=== PATIENT | male | born 1945 | race Caucasian/White ===

== ENCOUNTER 2016-03-23 16:21 | Inpatient (IN) ==
[2016-03-23 17:22] LABS: Basophils % 0.5 %; Immature Granulocytes % 0.2 % (0-4)
[2016-03-23 17:24] LABS: Eosinophils # 0.1 K/mcL (0.0-0.6); Eosinophils % 1.7 %; Hematocrit 40.7 % (37.5-50.1); Hemoglobin 13.8 g/dL (12.9-16.9); Immature Platelets 5.9 % (1.1-6.1); Lymphocytes # 0.7 K/mcL (0.6-4.6); Lymphocytes % 16.7 %; Mean Corpuscular HGB Conc 33.9 g/dL (31.6-35.5); Mean Corpuscular Volume 103.3 fL (83.0-100.0); Mean Platelet Volume 11.3 fL (9.4-12.4); Monocytes # 0.4 K/mcL (0.0-1.3); Monocytes % 10.3 %; Neutrophils # 2.9 K/mcL (1.6-8.9); Red Blood Count 3.94 M/mcL (4.19-5.50); Segmented Neutrophils % 70.6 %
[2016-03-23 17:33] LABS: BUN/Creatinine Ratio 12 (6-26); Blood Urea Nitrogen 9 mg/dL (8-26); Carbon Dioxide 24 mEq/L (19-29); Chloride 106 mEq/L (98-109); Glucose 98 mg/dL (70-99); Potassium 4.4 mEq/L (3.5-4.5); Sodium 140 mEq/L (136-145); eGFR For African Americans > 60 (> 60); eGFR For Non-African Americans > 60 (> 60)
[2016-03-23 17:34] LABS: Calcium 9.3 mg/dL (8.6-10.8); Osmolality,Calculated 289 (280-300)
[2016-03-23 17:39] LABS: INR 1.5
[2016-03-23 17:42] LABS: Platelet Count 76 K/mcL (140-400)
[2016-03-23 17:43] LABS: Platelet Estimate Decreased (Normal)
[2016-03-23 21:32] LABS: Amphetamine Screen,Urine Negative ng/mL (Cutoff=1000); Barbiturate Screen,Urine Negative ng/mL (Cutoff=200); Benzodiazepines Screen,Urine Negative ng/mL (Cutoff=200); Cannabinoid Screen,Urine Negative ng/mL (Cutoff = 50); Cocaine Screen,Urine Negative ng/mL (Cutoff= 300); Opiate Screen,Urine Negative ng/mL (Cutoff=300); Phencyclidine Screen,Urine Negative ng/mL (Cutoff=25)
[2016-03-23] MEDS ORDERED: Naloxone 0.4 MG/ML INJ IVP PRN (21:49)
[2016-03-23] MEDS ORDERED: Ondansetron ODT 4 MG TAB.RAPDIS SL PRN (21:49)
[2016-03-23] MEDS ORDERED: *HR* Morphine 2 MG/ML SYRINGE IVP PRN (21:49)
--- NOTE | 2016-03-23 21:49 | Internal Med History&Physical ---
Date of Encounter: 03/24/16 Time of Encounter: 21:20 Assessment and Plan (1) Chest pain Current visit: Yes Status: Acute Patient describes chronic chest pain that was not relieved with aspirin earlier today Continue with aspirin and start on morphine and Lipitor Holding off on beta blockers as he is borderline bradycardic Obtain echocardiogram and lipid panel and trend troponins His chest pain may be explained by his possible underlying aortic stenosis CTA did not show any sign of aortic dissection or pulmonary embolism Qualifiers: Chest pain type: unspecified Qualified Code(s): R07.9 - Chest pain, unspecified (2) Systolic murmur Current visit: Yes Status: Acute Patient has a harsh systolic murmur that was unknown to him prior to today Likely aortic stenosis given presentation: loudest at the right sternal border, SOB/pain with exertion, fatigue/feeling faint Will order echocardiogram for further assessment (3) Mental status change Current visit: Yes Status: Chronic Patient is a poor historian and is unable to clearly describe his mental status changes will rule out metabolic etiology with folate, B12, TSH levels for now Initial head CT has been negative Qualifiers: Qualified Code(s): R41.82 - Altered mental status, unspecified (4) DVT prophylaxis Current visit: Yes Status: Acute Heparin 5000 units twice a day Internal Medicine - H&P: HPI Chief complaint: chest pain, shortness of breath Admitted From: Home Plans for Post Hospital Care: Home History of present illness: Mr. Villa is a 71 year old male who presents with chest pain and shortness of breath that has been intermittent for the last year. Patient admits that he has not seen a doctor in at least 5 years. He is a poor historian, but his brother is at bedside and is able to assist with some of the history. He is unsure of the initial episode of chest pain but states that it worsens with exertion and he also developed some shortness of breath. He repeatedly mentions having "spells where he becomes confused and also has blurry vision. He has never been worked up for chest pain or any of these spells but states that his vision has been worsening over the past week. He denies having any falls but does state he gets lightheaded and needs to sit down during these episodes. He said that he had aspirin earlier today and it did not help. Patient states that he has had 25-30 pounds of weight loss over the past 2-3 months without trying, and claims that he has difficulty digesting fatty and greasy foods though he denies any diarrhea or vomiting. Past Med Surg Social Fam HX - Past Medical History Medical history: non-contributory, other Psychiatric history: no psych history - Social History Smoking Status: Never smoker Smokeless Tobacco Status: No Alcohol use: none Drug use: none Internal Medicine - H&P: Meds Allergies Sulfa (Sulfonamide Antibiotics) Allergy (Verified 03/23/16 20:40) Hives All Systems PM: A 10-system review of systems was performed and is negative for pertinent findings except as documented above in the HPI. - Constitutional Constitutional: lethargy, weight loss, no chills, no fever(s), no falls, no night sweats - EENT Eyes: diplopia, no change in vision, no discharge, no pain, no photophobia Ears: no ear discharge, no ear pain, no tinnitus Nose, mouth and throat: no dysphagia, no nasal discharge, no neck pain, no sore throat - Cardiovascular Cardiovascular ROS IM: chest pain, dyspnea, dyspnea on exertion, lightheadedness , no diaphoresis, no palpitations, no syncope - Respiratory Respiratory: dyspnea, dyspnea on exertion, no cough, no wheezing, no excessive phlegm production - Gastrointestinal Gastrointestinal: no abdominal pain, no diarrhea, no hematemesis, no hematochezia, no melena, no nausea, no vomiting - Musculoskeletal Musculoskeletal ROS IM: numbness, tingling - Integumentary Integumentary IM: no rash, no unusual bruising - Neurological Neurological ROS: confusion, numbness, tingling, no convulsions, no focal weakness, no frequent falls, no tremor(s) - Hematologic/Lymphatic Hematologic/Lymphatic: no easy bruising - Constitutional Vitals: Temp Pulse Resp BP Pulse Ox 97.4 F L 57 16 116/63 100 03/23/16 21:40 03/23/16 21:40 03/23/16 21:40 03/23/16 21:40 03/23/16 21:40 General appearance: Present: A&O X 3, pleasant, no acute distress, answers questions appropriately (poor historian) - Head Head exam: Present: atraumatic, normocephalic - Eye Eye exam: Present: EOMI, PERRL, conjuntiva pink, sclera anicteric - Neck Neck exam general surgery: Present: supple, trachea midline. Absent: lymphadenopathy - Respiratory Respiratory exam: Present: CTAB. Absent: accessory muscle use, rales, rhonchi, wheezes - Cardiovascular Cardiovascular exam: Present: RRR, +S1, +S2, systolic murmur (3/6). Absent: diastolic murmur, gallop, rubs - GI/Abdominal GI/Abdominal exam: Present: normal bowel sounds, soft, no peritoneal signs. Absent: distended, firm, guarding, tenderness - Extremities Exam Extremities exam: Present: warm, radial pulses palpable and symetrical. Absent : calf tenderness, cyanotic, pedal edema - Neurological Exam Neurological exam: Present: alert, CN II-XII intact, oriented X3, no focal deficits. Absent: facial droop, speech deficit - Skin Skin exam: Present: dry, intact Internal Med - H&P Results - Labs CBC & Chem 7: 03/24/16 04:17 03/24/16 04:17
[2016-03-23] MEDS ORDERED: Nitroglycerin 0.4 MG TAB.SUBL SL PRN (21:54)
--- NOTE | 2016-03-23 22:08 | Emergency Department Note ---
Disposition Clinical Impression: Chest pain Qualifiers: Chest pain type: unspecified Qualified Code(s): R07.9 - Chest pain, unspecified Disposition: Home, Self-Care Condition: Good Referrals: NO,PCP [Primary Care Provider] - Forms: ED Satisfaction Letter Chest Pain HPI - General Chief Complaint: ED Chest Pain Stated Complaint: CP, weakness, WHIT Source: patient, EMS Limitations: no limitations Vital Signs Reviewed: Yes Nursing Notes Reviewed: Yes - History of Present Illness HPI Narrative: 71-year-old male who presents with concern for intermittent chest pain as well as dyspnea. History of hypertension. History of hyperlipidemia. No recent stress testing or cardiac catheterization. Chest pain has been intermittent, dyspnea as intermittent. He does not have a buttonhole maker hand. He denies hemoptysis , capping or leg tenderness. He mentioned nonspecific abdominal pain, intermittent diplopia, some coldness in his lower extremities. Severity scale (1-10): 2 - Related Data Allergies Allergy/AdvReac Type Severity Reaction Status Date / Time Sulfa (Sulfonamide Allergy Hives Verified 03/23/16 20:40 Antibiotics) All systems ED: reviewed and negative except as stated. Chest Pain PMH - Past Medical History Medical history: Reports: non-contributory, other Psychiatric history: Reports: no psych history - Social History Smoking Status: Never smoker Alcohol use: Reports: none Drug use: Reports: none Physical Exam Alert and oriented, no acute distress [place] warm and dry TMs clear bilaterally, extraocular muscle movements are normal, pupils equal and reactive to light Trachea midline Cardiovascular exam is without murmur, rub, gallop Pulmonary exam is good inspiratory effort, no rales, no rhonchi, no wheezing Abdominal exam is soft, nontender, no peritonitis Back is without CVA tenderness Extremities are well perfused, no cyanosis, clubbing, edema No neurological deficit, cranial nerves II/12 grossly intact, reflexes 5/5, sensation normal - General Limitations: no limitations General appearance: alert Course Vital Signs Temperature 98.1 F 03/23/16 16:29 Pulse Rate 60 03/23/16 16:29 Respiratory Rate 24 03/23/16 16:29 Blood Pressure 134/69 03/23/16 16:29 O2 Sat by Pulse Oximetry 100 03/23/16 16:29 Temperature 97.4 F L 03/23/16 21:40 Pulse Rate 57 03/23/16 21:40 Respiratory Rate 16 03/23/16 21:40 Blood Pressure 116/63 03/23/16 21:40 O2 Sat by Pulse Oximetry 100 03/23/16 21:40 Oxygen Delivery Oxygen Delivery Room Air Chest Pain - MDM Narrative Medical decision making narrative: Intermittent diplopia, subjective confusion, chest pain nonspecific, nonspecific abdominal pain. Given constitutional symptoms in the setting of coldness and lower extremities as well as possible visual abnormalities I did pursue imaging of the brain which shows no acute findings. I did evaluate his neck to rule out dissection and that shows no evidence of acute occlusion or dissection. His no evidence of aortic dissection and given his coldness in the lower extremities and a pursue the possibility of abdominal dissection with extension into the iliac arteries and this is negative at this time. His cardiac biomarkers are negative. He took aspirin prior to arrival. Nitrates will not be given because of blood pressure being low. EKG is nondiagnostic for STEMI. I did compare his EKG to his previous EKG which shows nonspecific anteriorly changes and no ST segment elevation. He will be admitted to medical surgical floor in stable condition. - Medical Records Medical records reviewed: Yes I reviewed the patient's medical records. - Lab Data Lab results reviewed: Yes I reviewed the patient's lab results. Result diagrams: 03/23/16 17:05 03/23/16 17:05 Lab Results 03/23/16 03/23/16 03/23/16 Range/Units 16:38 17:05 17:05 WBC (4.3-11.1) K/mcL RBC (4.19-5.50) M/mcL Hgb (12.9-16.9) g/dL Hct (37.5-50.1) % MCV (83.0-100.0) fL MCH (28.0-33.3) pg MCHC (31.6-35.5) g/dL RDW (11.5-14.5) % Plt Count (140-400) K/mcL MPV (9.4-12.4) fL Immature Gran % (0-4) % Seg Neutrophils % % Lymphocytes % % Monocytes % % Eosinophils % % Basophils % % Neutrophils # (1.6-8.9) K/mcL Lymphocytes # (0.6-4.6) K/mcL Monocytes # (0.0-1.3) K/mcL Eosinophils # (0.0-0.6) K/mcL Basophils # (0.0-0.2) K/mcL Platelet Estimate (Normal) Immature Plt Fraction (1.1-6.1) % PT (9.4-12.1) Seconds INR APTT (26.0-36.0) Seconds Sodium (136-145) mEq/L Potassium (3.5-4.5) mEq/L Chloride (98-109) mEq/L Carbon Dioxide (19-29) mEq/L BUN (8-26) mg/dL Creatinine (0.72-1.25) mg/dL Est GFR ( Amer) (> 60) Est GFR (Non-Af Amer) (> 60) BUN/Creatinine Ratio (6-26) Glucose (70-99) mg/dL POC Glucose 114 H (58-89) Calculated Osmolality (280-300) Calcium (8.6-10.8) mg/dL Troponin I (0-0.03) ng/mL B-Natriuretic Peptide 527 H (0-100) pg/mL Lipase 38 (8-78) Units/L Urine Opiates Screen (Hvrtsz=264) ng/mL Ur Barbiturates Screen (Ofrdsg=993) ng/mL Ur Phencyclidine Scrn (Cutoff=25) ng/mL Ur Amphetamines Screen (Mcftvt=8701) ng/mL U Benzodiazepines Scrn (Xjjfjr=679) ng/mL Urine Cocaine Screen (Cutoff= 300) ng/mL U Marijuana (THC) Screen (Cutoff = 50) ng/mL 03/23/16 03/23/16 03/23/16 Range/Units 17:05 17:05 17:05 WBC 4.1 L (4.3-11.1) K/mcL RBC 3.94 L (4.19-5.50) M/mcL Hgb 13.8 (12.9-16.9) g/dL Hct 40.7 (37.5-50.1) % MCV 103.3 H (83.0-100.0) fL MCH 35.0 H (28.0-33.3) pg MCHC 33.9 (31.6-35.5) g/dL RDW 13.0 (11.5-14.5) % Plt Count 76 L (140-400) K/mcL MPV 11.3 (9.4-12.4) fL Immature Gran % 0.2 (0-4) % Seg Neutrophils % 70.6 % Lymphocytes % 16.7 % Monocytes % 10.3 % Eosinophils % 1.7 % Basophils % 0.5 % Neutrophils # 2.9 (1.6-8.9) K/mcL Lymphocytes # 0.7 (0.6-4.6) K/mcL Monocytes # 0.4 (0.0-1.3) K/mcL Eosinophils # 0.1 (0.0-0.6) K/mcL Basophils # 0.0 (0.0-0.2) K/mcL Platelet Estimate Decreased L (Normal) Immature Plt Fraction 5.9 (1.1-6.1) % PT (9.4-12.1) Seconds INR APTT (26.0-36.0) Seconds Sodium 140 (136-145) mEq/L Potassium 4.4 (3.5-4.5) mEq/L Chloride 106 (98-109) mEq/L Carbon Dioxide 24 (19-29) mEq/L BUN 9 (8-26) mg/dL Creatinine 0.76 (0.72-1.25) mg/dL Est GFR ( Amer) > 60 (> 60) Est GFR (Non-Af Amer) > 60 (> 60) BUN/Creatinine Ratio 12 (6-26) Glucose 98 (70-99) mg/dL POC Glucose (58-89) Calculated Osmolality 289 (280-300) Calcium 9.3 (8.6-10.8) mg/dL Troponin I 0.01 (0-0.03) ng/mL B-Natriuretic Peptide (0-100) pg/mL Lipase (8-78) Units/L Urine Opiates Screen (Nqlxes=154) ng/mL Ur Barbiturates Screen (Shbrjv=258) ng/mL Ur Phencyclidine Scrn (Cutoff=25) ng/mL Ur Amphetamines Screen (Viciax=1249) ng/mL U Benzodiazepines Scrn (Jjqelq=530) ng/mL Urine Cocaine Screen (Cutoff= 300) ng/mL U Marijuana (THC) Screen (Cutoff = 50) ng/mL 03/23/16 03/23/16 Range/Units 17:24 20:19 WBC (4.3-11.1) K/mcL RBC (4.19-5.50) M/mcL Hgb (12.9-16.9) g/dL Hct (37.5-50.1) % MCV (83.0-100.0) fL MCH (28.0-33.3) pg MCHC (31.6-35.5) g/dL RDW (11.5-14.5) % Plt Count (140-400) K/mcL MPV (9.4-12.4) fL Immature Gran % (0-4) % Seg Neutrophils % % Lymphocytes % % Monocytes % % Eosinophils % % Basophils % % Neutrophils # (1.6-8.9) K/mcL Lymphocytes # (0.6-4.6) K/mcL Monocytes # (0.0-1.3) K/mcL Eosinophils # (0.0-0.6) K/mcL Basophils # (0.0-0.2) K/mcL Platelet Estimate (Normal) Immature Plt Fraction (1.1-6.1) % PT 16.0 H (9.4-12.1) Seconds INR 1.5 APTT 31.0 (26.0-36.0) Seconds Sodium (136-145) mEq/L Potassium (3.5-4.5) mEq/L Chloride (98-109) mEq/L Carbon Dioxide (19-29) mEq/L BUN (8-26) mg/dL Creatinine (0.72-1.25) mg/dL Est GFR ( Amer) (> 60) Est GFR (Non-Af Amer) (> 60) BUN/Creatinine Ratio (6-26) Glucose (70-99) mg/dL POC Glucose (58-89) Calculated Osmolality (280-300) Calcium (8.6-10.8) mg/dL Troponin I (0-0.03) ng/mL B-Natriuretic Peptide (0-100) pg/mL Lipase (8-78) Units/L Urine Opiates Screen Negative (Ndvnzj=019) ng/mL Ur Barbiturates Screen Negative (Hlcorn=302) ng/mL Ur Phencyclidine Scrn Negative (Cutoff=25) ng/mL Ur Amphetamines Screen Negative (Lkbhhk=0463) ng/mL U Benzodiazepines Scrn Negative (Vwgorj=949) ng/mL Urine Cocaine Screen Negative (Cutoff= 300) ng/mL U Marijuana (THC) Screen Negative (Cutoff = 50) ng/mL
[2016-03-23] MEDS ORDERED: ALPRAZolam 0.25 MG TABLET PO ONE (23:35)
[2016-03-24] MEDS ORDERED: 0.9 % Sodium Chloride 1,000 ML IVC SCH (00:30)
[2016-03-24] MEDS ORDERED: *HR* Morphine 2 MG/ML SYRINGE IVP PRN (00:31)
[2016-03-24] MEDS: Melatonin 3 MG TABLET PO PRN ×2 (00:55→20:50)
--- NOTE | 2016-03-24 03:58 | Event Note ---
Date of Encounter: 03/24/16 Time of Encounter: 03:55 Patient seen and examined with medical staff assistant. Patient presents with intermittent chest pain and shortness of breath lightheadedness over the past year. No known history of coronary artery disease. He is having a harsh systolic murmur over the 1st aortic area suggestive of aortic regurge. It is late peaking so I suspect it is at least moderate in severity. I suspect is responsible for his symptoms. Echocardiogram will be performed. Also r/o acute coronary syndrome. Cardiology consultation. Telemetry monitoring. Observation admissison
[2016-03-24 04:27] LABS: Basophils % 0.7 %; Hematocrit 36.7 % (37.5-50.1)
[2016-03-24 04:29] LABS: Eosinophils # 0.1 K/mcL (0.0-0.6); Eosinophils % 2.4 %; Hemoglobin 12.1 g/dL (12.9-16.9); Immature Granulocytes % 0.3 % (0-4); Lymphocytes # 0.9 K/mcL (0.6-4.6); Lymphocytes % 30.8 %; Mean Corpuscular Hemoglobin 34.2 pg (28.0-33.3); Mean Corpuscular Volume 103.7 fL (83.0-100.0); Mean Platelet Volume 10.7 fL (9.4-12.4); Monocytes # 0.3 K/mcL (0.0-1.3); Monocytes % 11.4 %; Neutrophils # 1.6 K/mcL (1.6-8.9); Red Blood Count 3.54 M/mcL (4.19-5.50); Red Cell Distribution Width 13.1 % (11.5-14.5); Segmented Neutrophils % 54.4 %
[2016-03-24 04:35] LABS: Platelet Count 74 K/mcL (140-400)
[2016-03-24 04:54] LABS: Alanine Aminotransferase 17 Units/L (0-55); Albumin 3.5 g/dL (3.5-5.0); Albumin/Globulin Ratio 1.7 (1.1-2.2); Alkaline Phosphatase 58 Units/L (38-126); Aspartate Amino Transferase 21 Units/L (5-34); BUN/Creatinine Ratio 12 (6-26); Bilirubin,Total 0.5 mg/dL (0.2-1.2); Blood Urea Nitrogen 9 mg/dL (8-26); Calcium 8.8 mg/dL (8.6-10.8); Carbon Dioxide 27 mEq/L (19-29); Chloride 108 mEq/L (98-109); Cholesterol 98 mg/dL (< 200); Globulin 2.1 g/dL (2.4-3.5); Glucose 88 mg/dL (70-99); HDL Cholesterol 33 mg/dL (40-59); LDL Cholesterol,Calculated 56 mg/dL (0-99); Osmolality,Calculated 290 (280-300); Potassium 3.9 mEq/L (3.5-4.5); Sodium 141 mEq/L (136-145); Total Protein 5.6 g/dL (6.0-8.3); Triglycerides 46 mg/dL (< 150); eGFR For African Americans > 60 (> 60); eGFR For Non-African Americans > 60 (> 60)
[2016-03-24 05:30] LABS: Folate 11.2 ng/mL (7.0-31.4)
[2016-03-24] MEDS: *HR* Heparin 5,000 UNIT/ML VIAL SQ SCH ×2 (06:14→17:55)
[2016-03-24] MEDS: Aspirin 81 MG TAB.CHEW PO SCH (08:44)
--- NOTE | 2016-03-24 09:56 | Cardiology Consult Note ---
Date of Encounter: 03/24/16 Time of Encounter: 09:30 Assessment and Plan (1) Systolic murmur Current Visit: Yes Status: Acute Per cardiology: -Patient with systolic murmur noted prominently at second intercostal space right sternal border. No previous history of murmur, no previous cardiac work up. (TAY) -Patient with chest pain and shortness of breath on exertion. Suspect aortic stenosis, will await echocardiogram results. (TAY) -BNP noted at 527. (TAY) -Unable to start beta mac due to bradycardia with average heart rate 57. (TAY ) -Unable to start sara inhibitor due to hypotension with latest BP 94/55. (TAY) -Echocardiogram pending. Further recommendations once echocardiogram completed. (TAY) (2) Thoracic ascending aortic aneurysm Current Visit: Yes Status: Acute Per cardiology: -4.4cm thoracic ascending aortic aneurysm noted on CT chest. Patient states no history of aneurysm. (TAY) -Further recommendations once echocardiogram complete. (TAY) (3) Chest pain Current Visit: Yes Status: Acute Per cardiology: -Patient states chronic chest pain that has been intermittent for the past year. Patient states nothing aggravates or relieves pain. (TAY) -ECG with sinus bradycardia. Peaked T waves noted in V2, V3, and V4, slightly more prominent than previously ECG from 1998. (TAY) -Troponins negative x3. (TAY) -Currently chest pain free. (TAY) -Recommend adding beta mac and sara inhibitor once patient's BP and heart rate will tolerate. (TAY) -Further recommendations once echocardiogram complete. (TAY) Qualifiers: Chest pain type: unspecified Qualified Code(s): R07.9 - Chest pain, unspecified (4) Pancytopenia Current Visit: Yes Status: Acute Per cardiology: - On 03/24/16 WBC noted 2.9, HGB 12.1, PLT 74. (TAY) -Patient states no history of bleeding disorders or issues with labs. Patient states has never seen a orbitread operator. (TAY) -Recommend consulting hematology per primary service for recommendations regarding pancytopenia. (TAY) Discussion w patient/family: The assessment and plan as outlined above was discussed with the patient who expressed understanding and agreement. All questions were answered. Thank you for involving us in the care of your patient. Please call with any questions. Discussed and reviewed with . History of Present Illness Consult date: 03/24/16 Requesting physician: Freddy Goodson Consult reason: Chest pain, Aortic stenosis Chief complaint: Chest pain, numbness in hands and feet. History of present illness: Mr. Villa is a 71 year old male who presented to [facility] with compaints of chest pain, numbness in hands and feet, and blurred vision. Patient states he has also had increased shortness of breath. Patient states he has had these symptoms for a year and has not been seen by a provider for these issues. Patient states the last time he was seen by a provider was 5 years ago. Patient denies current chest pain. Patient states chest pain was at rest and pain resolved without intervention. Patient states this chest pain has been intermittent for the last year. Patient states he has over the last couple of months lost 25-30 pounds without trying. Patient denies ever being told he has a murmur and denies any cardiac history. Patient states he has never seen a twill cutter prior. (TAY) Past Med Surg Social Fam HX - Past Medical History Medical history: non-contributory, other Psychiatric history: no psych history - Social History Smoking Status: Never smoker Smokeless Tobacco Status: No Alcohol use: none Drug use: none Medications and Allergies Ascorbate Calcium [Vitamin C] 500 mg PO DAILY 03/24/16 [History] Calcium Carbonate [Calcium] 600 mg PO DAILY 03/24/16 [History] Cyanocobalamin (Vitamin B-12) [Vitamin B-12] 1,000 mcg SL DAILY 03/24/16 [ History] Magnesium 200 mg PO DAILY 03/24/16 [History] Allergies Sulfa (Sulfonamide Antibiotics) Allergy (Verified 03/24/16 09:06) Hives patient states childhood reaction All Systems Review: A 10-system review of systems was performed and is negative for pertinent findings except as documented above in the HPI. - Constitutional Constitutional: fatigue, weight loss - EENT Eyes: blurred vision - Cardiovascular Cardiovascular: chest pain at rest, dyspnea on exertion - Respiratory Respiratory: dyspnea - Neurological Neurological: numbness Physical Examination Vital Signs, Last 4 Hours Temp Pulse Resp BP Pulse Ox 03/24/16 07:58 97.4 F L 55 15 94/55 99 General: Conversant, No Apparent Distress HEENT: Atraumatic, Normocephaly, Mucus Membranes Moist Neck: No JVD Cardiac: Reg Rate and Rhythm, Normal S1 and S2, Other (Systolic murmur noted at second intercostal space, right sternal border. ) Lungs: Normal Breath Sounds, No Wheeze, Rales, Rhonchi Neuro: Alert and responsive, No focal deficits noted Abdomen: Soft, Non-Tender Skin: No rashes noted on visualized skin Musculoskeletal: No Chest Wall Tenderness Extremities: No Clubbing, No Cyanosis, No Edema, Normal Pulses Results 03/24/16 04:17 03/24/16 04:17 Lab Results 03/23/16 03/24/16 03/24/16 22:53 04:17 04:17 WBC Hgb Hct Plt Count Sodium 141 Potassium 3.9 Chloride 108 Carbon Dioxide 27 BUN 9 Creatinine 0.75 Glucose 88 Calcium 8.8 Total Bilirubin 0.5 AST 21 ALT 17 Alkaline Phosphatase 58 Troponin I 0.02 0.02 TSH 03/24/16 03/24/16 04:17 04:17 WBC 2.9 L Hgb 12.1 L D Hct 36.7 L Plt Count 74 L Sodium Potassium Chloride Carbon Dioxide BUN Creatinine Glucose Calcium Total Bilirubin AST ALT Alkaline Phosphatase Troponin I TSH 2.448 - Imaging and Cardiology Chest Xray: pending Echo: pending Other Results: CTA chest reviewed. - EKG Interpretation EKG results cardiology: personally reviewed (ECG noted with peaked T waves in leads V2, V3, and V4 which are slightly more prominent than last ECG from 1998.) , sinus rhythm, other (Telemtry reviewed and noted sinus bradycardia with average heart rate 57. Minimum heart rate 47. One episode of PSVT of 6 beats. Occasional PVCs noted.) Consult Discharge Plan - Plan Referrals: NO,PCP [Primary Care Provider] -
--- NOTE | 2016-03-24 12:46 | Internal Med Progress Note ---
<Brayden Mason - Last Filed: 03/24/16 12:39> Date of Encounter: 03/24/16 Time of Encounter: 12:41 - Assessment and plan (1) Chest pain Current Visit: Yes Status: Acute Assessment and plan: Curently the patient is chest pain free. difficult to asses whether typical or atypical as patient unsure about exacerbating and alleviating factors. Troponins Negative X 3 No acute EKG findings. Concerns for possible valvular etiology as he has a new murmur. He has palpable carotid pulses but they seem a bit diminished. No obvious pulsus parvus et tardus. Will need to r/o Severe prior to stress testing. If severe will likely need LHC and referrel to CT surgery. Will defer to cardiology and appreciate their recommendations. Qualifiers: Chest pain type: unspecified Qualified Code(s): R07.9 - Chest pain, unspecified (2) Thoracic ascending aortic aneurysm Current Visit: Yes Status: Acute Assessment and plan: Ascending Aorta 4.4 cm No Beta mac at this time as there is no sign of dissection on CT and he has been bradycardic. follow up with echocardiogram results. will need to be followed as an outpatient as well. (3) Pancytopenia Current Visit: Yes Status: Acute Assessment and plan: etiology unclear. However concerning as he also admits to weight loss. ANC 1600 so he is not neutropenic at this time. With complaints of intermittent RUQ pain may consider early cirrhosis. However albumin is normal and has no obvious stigmata of cirrhosis. INR elevated 1.5 Will consider Us of liver . May need to consider Hematology consult if etiology is unclear. (4) Systolic murmur Current Visit: Yes Status: Acute Assessment and plan: as stated above. F/U with echo. (5) Mental status change Current Visit: Yes Status: Chronic Assessment and plan: patient is now alert and orientated. However he is a poor historian and unsure about his medical history. Qualifiers: Qualified Code(s): R41.82 - Altered mental status, unspecified (6) Weight loss Current Visit: Yes Status: Acute Assessment and plan: patient reports 25 pound weight loss over past 2-3 months. He states this is unintentional No night sweats or lymphadenopathy current weight is entered incorrectly. He has a weight of 147 Kg but this must be entered incorrectly as he appears underweight. I have asked Nursing staff to weigh him again. (7) DVT prophylaxis Current Visit: Yes Status: Acute Assessment and plan: SQ heparin - Subjective Interval history: No major events overnight. Patient states that he is chest pain free. He states that when he bourne have chest pain that it is midsternal and will radiate to the left arm. He thinks that it is brought on by walking but unsure. He reports having spells where his arems and legs will get numb , blurred vision and gerard dizzyness. He states the last epsiode was 1-2 days ago. He has not had any today. He dose associate his chest pains symptoms with eating greasy foods. He states that he will often get liver or gallbladder pain after eating fatty foods. He also admits to weight loss. He states that he thinks he has lost 25 pounds in the last 2 moths. He denies night sweats. He is unsure if he has had his routine cancer screenng. Of note he is somewhat a poor historian as he is unsure of some of his medicla history. He has no further complaints at this time. - Constitutional Vitals: Temp Pulse Resp BP Pulse Ox 97.6 F 51 16 91/49 100 03/24/16 11:44 03/24/16 11:44 03/24/16 11:44 03/24/16 11:44 03/24/16 11:44 General appearance: Present: A&O X 3, pleasant, no acute distress, underweight, answers questions appropriately (poor historian) Exam: thin - Head Head exam: Present: atraumatic, normal inspection, normocephalic - Eye Eye exam: Present: PERRL, conjuntiva pink, sclera anicteric Pupils: Present: PERRL - ENT ENT exam: Present: mucous membranes moist - Neck Neck exam general surgery: Present: supple, trachea midline. Absent: lymphadenopathy - Respiratory Respiratory exam: Present: CTAB. Absent: accessory muscle use, rales, rhonchi, wheezes - Cardiovascular Cardiovascular exam: Present: RRR, +S1, +S2, systolic murmur (He has a 3/6 ( no palpable thrill) systolic ejection murmur that radiates into the neck. the carotid pulses are palpble but fill diminished. No obvious pulsus parvus et tardus. ). Absent: diastolic murmur, gallop, rubs - GI/Abdominal GI/Abdominal exam: Present: normal bowel sounds, soft, no peritoneal signs. Absent: distended, tenderness - Extremities Exam Extremities exam: Present: warm, radial pulses palpable and symetrical. Absent : calf tenderness, cyanotic, pedal edema Internal Medicine: Result - Labs CBC & Chem 7: 03/24/16 04:17 03/24/16 04:17 Labs: Short CBC 03/24/16 Range/Units 04:17 WBC 2.9 L (4.3-11.1) K/mcL Hgb 12.1 L D (12.9-16.9) g/dL Hct 36.7 L (37.5-50.1) % Plt Count 74 L (140-400) K/mcL Neutrophils # 1.6 (1.6-8.9) K/mcL BMP 03/24/16 04:17 Sodium 141 Potassium 3.9 Chloride 108 Carbon Dioxide 27 BUN 9 Creatinine 0.75 Glucose 88 Calcium 8.8 Cardiac Enzymes 03/23/16 03/24/16 Range/Units 22:53 04:17 Troponin I 0.02 0.02 (0-0.03) ng/mL Liver Function 03/24/16 Range/Units 04:17 Total Bilirubin 0.5 (0.2-1.2) mg/dL AST 21 (5-34) Units/L ALT 17 (0-55) Units/L Alkaline Phosphatase 58 (38-126) Units/L Albumin 3.5 (3.5-5.0) g/dL - ABG Interpretation ABG results: PT/INR, D-dimer PT 16.0 Seconds (9.4-12.1) H 03/23/16 17:24 Consult Discharge Plan - Plan Referrals: NO,PCP [Primary Care Provider] - <Rajiv Bullock H - Last Filed: 03/24/16 14:56> Date of Encounter: 03/24/16 - Constitutional Vitals: Temp Pulse Resp BP Pulse Ox 97.6 F 51 16 91/49 100 03/24/16 11:44 03/24/16 11:44 03/24/16 11:44 03/24/16 11:44 03/24/16 11:44 Internal Medicine: Result - Labs CBC & Chem 7: 02/14/17 04:17 03/24/16 04:17 Labs: Short CBC 03/24/16 Range/Units 04:17 WBC 2.9 L (4.3-11.1) K/mcL Hgb 12.1 L D (12.9-16.9) g/dL Hct 36.7 L (37.5-50.1) % Plt Count 74 L (140-400) K/mcL Neutrophils # 1.6 (1.6-8.9) K/mcL BMP 03/24/16 04:17 Sodium 141 Potassium 3.9 Chloride 108 Carbon Dioxide 27 BUN 9 Creatinine 0.75 Glucose 88 Calcium 8.8 Cardiac Enzymes 03/23/16 03/24/16 Range/Units 22:53 04:17 Troponin I 0.02 0.02 (0-0.03) ng/mL Liver Function 03/24/16 Range/Units 04:17 Total Bilirubin 0.5 (0.2-1.2) mg/dL AST 21 (5-34) Units/L ALT 17 (0-55) Units/L Alkaline Phosphatase 58 (38-126) Units/L Albumin 3.5 (3.5-5.0) g/dL - ABG Interpretation ABG results: PT/INR, D-dimer PT 16.0 Seconds (9.4-12.1) H 03/23/16 17:24 - Attending Attestation Echogram showed an ejection fraction of 65-70%, moderate concentric left ventricular hypertrophy and severe left ventricle diastolic dysfunction, also severely calcified aortic valve stenosis/bicuspid with mild to moderate aortic regurgitation and an aortic valve area of 0.7 cm Stress test tomorrow per cardiology, recommendations are appreciated regarding possible thoracic surgery consult versus transfer I examined this patient and my medical decision-making was reviewed with the COMMERCIAL ACCOUNT OFFICER/PA/Advanced Practice Nurse/Resident Physician. I agree with the documented findings, disposition and treatment plan as described except to the extent set forth below.
--- NOTE | 2016-03-24 13:29 | ECHO - Doppler Report ---
Echocardiogram Name: Bill Villa Date of Study: 03/24/2016 Date: 1945 Ht: 74.0 in Medical Record#: [id number] Age: 71 Wt: 140.0 lb Gender: Male BSA: 1.87 Order #: [id number] Location: [facility] Room #: 3B35 Reading Physician: Raj Short MD, [facility] Behavioral Health Tech: Margarito Sadler RN Ordering Physician: Dino Marie DO Primary Physician: None Indications: Chest pain, Shortness of breath, Murmur Impressions: Normal left ventricular size and systolic function, LVEF 65-70%. Moderate concentric left ventricular hypertrophy. Severe left ventricular diastolic dysfunction. Normal right ventricular size and function. Moderately dilated left atrium. Moderately dilated right atrium. Severely calcified aortic valve. Valve appears bicuspid with fusion of left and right coronary cusps. Severe aortic stenosis. Peak velocity 4.64 m/sec, mean gradient 49 mmHg, aortic valve area 0.72 cm2. Mild-moderate aortic regurgitation (eccentric, directed toward anterior mitral valve leaflet). Mild tricuspid regurgitation. Mild mitral regurgitation. No evidence of pulmonary hypertension. Recommend cardiology consultation. Left Ventricular Wall Motion: Rest Echo Findings All wall segments showed normal motion. Findings: Study Quality * Technically adequate exam. ECG Findings * Sinus bradycardia. Left Ventricle * Normal left ventricular size and systolic function, LVEF 65-70%. * Moderate concentric left ventricular hypertrophy. * Severe left ventricular diastolic dysfunction. Right Ventricle * Normal right ventricular size and function. Left Atrium * Moderately dilated left atrium. Right Atrium * Moderately dilated right atrium. Aorta * Normally sized aortic root. Pericardium * There is a trivial pericardial effusion present. IVC * Normal IVC dimensions and inspiratory collapse. Aortic Valve * Severely calcified aortic valve. Valve appears bicuspid with fusion of left and right coronary cusps. * Severe aortic stenosis. Peak velocity 4.64 m/sec, mean gradient 49 mmHg, aortic valve area 0.72 cm2. * Mild-moderate aortic regurgitation (eccentric, directed toward anterior mitral valve leaflet). Tricuspid Valve * Normal tricuspid valve structure. * No tricuspid stenosis. * Mild tricuspid regurgitation. * No evidence of pulmonary hypertension. Pulmonic Valve * Pulmonic valve is not well visualized. * No pulmonic stenosis. * Trace pulmonic regurgitation. Mitral Valve * Mild mitral annular calcification * No mitral stenosis. * Mild mitral regurgitation. History Family History of CAD Measurements: BP: 94/ 55 2D Normal Values RVIDd: 2.80 cm IVSd: 1.50 cm 0.6 - 1.0 cm LVIDd: 5.00 cm 3.7 - 5.6 cm LVPWd: 1.50 cm 0.6 - 1.1 cm LVIDs: 2.90 cm 1.5 - 3.6 cm AO: 3.70 cm < 4.0 cm %FS: 42.00 cm >25 % LVOT Diam: 2.00 cm LA volume: 74 Mitral Valve Peak E:.93 m/sec Peak A:.37 m/sec E/A Ratio:2.5 Peak E' Lat Darryl:5.75 cm/s Peak E' Med Draryl:5.46 cm/s E/E' Lat Ratio:16.1 E/E' Med Ratio:16.9 Aortic Valve Peak Darryl:4.64 m/sec Peak Grad:86.00 mmHg Mean Grad:49.00 mmHg Valve Area:.72 cm2 Tricuspid Valve TV Regurg Peak Grad: 29.00mmHg TV Regurg Peak Darryl: 2.67m/sec Updated by Raj Short MD, [facility] on 03/24/2016 1:21:43 PM electronically signed on 03/24/2016 1:23:28 PM with status of Final Wall Motion Regan: 1=Normal, 2=Hypokinesis, 3=Akinesis, 4=Dyskinesis, 5=Aneurysmal, 6=Hyperkinetic, X=Not Visualized (Blank)=Missing
--- NOTE | 2016-03-24 14:07 | Cardiology Consult Note ---
<Sergio Lyles R - Last Filed: 03/24/16 14:05> Date of Encounter: 03/24/16 Time of Encounter: 14:05 Assessment and Plan (1) Systolic murmur Current Visit: Yes Status: Acute Per cardiology: -Patient with systolic murmur noted prominently at second intercostal space right sternal border. No previous history of murmur, no previous cardiac work up. (TAY) -Patient with chest pain and shortness of breath on exertion. Suspect aortic stenosis, will await echocardiogram results. (TAY) -BNP noted at 527. (TAY) -Unable to start beta mac due to bradycardia with average heart rate 57. (TAY ) -Unable to start sara inhibitor due to hypotension with latest BP 94/55. (TAY) -Echocardiogram pending. Further recommendations once echocardiogram completed. (TAY) (2) Chest pain Current Visit: Yes Status: Acute Per cardiology: -Patient states chronic chest pain that has been intermittent for the past year. Patient states nothing aggravates or relieves pain. (TAY) -ECG with sinus bradycardia. Peaked T waves noted in V2, V3, and V4, slightly more prominent than previously ECG from 1998. (TAY) -Troponins negative x3. (TAY) -Currently chest pain free. (TAY) -Recommend adding beta mac and sara inhibitor once patient's BP and heart rate will tolerate. (TAY) -Further recommendations once echocardiogram complete. (TAY) Qualifiers: Chest pain type: unspecified Qualified Code(s): R07.9 - Chest pain, unspecified (3) Pancytopenia Current Visit: Yes Status: Acute Per cardiology: - On 03/24/16 WBC noted 2.9, HGB 12.1, PLT 74. (TAY) -Patient states no history of bleeding disorders or issues with labs. Patient states has never seen a biomedical engineering professor. (TAY) -Recommend consulting hematology per primary service for recommendations regarding pancytopenia. (TAY) (4) Thoracic ascending aortic aneurysm Current Visit: Yes Status: Acute Per cardiology: -4.4cm thoracic ascending aortic aneurysm noted on CT chest. Patient states no history of aneurysm. (TAY) -Further recommendations once echocardiogram complete. (TAY) Discussion w patient/family: The assessment and plan as outlined above was discussed with the patient and/or family members who expressed understanding and agreement. All questions were answered. Thank you for involving us in the care of your patient. Please call with any questions. I, Sergio Lyles CNP saw and evaluated pt with Antoinette Lovett CNP and agree with above. I will discuss all the above with Dr. Carpenter and make changes as necessary. History of Present Illness Consult date: 03/24/16 Requesting physician: Freddy Goodson Consult reason: systolic murmur Chief complaint: chest pain History of present illness: Mr. Villa is a 71 year old male who presented to [place] with compaints of chest pain, numbness in hands and feet, and blurred vision. Patient states he has also had increased shortness of breath. Patient states he has had these symptoms for a year and has not been seen by a provider for these issues. Patient states the last time he was seen by a provider was 5 years ago. Patient denies current chest pain. Patient states chest pain was at rest and pain resolved without intervention. Patient states this chest pain has been intermittent for the last year. Patient states he has over the last couple of months lost 25-30 pounds without trying. Patient denies ever being told he has a murmur and denies any cardiac history. Patient states he has never seen a account retention representative prior. (TAY) Past Med Surg Social Fam HX - Past Medical History Medical history: non-contributory, other Psychiatric history: no psych history - Social History Smoking Status: Never smoker Smokeless Tobacco Status: No Alcohol use: none Drug use: none Medications and Allergies Ascorbate Calcium [Vitamin C] 500 mg PO DAILY 03/24/16 [History] Calcium Carbonate [Calcium] 600 mg PO DAILY 03/24/16 [History] Cyanocobalamin (Vitamin B-12) [Vitamin B-12] 1,000 mcg SL DAILY 03/24/16 [ History] Magnesium 200 mg PO DAILY 03/24/16 [History] Allergies Sulfa (Sulfonamide Antibiotics) Allergy (Verified 03/24/16 09:06) Hives patient states childhood reaction All Systems Review: A 10-system review of systems was performed and is negative for pertinent findings except as documented above in the HPI. - Constitutional Constitutional: fatigue, weight loss - Cardiovascular Cardiovascular: dyspnea at rest, dyspnea on exertion - Respiratory Respiratory: dyspnea Physical Examination Vital Signs, Last 4 Hours Temp Pulse Resp BP Pulse Ox 03/24/16 11:44 97.6 F 51 16 91/49 100 Vital Signs Temp Pulse Resp BP Pulse Ox 03/24/16 11:44 97.6 F 51 16 91/49 100 03/24/16 07:58 97.4 F L 55 15 94/55 99 03/24/16 03:54 97.3 F L 62 16 108/53 100 03/24/16 00:06 97.8 F 89 15 91/48 94 L 03/23/16 21:40 97.4 F L 57 16 116/63 100 03/23/16 20:50 20 110/61 03/23/16 20:30 58 20 110/61 100 03/23/16 19:07 60 20 102/54 100 03/23/16 18:30 59 20 108/59 100 03/23/16 17:00 57 22 117/63 100 03/23/16 16:41 100 03/23/16 16:29 98.1 F 60 24 134/69 100 Intake and Output 03/23/16 03/24/16 03/24/16 23:59 07:59 15:59 Intake Total 0 / 0 360 / 360 Output Total 700 / 700 350 / 350 Balance -700 / -700 10 Intake: Oral 0 / 0 360 / 360 Output: Urine 700 / 700 350 / 350 Other: Meal Lunch Percent of Meal Consumed 100% Stool Characteristics Normal for Patient Stool Color Brown Weight 67 kg 147 kg 67.3 kg Blood Glucose* 114 Patient Weight 03/24/16 23:59 Weight 67.3 kg General: Conversant, No Apparent Distress HEENT: Atraumatic, Normocephaly, Mucus Membranes Moist Neck: No JVD, Normal carotid pulses Cardiac: Reg Rate and Rhythm, Normal S1 and S2, Other (systolic murmur noted) Lungs: Normal Breath Sounds, No Wheeze, Rales, Rhonchi Neuro: Alert and responsive, No focal deficits noted Abdomen: Soft, Non-Tender Skin: No rashes noted on visualized skin Musculoskeletal: No Chest Wall Tenderness Extremities: No Clubbing, No Cyanosis, No Edema, Normal Pulses Results 03/24/16 04:17 03/24/16 04:17 Lab Results 03/23/16 03/24/16 03/24/16 22:53 04:17 04:17 WBC Hgb Hct Plt Count Sodium 141 Potassium 3.9 Chloride 108 Carbon Dioxide 27 BUN 9 Creatinine 0.75 Glucose 88 Calcium 8.8 Total Bilirubin 0.5 AST 21 ALT 17 Alkaline Phosphatase 58 Troponin I 0.02 0.02 TSH 03/24/16 03/24/16 04:17 04:17 WBC 2.9 L Hgb 12.1 L D Hct 36.7 L Plt Count 74 L Sodium Potassium Chloride Carbon Dioxide BUN Creatinine Glucose Calcium Total Bilirubin AST ALT Alkaline Phosphatase Troponin I TSH 2.448 Short CBC 03/24/16 03/23/16 Range/Units 04:17 17:05 WBC 2.9 L 4.1 L (4.3-11.1) K/mcL Hgb 12.1 L D 13.8 (12.9-16.9) g/dL Hct 36.7 L 40.7 (37.5-50.1) % Plt Count 74 L 76 L (140-400) K/mcL Neutrophils # 1.6 2.9 (1.6-8.9) K/mcL BMP 03/24/16 03/23/16 Range/Units 04:17 17:05 Sodium 141 140 (136-145) mEq/L Potassium 3.9 4.4 (3.5-4.5) mEq/L Chloride 108 106 (98-109) mEq/L Carbon Dioxide 27 24 (19-29) mEq/L BUN 9 9 (8-26) mg/dL Creatinine 0.75 0.76 (0.72-1.25) mg/dL Glucose 88 98 (70-99) mg/dL Calcium 8.8 9.3 (8.6-10.8) mg/dL Cardiac Enzymes 03/24/16 03/23/16 03/23/16 Range/Units 04:17 22:53 17:05 Troponin I 0.02 0.02 0.01 (0-0.03) ng/mL Liver Function 03/24/16 Range/Units 04:17 Total Bilirubin 0.5 (0.2-1.2) mg/dL AST 21 (5-34) Units/L ALT 17 (0-55) Units/L Alkaline Phosphatase 58 (38-126) Units/L Albumin 3.5 (3.5-5.0) g/dL Impressions Aorta w/Runoff CTA 03/23/16 16:51 IMPRESSION: 1. No aortic dissection or other acute vascular abnormality. 2. No acute process in the chest. 3. Ectasia of the ascending thoracic aorta with mild thoracic aortic atherosclerotic vascular disease. Dense aortic valvular calcifications. 4. Small volume of nonspecific free fluid in the pelvis. 5. Three-vessel runoff in the bilateral lower extremities with mild atherosclerotic vascular disease. D/ / Nathan Gabriel MD / Nathan Gabriel MD Interpreting Provider: Nathan Gabriel MD Chest X-Ray 03/23/16 16:51 IMPRESSION: No acute cardiopulmonary disease. D/ / Javi Mitchell MD / Javi Mitchell MD Interpreting Provider: Javi Mitchell MD Head CT 03/23/16 16:51 IMPRESSION: No acute intracranial abnormality. D/ / Wilver Kurtz MD / Wilver Kurtz MD Interpreting Provider: Wilver Kutrz MD Chest CTA 03/23/16 17:24 IMPRESSION: 1. No aortic dissection or other acute vascular abnormality. 2. No acute process in the chest. 3. Ectasia of the ascending thoracic aorta with mild thoracic aortic atherosclerotic vascular disease. Dense aortic valvular calcifications. 4. Small volume of nonspecific free fluid in the pelvis. 5. Three-vessel runoff in the bilateral lower extremities with mild atherosclerotic vascular disease. D/ / Nathan Gabriel MD / Nathan Gabriel MD Interpreting Provider: Nathan Gabriel MD Active Medications Acetaminophen (Tylenol) 650 mg PO Q6HR PRN PRN Reason: Mild Pain (1-3) Stop: 09/22/16 21:50 Aspirin (Aspirin) 81 mg PO DAILY DEBI Stop: 09/23/16 09:01 Last Admin: 03/24/16 08:44 Dose: 81 mg Atorvastatin Calcium (Lipitor) 40 mg PO HS DEBI Stop: 09/23/16 21:01 Heparin Sodium (Porcine) (Heparin) 5,000 unit SQ Q12HCO DEBI Stop: 09/23/16 07:01 Last Admin: 03/24/16 06:14 Dose: 5,000 unit Melatonin (Melatonin) 3 mg PO HS PRN PRN Reason: Insomnia Stop: 09/22/16 23:27 Last Admin: 03/24/16 00:55 Dose: 3 mg Morphine Sulfate (Morphine Sulfate) 1 mg IVP Q4HR PRN PRN Reason: Severe Pain (7-10) Stop: 09/22/16 21:50 Naloxone HCl (Narcan) 0.4 mg IVP Q2MIN PRN PRN Reason: Opioid Reversal Stop: 09/22/16 21:50 Omeprazole (Prilosec) 40 mg PO DAILY@0630 DEBI PRN Reason: Protocol Stop: 09/23/16 06:31 Last Admin: 03/24/16 06:14 Dose: 40 mg Ondansetron HCl (Zofran Odt) 4 mg SL Q8HR PRN PRN Reason: Nausea And Vomiting Stop: 09/22/16 21:50 - Imaging and Cardiology Chest Xray: report reviewed Echo: pending - EKG Interpretation EKG results cardiology: personally reviewed Consult Discharge Plan - Plan Referrals: NO,PCP [Primary Care Provider] - <Rajiv Bullock - Last Filed: 03/24/16 14:54> Date of Encounter: 03/24/16 Assessment and Plan Discussion w patient/family: The assessment and plan as outlined above was discussed with the patient and/or family members who expressed understanding and agreement. All questions were answered. Thank you for involving us in the care of your patient. Please call with any questions. History of Present Illness History of present illness: Mr. Villa is a 71 year old male All Systems Review: A 10-system review of systems was performed and is negative for pertinent findings except as documented above in the HPI. Physical Examination Vital Signs, Last 4 Hours Temp Pulse Resp BP Pulse Ox 03/24/16 11:44 97.6 F 51 16 91/49 100 Results 03/24/16 04:17 03/24/16 04:17 Lab Results 03/23/16 03/24/16 03/24/16 22:53 04:17 04:17 WBC Hgb Hct Plt Count Sodium 141 Potassium 3.9 Chloride 108 Carbon Dioxide 27 BUN 9 Creatinine 0.75 Glucose 88 Calcium 8.8 Total Bilirubin 0.5 AST 21 ALT 17 Alkaline Phosphatase 58 Troponin I 0.02 0.02 TSH 03/24/16 03/24/16 04:17 04:17 WBC 2.9 L Hgb 12.1 L D Hct 36.7 L Plt Count 74 L Sodium Potassium Chloride Carbon Dioxide BUN Creatinine Glucose Calcium Total Bilirubin AST ALT Alkaline Phosphatase Troponin I TSH 2.448 - Attending Attestation Echogram showed an ejection fraction of 65-70%, moderate concentric left ventricular hypertrophy and severe left ventricle diastolic dysfunction, also severely calcified aortic valve stenosis/bicuspid with mild to moderate aortic regurgitation and an aortic valve area of 0.7270 cm Stress test tomorrow per cardiology, recommendations are appreciated regarding possible thoracic surgery consult versus transfer I examined this patient and my medical decision-making was reviewed with the LOG BUYER/PA/Advanced Practice Nurse/Resident Physician. I agree with the documented findings, disposition and treatment plan as described except to the extent set forth below.
--- NOTE | 2016-03-24 15:27 | Event Note ---
Date of Encounter: 03/24/16 Time of Encounter: 15:19 - Cardiology Event Note Echo resulted, severe confirmed. EF 65-70%, moderate concentric LVH, severe diastolic dysfunction. Severely calcified aortic valve appears bicuspid with fusion of left and right coronary cusps. Severe aortic stenosis, peak velocity 4.64 m/sec, mean gradient 49mmHg, BARI 0.72 cm2. Mild-moderate AR, mild TR and MR. Difficult to determine how symptomatic pt is from the severe , as he is unclear when questioned about symptoms. To further assess, recommend standard exercise stress test in AM. Pt agrees. Further recommendations to follow once stress test is obtained.
--- NOTE | 2016-03-24 18:21 | Electrocardiograph Report ---
[place] [id number] Test Date: 2016-03-23 Pat Name: Bill Villa Department: 104 Room: 3B Gender: M Barn Manager: : 1945 Requested By: Lele Wu Order Number: [id number] Reading MD: Yumiko Dinh Measurements Intervals Shorter Rate: 61 P: 40 SC: 186 QRS: 24 QRSD: 95 T: 57 QT: 396 QTc: 398 Interpretive Statements SINUS RHYTHM MODERATE VOLTAGE CRITERIA FOR LVH, CONSIDER NORMAL VARIANT NONSPECIFIC T-WAVE ABNORMALITY Electronically Signed On 03-24-2016 18:19:42 EST by Yumiko Dinh
[2016-03-25] MEDS: *HR* Heparin 5,000 UNIT/ML VIAL SQ SCH (05:57)
[2016-03-25 06:04] LABS: Mean Corpuscular Volume 103.2 fL (83.0-100.0); Red Cell Distribution Width 13.2 % (11.5-14.5)
[2016-03-25 06:07] LABS: Basophils % 0.7 %; Eosinophils # 0.2 K/mcL (0.0-0.6); Eosinophils % 5.6 %; Immature Reticulocyte % 6.7 % (11.0-38.0); Lymphocytes % 40.8 %; Mean Corpuscular HGB Conc 33.3 g/dL (31.6-35.5); Mean Corpuscular Hemoglobin 34.4 pg (28.0-33.3); Mean Platelet Volume 11.6 fL (9.4-12.4); Monocytes # 0.3 K/mcL (0.0-1.3); Monocytes % 9.5 %; Neutrophils # 1.2 K/mcL (1.6-8.9); Red Blood Count 3.49 M/mcL (4.19-5.50); Retculocyte # 0.05 M/mcL (0.05-0.10); Reticulocyte % 1.4 % (1.6-2.8); Segmented Neutrophils % 43.4 %
[2016-03-25 06:10] LABS: Lymphocytes # 1.1 K/mcL (0.6-4.6); Platelet Count 77 K/mcL (140-400)
[2016-03-25 06:18] LABS: % Iron Saturation 20 % (20-55); Iron 48 mcg/dL (65-175); Transferrin 173 mg/dL (174-364)
--- NOTE | 2016-03-25 06:18 | Internal Med Progress Note ---
<Brayden Mason - Last Filed: 03/25/16 06:31> Date of Encounter: 03/25/16 Time of Encounter: 05:55 - Assessment and plan (1) Chest pain Current Visit: Yes Status: Acute Assessment and plan: TTE revealed severe with moderate AR. He has moderate Concentric LVH and severe diastolic dysfunction. Hwever difficult to determine if this is symptomatic or not as he is a poor historian. I did discuss with Dr. Carpenter yesterday. Plan will be treadmill stress test today to determine whether or not this is symptomatic . If so he will need a LHC and then either a TAVR or AVR. Currently he is hemodynamically stable. we will follow up with results of todays testing. If needed Blood pressure medication and diuretics should be used very cautiously in this patient given his sever . Qualifiers: Chest pain type: unspecified Qualified Code(s): R07.9 - Chest pain, unspecified (2) Thoracic ascending aortic aneurysm Current Visit: Yes Status: Acute Assessment and plan: Ascending Aorta 4.4 cm No Beta mac at this time as there is no sign of dissection on CT and he has been bradycardic. follow up with echocardiogram results. will need to be followed as an outpatient as well. (3) Pancytopenia Current Visit: Yes Status: Acute Assessment and plan: blood counts are relatively stable. slight trend down in WBC Neutrophils now 1200 ( mild neutropenia) B12 and folate within normal limits. Hematology consulted as well. we appreciate there recommendations. of note patient reports taking up to 8 regular strength aspirin per day and this could be contributing to his thrombocytopenia. (4) Systolic murmur Current Visit: Yes Status: Acute Assessment and plan: as stated above. (5) Bradycardia Current Visit: Yes Status: Acute Assessment and plan: asymptomatic. avoid rate lowering agents continue to monitor. (6) Mental status change Current Visit: Yes Status: Chronic Assessment and plan: patient is now alert and orientated. However he continues to be a poor historian and unsure about his medical history. (7) Weight loss Current Visit: Yes Status: Acute Assessment and plan: patient reports 25 pound weight loss over past 2-3 months. He states this is unintentional No night sweats or lymphadenopathy Patient dose not think he has had routine cancer screening. (8) Aortic regurgitation Current Visit: Yes Status: Acute Assessment and plan: as stated above. (9) Severe aortic stenosis Current Visit: Yes Status: Acute Assessment and plan: as stated above (10) DVT prophylaxis Current Visit: Yes Status: Acute Assessment and plan: will use EPCDs as he has thrombocytopenia. - Subjective Interval history: No major events overnight. He states that he had a brief episode ( approximately 3 minutes) of chest pain last night. He states that it was midsternal and non radiating. This happened while lying in bed. He denies any associated presyncope, dizziness or diaphoresis. He states he did not alert the nursing staff because it was mild /10 and quickly resolved. At this time he denies any chest pain or discomfort. He denies having anymore " spells" ( dizzy/ blurred vision) since admission. He states he has no difficulty ambulating at home and has good sensation in his feet and thinks he will be able to walk on a treadmill this AM. He has no further concerns or complaints at this time. - Constitutional Vitals: Temp Pulse Resp BP Pulse Ox 97.8 F 52 18 100/55 98 03/25/16 03:26 03/25/16 03:26 03/25/16 03:26 03/25/16 03:26 03/25/16 03:26 General appearance: Present: A&O X 3, pleasant, no acute distress, underweight, answers questions appropriately (poor historian) - Head Head exam: Present: atraumatic, normal inspection, normocephalic - Eye Eye exam: Present: PERRL, conjuntiva pink, sclera anicteric Pupils: Present: PERRL - ENT ENT exam: Present: mucous membranes moist - Neck Neck exam general surgery: Present: supple, trachea midline. Absent: lymphadenopathy - Respiratory Respiratory exam: Present: CTAB. Absent: accessory muscle use, rales, rhonchi, wheezes - Cardiovascular Cardiovascular exam: Present: bradycardia, RRR, +S1, +S2, systolic murmur (3/6 systolic heard best at the right upper sternal border, radiates into neck, diminished carotid upstrokes but no pulsus parvus et tardus. ). Absent: clicks , distant heart sounds, gallop, irregular rhythm, JVD, rubs, +S3, +S4 - GI/Abdominal GI/Abdominal exam: Present: normal bowel sounds, soft, no peritoneal signs. Absent: distended, tenderness - Extremities Exam Extremities exam: Present: warm, radial pulses palpable and symetrical. Absent : calf tenderness, cyanotic, pedal edema - Skin Skin exam: Present: dry, intact Internal Medicine: Result - Labs CBC & Chem 7: 03/25/16 04:12 03/25/16 04:12 Labs: Short CBC 03/25/16 Range/Units 04:12 WBC 2.8 L (4.3-11.1) K/mcL Hgb 12.0 L (12.9-16.9) g/dL Hct 36.0 L (37.5-50.1) % Plt Count 77 L (140-400) K/mcL Neutrophils # 1.2 L (1.6-8.9) K/mcL - ABG Interpretation ABG results: PT/INR, D-dimer PT 16.0 Seconds (9.4-12.1) H 03/23/16 17:24 Consult Discharge Plan - Plan Referrals: NO,PCP [Primary Care Provider] - <Rajiv Bullock H - Last Filed: 03/25/16 08:36> Date of Encounter: 03/25/16 - Constitutional Vitals: Temp Pulse Resp BP Pulse Ox 97.8 F 51 14 93/55 97 03/25/16 07:17 03/25/16 07:17 03/25/16 07:17 03/25/16 07:17 03/25/16 07:17 Internal Medicine: Result - Labs CBC & Chem 7: 03/25/16 04:12 03/25/16 04:12 Labs: Short CBC 03/25/16 Range/Units 04:12 WBC 2.8 L (4.3-11.1) K/mcL Hgb 12.0 L (12.9-16.9) g/dL Hct 36.0 L (37.5-50.1) % Plt Count 77 L (140-400) K/mcL Neutrophils # 1.2 L (1.6-8.9) K/mcL BMP 03/25/16 04:12 Sodium 139 Potassium 3.9 Chloride 106 Carbon Dioxide 25 BUN 15 Creatinine 0.72 Glucose 87 Calcium 8.7 - ABG Interpretation ABG results: PT/INR, D-dimer PT 16.0 Seconds (9.4-12.1) H 03/23/16 17:24 - Attending Attestation stress test today Cardiology following severe systolic murmur rad to aortic area I examined this patient and my medical decision-making was reviewed with the CHIEF WARDEN/PA/Advanced Practice Nurse/Resident Physician. I agree with the documented findings, disposition and treatment plan as described except to the extent set forth below.
[2016-03-25 06:20] LABS: BUN/Creatinine Ratio 21 (6-26); Blood Urea Nitrogen 15 mg/dL (8-26); Calcium 8.7 mg/dL (8.6-10.8); Carbon Dioxide 25 mEq/L (19-29); Chloride 106 mEq/L (98-109); Glucose 87 mg/dL (70-99); Osmolality,Calculated 288 (280-300); Potassium 3.9 mEq/L (3.5-4.5); Sodium 139 mEq/L (136-145); eGFR For African Americans > 60 (> 60); eGFR For Non-African Americans > 60 (> 60)
[2016-03-25 06:40] LABS: Ferritin 91 ng/ml (22-275)
[2016-03-25] MEDS: Aspirin 81 MG TAB.CHEW PO SCH (08:58)
--- NOTE | 2016-03-25 11:29 | Cardiology Progress Note ---
Date of Encounter: 03/25/16 Time of Encounter: 10:30 Assessment and Plan (1) Severe aortic stenosis Current Visit: Yes Status: Acute Per cardiology: -Patient with newly diagnosed aortic stenosis. Echocardiogram 03/24/16 showed normal left ventricular size and function with LVEF 65-70%, Moderate cocentric left ventricular hypertrophy, sever left ventricular diastolic dysfunction, normal right ventricular size and function, moderately dilated left atrium, moderately dilated right atrium, severely calcified aortic valve, valve appears bicuspid with fusion of left and right coronary cusps. Severe aortic stenosis. Peak velocity 4.64m/sec with a mean gradiant 49mmHg. Mild-moderate aortic regurgitation which is eccentric and directed toward anterior mitral valve leaflet. Mild tricuspid regurgitation, mild mitral regurgitation. No evidence of pulmonary hypertension. (TAY) -Stress test preliminary with borderline abnormal ST depression. Will discuss with patient and brother need for cardiac catheterization. Will order cath if patient agreeable for cardiac catheterization. (TAY) -Unable to add beta mac due to heart rate average 57. Unable to add sara inhibitor due to hypotension. (TAY) -Patient currently on asa, statin, and heparin subcutaneous. (TAY) -Further recommendations once stress test results are discussed with patient and family. (TAY) Patient seen and examined. Agree with above. Possible left heart catheterization today. JT (2) Thoracic ascending aortic aneurysm Current Visit: Yes Status: Acute Per cardiology: -Newly diagnosed 4.4 cm ascending thoracic aortic aneurysm per CT on 03/23/16. ( TAY) -Hypotensive with BPs running 90-100 systolic and 50s diastolic. (TAY) -Recommend close follow up as outpatient. (TAY) (3) Pancytopenia Current Visit: Yes Status: Acute Per cardiology: -Patient with no history of pancytopenia. (TAY) -Labs 03/25/16 WBC 2.8, HGB 12, HCT 36, RBC 3.49. (TAY) -Hematology/Oncology consulted. (TAY) -Recommendations per hematology/oncology. (TAY) Discussion w patient/family: The assessment and plan as outlined above was discussed with the patient and/or family members who expressed understanding and agreement. All questions were answered. Thank you for involving us in the care of your patient. Please call with any questions. Patient was seen and examined in stress testing lab. (TAY) Discussed and reviewed with . (TAY) Subjective Principal diagnosis: chest pain Objective Vital Signs Temp Pulse Resp BP Pulse Ox 03/25/16 07:17 97.8 F 51 14 93/55 97 03/25/16 03:26 97.8 F 52 18 100/55 98 03/24/16 19:15 98.2 F 55 18 94/57 96 03/24/16 15:28 98.1 F 61 17 89/48 97 03/24/16 11:44 97.6 F 51 16 91/49 100 Intake and Output 03/24/16 03/25/16 03/25/16 23:59 07:59 15:59 Intake Total 240 / 240 Output Total 400 / 400 350 / 350 500 / 500 Balance -160 / -160 -350 / -350 -500 / -500 Intake: Oral 240 / 240 Output: Urine 400 / 400 350 / 350 500 / 500 Other: Meal Dinner NPO Percent of Meal Consumed 100% General: Conversant, No Apparent Distress HEENT: Atraumatic, Normocephaly, Mucus Membranes Moist Neck: No JVD, Normal carotid pulses Cardiac: Reg Rate and Rhythm, Normal S1 and S2, Other (systolic murmur noted prominently over second intercostal space right sternal border) Lungs: Normal Breath Sounds, No Wheeze, Rales, Rhonchi Neuro: Alert and responsive, No focal deficits noted Abdomen: Soft, Non-Tender Skin: No rashes noted on visualized skin Musculoskeletal: No Chest Wall Tenderness Extremities: No Clubbing, No Cyanosis, No Edema, Normal Pulses Results 03/25/16 04:12 03/25/16 04:12 Lab Results 03/25/16 03/25/16 04:12 04:12 WBC 2.8 L Hgb 12.0 L Hct 36.0 L Plt Count 77 L Sodium 139 Potassium 3.9 Chloride 106 Carbon Dioxide 25 BUN 15 Creatinine 0.72 Glucose 87 Calcium 8.7 - Imaging and Cardiology Chest Xray: report reviewed Stress Test: pending Echo: report reviewed Other Results: CT chest report reviewed. - EKG Interpretation EKG results cardiology: personally reviewed, other (24 hour telemetry reviewed with average heart rate 57, sinus bradycardia. Minimum heart rate 46 that occured at 0003. Patient noted to have one run of paroxysmal atrial tachycardia. Occasional PVCs noted.) Consult Discharge Plan - Plan Referrals: NO,PCP [Primary Care Provider] -
--- NOTE | 2016-03-25 12:31 | Exercise Stress Test ---
Exercise Stress Name: Bill Villa Date of Study: 03/25/2016 Date: 1945 Ht: 74.0in Medical Record#: [id number] Age: 71 Wt: 140.0lb Gender: Male BSA: 1.87 Order #: [id number] Location: [facility] Room #: 3b35 Reading Physician: Nathan Llamas DO Technologist: Leny Rendon, COIL BINDER, CCT, CPFT Supervising Provider: Brad Kiser CNP Primary Physician: None Ordering Physician: Minal Carpneter DO Indication: Chest Pain Impressions: Stress ECG is negative for ischemia. The patient demonstrated a blunted response blood pressure response. Findings: Normal sinus rhythm at rest. No baseline arrhythmias were noted. Stress ECG is negative for ischemia. No arrhythmias noted during exercise or recovery. The patient demonstrated a blunted response blood pressure response. The exercise capacity was fair (5:00,6.3 METs). No chest pain during stress procedure. History: Stress Test Summary: Stress Test Type: Treadmill Protocol: Modified Jian Baseline Information: Maximum Predicted HR: 148 85% MPHR: 126 Blood Pressure: 94 / 42 Stress Information: Total Exercise Time: 5 00 Test Terminated Due To: Dyspnea Maximum Blood Pressure: 104 / 60 Maximum Heart Rate: 148 Percent Maximum Heart Rate Achieved: 100 Double Product: 74277 METS Reached: 6.3 Symptoms: Shortness of breath Updated by Nathan Llamas DO, FACANNETTE Kraft FASNC on 03/25/2016 12:26:36 PM electronically signed on 03/25/2016 12:27:52 PM with status of Final
--- NOTE | 2016-03-25 17:31 | Oncology Inp Consult Note ---
Date of Encounter: 03/26/16 Time of Encounter: 17:00 Assessment and Plan (1) Pancytopenia Status: Chronic Assessment and plan: Patient with mild anemia, significant macrocytosis with leukopenia and thrombocytopenia percent reticulocyte decreased, ferritin, B12 folic acid TSH normal limits. Serum protein electrophoresis serum kappa lambda ratio has been ordered in peripheral blood. Bone marrow aspiration and biopsy to be considered for further evaluation of macrocytic anemia and pancytopenia--to r/o MDS. Rule out hepatosplenomegaly, imaging with CT abdomen and pelvis to be considered to rule out peripheral sequestration versus destruction. I have discussed a bone marrow aspiration and bx, the risk benefits and nature of procedure and he is agreeable. Please schedule with IR when patient can be taken off anticoagulation with heparin prior to procedure. Will follow up with additional labs that have been ordered. Patient stated understanding of the above plan of care - Data of Consult Requesting Physician: Rajiv Bullock Primary Care Provider: PCP NO - Consult Narrative Reason for consult: cytopenia History of present illness: Mr. Villa is a 71 year old male with medical history significant for severe aortic stenosis, aortic aneurysm, nonsmoker, who was seen and evaluated for thrombocytopenia, and leukopenia. Patient platelets are in the range of 70-75, 000, white blood cell count is 2.8 with neutropenia. He has macrocytosis with mild anemia as well. The prior lab works for comparison. He is hospitalized with chest pain, status post stress test, possible aortic valve procedure in the future. He has lost 25-30 pounds in the past per history and has noticed increasing shortness of breath with chest discomfort. He denies heavy alcohol use at anytime. Past Med Surg Social Fam HX - Past Medical History Medical history: non-contributory, other Psychiatric history: no psych history - Social History Smoking Status: Never smoker Smokeless Tobacco Status: No Alcohol use: none Drug use: none Medications and Allergies Ascorbate Calcium [Vitamin C] 500 mg PO DAILY 03/24/16 [History] Calcium Carbonate [Calcium] 600 mg PO DAILY 03/24/16 [History] Cyanocobalamin (Vitamin B-12) [Vitamin B-12] 1,000 mcg SL DAILY 03/24/16 [ History] Magnesium 200 mg PO DAILY 03/24/16 [History] Allergies Sulfa (Sulfonamide Antibiotics) Allergy (Verified 03/24/16 09:06) Hives patient states childhood reaction Review of systems: Denies bleeding or increased bruising as in HPI Oncology - Exam - Constitutional Vitals: Temp Pulse Resp BP Pulse Ox 98.2 F 51 15 113/63 99 03/25/16 15:02 03/25/16 15:02 03/25/16 15:02 03/25/16 15:02 03/25/16 15:02 General appearance: thin - Head Head exam: Present: atraumatic, normal inspection - Eye Eye exam: Present: sclera anicteric - ENT ENT exam: Present: mucous membranes moist - Neck Neck exam: Present: normal inspection - Respiratory Respiratory exam: Present: CTAB - Cardiovascular Cardiovascular exam: Present: +S1, +S2 - GI/Abdominal GI/Abdominal exam: Present: normal bowel sounds, soft - Extremities Exam Extremities exam: Present: normal inspection - Neurological Exam Neurological exam: Present: alert, oriented X3 - Skin Skin exam: Present: dry, pallor Oncology - Results - Labs Labs: Short CBC 03/25/16 Range/Units 04:12 WBC 2.8 L (4.3-11.1) K/mcL Hgb 12.0 L (12.9-16.9) g/dL Hct 36.0 L (37.5-50.1) % Plt Count 77 L (140-400) K/mcL Neutrophils # 1.2 L (1.6-8.9) K/mcL BMP 03/25/16 04:12 Sodium 139 Potassium 3.9 Chloride 106 Carbon Dioxide 25 BUN 15 Creatinine 0.72 Glucose 87 Calcium 8.7 Consult Discharge Plan - Plan Referrals: NO,PCP [Primary Care Provider] -
[2016-03-25] MEDS: Acetaminophen 325 MG TABLET PO PRN (18:00)
[2016-03-25] MEDS: Melatonin 3 MG TABLET PO PRN (20:41)
[2016-03-26 05:36] LABS: Basophils % 0.6 %; Eosinophils # 0.2 K/mcL (0.0-0.6); Eosinophils % 4.8 %; Hematocrit 37.5 % (37.5-50.1); Hemoglobin 12.8 g/dL (12.9-16.9); Lymphocytes # 1.4 K/mcL (0.6-4.6); Lymphocytes % 43.9 %; Mean Corpuscular HGB Conc 34.1 g/dL (31.6-35.5); Mean Corpuscular Volume 102.5 fL (83.0-100.0); Mean Platelet Volume 10.9 fL (9.4-12.4); Monocytes # 0.3 K/mcL (0.0-1.3); Neutrophils # 1.3 K/mcL (1.6-8.9); Red Blood Count 3.66 M/mcL (4.19-5.50); Red Cell Distribution Width 13.2 % (11.5-14.5); Segmented Neutrophils % 42.7 %
[2016-03-26 05:38] LABS: Platelet Count 85 K/mcL (140-400)
--- NOTE | 2016-03-26 06:44 | Internal Med Progress Note ---
<Brayden Mason - Last Filed: 03/26/16 06:42> Date of Encounter: 03/26/16 Time of Encounter: 06:42 - Assessment and plan (1) Chest pain Current Visit: Yes Status: Acute Assessment and plan: Patient with Severe with blunted blood pressure response during stress test. Plan will be to meet with CT surgery today and discuss treatment options. If he proceeds with AVR will need C. Appreciate the assistance of cardiology and CT surgery with this patient. Qualifiers: Chest pain type: unspecified Qualified Code(s): R07.9 - Chest pain, unspecified (2) Thoracic ascending aortic aneurysm Current Visit: Yes Status: Acute Assessment and plan: Ascending Aorta 4.4 cm No Beta mac at this time as there is no sign of dissection on CT and he has been bradycardic. follow up with echocardiogram results. will need to be followed as an outpatient as well. (3) Pancytopenia Current Visit: Yes Status: Chronic Assessment and plan: blood counts are relatively stable. slight trend down in WBC Neutrophils now 1300 ( mild neutropenia) B12 and folate within normal limits. He dose appear to have some hepatomegally when viewing the CTA of the chest with run off. Hematology consulted as well. I reviewed there documentation. Possible bone marrow biopsy to r/o MDS we appreciate there recommendations. of note patient reports taking up to 8 regular strength aspirin per day and this could be contributing to his thrombocytopenia. I have counseled him against this. (4) Systolic murmur Current Visit: Yes Status: Acute Assessment and plan: as stated above. (5) Bradycardia Current Visit: Yes Status: Acute Assessment and plan: asymptomatic. avoid rate lowering agents continue to monitor. (6) Mental status change Current Visit: Yes Status: Chronic Assessment and plan: patient is now alert and orientated. However he continues to be a poor historian and unsure about his medical history. (7) Weight loss Current Visit: Yes Status: Acute Assessment and plan: patient reports 25 pound weight loss over past 2-3 months. He states this is unintentional No night sweats or lymphadenopathy Patient dose not think he has had routine cancer screening. (8) Aortic regurgitation Current Visit: Yes Status: Acute Assessment and plan: moderate (9) Severe aortic stenosis Current Visit: Yes Status: Acute Assessment and plan: as stated above (10) DVT prophylaxis Current Visit: Yes Status: Acute Assessment and plan: will use EPCDs as he has thrombocytopenia. - Subjective Interval history: No major events overnight. Mr. Villa states that he is feeling better and that he has had no further episodes of chest pain. He denies any syncope, presyncope , or dizziness at this time. He is still undecided as to whether or not he will agree to having the Aortic valve repaired or possible TAVR. He will meet with CT surgery today. - Constitutional Vitals: Temp Pulse Resp BP Pulse Ox 97.9 F 54 17 103/61 100 03/26/16 04:11 03/26/16 04:11 03/26/16 04:11 03/26/16 04:11 03/26/16 04:11 General appearance: Present: A&O X 3, pleasant, no acute distress, underweight, answers questions appropriately (poor historian) - Head Head exam: Present: atraumatic, normocephalic - Eye Eye exam: Present: PERRL, conjuntiva pink, sclera anicteric Pupils: Present: PERRL - Neck Neck exam general surgery: Present: supple, trachea midline. Absent: lymphadenopathy - Respiratory Respiratory exam: Present: CTAB. Absent: accessory muscle use, rales, rhonchi, wheezes - Cardiovascular Cardiovascular exam: Present: bradycardia (Hr in the 50s ), RRR, +S1, +S2, systolic murmur (3/6 systolic heard best at the Right upper sternal boder. radiates into the neck. ). Absent: diastolic murmur, gallop, rubs Internal Medicine: Result - Labs CBC & Chem 7: 03/26/16 04:23 03/25/16 04:12 Labs: Short CBC 03/26/16 Range/Units 04:23 WBC 3.1 L (4.3-11.1) K/mcL Hgb 12.8 L (12.9-16.9) g/dL Hct 37.5 (37.5-50.1) % Plt Count 85 L (140-400) K/mcL Neutrophils # 1.3 L (1.6-8.9) K/mcL - ABG Interpretation ABG results: PT/INR, D-dimer PT 16.0 Seconds (9.4-12.1) H 03/23/16 17:24 Consult Discharge Plan - Plan Referrals: NO,PCP [Primary Care Provider] - <Rajiv Bullock H - Last Filed: 03/26/16 14:39> Date of Encounter: 03/26/16 - Constitutional Vitals: Temp Pulse Resp BP Pulse Ox 97.7 F 54 17 114/63 100 03/26/16 11:28 03/26/16 11:28 03/26/16 11:28 03/26/16 11:28 03/26/16 11:28 Internal Medicine: Result - Labs CBC & Chem 7: 03/26/16 04:23 03/25/16 04:12 Labs: Short CBC 03/26/16 Range/Units 04:23 WBC 3.1 L (4.3-11.1) K/mcL Hgb 12.8 L (12.9-16.9) g/dL Hct 37.5 (37.5-50.1) % Plt Count 85 L (140-400) K/mcL Neutrophils # 1.3 L (1.6-8.9) K/mcL - ABG Interpretation ABG results: PT/INR, D-dimer PT 16.0 Seconds (9.4-12.1) H 03/23/16 17:24 - Attending Attestation Cardiology and cardiothoracic surgery service will wait until the patient's pancytopenia etiology is found in order to schedule a cardiac catheterization and possible aortic valve replacement respectively. Oncologist recommending to do a bone marrow biopsy which will be scheduled with interventional radiology. Also, protein electrophoresis results are still pending I examined this patient and my medical decision-making was reviewed with the USER SUPPORT ANALYST/PA/Advanced Practice Nurse/Resident Physician. I agree with the documented findings, disposition and treatment plan as described except to the extent set forth below.
[2016-03-26] MEDS: Aspirin 81 MG TAB.CHEW PO SCH (08:45)
--- NOTE | 2016-03-26 10:25 | Cardiology Progress Note ---
Date of Encounter: 03/26/16 Time of Encounter: 09:30 Assessment and Plan (1) Severe aortic stenosis Current Visit: Yes Status: Acute Per cardiology: -Patient with newly diagnosed aortic stenosis. Echocardiogram 03/24/16 showed normal left ventricular size and function with LVEF 65-70%, Moderate cocentric left ventricular hypertrophy, sever left ventricular diastolic dysfunction, normal right ventricular size and function, moderately dilated left atrium, moderately dilated right atrium, severely calcified aortic valve, valve appears bicuspid with fusion of left and right coronary cusps. Severe aortic stenosis. Peak velocity 4.64m/sec with a mean gradiant 49mmHg. Mild-moderate aortic regurgitation which is eccentric and directed toward anterior mitral valve leaflet. Mild tricuspid regurgitation, mild mitral regurgitation. No evidence of pulmonary hypertension. (TAY) -Stress test preliminary with no significant ST changes. Poor exercise tolerance. (TAY) -Unable to add beta mac due to heart rate average 57. Unable to add sara inhibitor due to hypotension. (TAY) -Patient currently on asa, statin. (TAY) -Will not recommend cardiac catheterization until cleared by hematology. Will follow as an outpatient for need for cath and valve replacement vs. TAVR. Patient agreeable to folloe as an outpatient. Patient states he is unsure if he wants any intervention for his valve. (TAY) -CT surgery consulted per and will wait to see their recommendations for valve replacement vs. TAVR. (TAY) (2) Thoracic ascending aortic aneurysm Current Visit: Yes Status: Acute Per cardiology: -Newly diagnosed 4.4 cm ascending thoracic aortic aneurysm per CT on 03/23/16. ( TAY) -Hypotensive with BPs running 90-100 systolic and 50s diastolic. Unable to add antihypertensives due to hypotension. (TAY) -Recommend close follow up as outpatient. (TAY) (3) Pancytopenia Current Visit: Yes Status: Chronic Per cardiology: -03/26/16 labs WBC 3.1, HGB 12.8, HCT 37.5, RBC 3.66, and platelets 85. (TAY) -Hematology involved in care. (TAY) -Patient states no known history of abnormal labs. (TAY) -Recommed following with hemtology. (TAY) Discussion w patient/family: The assessment and plan as outlined above was discussed with the patient who expressed understanding and agreement. All questions were answered. Thank you for involving us in the care of your patient. Please call with any questions. Discussed and reviewed with . (TAY) Subjective Principal diagnosis: chest pain Interval history: -Patient was admitted with chest pain, blurred vision, and numbness in toes and fingers. Patient was examined and noted to have murmur per ER team. Cardiology was consulted and echocardiogram on 03/24/16 was performed and showed LVEF 65-70% , Moderate cocentric left ventricular hypertrophy, severe left ventricular hypertrophy, moderately dilated right atrium, moderately dilated right atrium, severely calcified aortic valve, valve appears bicuspid with fusion of left and right coronary cusps, severe aortic stenosis with a peak velocity of 4.64m/sec, mean gradiant 49mmHg, and aortic valve area 0.72cm2, mild-moderate aortic regurgitation, mild tricuspid regurgitation, mild mitral regurgitation. (TAY) -Patient underwent stress test on 03/25/16 with poor exercise tolerance. (TAY) -Patient with abnormal labs. (TAY) -Patient currently chest pain free and states shortness of breath is the same. ( TAY) Objective Vital Signs, Last 4 Hours Temp Pulse Resp BP Pulse Ox 03/26/16 08:42 99 03/26/16 08:03 98.0 F 53 16 99/56 99 General: Conversant, No Apparent Distress HEENT: Atraumatic, Normocephaly, Mucus Membranes Moist Neck: No JVD, Normal carotid pulses Cardiac: Reg Rate and Rhythm, Normal S1 and S2, Other (Systolic murmur noted most prominelty at second intercostal space right sternal border. ) Lungs: Normal Breath Sounds, No Wheeze, Rales, Rhonchi Neuro: Alert and responsive, No focal deficits noted Abdomen: Soft, Non-Tender Skin: No rashes noted on visualized skin Musculoskeletal: No Chest Wall Tenderness Extremities: No Clubbing, No Cyanosis, No Edema, Normal Pulses Results 03/26/16 04:23 03/25/16 04:12 Lab Results 03/26/16 04:23 WBC 3.1 L Hgb 12.8 L Hct 37.5 Plt Count 85 L - Imaging and Cardiology Chest Xray: report reviewed Stress Test: report reviewed Echo: report reviewed Other Results: CT chest report reviewed. - EKG Interpretation EKG results cardiology: personally reviewed, sinus rhythm, other (24 hour telemetry reviewed with average heart rate 58, sinus bradycardia. Minimum heart rate 50 at 0307. Maximum heart rate noted to be 88. Occasional PVCs and PACs.) Consult Discharge Plan - Plan Referrals: NO,PCP [Primary Care Provider] -
--- NOTE | 2016-03-26 12:37 | Cardiothoracic Consult Note ---
Date of Encounter: 03/26/16 Time of Encounter: 12:32 Assessment and Plan (1) Severe aortic stenosis Current Visit: Yes Status: Acute The patient is a 71-year-old man with a one-year history of nonradiating left precordial chest pain, shortness of breath, and dyspnea on exertion. The patient was evaluated at [facility] emergency department and found to have a murmur consistent with aortic stenosis. This was confirmed by echocardiogram and the patient was determined to have severe symptomatic aortic stenosis. In addition the patient has a 4.4 cm diameter ascending thoracic aortic aneurysm and pancytopenia. No cardiac catheterization has been performed. The patient should undergo workup for his pancytopenia prior to considering any type of operative intervention. Once this has been diagnosed and treated the patient is willing to consider possible aortic valve replacement. I discussed the 2 types of aortic valve replacement, surgical (median sternotomy) aortic valve replacement versus TAVR. The patient will need a cardiac catheterization prior to either of these 2 surgical options. The assessment and plan as outlined above was discussed with the patient and/or family members who expressed understanding and agreement. All questions were answered. - History of Present Illness Consult date: 03/26/16 Requesting physician: Minal Carpenter Consult reason: Possible aortic valve replacement. Chief complaint: Substernal chest pain, shortness of breath. History of present illness: Mr. Villa is a 71 year old man with a one year history of progressive, nonradiating left precordial chest pain, shortness of breath, and dyspnea on exertion. The symptoms were first noticed when he was carrying a 5 gallon bucket of feed. Within 75 feet the patient had developed left precordial chest pain, shortness of breath, and dyspnea. He required several minutes of rest to alleviate the chest pain and regain his normal breathing function. During the last 12 months, he has had progressive symptoms which occur with less activity. He was evaluated [facility] emergency department for similar symptoms and was found to have a murmur consistent with aortic stenosis during his workup. The echocardiogram revealed a normal left ventricular size and systolic function with an LVEF 65-70%. Moderate concentric LVH and severe LV diastolic dysfunction were also noted. The patient had severe aortic stenosis with a peak velocity of 4.64 m/s, a mean gradient of 49 mmHg, and a calculated aortic valve area of 0.[address] revealed an ascending thoracic aortic aneurysm measuring 4.4 cm in diameter. His CBC revealed pancytopenia with leukopenia and thrombocytopenia. Past Med Surg Social Fam HX - Past Medical History Medical history: aortic aneurysm, hyperlipidemia, valvular heart disease ( Aortic stenosis.), other (Pancytopenia.) Psychiatric history: no psych history - Past Surgical History Surgical History: appendectomy, herniorrhaphy (Left and right.), other ( Exploratory laparotomy with small bowel resection. Tonsillectomy.) - Social History Smoking Status: Never smoker Smokeless Tobacco Status: No Alcohol use: rarely Drug use: none Occupational status: retired Current living situation: Home - Independent Activity Level: Independent ambulation Recent Out of Country Travel Within the Last 8 Weeks: No Exposure or Possible Exposure to Illness During Travel: No Medications and Allergies Ascorbate Calcium [Vitamin C] 500 mg PO DAILY 03/24/16 [History] Calcium Carbonate [Calcium] 600 mg PO DAILY 03/24/16 [History] Cyanocobalamin (Vitamin B-12) [Vitamin B-12] 1,000 mcg SL DAILY 03/24/16 [ History] Magnesium 200 mg PO DAILY 03/24/16 [History] Allergies Sulfa (Sulfonamide Antibiotics) Allergy (Verified 03/24/16 09:06) Hives patient states childhood reaction All Systems Review: A 10-system review of systems was performed and is negative for pertinent findings except as documented above in the HPI. Physical Examination Vital Signs, Last 4 Hours Temp Pulse Resp BP Pulse Ox 03/26/16 11:28 97.7 F 54 17 114/63 100 03/26/16 08:42 99 General: Conversant, No Apparent Distress HEENT: Atraumatic, Normocephaly, Trachea midline Neck: No JVD, Normal carotid pulses Cardiac: Reg Rate and Rhythm, Normal S1 and S2, Other (Harsh 3/6 systolic murmur best heard in the right lateral sternal border.) Lungs: Normal Breath Sounds, No Wheeze, Rales, Rhonchi Neuro: Alert and responsive, No focal deficits noted, Cranial nerves intact, Motor nerves intact, Sensory nerves intact Vascular: Normal capillary refill Abdomen: Soft, Non-tender Musculoskeletal: No Chest Wall Tenderness Extremities: No Clubbing, No Cyanosis, No Edema, Normal Pulses Results 03/26/16 04:23 03/25/16 04:12 Lab Results, Last 24 hours 03/26/16 04:23 WBC 3.1 L Hgb 12.8 L Hct 37.5 Plt Count 85 L - Imaging Chest Xray: image reviewed (Normal cardiac size. No active pulmonary disease.) Consult Discharge Plan - Plan Referrals: NO,PCP [Primary Care Provider] -
[2016-03-26] MEDS: Melatonin 3 MG TABLET PO PRN (20:13)
[2016-03-27 07:26] LABS: Basophils % 0.5 %; Immature Granulocytes % 0.3 % (0-4); Mean Corpuscular Volume 102.2 fL (83.0-100.0); Red Cell Distribution Width 13.2 % (11.5-14.5)
[2016-03-27 07:28] LABS: Eosinophils # 0.2 K/mcL (0.0-0.6); Eosinophils % 5.2 %; Hematocrit 37.7 % (37.5-50.1); Hemoglobin 12.7 g/dL (12.9-16.9); Immature Platelets 3.4 % (1.1-6.1); Lymphocytes # 1.3 K/mcL (0.6-4.6); Lymphocytes % 34.4 %; Mean Corpuscular HGB Conc 33.7 g/dL (31.6-35.5); Mean Corpuscular Hemoglobin 34.4 pg (28.0-33.3); Mean Platelet Volume 10.1 fL (9.4-12.4); Monocytes # 0.2 K/mcL (0.0-1.3); Monocytes % 6.3 %; Red Blood Count 3.69 M/mcL (4.19-5.50); Segmented Neutrophils % 53.3 %
[2016-03-27 07:45] LABS: Platelet Count 91 K/mcL (140-400)
[2016-03-27] MEDS: Aspirin 81 MG TAB.CHEW PO SCH (09:02)
--- NOTE | 2016-03-27 15:02 | Internal Med Progress Note ---
<Brayden Mason - Last Filed: 03/27/16 14:56> Date of Encounter: 03/27/16 Time of Encounter: 14:56 - Assessment and plan (1) Chest pain Current Visit: Yes Status: Acute Assessment and plan: Patient with Severe with blunted blood pressure response during stress test. Will need Pancytopenia worked up prior to Either AVR or TAVR If he proceeds with AVR will need LHC. Appreciate the assistance of cardiology and CT surgery with this patient. Qualifiers: Chest pain type: unspecified Qualified Code(s): R07.9 - Chest pain, unspecified (2) Thoracic ascending aortic aneurysm Current Visit: Yes Status: Acute Assessment and plan: Ascending Aorta 4.4 cm No Beta mac at this time as there is no sign of dissection on CT and he has been bradycardic. will need to be followed as an outpatient as well. (3) Pancytopenia Current Visit: Yes Status: Chronic Assessment and plan: blood counts are relatively stable. B12 and folate within normal limits. He dose appear to have some hepatomegally when viewing the CTA of the chest with run off. Hematology consulted as well. I reviewed there documentation. Bone marrow scheduled. However Ct was malfunctioning so may have later today. we appreciate there recommendations. of note patient reports taking up to 8 regular strength aspirin per day and this could be contributing to his thrombocytopenia. I have counseled him against this. (4) Systolic murmur Current Visit: Yes Status: Acute Assessment and plan: as stated above. (5) Bradycardia Current Visit: Yes Status: Acute Assessment and plan: asymptomatic. avoid rate lowering agents continue to monitor. (6) Mental status change Current Visit: Yes Status: Chronic Assessment and plan: patient is now alert and orientated. However he continues to be a poor historian and unsure about his medical history. (7) Weight loss Current Visit: Yes Status: Acute Assessment and plan: patient reports 25 pound weight loss over past 2-3 months. He states this is unintentional No night sweats or lymphadenopathy Patient dose not think he has had routine cancer screening. (8) Aortic regurgitation Current Visit: Yes Status: Acute Assessment and plan: moderate (9) Severe aortic stenosis Current Visit: Yes Status: Acute Assessment and plan: as stated above (12) DVT prophylaxis Current Visit: Yes Status: Acute Assessment and plan: will use EPCDs as he has thrombocytopenia. - Subjective Interval history: No major events overnight. Patient states he has not had anymore chest pain. He denies any syncope or presyncope. He has no further complaints or concerns at this time. - Constitutional Vitals: Temp Pulse Resp BP Pulse Ox 98.0 F 53 16 104/49 99 03/27/16 11:24 03/27/16 11:24 03/27/16 11:24 03/27/16 11:24 03/27/16 11:24 General appearance: Present: A&O X 3, pleasant, no acute distress, underweight, answers questions appropriately (poor historian) - Head Head exam: Present: atraumatic, normocephalic - Eye Eye exam: Present: PERRL, conjuntiva pink, sclera anicteric Pupils: Present: PERRL - Neck Neck exam general surgery: Present: supple, trachea midline. Absent: lymphadenopathy - Respiratory Respiratory exam: Present: CTAB. Absent: accessory muscle use, rales, rhonchi, wheezes - Cardiovascular Cardiovascular exam: Present: RRR, +S1, +S2, systolic murmur (3/6 systolic ejection murmur. Unchanged from yesterdays exam. ). Absent: diastolic murmur, gallop, rubs - GI/Abdominal GI/Abdominal exam: Present: hepatomegaly, normal bowel sounds, soft, no peritoneal signs. Absent: distended, tenderness - Extremities Exam Extremities exam: Present: warm, radial pulses palpable and symetrical. Absent : calf tenderness, cyanotic, pedal edema - Skin Skin exam: Present: dry, intact Internal Medicine: Result - Labs CBC & Chem 7: 03/27/16 07:15 03/25/16 04:12 Labs: Short CBC 03/27/16 Range/Units 07:15 WBC 3.8 L (4.3-11.1) K/mcL Hgb 12.7 L (12.9-16.9) g/dL Hct 37.7 (37.5-50.1) % Plt Count 91 L (140-400) K/mcL Neutrophils # 2.0 (1.6-8.9) K/mcL - ABG Interpretation ABG results: PT/INR, D-dimer PT 16.0 Seconds (9.4-12.1) H 03/23/16 17:24 Consult Discharge Plan - Plan Referrals: Brenden Bautista MD [Partnered Physician] - 04/10/16 2:00 pm (Please follow up as schedule...) <Rajiv Bullock - Last Filed: 03/28/16 13:39> Date of Encounter: 03/28/16 - Constitutional Vitals: Temp Pulse Resp BP Pulse Ox 98.2 F 52 18 93/50 98 03/28/16 11:23 03/28/16 11:23 03/28/16 11:23 03/28/16 11:23 03/28/16 11:23 Internal Medicine: Result - Labs CBC & Chem 7: 03/27/16 07:15 03/25/16 04:12 - ABG Interpretation ABG results: PT/INR, D-dimer PT 16.0 Seconds (9.4-12.1) H 03/23/16 17:24 - Attending Attestation please read my progress note
--- NOTE | 2016-03-27 15:05 | Internal Med Progress Note ---
Date of Encounter: 03/27/16 Time of Encounter: 14:58 - Time Spent With Patient 1. Severe aortic stenosis/symptomatic Echocardiogram showed an ejection fraction of 65-70%, moderate concentric left ventricular hypertrophy, severe left ventricular diastolic dysfunction and severely calcified aortic valve which is bicuspid, the aortic valve area 0.72 cm Thoracic surgery was consulted and is requesting to have a complete hematologic evaluation before proceeding with any valve replacement Stress test was negative for ischemia Cardiology was consulted as well and again his requesting a complete hematologic evaluation before proceeding with a cardiac catheterization. Oncology was consulted and an electrophoresis of serum is pending, also interventional radiology bone marrow biopsy was scheduled for today but unfortunately the CT scan machine was down and he was not performed. These will have to be rescheduled for Wednesday. Patient was instructed on the risks of sudden is going home without proper management of aortic stenosis that is severe and symptomatic. Agrees to stay until Wednesday 2. Pancytopenia. Lab work/testing pending. Bone marrow biopsy to be rescheduled 3. Thoracic ascending aortic aneurysm 4.4 cm, no signs of dissection, hold beta mac due to bradycardia 4. Aortic regurgitation 5. High risk of falling Greater than 35 minutes - Subjective Interval history: dizzy at times, denies CP or SOB, no abdominal pain or dysuria. No headaches, - Constitutional Vitals: Temp Pulse Resp BP Pulse Ox 98.0 F 53 16 104/49 99 03/27/16 11:24 03/27/16 11:24 03/27/16 11:24 03/27/16 11:24 03/27/16 11:24 General appearance: Present: A&O X 3, pleasant, no acute distress, underweight, answers questions appropriately (poor historian) - Head Head exam: Present: atraumatic, normocephalic - Eye Eye exam: Present: PERRL, conjuntiva pink, sclera anicteric Pupils: Present: PERRL - Neck Neck exam general surgery: Present: supple, trachea midline. Absent: lymphadenopathy - Respiratory Respiratory exam: Present: CTAB. Absent: accessory muscle use, rales, rhonchi, wheezes - Cardiovascular Cardiovascular exam: Present: RRR, +S1, +S2, systolic murmur (rad to aortic area 3/6). Absent: diastolic murmur, gallop, rubs - GI/Abdominal GI/Abdominal exam: Present: normal bowel sounds, soft, no peritoneal signs. Absent: distended, tenderness - Extremities Exam Extremities exam: Present: warm, radial pulses palpable and symetrical. Absent : calf tenderness, cyanotic, pedal edema - Neurological Exam Neurological exam: Present: CN II-XII intact, oriented X3, no focal deficits. Absent: pronater drift, facial droop, speech deficit - Skin Skin exam: Present: dry, intact Internal Medicine: Result - Labs CBC & Chem 7: 03/27/16 07:15 03/25/16 04:12 Labs: Short CBC 03/27/16 Range/Units 07:15 WBC 3.8 L (4.3-11.1) K/mcL Hgb 12.7 L (12.9-16.9) g/dL Hct 37.7 (37.5-50.1) % Plt Count 91 L (140-400) K/mcL Neutrophils # 2.0 (1.6-8.9) K/mcL - ABG Interpretation ABG results: PT/INR, D-dimer PT 16.0 Seconds (9.4-12.1) H 03/23/16 17:24 Consult Discharge Plan - Plan Referrals: NO,PCP [Primary Care Provider] -
[2016-03-27] MEDS: Melatonin 3 MG TABLET PO PRN (20:07)
[2016-03-28 03:56] LABS: Kappa Qnt Free Light Chains 1.01 mg/dL (0.33-1.94); Lambda Qnt Free Light Chains 1.11 mg/dL (0.57-2.63)
[2016-03-28] MEDS: Aspirin 81 MG TAB.CHEW PO SCH (08:01)
--- NOTE | 2016-03-28 08:25 | Internal Med Progress Note ---
<Brayden Mason - Last Filed: 03/28/16 08:21> Date of Encounter: 03/28/16 Time of Encounter: 08:21 - Assessment and plan (1) Chest pain Current Visit: Yes Status: Acute Assessment and plan: Patient with Severe with blunted blood pressure response during stress test. Will need Pancytopenia worked up prior to Either AVR or TAVR. He is scheduled for BM biopsy on Wednesday. It was canceled on Wednesday due to a malfunction of the CT scanner. If he proceeds with AVR. TAVR will need [facility] first Appreciate the assistance of cardiology and CT surgery with this patient. we will follow up with Cardiology and CT surgery after the patient has his biopsy. Qualifiers: Chest pain type: unspecified Qualified Code(s): R07.9 - Chest pain, unspecified (2) Thoracic ascending aortic aneurysm Current Visit: Yes Status: Acute Assessment and plan: Ascending Aorta 4.4 cm No Beta mac at this time as there is no sign of dissection on CT and he has been bradycardic. will need to be followed as an outpatient as well. (3) Pancytopenia Current Visit: Yes Status: Chronic Assessment and plan: blood counts are relatively stable. B12 and folate within normal limits. Hematology consulted as well. I reviewed there documentation. Bone marrow scheduled. However CT was malfunctioning so it is now scheduled for Wednesday. we appreciate there recommendations. \ (4) Systolic murmur Current Visit: Yes Status: Acute Assessment and plan: as stated above. (5) Bradycardia Current Visit: Yes Status: Acute Assessment and plan: asymptomatic. stable avoid rate lowering agents continue to monitor. (6) Mental status change Current Visit: Yes Status: Chronic Assessment and plan: resolved However he continues to be a poor historian and unsure about his medical history. (7) Weight loss Current Visit: Yes Status: Acute Assessment and plan: patient reports 25 pound weight loss over past 2-3 months. He states this is unintentional No night sweats or lymphadenopathy Patient dose not think he has had routine cancer screening. (8) Aortic regurgitation Current Visit: Yes Status: Acute Assessment and plan: moderate (9) Severe aortic stenosis Current Visit: Yes Status: Acute Assessment and plan: as stated above (10) Neuropathy Current Visit: Yes Status: Acute Assessment and plan: Etiology unclear at this time. Will need further work up as outpatient. will start on low dose gabapentin. (11) RUQ pain Current Visit: Yes Status: Acute Assessment and plan: Possibly biliary colic. Will order RUQ US. This should also help us evaluate the liver and spleen as well as the patient has pancytopenia. (12) DVT prophylaxis Current Visit: Yes Status: Acute Assessment and plan: will use EPCDs as he has thrombocytopenia. - Subjective Interval history: No major events overnight. Patient states he has not had anymore chest pain. He denies any syncope or presyncope. He complains of numbness and tingling in his hands and feet. He describes this as a sock and glove patter with the exception that he occasionally has some numbness and tingling in the left thigh. Curently he is asymptomatic. He dose admit to some mild lower back pain. He states that he has had this for many years and attributes this to his arthritis. He also complains of right upper quadrant pain last night. He states it happened after he ate some beef. He states that this will often happen after he eats a heavy meal. He has no further complaints or concerns at this time. - Constitutional Vitals: Temp Pulse Resp BP Pulse Ox 97.8 F 49 12 103/54 98 03/28/16 07:16 03/28/16 07:16 03/28/16 07:16 03/28/16 07:16 03/28/16 07:16 General appearance: Present: A&O X 3, pleasant, no acute distress, underweight, answers questions appropriately (poor historian) - Head Head exam: Present: atraumatic, normocephalic - Eye Eye exam: Present: PERRL, conjuntiva pink, sclera anicteric Pupils: Present: PERRL - Neck Neck exam general surgery: Present: supple, trachea midline. Absent: lymphadenopathy - Respiratory Respiratory exam: Present: CTAB. Absent: accessory muscle use, rales, rhonchi, wheezes - Cardiovascular Cardiovascular exam: Present: RRR, +S1, +S2, systolic murmur (3/6 R upper sternal border. No change from prior exams. ). Absent: diastolic murmur, gallop , rubs - GI/Abdominal GI/Abdominal exam: Present: normal bowel sounds, soft, no peritoneal signs. Absent: distended, tenderness - Extremities Exam Extremities exam: Present: warm, radial pulses palpable and symetrical. Absent : calf tenderness, cyanotic, pedal edema Additional comments: normal sensation of the hands and feet. - Skin Skin exam: Present: dry, intact Internal Medicine: Result - Labs CBC & Chem 7: 03/27/16 07:15 03/25/16 04:12 - ABG Interpretation ABG results: PT/INR, D-dimer PT 16.0 Seconds (9.4-12.1) H 03/23/16 17:24 Consult Discharge Plan - Plan Referrals: Brenden Bautista MD [Partnered Physician] - 04/10/16 2:00 pm (Please follow up as schedule...) <Rajiv Bullock H - Last Filed: 03/28/16 13:51> Date of Encounter: 03/28/16 - Constitutional Vitals: Temp Pulse Resp BP Pulse Ox 98.2 F 52 18 93/50 98 03/28/16 11:23 03/28/16 11:23 03/28/16 11:23 03/28/16 11:23 03/28/16 11:23 Internal Medicine: Result - Labs CBC & Chem 7: 03/27/16 07:15 03/25/16 04:12 - ABG Interpretation ABG results: PT/INR, D-dimer PT 16.0 Seconds (9.4-12.1) H 03/23/16 17:24 - Attending Attestation Ok to order RUQ U/S I examined this patient and my medical decision-making was reviewed with the MANAGER AEROSPACE/PA/Advanced Practice Nurse/Resident Physician. I agree with the documented findings, disposition and treatment plan as described except to the extent set forth below.
[2016-03-28] MEDS: Gabapentin 100 MG CAPSULE PO SCH ×3 (09:01→21:53)
[2016-03-28] MEDS: Melatonin 3 MG TABLET PO PRN (21:55)
[2016-03-29] MEDS: Gabapentin 100 MG CAPSULE PO SCH ×3 (08:01→20:05)
[2016-03-29] MEDS: Aspirin 81 MG TAB.CHEW PO SCH (08:01)
[2016-03-29 08:35] LABS: Beta Globulin (PEP) 0.53 g/dL (0.48-1.10)
[2016-03-29 08:55] LABS: IFE Reflexed IFE Done
[2016-03-29 09:44] LABS: Immunoglobulin A 243 mg/dL (68-408); Immunoglobulin G 502 mg/dL (768-1632); Immunoglobulin M 30 mg/dL (35-263)
[2016-03-29] MEDS ORDERED: 0.9 % Sodium Chloride 500 ML IVC ONE (11:38)
[2016-03-29] MEDS ORDERED: 0.9 % Sodium Chloride 1,000 ML ONE (11:52)
--- NOTE | 2016-03-29 12:33 | Internal Med Progress Note ---
Date of Encounter: 03/29/16 Time of Encounter: 12:31 - Assessment and plan (1) Chest pain Current Visit: Yes Status: Acute Assessment and plan: Severe with blunted blood pressure response during stress test. Will need Pancytopenia worked up prior to Either AVR or TAVR. He is scheduled for BM biopsy on Wednesday. It was canceled on Wednesday due to a malfunction of the CT scanner. If he proceeds with AVR. TAVR will need [facility] first Appreciate the assistance of cardiology and CT surgery with this patient. we will follow up with Cardiology and CT surgery after the patient has his biopsy. High risk of falling Qualifiers: Chest pain type: unspecified Qualified Code(s): R07.9 - Chest pain, unspecified (2) Bradycardia Current Visit: Yes Status: Acute Assessment and plan: asymptomatic. stable avoid rate lowering agents continue to monitor. (3) Neuropathy Current Visit: Yes Status: Acute Assessment and plan: Etiology unclear at this time. Will need further work up as outpatient. Continue low dose gabapentin. (4) Severe aortic stenosis Current Visit: Yes Status: Acute Assessment and plan: Echocardiogram showed an ejection fraction of 65-70%, moderate concentric left ventricular hypertrophy, severe left ventricular diastolic dysfunction and severely calcified aortic valve which is bicuspid, the aortic valve area 0.72 cm Thoracic ascending aortic aneurysm 4.4 cm, no signs of dissection, hold beta mac due to bradycardia (5) Thoracic ascending aortic aneurysm Current Visit: Yes Status: Acute Assessment and plan: Ascending Aorta 4.4 cm No Beta mac at this time as there is no sign of dissection on CT and he has been bradycardic. will need to be followed as an outpatient as well. (6) Mental status change Current Visit: Yes Status: Chronic Assessment and plan: Possibly related to symptomatic aortic stenosis However he continues to be a poor historian and unsure about his medical history. Qualifiers: Altered mental status type: unspecified Qualified Code(s): R41.82 - Altered mental status, unspecified (7) Pancytopenia Current Visit: Yes Status: Chronic Assessment and plan: blood counts are relatively stable. B12 and folate within normal limits. Hematology consulted as well. I reviewed there documentation. Bone marrow scheduled. However CT was malfunctioning so it is now scheduled for Wednesday. we appreciate there recommendations. \ - Time Spent With Patient Greater than 35 minutes - Subjective Interval history: Was feeling a little confused today, also complaining of some dizziness, denies CP or SOB, no abdominal pain or dysuria. No headaches, - Constitutional Vitals: Temp Pulse Resp BP Pulse Ox 98.3 F 55 14 101/60 99 03/29/16 10:56 03/29/16 10:56 03/29/16 10:56 03/29/16 12:06 03/29/16 10:56 General appearance: Present: A&O X 3, pleasant, no acute distress, underweight, answers questions appropriately (poor historian) - Head Head exam: Present: atraumatic, normocephalic - Eye Eye exam: Present: PERRL, conjuntiva pink, sclera anicteric Pupils: Present: PERRL - Neck Neck exam general surgery: Present: supple, trachea midline. Absent: lymphadenopathy - Respiratory Respiratory exam: Present: CTAB. Absent: accessory muscle use, rales, rhonchi, wheezes - Cardiovascular Cardiovascular exam: Present: RRR, +S1, +S2, systolic murmur (Systolic murmur 3 out of 6 radiated to the aortic area). Absent: diastolic murmur, gallop, rubs - GI/Abdominal GI/Abdominal exam: Present: normal bowel sounds, soft, no peritoneal signs. Absent: distended, tenderness - Extremities Exam Extremities exam: Present: warm, radial pulses palpable and symetrical. Absent : calf tenderness, cyanotic, pedal edema - Neurological Exam Neurological exam: Present: CN II-XII intact, oriented X3, no focal deficits. Absent: pronater drift, facial droop, speech deficit - Skin Skin exam: Present: dry, intact Internal Medicine: Result - Labs CBC & Chem 7: 03/27/16 07:15 03/25/16 04:12 - ABG Interpretation ABG results: PT/INR, D-dimer PT 16.0 Seconds (9.4-12.1) H 03/23/16 17:24 - Impressions Impressions Abdomen Ultrasound 03/28/16 15:30 IMPRESSION: Mild splenomegaly. Otherwise, unremarkable exam. D/ / 03/28/2016 16:26:38 Jalen Morse MD / Juliet Farrell Interpreting Provider: Jalen Morse MD - VTE Documentation of Mechanical Device: Intermittent pneumatic compression device Consult Discharge Plan - Plan Referrals: Brenden Bautista MD [Partnered Physician] - 04/10/16 2:00 pm (Please follow up as schedule...)
[2016-03-29] MEDS: Melatonin 3 MG TABLET PO PRN (20:09)
[2016-03-30 05:13] LABS: Basophils % 0.6 %; Eosinophils # 0.4 K/mcL (0.0-0.6); Eosinophils % 7.4 %; Hematocrit 37.9 % (37.5-50.1); Hemoglobin 12.8 g/dL (12.9-16.9); Immature Granulocytes % 0.2 % (0-4); Lymphocytes # 1.4 K/mcL (0.6-4.6); Lymphocytes % 29.2 %; Mean Corpuscular HGB Conc 33.8 g/dL (31.6-35.5); Mean Corpuscular Hemoglobin 34.5 pg (28.0-33.3); Mean Corpuscular Volume 102.2 fL (83.0-100.0); Mean Platelet Volume 10.8 fL (9.4-12.4); Monocytes # 0.3 K/mcL (0.0-1.3); Monocytes % 6.3 %; Neutrophils # 2.8 K/mcL (1.6-8.9); Platelet Count 111 K/mcL (140-400); Red Blood Count 3.71 M/mcL (4.19-5.50); Red Cell Distribution Width 13.2 % (11.5-14.5); Segmented Neutrophils % 56.3 %
[2016-03-30 05:32] LABS: BUN/Creatinine Ratio 30 (6-26); Blood Urea Nitrogen 23 mg/dL (8-26); Calcium 8.5 mg/dL (8.6-10.8); Carbon Dioxide 24 mEq/L (19-29); Chloride 109 mEq/L (98-109); Glucose 100 mg/dL (70-99); Osmolality,Calculated 294 (280-300); Potassium 4.1 mEq/L (3.5-4.5); Sodium 140 mEq/L (136-145); eGFR For African Americans > 60 (> 60); eGFR For Non-African Americans > 60 (> 60)
[2016-03-30] MEDS: Gabapentin 100 MG CAPSULE PO SCH ×4 (08:38→20:33)
[2016-03-30] MEDS: Aspirin 81 MG TAB.CHEW PO SCH (08:38)
--- NOTE | 2016-03-30 10:02 | Internal Med Progress Note ---
Date of Encounter: 03/30/16 Time of Encounter: 10:00 - Assessment and plan (1) Chest pain Current Visit: Yes Status: Acute Assessment and plan: Severe with blunted blood pressure response during stress test. Will need Pancytopenia worked up prior to Either AVR or TAVR. He is scheduled for BM biopsy today. It was canceled on Wednesday due to a malfunction of the CT scanner. If he proceeds with AVR. TAVR will need [facility] first Appreciate the assistance of cardiology and CT surgery with this patient. we will follow up with Cardiology and CT surgery after the patient has his biopsy ( today). High risk of falling Qualifiers: Chest pain type: unspecified Qualified Code(s): R07.9 - Chest pain, unspecified (2) Bradycardia Current Visit: Yes Status: Acute Assessment and plan: asymptomatic. stable avoid rate lowering agents continue to monitor. (3) Neuropathy Current Visit: Yes Status: Acute Assessment and plan: Etiology unclear at this time. Will need further work up as outpatient. Continue low dose gabapentin. (4) Severe aortic stenosis Current Visit: Yes Status: Acute Assessment and plan: Echocardiogram showed an ejection fraction of 65-70%, moderate concentric left ventricular hypertrophy, severe left ventricular diastolic dysfunction and severely calcified aortic valve which is bicuspid, the aortic valve area 0.72 cm Thoracic ascending aortic aneurysm 4.4 cm, no signs of dissection, hold beta mac due to bradycardia (5) Thoracic ascending aortic aneurysm Current Visit: Yes Status: Acute Assessment and plan: Ascending Aorta 4.4 cm No Beta mac at this time as there is no sign of dissection on CT and he has been bradycardic. will need to be followed as an outpatient as well. (6) Mental status change Current Visit: Yes Status: Chronic Assessment and plan: Possibly related to symptomatic aortic stenosis However he continues to be a poor historian and unsure about his medical history. Qualifiers: Altered mental status type: unspecified Qualified Code(s): R41.82 - Altered mental status, unspecified (7) Pancytopenia Current Visit: Yes Status: Chronic Assessment and plan: blood counts are relatively stable. B12 and folate within normal limits. Hematology consulted as well. I reviewed there documentation. Bone marrow scheduled. However CT was malfunctioning so it is now scheduled for Wednesday. we appreciate there recommendations. \ - Time Spent With Patient Greater than 35 minutes - Subjective Interval history: Was feeling a little confused over the weekend, also complaining of some dizziness at at times, denies CP or SOB, no abdominal pain or dysuria. No headaches, - Constitutional Vitals: Temp Pulse Resp BP Pulse Ox 97.7 F 53 14 120/58 100 03/30/16 07:50 03/30/16 07:50 03/30/16 07:50 03/30/16 07:50 03/30/16 07:50 General appearance: Present: A&O X 3, pleasant, no acute distress, underweight, answers questions appropriately (poor historian) - Head Head exam: Present: atraumatic, normocephalic - Eye Eye exam: Present: PERRL, conjuntiva pink, sclera anicteric Pupils: Present: PERRL - Neck Neck exam general surgery: Present: supple, trachea midline. Absent: lymphadenopathy - Respiratory Respiratory exam: Present: CTAB. Absent: accessory muscle use, rales, rhonchi, wheezes - Cardiovascular Cardiovascular exam: Present: RRR, +S1, +S2. Absent: diastolic murmur, gallop, rubs, systolic murmur (3/6 systolic murmur rad to aortic area) - GI/Abdominal GI/Abdominal exam: Present: normal bowel sounds, soft, no peritoneal signs. Absent: distended, tenderness - Extremities Exam Extremities exam: Present: warm, radial pulses palpable and symetrical. Absent : calf tenderness, cyanotic, pedal edema - Neurological Exam Neurological exam: Present: CN II-XII intact, oriented X3, no focal deficits. Absent: pronater drift, facial droop, speech deficit - Skin Skin exam: Present: dry, intact Internal Medicine: Result - Labs CBC & Chem 7: 03/30/16 04:41 03/30/16 04:41 Labs: Short CBC 03/30/16 Range/Units 04:41 WBC 4.9 (4.3-11.1) K/mcL Hgb 12.8 L (12.9-16.9) g/dL Hct 37.9 (37.5-50.1) % Plt Count 111 L (140-400) K/mcL Neutrophils # 2.8 (1.6-8.9) K/mcL BMP 03/30/16 04:41 Sodium 140 Potassium 4.1 Chloride 109 Carbon Dioxide 24 BUN 23 Creatinine 0.76 Glucose 100 H Calcium 8.5 L - ABG Interpretation ABG results: PT/INR, D-dimer PT 16.0 Seconds (9.4-12.1) H 03/23/16 17:24 - VTE Documentation of Mechanical Device: Intermittent pneumatic compression device Consult Discharge Plan - Plan Referrals: Brenden Bautista MD [Partnered Physician] - 04/10/16 2:00 pm (Please follow up as schedule...)
[2016-03-30] MEDS ORDERED: *HR* FentaNYL (PF) 100 MCG/2 ML VIAL IV PRN (14:00)
[2016-03-30] MEDS ORDERED: *HR* Midazolam HCl 2 MG/2 ML VIAL IV PRN (14:00)
--- NOTE | 2016-03-30 14:01 | Pre-Sedation Evaluation ---
Pre-sedation evaluation - Pre-sedation checklist Date of procedure: 03/30/16 Procedure: Bone Marrow Biopsy Recent Vitals: Last Vital Signs Temp 97.9 F 03/30/16 11:12 Pulse 49 03/30/16 11:12 Resp 14 03/30/16 11:12 BP 105/57 03/30/16 11:12 Pulse Ox 98 03/30/16 11:12 H&P (including ROS) documented in medical record: Yes Dietary Status: NPO 6 hours prior to procedure Airway Assessment: Patient can open mouth completely, TMJ function normal, Micrognathia (under-bite, receding chin) absent, Neck with adequate range of motion Possible difficult airway: No ASA Classification *see protocol: CLASS II-Mild systemic disease Plan of Care: Pt appropriate candidate for procedure/moderate/conscious sedation , Risks/benefits of procedure/sedation discussed w/ patient/family
[2016-03-30] MEDS ORDERED: 0.9 % Sodium Chloride 500 ML ONE (14:08)
--- NOTE | 2016-03-30 14:32 | IR Procedure Note ---
Date of procedure: 03/30/16 Consent Obtained: Written consent Timeout: Correct patient and procedure verified, Correct site verified, Time out performed, Skin prep completed Indications: Myelodysplasia Procedure Performed: Bone Marrow Biopsy Site/Technique: Lt iliac bone Results/Findings: Adequate biopsy Estimated blood loss (cc): 2 Complications: None; Tolerated procedure well Post Procedure Treatment Plan: dc to floor
[2016-03-30] MEDS: Melatonin 3 MG TABLET PO PRN (20:41)
[2016-03-31] MEDS: Aspirin 81 MG TAB.CHEW PO SCH (08:44)
[2016-03-31] MEDS: Gabapentin 100 MG CAPSULE PO SCH ×3 (08:44→21:19)
--- NOTE | 2016-03-31 17:46 | Internal Med Progress Note ---
Date of Encounter: 03/31/16 Time of Encounter: 12:30 - Assessment and plan (1) Severe aortic stenosis Current Visit: Yes Status: Acute Assessment and plan: Severe symptomatic aortic stenosis with episodes of intermittent chest pain, bradycardia, and hypotension. Echocardiogram showed an ejection fraction of 65-70%, severe left ventricular diastolic dysfunction and severely calcified aortic valve which is bicuspid, the aortic valve area is 0.72 cm CTA chest showed thoracic ascending aortic aneurysm 4.4 cm, no signs of dissection, hold beta mac due to bradycardia Cardiothoracic and cardiology services are following. 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 (3) Pancytopenia Current Visit: Yes Status: Chronic Assessment and plan: blood counts are relatively stable. B12 and folate within normal limits. Hematology consulted as well. I reviewed there documentation. Bone marrow scheduled. However CT was malfunctioning so it is now scheduled for Wednesday. we appreciate there recommendations. \ (4) Acute encephalopathy Current Visit: Yes Status: Acute Assessment and plan: Metabolic acute encephalopathy. Could be secondary to severe aortic stenosis. (5) Neuropathy Current Visit: Yes Status: Acute Assessment and plan: Etiology unclear at this time. Will need further work up as outpatient. Continue low dose gabapentin. (6) Thoracic ascending aortic aneurysm Current Visit: Yes Status: Acute Assessment and plan: Ascending Aorta 4.4 cm No Beta mac due to bradycardia. will need to be followed as an outpatient as well. - Subjective Interval history: Patient complaints of intermittent chest pain and GONZALEZ. No chest pain at this time. 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 - Constitutional Vitals: Temp Pulse Resp BP Pulse Ox 97.3 F L 58 16 88/58 98 03/31/16 16:42 03/31/16 16:42 03/31/16 16:42 03/31/16 16:42 03/31/16 16:42 General appearance: Present: cooperative, A&O X 3, pleasant, no acute distress, underweight, answers questions appropriately (poor historian) - Eye Eye exam: Present: PERRL, sclera anicteric - Neck Neck exam general surgery: Present: lymphadenopathy. Absent: supple, trachea midline - Respiratory Respiratory exam: Present: CTAB - Cardiovascular Cardiovascular exam: Present: RRR, systolic murmur - GI/Abdominal GI/Abdominal exam: Present: normal bowel sounds, soft. Absent: distended, tenderness - Extremities Exam Extremities exam: Absent: pedal edema - Back Exam Back exam: Absent: CVA tenderness (L), CVA tenderness (R) - Neurological Exam Neurological exam: Present: alert, oriented X3. Absent: facial droop, speech deficit - Skin Skin exam: Absent: rash Internal Medicine: Result - Labs CBC & Chem 7: 03/30/16 04:41 03/30/16 04:41 Labs: Cardiac Enzymes 03/31/16 03/31/16 Range/Units 06:18 12:24 Troponin I 0.02 0.02 (0-0.03) ng/mL - ABG Interpretation ABG results: PT/INR, D-dimer PT 16.0 Seconds (9.4-12.1) H 03/23/16 17:24 - Impressions Impressions Abdomen Ultrasound 03/28/16 15:30 IMPRESSION: Mild splenomegaly. Otherwise, unremarkable exam. D/ / 03/28/2016 16:26:38 Jalen Morse MD / Juliet Farrell Interpreting Provider: Jalen Morse MD - VTE Documentation of Mechanical Device: Intermittent pneumatic compression device Consult Discharge Plan - Plan Referrals: Brenden Bautista MD [Partnered Physician] - 04/10/16 2:00 pm (Please follow up as schedule...) Minal Carpenter DO [Partnered Physician] - 04/08/16 1:35 pm
[2016-03-31] MEDS: Melatonin 3 MG TABLET PO PRN (21:19)
[2016-04-01 06:28] LABS: Basophils % 0.5 %; Eosinophils # 0.3 K/mcL (0.0-0.6); Eosinophils % 5.2 %; Hematocrit 38.4 % (37.5-50.1); Hemoglobin 13.3 g/dL (12.9-16.9); Immature Granulocytes % 0.5 % (0-4); Immature Platelets 4.7 % (1.1-6.1); Lymphocytes # 1.4 K/mcL (0.6-4.6); Lymphocytes % 23.5 %; Mean Corpuscular HGB Conc 34.6 g/dL (31.6-35.5); Mean Corpuscular Hemoglobin 35.5 pg (28.0-33.3); Mean Corpuscular Volume 102.4 fL (83.0-100.0); Mean Platelet Volume 10.9 fL (9.4-12.4); Monocytes # 0.3 K/mcL (0.0-1.3); Monocytes % 5.2 %; Neutrophils # 3.9 K/mcL (1.6-8.9); Platelet Count 134 K/mcL (140-400); Red Blood Count 3.75 M/mcL (4.19-5.50); Red Cell Distribution Width 13.2 % (11.5-14.5); Segmented Neutrophils % 65.1 %
[2016-04-01 06:42] LABS: BUN/Creatinine Ratio 28 (6-26); Blood Urea Nitrogen 20 mg/dL (8-26); Calcium 8.7 mg/dL (8.6-10.8); Carbon Dioxide 22 mEq/L (19-29); Chloride 108 mEq/L (98-109); Glucose 94 mg/dL (70-99); Magnesium 1.8 mg/dL (1.6-2.6); Osmolality,Calculated 288 (280-300); Potassium 4.2 mEq/L (3.5-4.5); Sodium 138 mEq/L (136-145); eGFR For African Americans > 60 (> 60); eGFR For Non-African Americans > 60 (> 60)
[2016-04-01] MEDS: Aspirin Enteric Coated 81 MG Tablet PO SCH (09:56)
[2016-04-01] MEDS: Gabapentin 100 MG CAPSULE PO SCH ×3 (09:56→20:47)
[2016-04-01] MEDS ORDERED: *HR* HYDROcodone/Acet 5/325 mg TABLET PO PRN (13:02)
--- NOTE | 2016-04-01 16:48 | Internal Med Progress Note ---
Date of Encounter: 04/01/16 Time of Encounter: 15:30 - Assessment and plan (1) Severe aortic stenosis Current Visit: Yes Status: Acute Assessment and plan: Severe symptomatic aortic stenosis with episodes of intermittent chest pain, bradycardia, and hypotension. Echocardiogram showed an ejection fraction of 65-70%, severe left ventricular diastolic dysfunction and severely calcified aortic valve which is bicuspid, the aortic valve area is 0.72 cm CTA chest showed thoracic ascending aortic aneurysm 4.4 cm, no signs of dissection, hold beta mac due to bradycardia Cardiothoracic and cardiology services are following. 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 radiation monitor. Bedrest. 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 04/01: Patient is worried about his insurance coverage for the surgery. He would like to go home and think about it. I explained to the patient the risks of going home. I offered social service consultation to help with insurance issues. They agreed with SS juju. (2) Bradycardia Current Visit: Yes Status: Acute Assessment and plan: avoid heart rate lowering agents residential monitor. (3) Pancytopenia Current Visit: Yes Status: Chronic Assessment and plan: blood counts are relatively stable. B12 and folate within normal limits. Hematology consulted as well. I reviewed there documentation. Bone marrow scheduled. However CT was malfunctioning so it is now scheduled for Wednesday. we appreciate there recommendations. \ (4) Acute encephalopathy Current Visit: Yes Status: Acute Assessment and plan: Metabolic acute encephalopathy. Could be secondary to severe aortic stenosis. (5) Neuropathy Current Visit: Yes Status: Acute Assessment and plan: Etiology unclear at this time. Will need further work up as outpatient. Continue low dose gabapentin. (6) Thoracic ascending aortic aneurysm Current Visit: Yes Status: Acute Assessment and plan: Ascending Aorta 4.4 cm No Beta mac due to bradycardia. will need to be followed as an outpatient as well. - Subjective Interval history: still having intermittent chest pain and GONZALEZ. No chest pain at this time. Patient and brother are at bedside, they had a lot of questions about the options of heart surgery TAVR and AVR. I answered all questions. Patient is worried about his insurance coverage for the surgery. He would like to go home and think about it. I explained to the patient the risks of going home. I offered social director consultation to help with insurance issues. They agreed with SS juju. - Constitutional Vitals: Temp Pulse Resp BP Pulse Ox 97.9 F 61 14 102/42 97 04/01/16 15:23 04/01/16 15:23 04/01/16 15:23 04/01/16 15:23 04/01/16 15:23 General appearance: Present: cooperative, A&O X 3, pleasant, no acute distress, underweight, answers questions appropriately (poor historian) - Eye Eye exam: Present: PERRL, sclera anicteric - Neck Neck exam general surgery: Present: supple, trachea midline. Absent: lymphadenopathy - Respiratory Respiratory exam: Present: CTAB - Cardiovascular Cardiovascular exam: Present: RRR, systolic murmur - GI/Abdominal GI/Abdominal exam: Present: normal bowel sounds, soft. Absent: distended, tenderness - Extremities Exam Extremities exam: Absent: pedal edema - Back Exam Back exam: Absent: CVA tenderness (L), CVA tenderness (R) - Neurological Exam Neurological exam: Present: alert, oriented X3. Absent: facial droop, speech deficit - Skin Skin exam: Absent: rash Internal Medicine: Result - Labs CBC & Chem 7: 04/01/16 06:02 04/01/16 06:02 Labs: Short CBC 04/01/16 Range/Units 06:02 WBC 6.0 (4.3-11.1) K/mcL Hgb 13.3 (12.9-16.9) g/dL Hct 38.4 (37.5-50.1) % Plt Count 134 L (140-400) K/mcL Neutrophils # 3.9 (1.6-8.9) K/mcL BMP 04/01/16 06:02 Sodium 138 Potassium 4.2 Chloride 108 Carbon Dioxide 22 BUN 20 Creatinine 0.72 Glucose 94 Calcium 8.7 - ABG Interpretation ABG results: PT/INR, D-dimer PT 16.0 Seconds (9.4-12.1) H 03/23/16 17:24 - VTE Documentation of Mechanical Device: Intermittent pneumatic compression device Consult Discharge Plan - Plan Referrals: Brenden Bautista MD [Partnered Physician] - 04/10/16 2:00 pm (Please follow up as schedule...) Minal Carpenter DO [Partnered Physician] - 04/08/16 1:35 pm
[2016-04-01] MEDS: Melatonin 3 MG TABLET PO PRN (20:49)
[2016-04-02] MEDS: Aspirin Enteric Coated 81 MG Tablet PO SCH (08:45)
[2016-04-02] MEDS: Gabapentin 100 MG CAPSULE PO SCH ×3 (08:45→20:31)
--- NOTE | 2016-04-02 15:15 | Internal Med Progress Note ---
Date of Encounter: 04/02/16 Time of Encounter: 11:30 - Assessment and plan (1) Severe aortic stenosis Current Visit: Yes Status: Acute Assessment and plan: Severe symptomatic aortic stenosis with episodes of intermittent chest pain, bradycardia, and hypotension. Echocardiogram showed an ejection fraction of 65-70%, severe left ventricular diastolic dysfunction and severely calcified aortic valve which is bicuspid, the aortic valve area is 0.72 cm CTA chest showed thoracic ascending aortic aneurysm 4.4 cm, no signs of dissection, hold beta mac due to bradycardia Cardiothoracic and cardiology services are following. 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 (2) Bradycardia Current Visit: Yes Status: Acute Assessment and plan: avoid heart rate lowering agents doctor podiatric medicine. (3) Pancytopenia Current Visit: Yes Status: Chronic Assessment and plan: 03/24: On admission, WBC 2.9, hemoglobin 12.1, platelets 74. B12 and folate within normal limits. Hematology service recommended bone marrow biopsy to evaluate pancytopenia and rule out any malignancy. 03/30:17: Patient underwent bone marrow biopsy. today, WBC 6, Hgb 13.3 and platelets 134. \ (4) Acute encephalopathy Current Visit: Yes Status: Acute Assessment and plan: Metabolic acute encephalopathy. Could be secondary to severe aortic stenosis. (5) Neuropathy Current Visit: Yes Status: Acute Assessment and plan: Etiology unclear at this time. Will need further work up as outpatient. Continue low dose gabapentin. (6) Thoracic ascending aortic aneurysm Current Visit: Yes Status: Acute Assessment and plan: Ascending Aorta 4.4 cm No Beta mac due to bradycardia. will need to be followed as an outpatient as well. - Subjective Interval history: Patient has nonew complaints. He still has intermittent chest pain and GONZALEZ. - Constitutional Vitals: Temp Pulse Resp BP Pulse Ox 98.1 F 58 16 92/52 98 04/02/16 12:00 04/02/16 12:00 04/02/16 12:00 04/02/16 12:04/02/16 12:00 General appearance: Present: cooperative, A&O X 3, pleasant, no acute distress, underweight, answers questions appropriately (poor historian) - Eye Eye exam: Present: PERRL, sclera anicteric - Neck Neck exam general surgery: Present: supple, trachea midline. Absent: lymphadenopathy - Respiratory Respiratory exam: Present: CTAB - Cardiovascular Cardiovascular exam: Present: RRR, systolic murmur - GI/Abdominal GI/Abdominal exam: Present: normal bowel sounds, soft. Absent: distended, tenderness - Extremities Exam Extremities exam: Absent: pedal edema - Back Exam Back exam: Absent: CVA tenderness (L), CVA tenderness (R) - Neurological Exam Neurological exam: Present: alert, oriented X3. Absent: facial droop, speech deficit - Skin Skin exam: Absent: rash Internal Medicine: Result - Labs CBC & Chem 7: 04/01/16 06:02 04/01/16 06:02 - ABG Interpretation ABG results: PT/INR, D-dimer PT 16.0 Seconds (9.4-12.1) H 03/23/16 17:24 - VTE Documentation of Mechanical Device: Intermittent pneumatic compression device Consult Discharge Plan - Plan Referrals: Brenden Bautista MD [Partnered Physician] - 04/10/16 2:00 pm (Please follow up as schedule...) Minal Carpenter DO [Partnered Physician] - 04/08/16 1:35 pm
[2016-04-02] MEDS: Melatonin 3 MG TABLET PO PRN (20:51)
[2016-04-03] MEDS: Gabapentin 100 MG CAPSULE PO SCH ×3 (08:12→20:35)
[2016-04-03] MEDS: Aspirin Enteric Coated 81 MG Tablet PO SCH (08:12)
[2016-04-03] MEDS ORDERED: Artificial Tears SOLN 15 ML BOTTLE BOTH EYES PRN (14:40)
--- NOTE | 2016-04-03 16:03 | Event Note ---
Date of Encounter: 04/03/16 Time of Encounter: 16:01 I spoke with hospitalist and patient in the patient's room. I advised them there was no hematology contraindications for cardiothoracic surgery from our perspective. I had a discussion with Dr Kelly and Dr Valera in cancer center this afternoon. Hard copy report from hospitalist for bone marrow aspiration was negative. Dr Javed can call Dr Kelly directly if any questions, he will be manager investigations through April 09, 2016.
--- NOTE | 2016-04-03 16:22 | Internal Med Progress Note ---
Date of Encounter: 04/03/16 Time of Encounter: 16:00 - Assessment and plan (1) Severe aortic stenosis Current Visit: Yes Status: Acute Assessment and plan: Severe symptomatic aortic stenosis with episodes of intermittent chest pain, bradycardia, and hypotension. Echocardiogram showed an ejection fraction of 65-70%, severe left ventricular diastolic dysfunction and severely calcified aortic valve which is bicuspid, the aortic valve area is 0.72 cm CTA chest showed thoracic ascending aortic aneurysm 4.4 cm, no signs of dissection, hold beta mac due to bradycardia I notified Cardiothoracic and cardiology services about Hematology input after reviewing bone marrow biopsy results. Cardiology will assess patient and decide about LHC. gambling monitor. Bedrest. 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 (3) Pancytopenia Current Visit: Yes Status: Chronic Assessment and plan: 03/24: On admission, WBC 2.9, hemoglobin 12.1, platelets 74. B12 and folate within normal limits. Hematology service recommended bone marrow biopsy to evaluate pancytopenia and rule out any malignancy. 03/30:17: Patient underwent bone marrow biopsy. 04/01: WBC 6, Hgb 13.3 and platelets 134. \ (4) Acute encephalopathy Current Visit: Yes Status: Acute Assessment and plan: Metabolic acute encephalopathy. Could be secondary to severe aortic stenosis. (5) Neuropathy Current Visit: Yes Status: Acute Assessment and plan: Etiology unclear at this time. Will need further work up as outpatient. Continue low dose gabapentin. (6) Thoracic ascending aortic aneurysm Current Visit: Yes Status: Acute Assessment and plan: Ascending Aorta 4.4 cm No Beta mac due to bradycardia. will need to be followed as an outpatient as well. - Subjective Interval history: Patient reports right eye hemorrhage earlier but it has resolved now. no eye pain. no blurry vision. - Constitutional Vitals: Temp Pulse Resp BP Pulse Ox 98.2 F 57 14 90/52 98 04/03/16 15:22 04/03/16 15:22 04/03/16 15:22 04/03/16 15:22 04/03/16 15:22 General appearance: Present: cooperative, A&O X 3, pleasant, no acute distress, underweight, answers questions appropriately (poor historian) - Eye Eye exam: Present: sclera anicteric. Absent: conjuntiva pink - Neck Neck exam general surgery: Present: supple, trachea midline. Absent: lymphadenopathy - Respiratory Respiratory exam: Present: CTAB - Cardiovascular Cardiovascular exam: Present: RRR, systolic murmur - GI/Abdominal GI/Abdominal exam: Present: normal bowel sounds, soft. Absent: distended, tenderness - Extremities Exam Extremities exam: Absent: pedal edema - Back Exam Back exam: Absent: CVA tenderness (L), CVA tenderness (R) - Neurological Exam Neurological exam: Present: alert, oriented X3, no focal deficits, strengths equal and symetr throughout. Absent: facial droop, speech deficit - Skin Skin exam: Absent: rash Internal Medicine: Result - Labs CBC & Chem 7: 04/01/16 06:02 04/01/16 06:02 - ABG Interpretation ABG results: PT/INR, D-dimer PT 16.0 Seconds (9.4-12.1) H 03/23/16 17:24 - VTE Documentation of Mechanical Device: Intermittent pneumatic compression device Consult Discharge Plan - Plan Referrals: Brenden Bautista MD [Partnered Physician] - 04/10/16 2:00 pm (Please follow up as schedule...) Minal Carpenter DO [Partnered Physician] - 04/08/16 1:35 pm
[2016-04-03] MEDS: Acetaminophen 325 MG TABLET PO PRN (20:35)
[2016-04-04 06:40] LABS: Basophils % 0.6 %; Eosinophils # 0.3 K/mcL (0.0-0.6); Hematocrit 36.5 % (37.5-50.1); Hemoglobin 12.6 g/dL (12.9-16.9); Immature Granulocytes % 0.2 % (0-4); Lymphocytes # 1.3 K/mcL (0.6-4.6); Lymphocytes % 27.1 %; Mean Corpuscular HGB Conc 34.5 g/dL (31.6-35.5); Mean Corpuscular Hemoglobin 35.5 pg (28.0-33.3); Mean Corpuscular Volume 102.8 fL (83.0-100.0); Mean Platelet Volume 10.5 fL (9.4-12.4); Monocytes # 0.3 K/mcL (0.0-1.3); Monocytes % 6.4 %; Neutrophils # 2.9 K/mcL (1.6-8.9); Platelet Count 132 K/mcL (140-400); Red Blood Count 3.55 M/mcL (4.19-5.50); Red Cell Distribution Width 13.4 % (11.5-14.5); Segmented Neutrophils % 59.7 %
[2016-04-04] MEDS: Gabapentin 100 MG CAPSULE PO SCH ×3 (09:50→20:17)
[2016-04-04] MEDS: Aspirin Enteric Coated 81 MG Tablet PO SCH (09:50)
--- NOTE | 2016-04-04 09:51 | Cardiology Progress Note ---
Date of Encounter: 04/14/16 Time of Encounter: 09:50 Assessment and Plan Discussion w patient/family: The assessment and plan as outlined above was discussed with the patient and/or family members who expressed understanding and agreement. All questions were answered. Thank you for involving us in the care of your patient. Please call with any questions. will need a C on Wednesday with a aortic root shot ? AVR vs TAVR Will follow Thanks Subjective Principal diagnosis: chest pain Interval history: pt denies any sob, cp, pnd Pt is ready for work up of Has been having sob for past 1 year Also has a TAA measured at 4.5 cm ? Objective Vital Signs, Last 4 Hours Temp Pulse Resp BP Pulse Ox 04/04/16 07:43 97.9 F 54 14 111/51 99 Results 04/14/16 04:30 04/14/16 04:30 Lab Results 04/04/16 06:17 WBC 4.8 Hgb 12.6 L Hct 36.5 L Plt Count 132 L - VTE Documentation of Mechanical Device: Intermittent pneumatic compression device Consult Discharge Plan - Plan Instructions: Metoprolol (By mouth), Oxycodone/Acetaminophen (By mouth), Aspirin (By mouth), Amiodarone (By mouth), Laxative, Stool Softeners (By mouth) , Simvastatin (By mouth), Coronary Artery Bypass Graft (DC), Sternal Precautions (GEN) Additional Instructions: Please follow up with your primary care doctor within one week after your discharge from the hospital. Please follow up with Cardiothoracic surgery, Cardiology, and Hematology after discharge as per your scheduled appointments. Amiodarone, Metoprolol, Lipitor, and Aspirin has been added to your home medications. Please take these medications as prescribed. Please resume your home medications as prescribed by your primary care physician. Please seek medical help if you experience any chest pain or shortness of breath. Maintain sternal precautions-NO driving for one month, do not lift any more than 10lbs. Referrals: Brenden Bautista MD [Partnered Physician] - 04/10/16 2:00 pm (Please follow up as schedule...) Raj Javed MD [Partnered Physician] - 05/07/16 1:45 pm Minal Carpenter DO [Partnered Physician] - 04/27/16 1:15 pm Prescriptions: Aspirin 81 mg PO DAILY #30 tab.chew Docusate [Colace] 100 mg PO BID #30 capsule Metoprolol [Lopressor] 12.5 mg PO BID #30 tablet
--- NOTE | 2016-04-04 10:17 | Cardiothoracic Progress Note ---
Date of Encounter: 04/04/16 Time of Encounter: 10:15 - Assessment and plan (1) Severe aortic stenosis Current Visit: Yes Status: Acute The assessment and plan as outlined above was discussed with the patient and/or family members who expressed understanding and agreement. All questions were answered. The patient is scheduled for cardiac catheterization on Wednesday. He is considering open aortic valve replacement versus TAVR. We will discuss with him after his cardiac catheterization. - Subjective Interval history: The patient is previously seen by Dr. Nobles for symptomatic aortic valve stenosis. He has been undergoing workup for pancytopenia. I was called last night by the hospitalist and oncologist and told that his bone marrow biopsy was okay. Vital Signs, Last 4 Hours Temp Pulse Resp BP Pulse Ox 04/04/16 07:43 97.9 F 54 14 111/51 99 Clinical Data, last 8 Hours Output, Urine Amount 520 Weight 04/02/16 04/03/16 04/04/16 23:59 23:59 23:59 Weight 66.5 kg 67 kg 67.8 kg Lungs are clear to percussion and auscultation. Heart has a 4/6 systolic murmur heard best in the aortic area. - Labs 04/04/16 06:17 04/01/16 06:02 Lab Results, Last 24 hours 04/04/16 06:17 WBC 4.8 Hgb 12.6 L Hct 36.5 L Plt Count 132 L - VTE Documentation of Mechanical Device: Intermittent pneumatic compression device Consult Discharge Plan - Plan Referrals: Brenden Bautista MD [Partnered Physician] - 04/10/16 2:00 pm (Please follow up as schedule...) Minal Carpenter DO [Partnered Physician] - 04/08/16 1:35 pm
[2016-04-04] MEDS: Acetaminophen 325 MG TABLET PO PRN (14:50)
--- NOTE | 2016-04-04 15:15 | Internal Med Progress Note ---
Date of Encounter: 04/04/16 Time of Encounter: 14:00 - Assessment and plan (1) Severe aortic stenosis Current Visit: Yes Status: Acute Assessment and plan: Severe symptomatic aortic stenosis with episodes of intermittent chest pain, bradycardia, and hypotension. Echocardiogram showed an ejection fraction of 65-70%, severe left ventricular diastolic dysfunction and severely calcified aortic valve which is bicuspid, the aortic valve area is 0.72 cm Pt underwent standard stress testing and had blunted blood pressure response with ECG depressions that were nondiagnostic. CTA chest showed thoracic ascending aortic aneurysm 4.4 cm, no signs of dissection, hold beta mac due to bradycardia Appreciate Cardiothoracic and cardiology services input. [facility] on Wednesday. ekg monitor tech. Bedrest. Avoid heart rate lowering agents due to bradycardia. (2) Bradycardia Current Visit: Yes Status: Acute Assessment and plan: HR 50-60s. 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 (3) Pancytopenia Current Visit: Yes Status: Chronic Assessment and plan: 03/24: On admission, WBC 2.9, hemoglobin 12.1, platelets 74. B12 and folate within normal limits. Hematology service recommended bone marrow biopsy to evaluate pancytopenia and rule out any malignancy. 03/30:17: Patient underwent bone marrow biopsy. 04/01: WBC 6, Hgb 13.3 and platelets 134. \ (4) Acute encephalopathy Current Visit: Yes Status: Acute Assessment and plan: Metabolic acute encephalopathy. Could be secondary to severe aortic stenosis. (5) Neuropathy Current Visit: Yes Status: Acute Assessment and plan: Etiology unclear at this time. Will need further work up as outpatient. Continue low dose gabapentin. (6) Thoracic ascending aortic aneurysm Current Visit: Yes Status: Acute Assessment and plan: Ascending Aorta 4.4 cm No Beta mac due to bradycardia. will need to be followed as an outpatient as well. - Subjective Interval history: Patient still has dyspnea on minimal exertion. - Constitutional Vitals: Temp Pulse Resp BP Pulse Ox 98.0 F 62 17 108/60 98 04/04/16 12:22 04/04/16 12:22 04/04/16 12:22 04/04/16 12:04/04/16 12:22 General appearance: Present: cooperative, A&O X 3, pleasant, no acute distress, underweight, answers questions appropriately (poor historian) - Eye Eye exam: Present: PERRL, sclera anicteric - ENT ENT exam: Present: mucous membranes moist - Respiratory Respiratory exam: Present: CTAB - Cardiovascular Cardiovascular exam: Present: RRR, systolic murmur - GI/Abdominal GI/Abdominal exam: Present: normal bowel sounds. Absent: distended, tenderness - Extremities Exam Extremities exam: Absent: pedal edema - Back Exam Back exam: Absent: CVA tenderness (L), CVA tenderness (R) - Neurological Exam Neurological exam: Present: alert, oriented X3. Absent: facial droop, speech deficit - Skin Skin exam: Present: dry, intact. Absent: rash Internal Medicine: Result - Labs CBC & Chem 7: 04/04/16 06:17 04/01/16 06:02 Labs: Short CBC 04/04/16 Range/Units 06:17 WBC 4.8 (4.3-11.1) K/mcL Hgb 12.6 L (12.9-16.9) g/dL Hct 36.5 L (37.5-50.1) % Plt Count 132 L (140-400) K/mcL Neutrophils # 2.9 (1.6-8.9) K/mcL - ABG Interpretation ABG results: PT/INR, D-dimer PT 16.0 Seconds (9.4-12.1) H 03/23/16 17:24 - VTE Documentation of Mechanical Device: Intermittent pneumatic compression device Consult Discharge Plan - Plan Referrals: Brenden Bautista MD [Partnered Physician] - 04/10/16 2:00 pm (Please follow up as schedule...) Minal Carpenter DO [Partnered Physician] - 04/08/16 1:35 pm
[2016-04-04] MEDS: Melatonin 3 MG TABLET PO PRN (20:17)
[2016-04-05] MEDS: Aspirin Enteric Coated 81 MG Tablet PO SCH (08:07)
[2016-04-05] MEDS: Gabapentin 100 MG CAPSULE PO SCH ×3 (08:07→20:08)
--- NOTE | 2016-04-05 10:18 | Cardiology Progress Note ---
Date of Encounter: 04/05/16 Time of Encounter: 10:17 Assessment and Plan Discussion w patient/family: The assessment and plan as outlined above was discussed with the patient and/or family members who expressed understanding and agreement. All questions were answered. Thank you for involving us in the care of your patient. Please call with any questions. will need a [facility] on Wednesday with a aortic root shot ? AVR vs TAVR Will follow I have answered all of his questions/ concerns Thanks Subjective Principal diagnosis: chest pain Interval history: pt denies any sob, cp, pnd slept well last night , no pnd Pt is ready for work up of Has been having sob for past 1 year Also has a TAA measured at 4.5 cm ? Objective Vital Signs, Last 4 Hours Temp Pulse Resp BP Pulse Ox 04/05/16 08:38 98.1 F 73 18 109/68 96 Results 04/04/16 06:17 04/01/16 06:02 - VTE Documentation of Mechanical Device: Intermittent pneumatic compression device Consult Discharge Plan - Plan Referrals: Brenden Bautista MD [Partnered Physician] - 04/10/16 2:00 pm (Please follow up as schedule...) Minal Carpenter DO [Partnered Physician] - 04/08/16 1:35 pm
--- NOTE | 2016-04-05 17:47 | Internal Med Progress Note ---
Date of Encounter: 04/05/16 Time of Encounter: 13:00 - Assessment and plan (1) Severe aortic stenosis Current Visit: Yes Status: Acute Assessment and plan: Severe symptomatic aortic stenosis with episodes of intermittent chest pain, bradycardia, and hypotension. Echocardiogram showed an ejection fraction of 65-70%, severe left ventricular diastolic dysfunction and severely calcified aortic valve which is bicuspid, the aortic valve area is 0.72 cm Pt underwent standard stress testing and had blunted blood pressure response with ECG depressions that were nondiagnostic. CTA chest showed thoracic ascending aortic aneurysm 4.4 cm, no signs of dissection, hold beta mac due to bradycardia Appreciate Cardiothoracic and cardiology services input. [facility] tomorrow technology manager. Bedrest. Avoid heart rate lowering agents due to bradycardia. (2) Bradycardia Current Visit: Yes Status: Acute Assessment and plan: HR 50-60s. 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 (3) Pancytopenia Current Visit: Yes Status: Chronic Assessment and plan: 03/24: On admission, WBC 2.9, hemoglobin 12.1, platelets 74. B12 and folate within normal limits. Hematology service recommended bone marrow biopsy to evaluate pancytopenia and rule out any malignancy. 03/30:17: Patient underwent bone marrow biopsy. 04/01: WBC 6, Hgb 13.3 and platelets 134. \ (4) Acute encephalopathy Current Visit: Yes Status: Resolved Assessment and plan: Metabolic acute encephalopathy. Could be secondary to severe aortic stenosis. resolved. (5) Neuropathy Current Visit: Yes Status: Acute Assessment and plan: Etiology unclear at this time. Will need further work up as outpatient. Continue low dose gabapentin. (6) Thoracic ascending aortic aneurysm Current Visit: Yes Status: Acute Assessment and plan: Ascending Aorta 4.4 cm No Beta mac due to bradycardia. will need to be followed as an outpatient as well. - Subjective Interval history: no chest pain this morning. He stood up and sat on his chair and had mild shortness of breath that subsided after resting - Constitutional Vitals: Temp Pulse Resp BP Pulse Ox 98.4 F 60 16 101/59 95 04/05/16 15:38 04/05/16 15:38 04/05/16 15:38 04/05/16 15:38 04/05/16 15:38 General appearance: Present: cooperative, A&O X 3, pleasant, no acute distress, underweight, answers questions appropriately (poor historian) - Eye Eye exam: Present: PERRL, sclera anicteric. Absent: conjuntiva pink - Neck Neck exam general surgery: Present: supple, trachea midline. Absent: lymphadenopathy - Respiratory Respiratory exam: Absent: CTAB, wheezes - Cardiovascular Cardiovascular exam: Present: RRR, systolic murmur - GI/Abdominal GI/Abdominal exam: Present: normal bowel sounds, soft. Absent: distended, tenderness - Extremities Exam Extremities exam: Absent: pedal edema - Back Exam Back exam: Absent: CVA tenderness (L), CVA tenderness (R) - Neurological Exam Neurological exam: Present: alert, oriented X3. Absent: facial droop, speech deficit - Skin Skin exam: Absent: rash Internal Medicine: Result - Labs CBC & Chem 7: 04/04/16 06:17 04/01/16 06:02 - ABG Interpretation ABG results: PT/INR, D-dimer PT 16.0 Seconds (9.4-12.1) H 03/23/16 17:24 - VTE Documentation of Mechanical Device: Intermittent pneumatic compression device Consult Discharge Plan - Plan Referrals: Brenden Bautista MD [Partnered Physician] - 04/10/16 2:00 pm (Please follow up as schedule...) Minal Carpenter DO [Partnered Physician] - 04/08/16 1:35 pm
[2016-04-05] MEDS: Melatonin 3 MG TABLET PO PRN (20:08)
[2016-04-06 06:32] LABS: Basophils % 0.6 %; Eosinophils # 0.4 K/mcL (0.0-0.6); Eosinophils % 6.5 %; Hematocrit 35.2 % (37.5-50.1); Hemoglobin 12.1 g/dL (12.9-16.9); Immature Granulocytes % 0.4 % (0-4); Lymphocytes # 1.5 K/mcL (0.6-4.6); Lymphocytes % 27.1 %; Mean Corpuscular HGB Conc 34.4 g/dL (31.6-35.5); Mean Corpuscular Hemoglobin 35.4 pg (28.0-33.3); Mean Corpuscular Volume 102.9 fL (83.0-100.0); Mean Platelet Volume 10.8 fL (9.4-12.4); Monocytes # 0.3 K/mcL (0.0-1.3); Neutrophils # 3.2 K/mcL (1.6-8.9); Platelet Count 130 K/mcL (140-400); Red Blood Count 3.42 M/mcL (4.19-5.50); Red Cell Distribution Width 13.2 % (11.5-14.5); Segmented Neutrophils % 59.4 %
[2016-04-06 06:37] LABS: INR 1.3; Prothrombin Time 13.9 Seconds (9.4-12.1)
[2016-04-06 06:47] LABS: BUN/Creatinine Ratio 29 (6-26); Blood Urea Nitrogen 21 mg/dL (8-26); Calcium 8.7 mg/dL (8.6-10.8); Carbon Dioxide 25 mEq/L (19-29); Chloride 109 mEq/L (98-109); Glucose 95 mg/dL (70-99); Magnesium 1.8 mg/dL (1.6-2.6); Osmolality,Calculated 297 (280-300); Phosphorous 3.6 mg/dL (2.3-4.7); Potassium 4.2 mEq/L (3.5-4.5); Sodium 142 mEq/L (136-145); eGFR For African Americans > 60 (> 60); eGFR For Non-African Americans > 60 (> 60)
[2016-04-06] MEDS ORDERED: *HR* Heparin 10,000 UNIT/10 ML VIAL ONE (07:51)
[2016-04-06] MEDS ORDERED: Heparin 1,000 UNITS/500 mL NS 500 ML ONE (07:51)
[2016-04-06] MEDS ORDERED: 0.9 % Sodium Chloride 1,000 ML ONE ×2 (07:51→08:41)
[2016-04-06] MEDS ORDERED: Verapamil 5 MG/2 ML VIAL ONE (08:08)
[2016-04-06] MEDS ORDERED: Nitroglycerin 1,000 MCG/10 ML VIAL IV ONE (08:09)
[2016-04-06] MEDS: Gabapentin 100 MG CAPSULE PO SCH ×3 (08:31→20:19)
[2016-04-06] MEDS: Aspirin Enteric Coated 81 MG Tablet PO SCH (08:31)
--- NOTE | 2016-04-06 08:47 | Pre-Sedation Evaluation ---
Pre-sedation evaluation - Pre-sedation checklist Date of procedure: 04/06/16 Procedure: heart cath Recent Vitals: Last Vital Signs Temp 97.6 F 04/06/16 08:20 Pulse 58 04/06/16 08:20 Resp 16 04/06/16 08:20 BP 112/61 04/06/16 08:20 Pulse Ox 98 04/06/16 08:20 H&P (including ROS) documented in medical record: Yes Previous reaction to sedatives/anesthetics: No Dietary Status: NPO after Midnight Dentition: dentures removed ASA Classification *see protocol: CLASS II-Mild systemic disease Plan of Care: Pt appropriate candidate for procedure/moderate/conscious sedation , Risks/benefits of procedure/sedation discussed w/ patient/family
[2016-04-06] MEDS ORDERED: *HR* Midazolam HCl 2 MG/2 ML VIAL ONE (08:48)
[2016-04-06] MEDS ORDERED: *HR* FentaNYL (PF) 100 MCG/2 ML VIAL ONE (08:49)
--- NOTE | 2016-04-06 09:37 | Event Note ---
Date of Encounter: 04/06/16 Time of Encounter: 09:00 Bone marrow aspirate biopsy is not suggestive of a primary marrow pathology. There is no morphologic or immunophenotypic evidence for neoplasm. He has slightly decreased iron storage. Will discuss above with patient. His labs have been trending towards normal and should be clear for valvular procedures if planned.
--- NOTE | 2016-04-06 09:45 | Invasive Diagnostic Lab Proc ---
Name: Bill Villa Date of Study: 04/06/2016 Date: 1945 Ht: 74.0in Medical Record#: [id number] Age: 71 Wt: 156.53lb Gender: Male BSA: 1.96 Order #: [id number] BMI: 20.09 Physicians Procedure Physician: Jian Rivera MD, [facility] Referring MD: Referring MD: Staff Name Position Time In Molly Mello RN Monitor 08:29 AM Sara Fernández RN Printing Sales Representative 08:29 AM Yesenia Bowman RT (R) Scrub 08:29 AM Indications Indication Abnormal Test - ECHO Severe aortic stenosis AAA Procedures Performed Procedure CORONARY ARTERY ANGIO S\\T\\I INJECT SUPRVLVAORTAGRAM Pre-Procedure Checklist Informed consent is complete signed and on chart. H\\T\\P is on chart. ID band is on and ID verified with patient. Patient NPO for procedure The procedure was described for the patient and questions were answered. Blood Pressure: 114/64 ECG is on chart. Rhythm: NSR Plan of Care Patient will tolerate the procedure without complications. Adequate level of comfort will be maintained. Hemodynamics will remain stable Patient will recover from procedure without complications. Respiratory function will be maintained. Cardiac rhythm will remain stable. Patient temperature will be maintained. Patient and/or family have verbalized understanding of the procedure. Patient Education Chief Complaint/Reason for Test: Cardiac Cath Developmental Category: Geriatric (65+ years) Developmentally Appropriate for Age: Yes Learning Barriers: None Education Needs: Procedure Education Method: Verbal Information Taught: Cardiac Cath Educational Evaluation: Able to repeat information Intravenous Access Time IV Size Location DC'd Fluid/Drip Rate Units RN 08:50 AM 18g 1 02/11" Patent On Arrival Lt Arm 0.9NaCl 25 ml/hr Molly Mello RN Allergies Sulfa (Sulfonamide Antibiotics) Vital Signs Time BP (mmHg) HR (bpm) O2 Sat. RR (bpm) LOC 08:29 AM 114 / 64 59 100 % 17 5 = Fully awake and oriented or at pre-proc level 08:59 AM / % 5 = Fully awake and oriented or at pre-proc level 08:59 AM / % 4 = Oriented but drowsy 09:22 AM 112 / 49 55 96 % 23 09:27 AM 115 / 53 57 99 % 08:52 AM 127 / 63 53 100 % 17 08:57 AM 129 / 51 53 100 % 31 09:02 AM 130 / 62 55 96 % 09:07 AM 127 / 55 51 99 % 16 09:12 AM 105 / 51 59 97 % 29 09:17 AM 112 / 54 56 97 % 23 Procedural Medications Time Medication Dose Units Method Given By 08:59 AM Oxygen 2 L/min nasal cannula Sara Fernández RN 08:55 AM Versed 2 mg Intravenous Sara Fernández RN 08:55 AM Fentanyl 50 mcg Intravenous Sara Fernández RN 09:08 AM Lidocaine 2% 0.5 ml Subcutaneous Jian Rivera MD, [facility] 09:09 AM Heparin 4000 units Nitroglycerin 200 mcg Verapamil 2.5 mg Intraarterial Jian Rivera MD, [facility] ASA Classification: CLASS II- Mild systemic disease (i.e. well-controlled diabetes, hypertension, asthma, cigarette smoking) Ralf Score Preprocedure Postprocedure Activity 2- Moves 4 extremities sustained head lift Activity Circulation 2- SBP +/= 20 points of pre-anesthetic level Circulation Consciousness 2- Awake and alert oriented x 3 Consciousness O2 Saturation 2- Able to maintain O2 satruation of 92% on room air O2 Saturation Respiratory 2- Able to deep breathe and cough well Respiratory Total Score 10 Total Score Contrast Agent: Isovue Diagnostic Contrast: 74 ml Total Contrast: 74 ml Fluoro Dose: 188 mGy Procedure Log Time Note Enter By 08:29 AM Molly Mello RN Position: Monitor Time in: 08:29 scoates 08:29 AM Sara Fernández RN Position: Printing Sales Representative Time in: 08:29 scoates 08:30 AM Yesenia Bowman RT (R) Position: Scrub Time in: 08:29 scoates 08:30 AM Case Delayed No: inpatient scoates 08:38 AM CathStat 08:50 AM Pt arrived to labor relations specialist 2 at 08:50 scoates 08:50 AM Physician arrived 08:50 scoates 08:51 AM Meet and greet completed scoates 08:51 AM Sign in performed according to hospital policy. scoates 08:51 AM Procedure start 08:51 scoates 08:51 AM Vitals capture started with the following parameters, Patient=Adult, Interval=5 min, Initial Unsjhngh=705 mmHg, Deflation Rate=5 mmHg, Cuff placed on Left Arm 08:52 AM HR=53 bpm, BGCU=414/63 mmhg, HdP6=617.0 %, Resp=17 B/min, Comment=sb 08:55 AM Time: 08:55 Versed 2 mg Intravenous Given by Sara Fernández RN scoates 08:55 AM Time: 08:55 Oxygen on at 2 L/min per nasal cannula by Sara Fernández RN scoates 08:55 AM Time: 08:55 Fentanyl 50 mcg Intravenous Given by Sara Fernández RN scoates 08:57 AM HR=53 bpm, QACZ=727/51 mmhg, TwZ7=783.0 %, Resp=31 B/min, Comment=sb 08:58 AM Patient charges- Angio tray pack, Navilyst 3mm J, Pulse Oximetry and ACIST tubing and transducer scoates 08:59 AM ASA Class CLASS II- Mild systemic disease (i.e. well-controlled diabetes, hypertension, asthma, cigarette smoking) scoates 08:59 AM Time: 08:59 Patient comfortable and pain free: Yes scoates 08:59 AM Time: 08:59LOC: 5 = Fully awake and oriented or at pre-proc level scoates 08:59 AM Pressure channel 1 zeroed. 09:01 AM Hair removed from procedure site in procedure lab using clippers. Right wrist prepped with Chloraprep by Molly Mello RN, safety strap applied then patient was draped. Skin intact. scoates 09:01 AM Hair removed from procedure site in procedure lab using clippers. Right groin prepped with Chloraprep by Molly Mello RN, safety strap applied then patient was draped. Skin intact. scoates 09:02 AM HR=55 bpm, FDTB=614/62 mmhg, SpO2=96.0 %, Comment=sb 09:07 AM HR=51 bpm, RWMW=150/55 mmhg, SpO2=99.0 %, Resp=16 B/min, Comment=sb 09:08 AM Clinical Presentation: Unstable angina scoates 09:08 AM Time out performed according to hospital policy scoates 09:08 AM Time: 09:08 0.5 ml Lidocaine 2% to right radial Subcutaneous Given by Jian Rivera MD, [facility] scoates 09:09 AM Access obtained by percutaneous puncture. 5Fr 10cm Terumo Glidesheath sheath placed in right Radial artery. [id number] scoates 09:09 AM Time: 09:09 Patient given 4,000 units Heparin, 200 mcg Nitroglycerin, and 2.5 mg Verapamil Intraarterial by Jian Rivera MD, [facility] scoates 09:10 AM 5Fr TIG catheter inserted over the wire DN scoates 09:11 AM Pressure channel 1 zeroed. 09:12 AM LCA angiography performed in multiple views. scoates 09:12 AM Recorded Pressure: Ao, HR=62, Condition=Condition 1 (Aorta) Ao 80/51/64 09:12 AM HR=59 bpm, VMQA=166/51 mmhg, SpO2=97.0 %, Resp=29 B/min, Comment=sb 09:13 AM catheter repositioned to the RCA scoates 09:14 AM RCA angiography performed in multiple views. scoates 09:14 AM Coronary Dominance: Left scoates 09:14 AM Catheter removed scoates 09:14 AM Time: 08:59 Patient comfortable and pain free: Yes scoates 09:15 AM Time: 08:59LOC: 4 = Oriented but drowsy scoates 09:15 AM 5Fr FL3.5 catheter inserted over the wire [id number] scoates 09:16 AM Recorded Pressure: Ao, HR=59, Condition=Condition 1 (Aorta) Ao 87/55/70 09:17 AM HR=56 bpm, UXVF=579/54 mmhg, SpO2=97.0 %, Resp=23 B/min, Comment=sb 09:17 AM scoates 09:18 AM Lesion found in Mid LAD. Pre Stenosis: 30 Pre WEST Flow: 3 scoates 09:18 AM Lesion found in Mid Circumflex. Pre Stenosis: 30 Pre WEST Flow: 3: Complete and Brisk Flow/Perfusion scoates 09:18 AM Mid/Distal Left Anterior Descending Coronary Artery and diagonal branches with 30% stenosis. If graft is supplying this area, 0 % stenosis scoates 09:19 AM Circumflex, Obtuse Marginal, Left Posterior Descending, and Left Posterolateral Coronary Arteries with 30 % stenosis. If graft is supplying this area, 0 % stenosis scoates 09:19 AM Catheter removed scoates 09:19 AM 5Fr Pigtail catheter inserted over the wire [facility] scoates 09:20 AM Bolus angiogram of Aortic root complete: 12 ml/sec for a total of 25 mls scoates 09:22 AM HR=55 bpm, YMFC=125/49 mmhg, SpO2=96.0 %, Resp=23 B/min 09:22 AM Catheter removed scoates 09:24 AM Procedure completed at 09:24 scoates 09:24 AM Sign out completed: Radiation Dose 188 mGy Fluoro Time: 3.2 Isovue 370 - 200ml contrast 74 ml given by Jian Rivera MD, FACC. Complications: NoneCardiac Rehab Consult needed: YesConfirmed administered medications: Yes scoates 09:24 AM Isovue 370 - 200ml,1 Bottle(s) used. scoates 09:25 AM Arterial sheath pulled, Vasc Band closure device used and was Successful S/N. scoates 09:26 AM 13 ml air in Vasc Band. scoates 09:26 AM Post ECG Sinus Bradycardia scoates 09:26 AM Post Blood Pressure 112/49 scoates 09:27 AM HR=57 bpm, XVBL=779/53 mmhg, SpO2=99 % 09:29 AM 09:27 Post Pulses Rt Radial 2+ scoates 09:30 AM Information taught Cardiac Cath and Vasc Band scoates 09:30 AM Education needs Procedure, Plan of Care, and Responsibilities of Patient in Care scoates 09:30 AM Learning barriers :None scoates 09:30 AM Education Methods Verbal scoates 09:30 AM Education evaluation Able to repeat information scoates 09:30 AM Site status No bleeding/hematoma - Rt Wrist as reported by Sites, Yesenia RT (R) at 09:30 scoates 09:30 AM Plavix, Effient or Brilinta given No scoates 09:30 AM Delay to floor No scoates 09:30 AM Patient out of room: 09:30 scoates 09:31 AM family not present at this time. will call and speak with brother scoates 09:31 AM Complications: None scoates 09:31 AM Fluoro Time: 3.2 scoates 09:31 AM Isovue 370 - 200ml contrast 74 ml given by Jian Rivera MD, FACC. scoates 09:31 AM Radiation Dose 188 mGy scoates 09:33 AM Report given to Lisseth DELGADO Pt taken to 2A Room #35. 09:33 scoates Complications Complication None None Hemodynamics Pressures Site Systolic/A Wave Diastolic/V Wave Mean AO 80 51 64 AO 87 55 70 Post Procedure Information Blood Pressure: 112/49 mmHg Rhythm: Sinus Bradycardia Post procedural instructions were given Closure Device Time Device Success/Fail 04/06/2016 9:24:00 AM Mechanical Compression Successful Site Checks Time Location Status Staff Sheath In? Note 09:30 AM Rt Wrist No bleeding/hematoma Sites, Yesenia RT (R) Pulses Time Site Pre-Procedure Post-Procedure Note 04/06/2016 8:50:00 AM Bilateral DP \\T\\ PT 2+ 04/06/2016 8:50:00 AM Bilateral radial 2+ 9:27:00 AM Rt Radial 2+ Updated by Molly Lang RN on 04/06/2016 9:39:42 AM electronically signed on 04/06/2016 9:40:11 AM with status of Final
--- NOTE | 2016-04-06 10:00 | Invasive Diagnostic Lab ---
Name: Bill Villa Date of Study: 04/06/2016 Date: 1945 Ht: 188.0 cm /74.0 in Medical Record#: [id number] Age: 71 Wt: 71. kg / 156.53 lb Account/Order#: [id number] Gender: Male BSA: 1.96 Order #: [id number] Fluoro Dose: 188 mGy BMI: 20.09 Procedure Physician: Jian Rivera MD, FACC Referring MD: Referring MD: Procedures Performed: CORONARY ANGIOGRAPHY Aortic Root Injection Indications: Abnormal Test - ECHO, Severe aortic stenosis, AAA, PREOP Impressions: There is mild two vessel coronary artery disease. There is 3+ Aortic Regurgitation noted. Aortic measurement is 4.1 cm. Recommendations: Optimal medical therapy of patient's disease. Aggressive risk factor modification. Patient being referred for cardiac rehab. Patient recommended for Aortic Valve Replacement/Repair. History/Risk Factors: Severe Procedure Access obtained in the right Radial artery by percutaneous puncture. Aortagram completed with pigtail in aortic root. Complications: None, None Contrast: Isovue 74ml Closure Device: Mechanical Compression Hemodynamics: Pressures Site Systolic/ A Wave Diastolic/ V Wave End Diastolic/ Mean HR AO 80 51 64 62 AO 87 55 70 59 Coronary Dominance: Left Lesion Findings/Interventions * Left Main Coronary Artery The LMCA is angiographically free of disease. * Left Anterior Descending There is a 20% stenosis in the Mid LAD. Proximal LAD - no significant stenosis. * Circumflex There is a 20% stenosis in the Mid Circumflex. The lesion has a WEST flow of 3. Left PDA without significant stenosis. * Right Coronary Artery The RCA is angiographically free of disease. Ascending aorta - 4.1cm Updated by Molly Lang RN on 04/06/2016 9:38:46 AM Jian Rivera MD, FACC electronically signed on 04/06/2016 9:56:11 AM with status of Final
--- NOTE | 2016-04-06 10:37 | Cardiothoracic Progress Note ---
Date of Encounter: 04/06/16 Time of Encounter: 10:34 - Assessment and plan (1) Severe aortic stenosis Current Visit: Yes Status: Acute The patient had a cardiac catheterization today which showed normal coronary anatomy with no flow limiting lesions. The patient was also found to have 3+ AI. His pancytopenia has resolved and the recommendation by the oncologist is to proceed with AVR. The patient will undergo this procedure later this week. The assessment and plan as outlined above was discussed with the patient and/or family members who expressed understanding and agreement. All questions were answered. - Subjective Interval history: The patient is resting comfortably in his hospital bed. He has no complaints. Vital Signs, Last 4 Hours Temp Pulse Resp BP Pulse Ox 04/06/16 10:25 97.5 F L 56 16 104/58 99 04/06/16 10:10 53 16 91/45 97 04/06/16 09:55 97.5 F L 51 16 87/48 96 04/06/16 09:40 97.4 F L 53 16 86/49 96 04/06/16 08:20 97.6 F 58 16 112/61 98 Clinical Data, last 8 Hours Output, Urine Amount 550 Weight 04/04/16 04/05/16 04/06/16 23:59 23:59 23:59 Weight 67.8 kg 66.6 kg 71.395 kg - Physical Examination General: Conversant, No Apparent Distress Neck: No JVD, Normal carotid pulses Cardiac: Reg Rate and Rhythm, Normal S1 and S2, Other (3/6 systolic ejection murmur best heard in the right lateral sternal border.) Lungs: Normal Breath Sounds, No Wheeze, Rales, Rhonchi Neuro: Alert and responsive, No focal deficits noted Vascular: Normal capillary refill Extremities: No Clubbing, No Cyanosis, No Edema - Labs 04/06/16 06:14 04/06/16 06:14 Lab Results, Last 24 hours 04/06/16 04/06/16 04/06/16 06:14 06:14 06:14 WBC 5.4 Hgb 12.1 L Hct 35.2 L Plt Count 130 L INR 1.3 Sodium 142 Potassium 4.2 Chloride 109 Carbon Dioxide 25 BUN 21 Creatinine 0.73 Glucose 95 Calcium 8.7 Magnesium 1.8 - VTE Documentation of Mechanical Device: Intermittent pneumatic compression device Consult Discharge Plan - Plan Referrals: Brenden Bautista MD [Partnered Physician] - 04/10/16 2:00 pm (Please follow up as schedule...) Minal Carpenter DO [Partnered Physician] - 04/08/16 1:35 pm
--- NOTE | 2016-04-06 10:57 | Event Note ---
Date of Encounter: 04/06/16 Time of Encounter: 10:55 - Cardiology Event Note [facility] today shows normal coronaries, no obstructive disease, no intervention. CT surgery following with plans for aortic valve replacement for severe . Cardiology is signing off. Reconsult PRN. Follow-up as outpt 3-4 weeks after AVR.
--- NOTE | 2016-04-06 14:25 | Internal Med Progress Note ---
Date of Encounter: 04/06/16 Time of Encounter: 10:15 - Assessment and plan (1) Severe aortic stenosis Current Visit: Yes Status: Acute Assessment and plan: Severe symptomatic aortic stenosis with episodes of intermittent chest pain, bradycardia, and hypotension. Echocardiogram showed an ejection fraction of 65-70%, severe left ventricular diastolic dysfunction and severely calcified aortic valve which is bicuspid, the aortic valve area is 0.72 cm Pt underwent standard stress testing and had blunted blood pressure response with ECG depressions that were nondiagnostic. CTA chest showed thoracic ascending aortic aneurysm 4.4 cm, no signs of dissection, hold beta mac due to bradycardia 04/06 LHC showed normal coronaries. Appreciate Cardiothoracic and cardiology services input. PLAN for AVR this week. radiation monitor. Bedrest. Avoid heart rate lowering agents due to bradycardia. (2) Bradycardia Current Visit: Yes Status: Acute Assessment and plan: HR 50-60s. avoid heart rate lowering agents conveyor monitor. (3) Pancytopenia Current Visit: Yes Status: Chronic Assessment and plan: 03/24: On admission, WBC 2.9, hemoglobin 12.1, platelets 74. B12 and folate within normal limits. Hematology service recommended bone marrow biopsy to evaluate pancytopenia and rule out any malignancy. 03/30:17: Patient underwent bone marrow biopsy which showed no signs of malignancy, low iron storage. 04/06: WBC 5.4, Hgb 12.1 and platelets 130. \ (4) Acute encephalopathy Current Visit: Yes Status: Resolved Assessment and plan: Metabolic acute encephalopathy. Could be secondary to severe aortic stenosis. resolved. (5) Neuropathy Current Visit: Yes Status: Acute Assessment and plan: Etiology unclear at this time. Will need further work up as outpatient. Continue low dose gabapentin. (6) Thoracic ascending aortic aneurysm Current Visit: Yes Status: Acute Assessment and plan: Ascending Aorta 4.4 cm No Beta mac due to bradycardia. will need to be followed as an outpatient as well. - Subjective Interval history: Pt underwent LHC this morning. BP is 86/49 - Constitutional Vitals: Temp Pulse Resp BP Pulse Ox 97.8 F 51 16 99/40 99 04/06/16 10:55 04/06/16 10:55 04/06/16 10:55 04/06/16 10:55 04/06/16 10:55 General appearance: Present: cooperative, A&O X 3, pleasant, no acute distress, underweight, answers questions appropriately (poor historian) - Eye Eye exam: Present: PERRL, sclera anicteric - Neck Neck exam general surgery: Present: supple, trachea midline. Absent: lymphadenopathy - Cardiovascular Cardiovascular exam: Present: RRR - GI/Abdominal GI/Abdominal exam: Present: normal bowel sounds, soft. Absent: distended, tenderness - Extremities Exam Extremities exam: Absent: pedal edema - Back Exam Back exam: Absent: CVA tenderness (L), CVA tenderness (R) - Skin Skin exam: Absent: rash Internal Medicine: Result - Labs CBC & Chem 7: 04/06/16 06:14 04/06/16 06:14 Labs: Short CBC 04/06/16 Range/Units 06:14 WBC 5.4 (4.3-11.1) K/mcL Hgb 12.1 L (12.9-16.9) g/dL Hct 35.2 L (37.5-50.1) % Plt Count 130 L (140-400) K/mcL Neutrophils # 3.2 (1.6-8.9) K/mcL BMP 04/06/16 06:14 Sodium 142 Potassium 4.2 Chloride 109 Carbon Dioxide 25 BUN 21 Creatinine 0.73 Glucose 95 Calcium 8.7 - ABG Interpretation ABG results: PT/INR, D-dimer PT 13.9 Seconds (9.4-12.1) H 04/06/16 06:14 - VTE Documentation of Mechanical Device: Intermittent pneumatic compression device Consult Discharge Plan - Plan Referrals: Brenden Bautista MD [Partnered Physician] - 04/10/16 2:00 pm (Please follow up as schedule...) Minal Carpenter DO [Partnered Physician] - 04/27/16 1:15 pm
[2016-04-06] MEDS: Melatonin 3 MG TABLET PO PRN (20:19)
[2016-04-07] MEDS: Aspirin Enteric Coated 81 MG Tablet PO SCH (09:37)
[2016-04-07] MEDS: Gabapentin 100 MG CAPSULE PO SCH ×3 (09:37→21:51)
--- NOTE | 2016-04-07 10:17 | Anesthesia Evaluation PreOp ---
Date of Encounter: 04/08/16 Time of Encounter: 07:20 - Past History Planned Operation: AVR Cardiac History: Angina, HTN, Other (TAA) Pulmonary History: Denies Any Significant HX DISASTER RECOVERY CONSULTANT History: Denies Any Significant HX Other Medical History: Other (Pancytopenia, workup shows iron stoarage problem only) Anesthesia History: No Prior Anesthetic Complications, Past Anesthesia (explor. lap with bowel resection, appy, bilateral hernias) Alcohol Use: rarely Drug use: none Medications and Allergies Ascorbate Calcium [Vitamin C] 500 mg PO DAILY 03/24/16 [History] Calcium Carbonate [Calcium] 600 mg PO DAILY 03/24/16 [History] Cyanocobalamin (Vitamin B-12) [Vitamin B-12] 1,000 mcg SL DAILY 03/24/16 [ History] Magnesium 200 mg PO DAILY 03/24/16 [History] Allergies Sulfa (Sulfonamide Antibiotics) Allergy (Verified 03/24/16 09:06) Hives patient states childhood reaction - Meds/Allergy Pre-op Review Medications Reviewed: Yes Allergies Reviewed: Yes (sulfa) Beta Blockers on Current Med List: Yes If Beta Blockers taken, Date/Time (Last Dose taken): 04/07, none today due to low BP Anesthesia Results - Labs 04/08/16 06:27 04/07/16 11:14 - Imaging EKG: report reviewed Additional studies: Echo shows LVEF 65%, severe diastolic dysfunction, concentric LVH, bicuspid valve calcified Anesthesia Exam Selected Entries 04/08/16 05:20 Temperature 98.2 F Pulse Rate 72 Respiratory Rate 16 Blood Pressure 97/44 O2 Sat by Pulse Oximetry 97 Height: 74in Weight: 148lbs NPO (# of Hours): 8 Pain Scale: 0 Pain Scale Used: Numeric (1 - 10) - HEENT Pupil (Motor): EOMI Mallampati: II Teeth: Edentulous Oral Opening: Greater than 3 - DISASTER RECOVERY CONSULTANT LOC: Oriented DISASTER RECOVERY CONSULTANT Motor: Normal RUE, Normal LUE, Normal RLE, Normal LLE, Normal Face DISASTER RECOVERY CONSULTANT Sensory: Normal: RUE, LUE, RLE, LLE, Face - Cardiac Rhythm: Regular Murmur: Systolic - Pulmonary Breath Sounds: bilateral Clear Respiratory Effort: Symmetrical Anesthesia Assess/Plan ASA Score: 3 Anesthetic Plan: General Autologous Blood: Yes Monitoring Plan: Standard Monitors, A-Line, PAC, CHAPARRITA Recovery Plan: ICU (Discussed risks of GA, lines, CHAPARRITA and blood products. Questions answered and agrees to proceed.)
--- NOTE | 2016-04-07 10:28 | Internal Med Progress Note ---
<Jeanne Jackson - Last Filed: 04/07/16 10:45> Date of Encounter: 04/07/16 Time of Encounter: 08:45 - Assessment and plan (1) Severe aortic stenosis Current Visit: Yes Status: Acute Assessment and plan: Severe symptomatic aortic stenosis with episodes of intermittent chest pain, bradycardia, and hypotension. Echocardiogram showed an ejection fraction of 65-70%, severe left ventricular diastolic dysfunction and severely calcified aortic valve which is bicuspid, the aortic valve area is 0.72 cm Pt underwent standard stress testing and had blunted blood pressure response with ECG depressions that were nondiagnostic. CTA chest showed thoracic ascending aortic aneurysm 4.4 cm, no signs of dissection, hold beta mac due to bradycardia 04/06 [facility] showed normal coronaries, no obstructive disease, no intervention needed. Cardiology has signed off. Plan for outpatient follow up in 3-4 weeks after valve replacement. CT surgery is on board. Plan for aortic valve replacement tomorrow, per CT surgery. cardiac diet now, NPO after midnight. monitoring engineer. Bedrest. Avoid heart rate lowering agents due to bradycardia. (2) Acute encephalopathy Current Visit: Yes Status: Resolved Assessment and plan: Metabolic acute encephalopathy etiology Could be secondary to severe aortic stenosis. CT head showed no acute intracranial abnormality. resolved at this time. continue to monitor. (3) Pancytopenia Current Visit: Yes Status: Chronic Assessment and plan: 03/24: On admission, WBC 2.9, hemoglobin 12.1, platelets 74. B12 and folate within normal limits. Hematology service recommended bone marrow biopsy to evaluate pancytopenia and rule out any malignancy. 03/30:17: Patient underwent bone marrow biopsy which showed no signs of malignancy, low iron storage. 04/06: WBC 5.4, Hgb 12.1 and platelets 130. (4) Neuropathy Current Visit: Yes Status: Acute Assessment and plan: Etiology unclear at this time. Will need further work up as outpatient. Continue low dose gabapentin. (5) Thoracic ascending aortic aneurysm Current Visit: Yes Status: Acute Assessment and plan: Ascending Aorta 4.4 cm avoid Beta mac due to bradycardia. will need to be followed as an outpatient as well. (6) Bradycardia Current Visit: Yes Status: Acute Assessment and plan: HR 60s today. avoid heart rate lowering agents equipment monitor phototypesetting. Avoid BB (7) DVT prophylaxis Current Visit: Yes Status: Acute Assessment and plan: EPCDs due to thrombocytopenia. - Subjective Interval history: 71 year old male evaluated at bedside. He denies nausea, vomiting, fever, chills. He denies shortness of breath, dizziness, reports mild chest pain. - Constitutional Vitals: Temp Pulse Resp BP Pulse Ox 97.6 F 64 16 112/66 99 04/07/16 06:56 04/07/16 06:56 04/07/16 06:56 04/07/16 06:56 04/07/16 06:56 General appearance: Present: cooperative, A&O X 3, pleasant, no acute distress, answers questions appropriately (poor historian) - Head Head exam: Present: atraumatic - Neck Neck exam general surgery: Present: supple, trachea midline - Respiratory Additional comments: fine crackles in right lower lobe. - Cardiovascular Additional comments: severe aortic stenosis present. - GI/Abdominal GI/Abdominal exam: Present: normal bowel sounds. Absent: distended, tenderness - Extremities Exam Extremities exam: Absent: cyanotic, pedal edema - Neurological Exam Neurological exam: Present: alert, oriented X3, no focal deficits Internal Medicine: Result - Labs CBC & Chem 7: 04/06/16 06:14 04/06/16 06:14 - ABG Interpretation ABG results: PT/INR, D-dimer PT 13.9 Seconds (9.4-12.1) H 04/06/16 06:14 - VTE Documentation of Mechanical Device: Intermittent pneumatic compression device Consult Discharge Plan - Plan Referrals: Brenden Bautista MD [Partnered Physician] - 04/10/16 2:00 pm (Please follow up as schedule...) Minal Carpenter DO [Partnered Physician] - 04/27/16 1:15 pm <Rajiv Bullock H - Last Filed: 04/07/16 14:57> - Assessment and plan (1) Chest pain Current Visit: Yes Status: Acute Qualifiers: Chest pain type: unspecified Qualified Code(s): R07.9 - Chest pain, unspecified (2) Bradycardia Current Visit: Yes Status: Acute (3) Neuropathy Current Visit: Yes Status: Acute (4) Severe aortic stenosis Current Visit: Yes Status: Acute (5) Thoracic ascending aortic aneurysm Current Visit: Yes Status: Acute (6) Mental status change Current Visit: Yes Status: Chronic Qualifiers: Altered mental status type: unspecified Qualified Code(s): R41.82 - Altered mental status, unspecified (7) Pancytopenia Current Visit: Yes Status: Chronic - Constitutional Vitals: Temp Pulse Resp BP Pulse Ox 98 F 57 16 99/54 100 04/07/16 11:12 04/07/16 11:12 04/07/16 11:12 04/07/16 11:12 04/07/16 11:12 Internal Medicine: Result - Labs CBC & Chem 7: 04/07/16 11:14 04/07/16 11:14 Labs: Short CBC 04/07/16 Range/Units 11:14 WBC 5.6 (4.3-11.1) K/mcL Hgb 12.1 L (12.9-16.9) g/dL Hct 35.9 L (37.5-50.1) % Plt Count 124 L (140-400) K/mcL Neutrophils # 4.2 (1.6-8.9) K/mcL BMP 04/07/16 11:14 Sodium 141 Potassium 4.2 Chloride 108 Carbon Dioxide 28 BUN 16 Creatinine 0.80 Glucose 97 Calcium 8.7 - ABG Interpretation ABG results: PT/INR, D-dimer PT 14.7 Seconds (9.4-12.1) H 04/07/16 11:14 - Impressions Impressions Chest X-Ray 04/07/16 10:30 IMPRESSION: 1. Mild linear atelectasis of the left lung base. D/ / Srinivas Forbes MD / Srinivas Forbes MD Interpreting Provider: Srinivas Forbes MD - Attending Attestation schedules for AVR in am. I examined this patient and my medical decision-making was reviewed with the ROUND CORNER CUTTER OPERATOR/PA/Advanced Practice Nurse/Resident Physician. I agree with the documented findings, disposition and treatment plan as described except to the extent set forth below.
--- NOTE | 2016-04-07 10:29 | Cardiothoracic Progress Note ---
Date of Encounter: 04/07/16 Time of Encounter: 10:25 - Assessment and plan (1) Severe aortic stenosis Current Visit: Yes Status: Acute I discussed open heart surgery with the patient with aortic valve replacement. I discussed mechanical versus tissue valves and he and I both favor a tissue valve. Risks of surgery include , infection, stroke, bleeding, myocardial infarction, cardiac tamponade, heart block requiring pacemaker, renal or respiratory failure, aortic valve deterioration, phrenic nerve injury and sternal dehiscence. The procedure, its risks, benefits and alternatives were explained and he does wish to proceed. He will be scheduled for tomorrow. I discussed the patient's case with both the hospitalist in the combine operator and they both stated that he is ready to go. He will have an increased chance of bleeding because of his low platelet count and bone marrow problems. - Subjective Interval history: The patient has no complaints. He is anxious to have his surgery done as soon as possible. Cardiac catheterization done yesterday revealed normal coronary arteries. He did have a 4.1 cm ectatic ascending aorta. Vital Signs, Last 4 Hours Temp Pulse Resp BP Pulse Ox 04/07/16 06:56 97.6 F 64 16 112/66 99 Oxgyen Flow Rate Oxygen Flow Rate (LPM) 2 Weight 04/05/16 04/06/16 04/07/16 23:59 23:59 23:59 Weight 66.6 kg 71.395 kg 70.488 kg Lungs are clear to percussion and auscultation. Heart has a 4/6 systolic murmur heard best in the aortic area. - Labs 04/06/16 06:14 04/06/16 06:14 - VTE Documentation of Mechanical Device: Intermittent pneumatic compression device Consult Discharge Plan - Plan Referrals: Brenden Bautista MD [Partnered Physician] - 04/10/16 2:00 pm (Please follow up as schedule...) Minal Carpenter DO [Partnered Physician] - 04/27/16 1:15 pm
[2016-04-07 11:26] LABS: Basophils % 0.5 %; Eosinophils # 0.2 K/mcL (0.0-0.6); Eosinophils % 3.8 %; Hematocrit 35.9 % (37.5-50.1); Hemoglobin 12.1 g/dL (12.9-16.9); Immature Granulocytes % 0.2 % (0-4); Lymphocytes # 0.8 K/mcL (0.6-4.6); Lymphocytes % 14.8 %; Mean Corpuscular HGB Conc 33.7 g/dL (31.6-35.5); Mean Corpuscular Hemoglobin 34.7 pg (28.0-33.3); Mean Corpuscular Volume 102.9 fL (83.0-100.0); Mean Platelet Volume 9.8 fL (9.4-12.4); Monocytes # 0.3 K/mcL (0.0-1.3); Monocytes % 5.5 %; Neutrophils # 4.2 K/mcL (1.6-8.9); Platelet Count 124 K/mcL (140-400); Red Blood Count 3.49 M/mcL (4.19-5.50); Red Cell Distribution Width 13.2 % (11.5-14.5); Segmented Neutrophils % 75.2 %
[2016-04-07 11:31] LABS: INR 1.4; Prothrombin Time 14.7 Seconds (9.4-12.1)
[2016-04-07 11:39] LABS: Hemoglobin A1C 4.7 %
[2016-04-07 11:41] LABS: BUN/Creatinine Ratio 20 (6-26); Blood Urea Nitrogen 16 mg/dL (8-26); Calcium 8.7 mg/dL (8.6-10.8); Carbon Dioxide 28 mEq/L (19-29); Chloride 108 mEq/L (98-109); Chol/HDL Ratio 3.1 (0-4.9); Cholesterol 112 mg/dL (< 200); Glucose 97 mg/dL (70-99); HDL Cholesterol 36 mg/dL (40-59); LDL Cholesterol,Calculated 55 mg/dL (0-99); Osmolality,Calculated 293 (280-300); Potassium 4.2 mEq/L (3.5-4.5); Sodium 141 mEq/L (136-145); Triglycerides 107 mg/dL (< 150); eGFR For African Americans > 60 (> 60); eGFR For Non-African Americans > 60 (> 60)
[2016-04-07] MEDS ORDERED: *HR* Phytonadione 10 MG/ML AMPUL SQ ONE (14:47)
[2016-04-07 15:02] LABS: Bilirubin,Urine Negative (Negative); Blood,Urine Negative (Negative); Clarity,Urine Cloudy (Clear); Color,Urine Yellow (Yellow); Glucose,Urine (UA) Normal (Normal); Ketones,Urine Negative (Negative); Leukocyte Esterase,Urine Negative (Negative); Nitrite,Urine Negative (Negative); Protein,Urine Negative (Neg-Trace); Specific Gravity,Urine 1.012 (1.010-1.025); Urobilinogen,Urine Normal (Normal)
[2016-04-07 15:04] LABS: Bacteria,Urine None Seen per hpf (None-Few); Hyaline Casts,Urine None Seen per lpf (None-Few); RBC,Urine 0-3 per hpf (0-3); Squamous Epithelial Cell,Urine Few per lpf (None-Few); WBC,Urine 0-3 per hpf (0-3)
--- NOTE | 2016-04-07 15:55 | Electrocardiograph Report ---
[place] [id number] Test Date: 2016-04-07 Pat Name: Bill Villa Department: 112 Room: 2A Gender: M Pear Picker: : [phone] Requested By: Raj Javed Order Number: [id number] Reading MD: Yumiko Dinh Measurements Intervals [place] Rate: 56 P: 35 [place]: 171 QRS: 15 QRSD: 92 T: 70 QT: 447 QTc: 438 Interpretive Statements SINUS BRADYCARDIA LEFT VENTRICULAR HYPERTROPHY AND ST-T CHANGE Electronically Signed On 04-07-2016 15:54:15 EST by Yumiko Dinh
[2016-04-07] MEDS: Chlorhexidine Rinse 15 ML MOUTHWASH MM SCH (21:51)
[2016-04-08] MEDS ORDERED: Nitroglycerin 25 MG/250 ML INFUS..BTL IVC ONE ×2 (06:44→09:55)
[2016-04-08] MEDS ORDERED: NiCARdipine 2.5 MG/10 ML Syringe IVPB ONE (06:45)
--- NOTE | 2016-04-08 06:48 | Internal Med Progress Note ---
<Jeanne Jackson - Last Filed: 04/08/16 06:45> Date of Encounter: 04/08/16 Time of Encounter: 06:20 - Assessment and plan (1) Severe aortic stenosis Current Visit: Yes Status: Acute Assessment and plan: Severe symptomatic aortic stenosis with episodes of intermittent chest pain, bradycardia, and hypotension. Echocardiogram showed an ejection fraction of 65-70%, severe left ventricular diastolic dysfunction and severely calcified aortic valve which is bicuspid, the aortic valve area is 0.72 cm Pt underwent standard stress testing and had blunted blood pressure response with ECG depressions that were nondiagnostic. CTA chest showed thoracic ascending aortic aneurysm 4.4 cm, no signs of dissection, hold beta mac due to bradycardia 04/06 [facility] showed normal coronaries, no obstructive disease, no intervention needed. Cardiology has signed off. Plan for outpatient follow up in 3-4 weeks after valve replacement. ekg monitor. Bedrest. Avoid heart rate lowering agents due to bradycardia. CT surgery is on board. Plan for aortic valve replacement today, patient will likely be transferred to ICU afterwards. (2) Acute encephalopathy Current Visit: Yes Status: Resolved Assessment and plan: Metabolic acute encephalopathy etiology Could be secondary to severe aortic stenosis. CT head showed no acute intracranial abnormality. resolved at this time. patient is alert and oriented x3 today. (3) Pancytopenia Current Visit: Yes Status: Chronic Assessment and plan: 03/24: On admission, WBC 2.9, hemoglobin 12.1, platelets 74. B12 and folate within normal limits. Hematology service recommended bone marrow biopsy to evaluate pancytopenia and rule out any malignancy. 03/30:17: Patient underwent bone marrow biopsy which showed no signs of malignancy, low iron storage. 04/06: WBC 5.4, Hgb 12.1 and platelets 130. 3/1 morning labs still pending. (4) Neuropathy Current Visit: Yes Status: Acute Assessment and plan: Etiology unclear at this time. Will need further work up as outpatient. Continue low dose gabapentin. (5) Thoracic ascending aortic aneurysm Current Visit: Yes Status: Acute Assessment and plan: Ascending Aorta 4.4 cm avoid Beta mac due to bradycardia. will need to be followed as an outpatient as well. (6) Bradycardia Current Visit: Yes Status: Resolved Assessment and plan: HR 70s today. avoid heart rate lowering agents traffic monitor specialist. Avoid BB (7) DVT prophylaxis Current Visit: Yes Status: Acute Assessment and plan: EPCDs due to thrombocytopenia. - Subjective Interval history: 71 year old male evaluated at bedside. He denies nausea, vomiting, fever, chills. He is a little nervous for his surgery later today. He was able to get some sleep last night. - Constitutional Vitals: Temp Pulse Resp BP Pulse Ox 98.2 F 72 16 97/44 97 04/08/16 05:20 04/08/16 05:20 04/08/16 05:20 04/08/16 05:20 04/08/16 05:20 General appearance: Present: cooperative, A&O X 3, pleasant, no acute distress, answers questions appropriately (poor historian) - Head Head exam: Present: atraumatic, normocephalic - ENT ENT exam: Present: mucous membranes moist - Neck Neck exam general surgery: Present: supple, trachea midline - Respiratory Respiratory exam: Present: CTAB - Cardiovascular Cardiovascular exam: Present: systolic murmur Additional comments: Grade 5 systolic murmur from aortic stenosis - GI/Abdominal GI/Abdominal exam: Present: normal bowel sounds, soft. Absent: distended, tenderness - Extremities Exam Extremities exam: Absent: cyanotic, pedal edema - Neurological Exam Neurological exam: Present: alert, oriented X3, no focal deficits - Psychiatric Psychiatric exam: Present: anxious Internal Medicine: Result - Labs CBC & Chem 7: 04/07/16 11:14 04/07/16 11:14 Labs: Short CBC 04/07/16 Range/Units 11:14 WBC 5.6 (4.3-11.1) K/mcL Hgb 12.1 L (12.9-16.9) g/dL Hct 35.9 L (37.5-50.1) % Plt Count 124 L (140-400) K/mcL Neutrophils # 4.2 (1.6-8.9) K/mcL BMP 04/07/16 11:14 Sodium 141 Potassium 4.2 Chloride 108 Carbon Dioxide 28 BUN 16 Creatinine 0.80 Glucose 97 Calcium 8.7 Urine 04/07/16 Range/Units 14:53 Urine Color Yellow (Yellow) Urine Clarity Cloudy A (Clear) Urine pH 7.0 (5.0-8.0) pH Units Ur Specific [place] 1.012 (1.010-1.025) Urine Protein Negative (Neg-Trace) mg/dL Urine Glucose (UA) Normal (Normal) mg/dL - ABG Interpretation ABG results: PT/INR, D-dimer PT 14.7 Seconds (9.4-12.1) H 04/07/16 11:14 - Impressions Impressions Chest X-Ray 04/07/16 10:30 IMPRESSION: 1. Mild linear atelectasis of the left lung base. D/ / Srinivas Forbes MD / Srinivas Forbes MD Interpreting Provider: Srinivas Forbes MD - VTE Documentation of Mechanical Device: Intermittent pneumatic compression device Consult Discharge Plan - Plan Referrals: Brenden Bautista MD [Partnered Physician] - 04/10/16 2:00 pm (Please follow up as schedule...) Minal Carpenter DO [Partnered Physician] - 04/27/16 1:15 pm <Rajiv Bullock H - Last Filed: 04/08/16 07:20> - Assessment and plan (1) Chest pain Current Visit: Yes Status: Acute Qualifiers: Chest pain type: unspecified Qualified Code(s): R07.9 - Chest pain, unspecified (2) Bradycardia Current Visit: Yes Status: Resolved (3) Neuropathy Current Visit: Yes Status: Acute (4) Severe aortic stenosis Current Visit: Yes Status: Acute (5) Thoracic ascending aortic aneurysm Current Visit: Yes Status: Acute (6) Mental status change Current Visit: Yes Status: Chronic Qualifiers: Altered mental status type: unspecified Qualified Code(s): R41.82 - Altered mental status, unspecified (7) Pancytopenia Current Visit: Yes Status: Chronic - Constitutional Vitals: Temp Pulse Resp BP Pulse Ox 98.2 F 72 16 97/44 97 04/08/16 05:20 04/08/16 05:20 04/08/16 05:20 04/08/16 05:20 04/08/16 05:20 - Cardiovascular Cardiovascular exam: Present: systolic murmur Additional comments: 3/5 systolic murmur rad to Aortic area Internal Medicine: Result - Labs CBC & Chem 7: 04/08/16 06:27 04/07/16 11:14 Labs: Short CBC 04/07/16 04/08/16 Range/Units 11:14 06:27 WBC 5.6 5.8 (4.3-11.1) K/mcL Hgb 12.1 L 11.8 L (12.9-16.9) g/dL Hct 35.9 L 35.0 L (37.5-50.1) % Plt Count 124 L 125 L (140-400) K/mcL Neutrophils # 4.2 4.1 (1.6-8.9) K/mcL BMP 04/07/16 11:14 Sodium 141 Potassium 4.2 Chloride 108 Carbon Dioxide 28 BUN 16 Creatinine 0.80 Glucose 97 Calcium 8.7 Urine 04/07/16 Range/Units 14:53 Urine Color Yellow (Yellow) Urine Clarity Cloudy A (Clear) Urine pH 7.0 (5.0-8.0) pH Units Ur Specific [place] 1.012 (1.010-1.025) Urine Protein Negative (Neg-Trace) mg/dL Urine Glucose (UA) Normal (Normal) mg/dL - ABG Interpretation ABG results: PT/INR, D-dimer PT 14.7 Seconds (9.4-12.1) H 04/07/16 11:14 - Impressions Impressions Chest X-Ray 04/07/16 10:30 IMPRESSION: 1. Mild linear atelectasis of the left lung base. D/ / Srinivas Forbes MD / Srinivas Forbes MD Interpreting Provider: Srinivas Forbes MD - Attending Attestation transfer care under cardio thoracic service. AVR today. I examined this patient and my medical decision-making was reviewed with the TOOLING MECHANIC/PA/Advanced Practice Nurse/Resident Physician. I agree with the documented findings, disposition and treatment plan as described except to the extent set forth below.
[2016-04-08] MEDS ORDERED: *HR* Etomidate 20 MG/10 ML AMPUL IVP ONE (06:52)
[2016-04-08] MEDS ORDERED: *HR* Rocuronium Bromide 50 MG/5 ML VIAL ONE ×2 (06:52→10:41)
[2016-04-08] MEDS ORDERED: *HR* Norepinephrine 4 MG/4 ML VIAL IVC ONE (06:52)
[2016-04-08] MEDS ORDERED: Famotidine 20 MG/2 ML VIAL ONE (06:52)
[2016-04-08] MEDS ORDERED: *HR* Phenylephrine 10 MG/ML VIAL ONE (06:52)
[2016-04-08] MEDS ORDERED: Tranexamic Acid 1,000 MG/10 ML VIAL ONE ×2 (06:53→08:55)
[2016-04-08] MEDS ORDERED: Protamine Sulfate 250 MG/25 ML VIAL IVP ONE (06:53)
[2016-04-08] MEDS ORDERED: ceFAZolin 2,000 MG in D5% in Water 100 ML IVPB ONE (07:00)
[2016-04-08] MEDS ORDERED: *HR* FentaNYL (PF) 1,000 MCG/20 ML VIAL ONE (07:08)
[2016-04-08] MEDS ORDERED: *HR* Midazolam HCl 5 MG/5 ML VIAL IVP ONE (07:08)
[2016-04-08 07:12] LABS: Basophils % 0.3 %; Eosinophils # 0.3 K/mcL (0.0-0.6); Hemoglobin 11.8 g/dL (12.9-16.9); Immature Granulocytes % 0.2 % (0-4); Lymphocytes % 17.5 %; Mean Corpuscular HGB Conc 33.7 g/dL (31.6-35.5); Mean Corpuscular Hemoglobin 34.5 pg (28.0-33.3); Mean Corpuscular Volume 102.3 fL (83.0-100.0); Mean Platelet Volume 10.7 fL (9.4-12.4); Monocytes # 0.4 K/mcL (0.0-1.3); Monocytes % 6.4 %; Neutrophils # 4.1 K/mcL (1.6-8.9); Platelet Count 125 K/mcL (140-400); Red Blood Count 3.42 M/mcL (4.19-5.50); Red Cell Distribution Width 13.2 % (11.5-14.5); Segmented Neutrophils % 70.6 %
[2016-04-08] MEDS: Chlorhexidine Rinse 15 ML MOUTHWASH MM SCH ×2 (07:17→21:51)
[2016-04-08 07:26] LABS: BUN/Creatinine Ratio 28 (6-26); Blood Urea Nitrogen 20 mg/dL (8-26); Calcium 8.3 mg/dL (8.6-10.8); Carbon Dioxide 24 mEq/L (19-29); Chloride 108 mEq/L (98-109); Glucose 92 mg/dL (70-99); Osmolality,Calculated 290 (280-300); Potassium 4.2 mEq/L (3.5-4.5); Sodium 139 mEq/L (136-145); eGFR For African Americans > 60 (> 60); eGFR For Non-African Americans > 60 (> 60)
[2016-04-08] MEDS ORDERED: *HR* Amiodarone 150 MG/3 ML VIAL IVPB ONE (08:38)
[2016-04-08] MEDS ORDERED: Amiodarone Premix 360 MG/200 ML BAG IVC ONE ×2 (08:38→13:16)
[2016-04-08] MEDS ORDERED: Mannitol 25% vial 12.5 GM/50 ML VIAL IVP ONE (09:00)
[2016-04-08] MEDS ORDERED: *HR* Heparin 10,000 UNIT/10 ML VIAL IV ONE (09:00)
[2016-04-08] MEDS ORDERED: *HR* Magnesium Sulfate 2 GM/50 ML PIGGYBACK IVPB ONE (09:00)
[2016-04-08] MEDS ORDERED: Albumin Human 25% 25 GM/100 ML IV.SOLN IVC ONE (09:00)
[2016-04-08] MEDS ORDERED: Tranexamic Acid 1,000 MG/10 ML VIAL IV ONE (09:00)
[2016-04-08] MEDS ORDERED: *HR* Phenylephrine 10 MG/ML VIAL IVC ONE (09:00)
[2016-04-08] MEDS ORDERED: Lidocaine 2% Syringe 100 MG/5 ML IV ONE (09:00)
--- NOTE | 2016-04-08 09:06 | Anesthesia Procedures ---
Date of Encounter: 04/08/16 Time of Encounter: 07:50 Procedures: Anesthesia - Arterial Line Consent obtained: written consent Time out performed: Yes Sedation: Versed (mg): 2 Sedation: Fentanyl (mcg): 100 Supplemental Oxygen via Nasal Cannula (L/min): 2 Local Anesthetic: Lidocaine 1% Amount of Anesthetic used (mls): 1 Size (Gauge): 20 Length (inches): 5 Technique Used: sterile prep, guide wire technique, direct puncture technique Post-Procedure: line taped into place, dry sterile dressing placed Patient tolerated procedure: well, no complications Complications: none Site: Radial L (attempt x 1, easy) - Central Line Placement Right IJ Consent obtained: written consent Time out performed: Yes Patient placed on monitor/pulse ox: Yes prep: mask, gown, gloves Central line prep: Chlorhexidine scrub Ultrasound used for placement: Yes Technique: Seldinger Lumen Inserted: Introducer Post procedure: sutured in place, good blood return, all ports aspirated, flushed, capped, sterile dressing applied Patient tolerated procedure: well, no complications Complications: arterial puncture/cannulation (right carotid punture, no cannulation, pressure held) Comments: attempt x 2. Accidental arterial puncture on first attempt. Placed in IJ on second attempt. Guide wire placed easily. Introducer placed without issue. Conroy placed without inducing arrythmias, wedge approximately 60cm.
[2016-04-08] MEDS ORDERED: Albumin Human 5% 50.0 GM/1,000 ML VIAL ONE (09:55)
[2016-04-08] MEDS ORDERED: Protamine Sulfate 50 MG/5 ML VIAL IVP ONE (11:02)
[2016-04-08] MEDS ORDERED: SODIUM CHLORIDE 0.9% IVPB ONE ×2 (11:19→13:06)
[2016-04-08] MEDS ORDERED: DESMOPRESSIN IVPB ONE ×2 (11:19→13:06)
[2016-04-08] MEDS ORDERED: *HR* Dextrose 50 % in Water (Syg) 50 ML SYRINGE ONE (11:29)
[2016-04-08] MEDS ORDERED: 0.9 % Sodium Chloride 2,000 ML ONE (11:41)
[2016-04-08] MEDS: Norepinephrine 4 MG in D5% in Water 250 ML IVC SCH ×2 (12:20→23:15)
[2016-04-08] MEDS ORDERED: Melatonin 3 MG TABLET PO PRN (13:06)
[2016-04-08] MEDS ORDERED: Naloxone 0.4 MG/ML INJ IVP PRN (13:06)
[2016-04-08] MEDS ORDERED: Artificial Tears SOLN 15 ML BOTTLE BOTH EYES PRN (13:06)
[2016-04-08] MEDS ORDERED: Ondansetron ODT 4 MG TAB.RAPDIS SL PRN (13:06)
[2016-04-08] MEDS ORDERED: Acetaminophen 325 MG TABLET PO PRN (13:06)
[2016-04-08] MEDS ORDERED: *HR* Promethazine 25 MG/ML VIAL IVP PRN (13:16)
[2016-04-08] MEDS ORDERED: Potassium Chloride 40 MEQ/200 ML BAG IVPB PRN (13:16)
[2016-04-08] MEDS ORDERED: Insulin Regular, Human 100 UNIT/ML IV PRN (13:16)
[2016-04-08] MEDS ORDERED: *HR* Dextrose 50 % in Water (Syg) 50 ML SYRINGE IVP PRN ×2 (13:16→17:34)
[2016-04-08] MEDS ORDERED: Ondansetron 4 MG/2 ML VIAL IVP PRN (13:16)
[2016-04-08 13:29] LABS: BUN/Creatinine Ratio 19 (6-26); Blood Urea Nitrogen 13 mg/dL (8-26); Calcium 7.8 mg/dL (8.6-10.8); Carbon Dioxide 25 mEq/L (19-29); Chloride 108 mEq/L (98-109); Glucose 90 mg/dL (70-99); Magnesium 2.1 mg/dL (1.6-2.6); Osmolality,Calculated 294 (280-300); Potassium 3.3 mEq/L (3.5-4.5); Sodium 142 mEq/L (136-145); eGFR For African Americans > 60 (> 60); eGFR For Non-African Americans > 60 (> 60)
[2016-04-08 13:30] LABS: ABG PCO2 47 mmHg (35-45); ABG PH 7.41 pH Units (7.32-7.45)
[2016-04-08] MEDS ORDERED: MILRINONE 20 MG/100 ML IVC SCH (13:30)
[2016-04-08] MEDS ORDERED: Amiodarone Premix 360 MG/200 ML BAG IVC SCH (13:30)
[2016-04-08 13:31] LABS: ABG Base Excess 4.5 mEq/L (-2.0 to 3.0); ABG HCO3 29.8 mEQ/L (21-27); ABG Oxygen Saturation 100 % (95-98); ABG PO2 184 mmHg (85-104); ABG TCO2 31.2 mEq/L (20-26)
[2016-04-08 13:32] LABS: Blood Gas FiO2 50 %; Blood Gas PEEP 5 cm H2O; Blood Gas Respiration Rate 12; Blood Gas VT 650 cc
[2016-04-08 13:32] LABS: Activated Partial Thrombo Time 32.6 Seconds (26.0-36.0); INR 1.7
[2016-04-08 13:34] LABS: Prothrombin Time 18.3 Seconds (9.4-12.1)
[2016-04-08 13:35] LABS: Basophils % 0.2 %; Eosinophils % 1.6 %; Mean Corpuscular Hemoglobin 33.7 pg (28.0-33.3)
[2016-04-08 13:37] LABS: Eosinophils # 0.1 K/mcL (0.0-0.6); Hematocrit 28.7 % (37.5-50.1); Hemoglobin 9.9 g/dL (12.9-16.9); Immature Granulocytes % 0.5 % (0-4); Immature Platelets 4.6 % (1.1-6.1); Lymphocytes # 1.1 K/mcL (0.6-4.6); Lymphocytes % 12.3 %; Mean Corpuscular HGB Conc 34.5 g/dL (31.6-35.5); Mean Corpuscular Volume 97.6 fL (83.0-100.0); Mean Platelet Volume 10.3 fL (9.4-12.4); Monocytes # 0.3 K/mcL (0.0-1.3); Monocytes % 3.1 %; Neutrophils # 7.2 K/mcL (1.6-8.9); Platelet Count 101 K/mcL (140-400); Red Blood Count 2.94 M/mcL (4.19-5.50); Red Cell Distribution Width 15.2 % (11.5-14.5); Segmented Neutrophils % 82.3 %
[2016-04-08] MEDS: 0.9 % Sodium Chloride 1,000 ML IVC SCH (14:05)
[2016-04-08 14:20] LABS: ABG Base Excess 5.4 mEq/L (-2.0 to 3.0); ABG HCO3 30.5 mEQ/L (21-27); ABG Oxygen Saturation 100 % (95-98); ABG PCO2 47 mmHg (35-45); ABG PO2 172 mmHg (85-104); ABG TCO2 31.9 mEq/L (20-26)
[2016-04-08 14:21] LABS: Blood Gas FiO2 40 %
[2016-04-08 14:23] LABS: ABG PH 7.42 pH Units (7.32-7.45)
[2016-04-08 14:43] LABS: Platelet Estimate Decreased (Normal)
--- NOTE | 2016-04-08 14:49 | Operative Note ---
Date of procedure: 04/08/16 Procedure in Detail: Preoperative diagnosis. Aortic valve stenosis. Postoperative diagnosis. Same. Procedures. Aortic valve replacement with a 25 mm Medtronic Mosaic ultra valve. Surgeon Dr. Raj Javed. Asst. Jacek Estrella. Anesthesia Dr. Chau Alvarez. Patient is a 71-year-old gentleman who presented with aortic stenosis with angina, chest pain and congestive heart failure. He had pancytopenia and did undergo workup with bone marrow biopsy. He was cleared for surgery. Cardiac catheterization revealed a left dominant system with normal coronary arteries. Echocardiogram revealed good ventricular function with severe aortic valve stenosis. The patient was brought to the operating room where he underwent a general anesthetic. He was prepped and draped in standard fashion. Standard median sternotomy was performed. Pericardium was opened in the midline and suspended with 2-0 silk stay sutures. A double purse string of 20 Surgilon was placed in the aorta for the aortic cannulation site. Pursestring of 20 Surgilon was placed in the right atrial appendage for the venous uptake. The patient was heparinized. The aorta was cannulated without difficulty. 2-stage venous uptake cannula was inserted through the right atrial appendage. The patient was placed on cardioplegia bypass and cooled to 32. A purse string of 3-0 Prolene was placed in the aorta and the cardioplegia needle was inserted through here. This was also later used to remove air. Purse string of 20 Surgilon was placed in the right atrium and the retrograde cannula was inserted through here into the coronary sinus. It was palpated in the coronary sinus and had a good waveform. Pursestring of 2-0 Ethibond was placed in the right superior pulmonary vein and the vent was inserted through here into the apex of the ventricle. The aorta was crossclamped. A liter of antegrade cardioplegia was given into the aortic root as well as topical cooling with iced saline slush. A standard aortotomy was made in horizontal fashion extending down into the noncoronary sinus. The patient received a dose of retrograde cardioplegia. The valve was found to be heavily calcified. It appeared that it was tricuspid, but was fused together. It was removed using the Metzenbaum and Zuñiga scissors. The annulus was braided using the bone rongeurs. At this point the patient received antegrade cardioplegia directly into the left main ostium into the right coronary artery ostium. He received a dose of retrograde cardioplegia and receive this at approximately 15-20 minute intervals throughout the rest of the case. Alternating sutures of 2-0 Ethibond were placed in horizontal mattress fashion with the pledgets underneath the annulus. A total of 20 sutures were used. A 25 mm Mosaic ultra tissue valve was selected. The sutures were placed to the valve. The valve was lowered in place and the sutures were tied down. There was good tissue valve approximation along the entire circumference. It should be noted that the retrograde cardioplegia was seen coming from the coronary ostium whenever a dose was given. The aortotomy was then closed. We used an outer horizontal mattress layer of 4-0 Prolene and an inner overnight over layer of 4- 0 Prolene for a double layer. The patient was placed in the headdown position and the cross-clamp was removed. Total cross-clamp time was 75 minutes. The aortic needle was placed to suction. The apex of the left ventricle was repeatedly stuck with an 18-gauge needle until no further air could be obtained. A total of 2 chest tubes were left. A 32 right angle chest tube to the pericardial well. A 42 mediastinal chest tube. Atrial and ventricular pacing wires were left. The patient was paced in the DDD mode. The patient was weaned from bypass requiring no pressors for support. He was decannulated and protamine was given. The hemostasis was poor. We did give platelets, cryoprecipitate, fresh frozen plasma and desmopressin. We also used FloSeal as well as fibrillar. I did place bone wax on the bone marrow. Finally the hemostasis was improved. The pericardium was left open. The sternum was closed with #7 sternal wires in simple and [id number] fashion. Fascia was run with a #1 Vicryl. Subcutaneous tissues with a 2-0 Vicryl. Skin was closed with a 3-0 Vicryl subcuticular stitch. The patient tolerated the procedure well and was returned to intensive care unit in critical condition. Total bypass time 150 minutes. Total cross-clamp time 75 minutes. He been cooled to 32.
[2016-04-08] MEDS: *HR* Morphine 2 MG/ML SYRINGE IVP PRN ×3 (14:55→20:11)
[2016-04-08 14:56] LABS: ABG Base Excess 1.8 mEq/L (-2.0 to 3.0); ABG Glucose 84 mg/dL (60-95); ABG HCO3 28.5 mEQ/L (21-27); ABG Hematocrit 34 % (35-51); ABG Ionized Calcium 1.11 mmol/L (1.15-1.35); ABG Oxygen Saturation 99 % (95-98); ABG PCO2 54 mmHg (35-45); ABG PH 7.33 pH Units (7.32-7.45); ABG PO2 134 mmHg (85-104); ABG TCO2 30.2 mEq/L (20-26)
[2016-04-08 14:58] LABS: ABG Base Excess 2.4 mEq/L (-2.0 to 3.0); ABG Glucose 100 mg/dL (60-95); ABG HCO3 27.8 mEQ/L (21-27); ABG Hematocrit 31 % (35-51); ABG Ionized Calcium 1.17 mmol/L (1.15-1.35); ABG Oxygen Saturation 99 % (95-98); ABG PCO2 46 mmHg (35-45); ABG PH 7.39 pH Units (7.32-7.45); ABG PO2 165 mmHg (85-104); ABG TCO2 29.2 mEq/L (20-26)
[2016-04-08] MEDS ORDERED: Gabapentin 100 MG CAPSULE PO SCH (15:00)
[2016-04-08 15:02] LABS: VBG HCO3 25.4 mEq/L (21-27); VBG Ionized Calcium 0.95 mmol/L (1.15-1.35); VBG PH 7.34 pH Units (7.32-7.42)
[2016-04-08 15:04] LABS: ABG Base Excess 0.4 mEq/L (-2.0 to 3.0); ABG HCO3 26.4 mEQ/L (21-27); ABG Hematocrit 25 % (35-51); ABG Oxygen Saturation 100 % (95-98); ABG PCO2 49 mmHg (35-45); ABG PH 7.34 pH Units (7.32-7.45); ABG PO2 416 mmHg (85-104); ABG TCO2 27.9 mEq/L (20-26)
[2016-04-08 15:05] LABS: ABG Glucose 211 mg/dL (60-95); ABG Ionized Calcium 0.94 mmol/L (1.15-1.35)
[2016-04-08 15:06] LABS: ABG PCO2 45 mmHg (35-45); ABG PH 7.38 pH Units (7.32-7.45); ABG PO2 288 mmHg (85-104)
[2016-04-08 15:07] LABS: ABG Base Excess 1.2 mEq/L (-2.0 to 3.0); ABG Glucose 256 mg/dL (60-95); ABG HCO3 26.6 mEQ/L (21-27); ABG Hematocrit 28 % (35-51); ABG Ionized Calcium 0.87 mmol/L (1.15-1.35); ABG Oxygen Saturation 100 % (95-98)
[2016-04-08 15:08] LABS: ABG PCO2 40 mmHg (35-45); ABG PH 7.41 pH Units (7.32-7.45)
[2016-04-08 15:09] LABS: ABG Base Excess 0.7 mEq/L (-2.0 to 3.0); ABG Glucose 161 mg/dL (60-95); ABG HCO3 25.4 mEQ/L (21-27); ABG Hematocrit 24 % (35-51); ABG Ionized Calcium 0.84 mmol/L (1.15-1.35); ABG Oxygen Saturation 100 % (95-98); ABG PO2 425 mmHg (85-104); ABG TCO2 26.6 mEq/L (20-26)
[2016-04-08 15:11] LABS: ABG Base Excess -0.3 mEq/L (-2.0 to 3.0); ABG HCO3 24.8 mEQ/L (21-27); ABG Hematocrit 24 % (35-51); ABG Oxygen Saturation 99 % (95-98); ABG PCO2 42 mmHg (35-45); ABG PH 7.38 pH Units (7.32-7.45); ABG PO2 151 mmHg (85-104); ABG TCO2 26.1 mEq/L (20-26)
[2016-04-08 15:12] LABS: ABG Glucose 79 mg/dL (60-95); ABG Ionized Calcium 0.98 mmol/L (1.15-1.35)
[2016-04-08 15:13] LABS: ABG PCO2 42 mmHg (35-45); ABG PH 7.42 pH Units (7.32-7.45); ABG PO2 150 mmHg (85-104)
[2016-04-08 15:14] LABS: ABG Base Excess 2.5 mEq/L (-2.0 to 3.0); ABG Glucose 57 mg/dL (60-95); ABG HCO3 27.2 mEQ/L (21-27); ABG Hematocrit 21 % (35-51); ABG Ionized Calcium 0.88 mmol/L (1.15-1.35); ABG Oxygen Saturation 99 % (95-98); ABG TCO2 28.5 mEq/L (20-26)
[2016-04-08] MEDS: ceFAZolin 2,000 MG in D5% in Water 100 ML IVPB SCH ×2 (15:37→23:15)
[2016-04-08] MEDS ORDERED: *HR* Vecuronium 10 MG VIAL IVP ONE (15:54)
[2016-04-08] MEDS: *HR* OxyCODONE/APAP 5/325 TABLET PO PRN (16:28)
[2016-04-08] MEDS ORDERED: Insulin Human Regular 100 UNIT in 0.9 % Sodium Chloride 100 ML IVC SCH (17:00)
[2016-04-08 17:39] LABS: Hematocrit 20.4 % (37.5-50.1); Hemoglobin 7.2 g/dL (12.9-16.9)
[2016-04-08 17:40] LABS: ABG Base Excess 4.8 mEq/L (-2.0 to 3.0); ABG HCO3 29.2 mEQ/L (21-27); ABG Oxygen Saturation 99 % (95-98); ABG PCO2 42 mmHg (35-45); ABG PH 7.45 pH Units (7.32-7.45); ABG PO2 141 mmHg (85-104); ABG TCO2 30.5 mEq/L (20-26)
[2016-04-08 17:44] LABS: Blood Gas FiO2 35 %
[2016-04-08 21:38] LABS: ABG Base Excess 4.8 mEq/L (-2.0 to 3.0); ABG HCO3 29.2 mEQ/L (21-27); ABG Oxygen Saturation 99 % (95-98); ABG PCO2 42 mmHg (35-45); ABG PO2 134 mmHg (85-104); ABG TCO2 30.5 mEq/L (20-26)
[2016-04-08 21:39] LABS: Blood Gas FiO2 30 %; Hematocrit 26.3 % (37.5-50.1); Hemoglobin 9.1 g/dL (12.9-16.9)
[2016-04-08 21:40] LABS: ABG PH 7.45 pH Units (7.32-7.45); Blood Gas PEEP 5 cm H2O; Blood Gas Respiration Rate 14; Blood Gas VT 650 cc
[2016-04-08 22:38] LABS: ABG Base Excess 3.3 mEq/L (-2.0 to 3.0); ABG HCO3 27.8 mEQ/L (21-27); ABG Oxygen Saturation 99 % (95-98); ABG PCO2 41 mmHg (35-45); ABG PO2 144 mmHg (85-104); ABG TCO2 29.1 mEq/L (20-26)
[2016-04-08 22:39] LABS: ABG PH 7.44 pH Units (7.32-7.45); Blood Gas FiO2 30 %
[2016-04-09 00:33] LABS: ABG Base Excess 3.3 mEq/L (-2.0 to 3.0); ABG HCO3 27.8 mEQ/L (21-27); ABG Oxygen Saturation 98 % (95-98); ABG PCO2 41 mmHg (35-45); ABG PH 7.44 pH Units (7.32-7.45); ABG PO2 101 mmHg (85-104); ABG TCO2 29.1 mEq/L (20-26); Blood Gas FiO2 28 %
[2016-04-09] MEDS: *HR* Morphine 2 MG/ML SYRINGE IVP PRN ×3 (00:53→13:28)
[2016-04-09 04:42] LABS: Hemoglobin 8.5 g/dL (12.9-16.9); Immature Granulocytes % 0.5 % (0-4); Lymphocytes # 0.4 K/mcL (0.6-4.6); Lymphocytes % 5.4 %; Mean Corpuscular Hemoglobin 32.1 pg (28.0-33.3); Mean Corpuscular Volume 94.3 fL (83.0-100.0); Mean Platelet Volume 9.9 fL (9.4-12.4); Monocytes # 0.5 K/mcL (0.0-1.3); Monocytes % 7.8 %; Neutrophils # 5.6 K/mcL (1.6-8.9); Platelet Count 104 K/mcL (140-400); Red Blood Count 2.65 M/mcL (4.19-5.50); Red Cell Distribution Width 17.4 % (11.5-14.5); Segmented Neutrophils % 86.3 %
[2016-04-09 04:45] LABS: INR 1.7; Prothrombin Time 18.3 Seconds (9.4-12.1)
[2016-04-09 05:01] LABS: BUN/Creatinine Ratio 23 (6-26); Blood Urea Nitrogen 18 mg/dL (8-26); Calcium 7.4 mg/dL (8.6-10.8); Carbon Dioxide 25 mEq/L (19-29); Chloride 107 mEq/L (98-109); Glucose 119 mg/dL (70-99); Magnesium 1.6 mg/dL (1.6-2.6); Osmolality,Calculated 293 (280-300); Potassium 4.4 mEq/L (3.5-4.5); Sodium 140 mEq/L (136-145); eGFR For African Americans > 60 (> 60); eGFR For Non-African Americans > 60 (> 60)
[2016-04-09 05:28] LABS: Platelet Estimate Decreased (Normal); Reactive Lymphocytes Present (Not Present); Toxic Granulation Present (Not Present)
[2016-04-09] MEDS ORDERED: 0.9 % Sodium Chloride 250 ML ONE (06:04)
[2016-04-09] MEDS: 0.9 % Sodium Chloride 1,000 ML IVC SCH (06:11)
--- NOTE | 2016-04-09 06:20 | Cardiothoracic Progress Note ---
Date of Encounter: 04/09/16 Time of Encounter: 06:18 - Assessment and plan (1) Severe aortic stenosis Current Visit: Yes Status: Acute We will give the patient one unit of packed red blood cells for hemoglobin of 8.5. I will discontinue his amiodarone drip and place him on by mouth amiodarone. Hopefully, he can be transferred to the floor later today or tomorrow. - Subjective Interval history: The patient is extubated and has no complaints. Vital Signs, Last 4 Hours Temp Pulse Resp BP Pulse Ox 04/09/16 05:00 80 18 124/60 98 04/09/16 04:20 14 100 04/09/16 04:00 99.8 F H 80 16 130/68 100 04/09/16 03:00 80 16 129/65 98 Oxgyen Flow Rate Oxygen Flow Rate (LPM) 2 Clinical Data, last 8 Hours Output, Chest Tube Drainage 0 Amount [mediastinum II] Output, Chest Tube Drainage 0 Amount [mediastinum II] Output, Chest Tube Drainage 10 Amount [mediastinum II] Output, Chest Tube Drainage 0 Amount [mediastinum II] Output, Chest Tube Drainage 10 Amount [mediastinum II] Output, Chest Tube Drainage 0 Amount [mediastinum II] Output, Chest Tube Drainage 10 Amount [mediastinum II] Output, Chest Tube Drainage 0 Amount [mediastinum I] Output, Chest Tube Drainage 0 Amount [mediastinum I] Output, Chest Tube Drainage 10 Amount [mediastinum I] Output, Chest Tube Drainage 0 Amount [mediastinum I] Output, Chest Tube Drainage 10 Amount [mediastinum I] Output, Chest Tube Drainage 0 Amount [mediastinum I] Output, Chest Tube Drainage 10 Amount [mediastinum I] Output, Urine Amount 60 Weight 04/07/16 04/08/16 04/09/16 23:59 23:59 23:59 Weight 70.488 kg Lungs are clear to percussion and auscultation. Heart is in a paced rhythm. All incisions are healing well without signs of infection and the sternum is stable. Chest tube drainage is minimal. - Labs 04/09/16 04:22 04/09/16 04:22 Lab Results, Last 24 hours 04/08/16 04/08/16 04/08/16 06:27 06:27 13:10 WBC 5.8 8.7 Hgb 11.8 L 9.9 L D Hct 35.0 L 28.7 L Plt Count 125 L 101 L INR APTT Sodium 139 Potassium 4.2 Chloride 108 Carbon Dioxide 24 BUN 20 Creatinine 0.72 Glucose 92 Calcium 8.3 L Magnesium 04/08/16 04/08/16 04/08/16 13:10 13:17 17:28 WBC Hgb 7.2 L D Hct 20.4 L Plt Count INR 1.7 APTT 32.6 Sodium 142 Potassium 3.3 L Chloride 108 Carbon Dioxide 25 BUN 13 Creatinine 0.68 L Glucose 90 Calcium 7.8 L Magnesium 2.1 04/08/16 04/08/16 04/09/16 17:28 21:30 04:22 WBC 6.5 Hgb 9.1 L D 8.5 L Hct 26.3 L 25.0 L Plt Count 104 L INR APTT Sodium Potassium 3.8 Chloride Carbon Dioxide BUN Creatinine Glucose Calcium Magnesium 04/09/16 04/09/16 04:22 04:22 WBC Hgb Hct Plt Count INR 1.7 APTT 28.0 Sodium 140 Potassium 4.4 Chloride 107 Carbon Dioxide 25 BUN 18 Creatinine 0.77 Glucose 119 H Calcium 7.4 L Magnesium 1.6 - VTE Documentation of Mechanical Device: Graduated compression elastic hosiery Consult Discharge Plan - Plan Referrals: Brenden Bautista MD [Partnered Physician] - 04/10/16 2:00 pm (Please follow up as schedule...) Minal Carpenter DO [Partnered Physician] - 04/27/16 1:15 pm
--- NOTE | 2016-04-09 07:14 | Anesthesia Evaluation Post Op ---
Date of Encounter: 04/09/16 Time of Encounter: 07:12 - Vital Signs Vital Signs: Selected Entries 04/09/16 06:37 Temperature 99.6 F Pulse Rate 80 Respiratory Rate 16 Blood Pressure 117/58 O2 Sat by Pulse Oximetry 98 - Lungs Lungs: Clear Ascult./Percussion - Airway Airway: Non-obstructed - Cardiovascular Regular Rate (Paced. Now off iv amiodarone.) - Mental Status Mental Status: Alert & Oriented, Answers Appropriately - Pain Pain Scale: 2 Pain Scale used: Numeric (1 - 10) - Nausea Vomiting Nausea Vomiting: Not Present - Hydration Hydration: Tolerates oral liquids, Landers catheter Notes: 04/09/16 07:13 Patient had alot of bleeding postop, did resolve with addition of multiple blood products. Still on Levophed for BP support. - Discharge PostOp Status: Transfer Patient to floor (Will be determined by CT surgery.)
[2016-04-09] MEDS: Aspirin 81 MG TAB.CHEW PO SCH (08:28)
[2016-04-09] MEDS: Chlorhexidine Rinse 15 ML MOUTHWASH MM SCH ×2 (08:28→20:18)
[2016-04-09] MEDS: *HR* Amiodarone 200 MG TABLET PO SCH (08:28)
--- NOTE | 2016-04-09 08:38 | Internal Med Progress Note ---
Date of Encounter: 04/09/16 Time of Encounter: 08:35 - Assessment and plan (1) Severe aortic stenosis Current Visit: Yes Status: Acute Assessment and plan: Severe symptomatic aortic stenosis with episodes of intermittent chest pain, bradycardia, and hypotension. Status post open heart surgery with aortic valve replacement by cardiothoracic surgery on 04/08/16 Patient tolerated the procedure well Drop in H&H noted Transfuse 2units PRBC security monitor. Bedrest. CT surgery is on board. Dr. Castanon consulted for further management while the patient is in the ICU (2) Thoracic ascending aortic aneurysm Current Visit: Yes Status: Acute Assessment and plan: Ascending Aorta 4.4 cm will need to be followed as an outpatient as well. (3) Pancytopenia Current Visit: Yes Status: Chronic Assessment and plan: Patient being transfused PRBC today (04/09/16) Continue to closely monitor Plt count (4) DVT prophylaxis Current Visit: Yes Status: Acute Assessment and plan: EPCDs due to thrombocytopenia. - Subjective Interval history: Patient is a 71y/o male who is s/p open heart surgery for Aortic Valve replacement on 04/08/16. He was transferred to the ICU after the procedure. Patient tolerated the procedure well, was extubated this morning. Patient has the chest tube and right IJ transducer in place. Cardiothoracic surgery following. Dr. Castanon consulted for management of patient while the patient is in the ICU. - Constitutional Vitals: Temp Pulse Resp BP Pulse Ox 99.7 F H 80 16 126/64 97 04/09/16 07:54 04/09/16 07:00 04/09/16 08:16 04/09/16 07:00 04/09/16 08:16 General appearance: Present: cooperative, A&O X 3, pleasant, no acute distress, answers questions appropriately (poor historian) - Head Head exam: Present: atraumatic, normocephalic - Neck Additional comments: right IJ tranducer in place - Respiratory Respiratory exam: Absent: respiratory distress, wheezes Additional comments: chest tubes in place - Cardiovascular Cardiovascular exam: Present: RRR, +S1, +S2 - GI/Abdominal GI/Abdominal exam: Present: normal bowel sounds, soft. Absent: tenderness - Extremities Exam Extremities exam: Present: warm, radial pulses palpable and symetrical - Neurological Exam Neurological exam: Present: alert, oriented X3 Internal Medicine: Result - Labs CBC & Chem 7: 04/09/16 04:22 04/09/16 04:22 Labs: Short CBC 04/08/16 04/08/16 04/08/16 Range/Units 13:10 17:28 21:30 WBC 8.7 (4.3-11.1) K/mcL Hgb 9.9 L D 7.2 L D 9.1 L D (12.9-16.9) g/dL Hct 28.7 L 20.4 L 26.3 L (37.5-50.1) % Plt Count 101 L (140-400) K/mcL Neutrophils # 7.2 (1.6-8.9) K/mcL 04/09/16 Range/Units 04:22 WBC 6.5 (4.3-11.1) K/mcL Hgb 8.5 L (12.9-16.9) g/dL Hct 25.0 L (37.5-50.1) % Plt Count 104 L (140-400) K/mcL Neutrophils # 5.6 (1.6-8.9) K/mcL BMP 04/08/16 04/08/16 04/09/16 13:17 17:28 04:22 Sodium 142 140 Potassium 3.3 L 3.8 4.4 Chloride 108 107 Carbon Dioxide 25 25 BUN 13 18 Creatinine 0.68 L 0.77 Glucose 90 119 H Calcium 7.8 L 7.4 L - ABG Interpretation ABG results: ABG ABG pH 7.44 pH Units (7.32-7.45) 04/09/16 00:20 ABG pCO2 41 mmHg (35-45) 04/09/16 00:20 ABG pO2 101 mmHg (85-104) 04/09/16 00:20 ABG O2 Saturation 98 % (95-98) 04/09/16 00:20 PT/INR, D-dimer PT 18.3 Seconds (9.4-12.1) H 04/09/16 04:22 - Impressions Impressions Chest X-Ray 04/08/16 13:17 IMPRESSION: Interval placement of tubes and lines as above. D/ / Eri Esquivel Cha, MD / Eri Esquivel Cha, MD Interpreting Provider: Eri Esquivel Cha, MD X-Ray 04/08/16 13:17 IMPRESSION: Enteric tube present with tip in the body of the stomach and side-port likely in the gastric cardia. Suggest advancement by 2-[address] side-port more definitively within the gastric body. Evidence for free air within the peritoneal cavity. Critical results were called by Dr. Jensen Benitez MD to Raj Javed on 04/08/2016 at 14:17. In discussion with Dr. Javed, he felt that this related to the recent surgical intervention. Nonspecific bowel gas pattern. D/ / 04/08/2016 14:21:33 Jensen Benitez MD / Juliet Farrell Interpreting Provider: Jensne Benitez MD Chest X-Ray 04/09/16 04:00 IMPRESSION: 1. Support devices as above. 2. Mild prominence of the pulmonary vasculature. 3. Bibasilar opacification, left greater than right. 4. No evidence of pneumothorax. 5. Persistent pneumoperitoneum. D/ / Lele Rowan MD / Lele Rowan MD Interpreting Provider: Lele Rowan MD - VTE Documentation of Mechanical Device: Graduated compression elastic hosiery Consult Discharge Plan - Plan Referrals: Brenden Bautista MD [Partnered Physician] - 04/10/16 2:00 pm (Please follow up as schedule...) Minal Carpenter DO [Partnered Physician] - 04/27/16 1:15 pm
[2016-04-09] MEDS: *HR* OxyCODONE/APAP 5/325 TABLET PO PRN ×3 (08:54→20:19)
--- NOTE | 2016-04-09 08:57 | Electrocardiograph Report ---
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
[2016-04-09] MEDS ORDERED: Aspirin Enteric Coated 81 MG Tablet PO SCH (09:00)
--- NOTE | 2016-04-09 11:15 | Pulmonology Consult Note ---
<Tadeo Dotson - Last Filed: 04/09/16 11:13> Date of Encounter: 04/09/16 Time of Encounter: 09:40 Assessment and Plan (1) Severe aortic stenosis Current Visit: Yes Status: Acute POD #1 s/p aortic valve replacement with a 25 mm Medtronic Mosaic ultra valve by Dr. Javed. Transitioned from amiodarone drip to PO. Hgb 8.5 this AM, transfused 1 unit pRBC. Cardiothorascic surgery following. May be able to return to floor today or tomorrow. (2) Thoracic ascending aortic aneurysm Current Visit: Yes Status: Acute Ascending Aorta 4.4 cm Will need to be followed as an outpatient. (3) Pancytopenia Current Visit: Yes Status: Chronic Patient being transfused PRBC today (04/09/16) Plt count: 104, continue to closely monitor Plt count. (4) DVT prophylaxis Current Visit: Yes Status: Acute Per medicine service patient to have EPCDs, however has JOSEE hose on exam. In discussion with attending will restart heparin. History of Present Illness Consult date: 04/09/16 Requesting physician: Shana Mina Reason for consult: chest pain Chief complaint: chest pain History of present illness: Mr. Villa is 71 year old male admitted on 03/23/16 for chest pain. Found to have severe symptomatic aortic stenosis with episodes of intermittent chest pain , bradycardia, and hypotension. Echocardiogram showed an ejection fraction of 65 -70%, severe left ventricular diastolic dysfunction and severely calcified aortic valve which is bicuspid, the aortic valve area is 0.72 cm. Patient underwent standard stress testing and had blunted blood pressure response with ECG depressions that were nondiagnostic. CTA chest showed thoracic ascending aortic aneurysm 4.4 cm, no signs of dissection, hold beta mac due to bradycardia 04/06 C showed normal coronaries, no obstructive disease, no intervention needed. Cardiology planned for outpatient follow up in 3-4 weeks after valve replacement. S/P aortic valve replacement with a 25 mm Medtronic Mosaic ultra valve. On admission found to have pancytopenia with WBC 2.9, hemoglobin 12.1, platelets 74. B12 and folate within normal limits. Hematology service recommended bone marrow biopsy which showed no signs of malignancy, low iron storage. Past Med Surg Social Fam HX - Past Medical History Source: old records reviewed Medical history: aortic aneurysm, hyperlipidemia, valvular heart disease ( Aortic stenosis.), other (Pancytopenia.) Psychiatric history: no psych history - Past Surgical History Surgical History: appendectomy, herniorrhaphy (Left and right.), other ( Exploratory laparotomy with small bowel resection. Tonsillectomy.) - Social History Smoking Status: Never smoker Smokeless Tobacco Status: No Alcohol use: rarely Drug use: none Medications and Allergies Ascorbate Calcium [Vitamin C] 500 mg PO DAILY 03/24/16 [History] Calcium Carbonate [Calcium] 600 mg PO DAILY 03/24/16 [History] Cyanocobalamin (Vitamin B-12) [Vitamin B-12] 1,000 mcg SL DAILY 03/24/16 [ History] Magnesium 200 mg PO DAILY 03/24/16 [History] Allergies Sulfa (Sulfonamide Antibiotics) Allergy (Verified 03/24/16 09:06) Hives patient states childhood reaction All Systems: A 10-system review of systems was performed and is negative for pertinent findings except as documented above in the HPI. Physical Examination Vital Signs: Vital Signs, Last 4 Hours Temp Pulse Resp BP Pulse Ox 04/09/16 10:00 80 16 121/54 98 04/09/16 09:08 98.2 F 80 18 122/69 100 04/09/16 09:00 80 18 122/69 100 04/09/16 08:16 16 97 04/09/16 08:00 99.7 F H 80 18 119/69 99 04/09/16 07:54 99.7 F H General appearance: no acute distress, alert Eyes: nonicteric ENT: oropharynx moist Neck: supple Effort: normal Cardiovascular: regular rate and rhythm, other Gastrointestinal: normoactive bowel sounds, soft, non-tender, non-distended Integumentary: normal, other (midline incision) Extremities: no cyanosis, no edema, no clubbing, pink and warm, pulses normal ( capillary refill <2 sec) Musculoskeletal: no deformities normal mental status, non-focal exam mood appropriate, affect normal Results - Laboratory Findings CBC and BMP: 04/09/16 04:22 04/09/16 04:22 ABG ABG pH 7.44 pH Units (7.32-7.45) 04/09/16 00:20 ABG pCO2 41 mmHg (35-45) 04/09/16 00:20 ABG pO2 101 mmHg (85-104) 04/09/16 00:20 ABG O2 Saturation 98 % (95-98) 04/09/16 00:20 PT/INR, D-dimer PT 18.3 Seconds (9.4-12.1) H 04/09/16 04:22 Abnormal lab findings: Abnormal lab results RBC 2.65 M/mcL (4.19-5.50) L 04/09/16 04:22 Hgb 8.5 g/dL (12.9-16.9) L 04/09/16 04:22 Hct 25.0 % (37.5-50.1) L 04/09/16 04:22 RDW 17.4 % (11.5-14.5) H 04/09/16 04:22 Plt Count 104 K/mcL (140-400) L 04/09/16 04:22 Lymphocytes # 0.4 K/mcL (0.6-4.6) L 04/09/16 04:22 Reactive Lymphocytes Present (Not Present) A 04/09/16 04:22 Toxic Granulation Present (Not Present) A 04/09/16 04:22 Platelet Estimate Decreased (Normal) L 04/09/16 04:22 Percent Retic 1.4 % (1.6-2.8) L 03/25/16 04:12 Immature Retic Fraction 6.7 % (11.0-38.0) L 03/25/16 04:12 Retic Hgb Equivalent 41.0 pg (28.61-36.33) H 03/25/16 04:12 PT 18.3 Seconds (9.4-12.1) H 04/09/16 04:22 ABG HCO3 27.8 mEQ/L (21-27) H 04/09/16 00:20 ABG Total CO2 29.1 mEq/L (20-26) H 04/09/16 00:20 ABG Base Excess 3.3 mEq/L (-2.0 to 3.0) H 04/09/16 00:20 ABG Hematocrit 21 % (35-51) L 04/08/16 11:00 VBG pO2 42 mmHg (25-40) H 04/08/16 08:29 VBG Hematocrit 24 % (38-54) L 04/08/16 08:29 VBG Ionized Calcium 0.95 mmol/L (1.15-1.35) L 04/08/16 08:29 Potassium 3.2 mEq/L (3.5-5.3) L 04/08/16 11:00 Glucose 57 mg/dL (60-95) L 04/08/16 11:00 Ionized Calcium 0.88 mmol/L (1.15-1.35) L 04/08/16 11:00 Glucose 119 mg/dL (70-99) H 04/09/16 04:22 POC Glucose 129 (58-89) H 04/09/16 00:09 Calcium 7.4 mg/dL (8.6-10.8) L 04/09/16 04:22 Iron 48 mcg/dL (65-175) L 03/25/16 04:12 Transferrin 173 mg/dL (174-364) L 03/25/16 04:12 B-Natriuretic Peptide 527 pg/mL (0-100) H 03/23/16 17:05 Serum Total Protein 5.6 g/dL (6.0-8.3) L 03/24/16 04:17 Total Protein (PEP) 5.90 g/dL (6.00-8.30) L 03/25/16 17:44 Globulin 2.1 g/dL (2.4-3.5) L 03/24/16 04:17 Gamma Globulins 0.53 g/dL (0.62-1.51) L 03/25/16 17:44 HDL Cholesterol 36 mg/dL (40-59) L 04/07/16 11:14 Urine Clarity Cloudy (Clear) A 04/07/16 14:53 IgG 502 mg/dL (768-1632) L 03/25/16 17:44 IgM 30 mg/dL (35-263) L 03/25/16 17:44 - Clinical Findings Intake & Output: Intake & Output 04/08/16 04/09/16 04/09/16 23:59 07:59 15:59 Intake Total 1371.6 / 1371.6 1446.5 / 1446.5 360 / 360 Output Total 3270 / 3270 460 / 460 0 / 0 Balance -1898.4 / -1898.4 986.5 / 986.5 360 / 360 Consult Discharge Plan - Plan Referrals: Brenden Bautista MD [Partnered Physician] - 04/10/16 2:00 pm (Please follow up as schedule...) Minal Carpenter DO [Partnered Physician] - 04/27/16 1:15 pm <Jhon Taylor - Last Filed: 04/09/16 15:52> All Systems: A 10-system review of systems was performed and is negative for pertinent findings except as documented above in the HPI. Physical Examination Vital Signs: Vital Signs, Last 4 Hours Pulse Resp BP Pulse Ox 04/09/16 15:22 80 04/09/16 15:00 80 16 103/56 95 04/09/16 14:00 80 14 95/55 95 04/09/16 13:00 80 18 127/61 98 04/09/16 12:21 16 99 04/09/16 12:00 80 16 123/57 100 Results - Laboratory Findings CBC and BMP: 04/09/16 04:22 04/09/16 04:22 ABG ABG pH 7.44 pH Units (7.32-7.45) 04/09/16 00:20 ABG pCO2 41 mmHg (35-45) 04/09/16 00:20 ABG pO2 101 mmHg (85-104) 04/09/16 00:20 ABG O2 Saturation 98 % (95-98) 04/09/16 00:20 PT/INR, D-dimer PT 18.3 Seconds (9.4-12.1) H 04/09/16 04:22 Abnormal lab findings: Abnormal lab results RBC 2.65 M/mcL (4.19-5.50) L 04/09/16 04:22 Hgb 8.5 g/dL (12.9-16.9) L 04/09/16 04:22 Hct 25.0 % (37.5-50.1) L 04/09/16 04:22 RDW 17.4 % (11.5-14.5) H 04/09/16 04:22 Plt Count 104 K/mcL (140-400) L 04/09/16 04:22 Lymphocytes # 0.4 K/mcL (0.6-4.6) L 04/09/16 04:22 Reactive Lymphocytes Present (Not Present) A 04/09/16 04:22 Toxic Granulation Present (Not Present) A 04/09/16 04:22 Platelet Estimate Decreased (Normal) L 04/09/16 04:22 Percent Retic 1.4 % (1.6-2.8) L 03/25/16 04:12 Immature Retic Fraction 6.7 % (11.0-38.0) L 03/25/16 04:12 Retic Hgb Equivalent 41.0 pg (28.61-36.33) H 03/25/16 04:12 PT 18.3 Seconds (9.4-12.1) H 04/09/16 04:22 ABG HCO3 27.8 mEQ/L (21-27) H 04/09/16 00:20 ABG Total CO2 29.1 mEq/L (20-26) H 04/09/16 00:20 ABG Base Excess 3.3 mEq/L (-2.0 to 3.0) H 04/09/16 00:20 ABG Hematocrit 21 % (35-51) L 04/08/16 11:00 VBG pO2 42 mmHg (25-40) H 04/08/16 08:29 VBG Hematocrit 24 % (38-54) L 04/08/16 08:29 VBG Ionized Calcium 0.95 mmol/L (1.15-1.35) L 04/08/16 08:29 Potassium 3.2 mEq/L (3.5-5.3) L 04/08/16 11:00 Glucose 57 mg/dL (60-95) L 04/08/16 11:00 Ionized Calcium 0.88 mmol/L (1.15-1.35) L 04/08/16 11:00 Glucose 119 mg/dL (70-99) H 04/09/16 04:22 POC Glucose 129 (58-89) H 04/09/16 00:09 Calcium 7.4 mg/dL (8.6-10.8) L 04/09/16 04:22 Iron 48 mcg/dL (65-175) L 03/25/16 04:12 Transferrin 173 mg/dL (174-364) L 03/25/16 04:12 B-Natriuretic Peptide 527 pg/mL (0-100) H 03/23/16 17:05 Serum Total Protein 5.6 g/dL (6.0-8.3) L 03/24/16 04:17 Total Protein (PEP) 5.90 g/dL (6.00-8.30) L 03/25/16 17:44 Globulin 2.1 g/dL (2.4-3.5) L 03/24/16 04:17 Gamma Globulins 0.53 g/dL (0.62-1.51) L 03/25/16 17:44 HDL Cholesterol 36 mg/dL (40-59) L 04/07/16 11:14 Urine Clarity Cloudy (Clear) A 04/07/16 14:53 IgG 502 mg/dL (768-1632) L 03/25/16 17:44 IgM 30 mg/dL (35-263) L 03/25/16 17:44 - Clinical Findings Intake & Output: Intake & Output 04/08/16 04/09/16 04/09/16 23:59 07:59 15:59 Intake Total 1371.6 / 1371.6 1446.5 / 1446.5 600 / 600 Output Total 3270 / 3270 460 / 460 290 / 290 Balance -1898.4 / -1898.4 986.5 / 986.5 310 / 310 - Attending Attestation I examined this patient and my medical decision-making was reviewed with the MANAGER FOOD BEVERAGE/PA/Advanced Practice Nurse/Resident Physician. I agree with the documented findings, disposition and treatment plan as described except to the extent set forth below. Patient seen and examined. Labs, radiology, chart personally reviewed. Agree with resident's history and physical, assessment, plan with following comments: [employer]: Patient follows commands, Pulmonary: Acceptable oxygenation and ventilation and encourage IS and pain control Cardiovascular: stable. Full anticoagulation if needed will defer it to cardiothoracic surgeon. GI: Nutrition per dietary and GI prophylaxis per routine Heme: DVT prophylaxis per routine. Mechanical DVT prophylaxis and when surgeon agree can use heparin ID: Continue antibiotics and plan to de-escalation Renal; urine out put and renal funtion reviewed Endorcine: blood glucose is monitored Lines: all lines checked and no evidence of infections Skin: skin care to prevent pressure ulcers per nursing routine care
[2016-04-09] MEDS: Pantoprazole 40 MG VIAL IVP SCH (11:35)
[2016-04-09] MEDS ORDERED: D5% in Water 1,000 ML IV PRN (12:41)
[2016-04-09] MEDS ORDERED: Dextrose Gel 15 GM PO PRN ×2 (12:41)
[2016-04-09] MEDS ORDERED: *HR* Dextrose 50 % in Water (Syg) 50 ML SYRINGE IVP PRN (12:41)
[2016-04-09 16:03] LABS: Hematocrit 27.8 % (37.5-50.1); Hemoglobin 9.5 g/dL (12.9-16.9)
[2016-04-09] MEDS: Insulin LISPRO 300 UNITS/3 ML VIAL SQ SCH (16:34)
[2016-04-09] MEDS ORDERED: *HR* Heparin 5,000 UNIT/ML VIAL SQ SCH (18:00)
[2016-04-09] MEDS: Norepinephrine 4 MG in D5% in Water 250 ML IVC SCH (18:23)
[2016-04-09] MEDS ORDERED: Insulin LISPRO 300 UNITS/3 ML VIAL SQ SCH (21:00)
[2016-04-10] MEDS: *HR* OxyCODONE/APAP 5/325 TABLET PO PRN ×2 (00:27→06:07)
[2016-04-10 04:46] LABS: Basophils % 0.2 %; Hemoglobin 8.2 g/dL (12.9-16.9)
[2016-04-10 04:48] LABS: BUN/Creatinine Ratio 28 (6-26); Blood Urea Nitrogen 22 mg/dL (8-26); Carbon Dioxide 27 mEq/L (19-29); Chloride 106 mEq/L (98-109); Glucose 125 mg/dL (70-99); Hematocrit 25.1 % (37.5-50.1); Immature Granulocytes % 0.2 % (0-4); Immature Platelets 4.7 % (1.1-6.1); Lymphocytes # 0.7 K/mcL (0.6-4.6); Lymphocytes % 12.5 %; Mean Corpuscular HGB Conc 32.7 g/dL (31.6-35.5); Mean Corpuscular Hemoglobin 31.4 pg (28.0-33.3); Mean Corpuscular Volume 96.2 fL (83.0-100.0); Mean Platelet Volume 10.4 fL (9.4-12.4); Monocytes # 0.4 K/mcL (0.0-1.3); Monocytes % 7.9 %; Neutrophils # 4.2 K/mcL (1.6-8.9); Osmolality,Calculated 297 (280-300); Potassium 4.3 mEq/L (3.5-4.5); Red Blood Count 2.61 M/mcL (4.19-5.50); Red Cell Distribution Width 16.8 % (11.5-14.5); Segmented Neutrophils % 79.2 %; Sodium 141 mEq/L (136-145); eGFR For African Americans > 60 (> 60); eGFR For Non-African Americans > 60 (> 60)
[2016-04-10 05:49] LABS: Platelet Count 90 K/mcL (140-400)
[2016-04-10 05:51] LABS: Hypochromasia Present (Not Present); Platelet Estimate Decreased (Normal)
[2016-04-10 05:52] LABS: Anisocytosis 1+ (Not Present); Polychromasia 1+ (Not Present)
[2016-04-10] MEDS ORDERED: *HR* Heparin 5,000 UNIT/ML VIAL SQ SCH (06:00)
--- NOTE | 2016-04-10 07:14 | Cardiothoracic Progress Note ---
Date of Encounter: 04/10/16 Time of Encounter: 07:07 - Assessment and plan (1) Severe aortic stenosis Current Visit: Yes Status: Acute The patient has remained hemodynamically stable overnight. He has no complaints. He is breathing comfortably. The pacemaker was turned off and the patient has normal sinus rhythm at a rate of 78. The chest tubes removed. The Landers catheter be removed. He patient be transferred to the stepdown unit later today. The assessment and plan as outlined above was discussed with the patient and/or family members who expressed understanding and agreement. All questions were answered. - Subjective Procedure(s) Performed: POD#2 S/P AVR (#25 Mosaic ultra porcine tissue valve) Interval history: The patient is resting comfortably in his hospital bed. He has no complaints. Vital Signs, Last 4 Hours Temp Pulse Resp BP Pulse Ox 04/10/16 06:00 80 16 119/70 95 04/10/16 05:05 98.6 F 04/10/16 05:00 82 16 110/62 90 L 04/10/16 04:01 17 93 L 04/10/16 04:00 80 18 108/61 92 L Oxgyen Flow Rate Oxygen Flow Rate (LPM) 0 Clinical Data, last 8 Hours Output, Chest Tube Drainage 10 Amount [mediastinum II] Output, Chest Tube Drainage 10 Amount [mediastinum II] Output, Chest Tube Drainage 20 Amount [mediastinum I] Output, Chest Tube Drainage 40 Amount [mediastinum I] Weight 04/08/16 04/09/16 04/10/16 23:59 23:59 23:59 Weight 77.201 kg - Physical Examination General: Conversant, No Apparent Distress Neck: No JVD, Normal carotid pulses Cardiac: Reg Rate and Rhythm, Normal S1 and S2, No Murmur Incision: No signs of infection, Dry/intact dressing Sternum: Stable Chest tubes: Minimal drainage Lungs: Normal Breath Sounds, No Wheeze, Rales, Rhonchi Neuro: Alert and responsive, No focal deficits noted Vascular: Normal capillary refill Extremities: No Clubbing, No Cyanosis, No Edema - Labs 04/10/16 04:25 04/10/16 04:25 Lab Results, Last 24 hours 04/09/16 04/10/16 04/10/16 15:55 04:25 04:25 WBC 5.3 Hgb 9.5 L 8.2 L Hct 27.8 L 25.1 L Plt Count 90 L Sodium 141 Potassium 4.3 Chloride 106 Carbon Dioxide 27 BUN 22 Creatinine 0.80 Glucose 125 H Calcium 8.0 L - VTE Documentation of Mechanical Device: Graduated compression elastic hosiery Consult Discharge Plan - Plan Referrals: Brenden Bautista MD [Partnered Physician] - 04/10/16 2:00 pm (Please follow up as schedule...) Minal Carpenter DO [Partnered Physician] - 04/27/16 1:15 pm
--- NOTE | 2016-04-10 08:49 | Pulmonology Progress Note ---
<Tadeo Dotson - Last Filed: 04/10/16 15:56> Date of Encounter: 04/10/16 Time of Encounter: 07:25 Assessment and Plan (1) Severe aortic stenosis Current Visit: Yes Status: Acute POD #2 s/p aortic valve replacement with a 25 mm Medtronic Mosaic ultra valve by Dr. Javed. Continue amiodarone PO. Hgb 8.2 this AM Cardiothoracic surgery following. Likely transfer to the floor today. CXR showing free air under diaphragm. CT abd confirmed free air, Cardiothoracic suggested monitoring at this time, no intervention needed. Diet switched to clears. (2) Thoracic ascending aortic aneurysm Current Visit: Yes Status: Acute Ascending Aorta 4.4 cm Will need to be followed as an outpatient. (3) Pancytopenia Current Visit: Yes Status: Chronic Plt count 90 today, continue to closely monitor. (4) DVT prophylaxis Current Visit: Yes Status: Acute Heparin 5,000 units Q12H Subjective Principal diagnosis: chest pain Interval history: Patient states his pain is tolerable. He states he does not have an appetite this morning, but nursing reports good PO fluid intake. Afebrile. Objective PUL Vital signs: Last Vital Signs Temp 98.6 F 04/10/16 05:05 Pulse 80 04/10/16 06:00 Resp 16 04/10/16 07:57 BP 119/70 04/10/16 06:00 Pulse Ox 92 L 04/10/16 07:57 General appearance: no acute distress, alert Eyes: nonicteric ENT: oropharynx moist Neck: supple Effort: normal Auscultation: bilateral: rhonchi Cardiovascular: regular rate and rhythm Gastrointestinal: normoactive bowel sounds, soft, non-tender, non-distended Integumentary: normal, other (midline thoracic incision) Extremities: no cyanosis, no edema, no clubbing, pink and warm, other ( capillary refille <2sec) Musculoskeletal: no deformities Gait: normal posture normal mental status, non-focal exam mood appropriate, affect normal Results - Laboratory Findings CBC and BMP: 04/10/16 04:25 04/10/16 04:25 ABG ABG pH 7.44 pH Units (7.32-7.45) 04/09/16 00:20 ABG pCO2 41 mmHg (35-45) 04/09/16 00:20 ABG pO2 101 mmHg (85-104) 04/09/16 00:20 ABG O2 Saturation 98 % (95-98) 04/09/16 00:20 PT/INR, D-dimer PT 18.3 Seconds (9.4-12.1) H 04/09/16 04:22 Abnormal lab findings: Abnormal lab results RBC 2.61 M/mcL (4.19-5.50) L 04/10/16 04:25 Hgb 8.2 g/dL (12.9-16.9) L 04/10/16 04:25 Hct 25.1 % (37.5-50.1) L 04/10/16 04:25 RDW 16.8 % (11.5-14.5) H 04/10/16 04:25 Plt Count 90 K/mcL (140-400) L 04/10/16 04:25 Reactive Lymphocytes Present (Not Present) A 04/09/16 04:22 Toxic Granulation Present (Not Present) A 04/09/16 04:22 Platelet Estimate Decreased (Normal) L 04/10/16 04:25 Polychromasia 1+ (Not Present) A 04/10/16 04:25 Hypochromasia Present (Not Present) A 04/10/16 04:25 Anisocytosis 1+ (Not Present) A 04/10/16 04:25 Percent Retic 1.4 % (1.6-2.8) L 03/25/16 04:12 Immature Retic Fraction 6.7 % (11.0-38.0) L 03/25/16 04:12 Retic Hgb Equivalent 41.0 pg (28.61-36.33) H 03/25/16 04:12 PT 18.3 Seconds (9.4-12.1) H 04/09/16 04:22 ABG HCO3 27.8 mEQ/L (21-27) H 04/09/16 00:20 ABG Total CO2 29.1 mEq/L (20-26) H 04/09/16 00:20 ABG Base Excess 3.3 mEq/L (-2.0 to 3.0) H 04/09/16 00:20 ABG Hematocrit 21 % (35-51) L 04/08/16 11:00 VBG pO2 42 mmHg (25-40) H 04/08/16 08:29 VBG Hematocrit 24 % (38-54) L 04/08/16 08:29 VBG Ionized Calcium 0.95 mmol/L (1.15-1.35) L 04/08/16 08:29 Potassium 3.2 mEq/L (3.5-5.3) L 04/08/16 11:00 Glucose 57 mg/dL (60-95) L 04/08/16 11:00 Ionized Calcium 0.88 mmol/L (1.15-1.35) L 04/08/16 11:00 BUN/Creatinine Ratio 28 (6-26) H 04/10/16 04:25 Glucose 125 mg/dL (70-99) H 04/10/16 04:25 POC Glucose 117 (58-89) H 04/09/16 19:26 Calcium 8.0 mg/dL (8.6-10.8) L 04/10/16 04:25 Iron 48 mcg/dL (65-175) L 03/25/16 04:12 Transferrin 173 mg/dL (174-364) L 03/25/16 04:12 B-Natriuretic Peptide 527 pg/mL (0-100) H 03/23/16 17:05 Serum Total Protein 5.6 g/dL (6.0-8.3) L 03/24/16 04:17 Total Protein (PEP) 5.90 g/dL (6.00-8.30) L 03/25/16 17:44 Globulin 2.1 g/dL (2.4-3.5) L 03/24/16 04:17 Gamma Globulins 0.53 g/dL (0.62-1.51) L 03/25/16 17:44 HDL Cholesterol 36 mg/dL (40-59) L 04/07/16 11:14 Urine Clarity Cloudy (Clear) A 04/07/16 14:53 IgG 502 mg/dL (768-1632) L 03/25/16 17:44 IgM 30 mg/dL (35-263) L 03/25/16 17:44 - Clinical Findings Intake & Output: Intake & Output 04/09/16 04/10/16 04/10/16 23:59 07:59 15:59 Output Total 445 / 445 430 / 430 Balance -445 / -445 -430 / -430 Weight 77.201 kg - VTE Documentation of Mechanical Device: Graduated compression elastic hosiery Consult Discharge Plan - Plan Referrals: Brenden Bautista MD [Partnered Physician] - 04/10/16 2:00 pm (Please follow up as schedule...) Minal Crapenter DO [Partnered Physician] - 04/27/16 1:15 pm <Jhon Taylor - Last Filed: 04/10/16 16:10> Objective PUL Vital signs: Last Vital Signs Temp 97.7 F 04/10/16 11:58 Pulse 80 04/10/16 15:18 Resp 20 04/10/16 15:18 BP 108/60 04/10/16 15:18 Pulse Ox 96 04/10/16 15:18 Results - Laboratory Findings CBC and BMP: 04/10/16 04:25 04/10/16 04:25 ABG ABG pH 7.44 pH Units (7.32-7.45) 04/09/16 00:20 ABG pCO2 41 mmHg (35-45) 04/09/16 00:20 ABG pO2 101 mmHg (85-104) 04/09/16 00:20 ABG O2 Saturation 98 % (95-98) 04/09/16 00:20 PT/INR, D-dimer PT 18.3 Seconds (9.4-12.1) H 04/09/16 04:22 Abnormal lab findings: Abnormal lab results RBC 2.61 M/mcL (4.19-5.50) L 04/10/16 04:25 Hgb 8.2 g/dL (12.9-16.9) L 04/10/16 04:25 Hct 25.1 % (37.5-50.1) L 04/10/16 04:25 RDW 16.8 % (11.5-14.5) H 04/10/16 04:25 Plt Count 90 K/mcL (140-400) L 04/10/16 04:25 Reactive Lymphocytes Present (Not Present) A 04/09/16 04:22 Toxic Granulation Present (Not Present) A 04/09/16 04:22 Platelet Estimate Decreased (Normal) L 04/10/16 04:25 Polychromasia 1+ (Not Present) A 04/10/16 04:25 Hypochromasia Present (Not Present) A 04/10/16 04:25 Anisocytosis 1+ (Not Present) A 04/10/16 04:25 Percent Retic 1.4 % (1.6-2.8) L 03/25/16 04:12 Immature Retic Fraction 6.7 % (11.0-38.0) L 03/25/16 04:12 Retic Hgb Equivalent 41.0 pg (28.61-36.33) H 03/25/16 04:12 PT 18.3 Seconds (9.4-12.1) H 04/09/16 04:22 ABG HCO3 27.8 mEQ/L (21-27) H 04/09/16 00:20 ABG Total CO2 29.1 mEq/L (20-26) H 04/09/16 00:20 ABG Base Excess 3.3 mEq/L (-2.0 to 3.0) H 04/09/16 00:20 ABG Hematocrit 21 % (35-51) L 04/08/16 11:00 VBG pO2 42 mmHg (25-40) H 04/08/16 08:29 VBG Hematocrit 24 % (38-54) L 04/08/16 08:29 VBG Ionized Calcium 0.95 mmol/L (1.15-1.35) L 04/08/16 08:29 Potassium 3.2 mEq/L (3.5-5.3) L 04/08/16 11:00 Glucose 57 mg/dL (60-95) L 04/08/16 11:00 Ionized Calcium 0.88 mmol/L (1.15-1.35) L 04/08/16 11:00 BUN/Creatinine Ratio 28 (6-26) H 04/10/16 04:25 Glucose 125 mg/dL (70-99) H 04/10/16 04:25 POC Glucose 117 (58-89) H 04/09/16 19:26 Calcium 8.0 mg/dL (8.6-10.8) L 04/10/16 04:25 Iron 48 mcg/dL (65-175) L 03/25/16 04:12 Transferrin 173 mg/dL (174-364) L 03/25/16 04:12 B-Natriuretic Peptide 527 pg/mL (0-100) H 03/23/16 17:05 Serum Total Protein 5.6 g/dL (6.0-8.3) L 03/24/16 04:17 Total Protein (PEP) 5.90 g/dL (6.00-8.30) L 03/25/16 17:44 Globulin 2.1 g/dL (2.4-3.5) L 03/24/16 04:17 Gamma Globulins 0.53 g/dL (0.62-1.51) L 03/25/16 17:44 HDL Cholesterol 36 mg/dL (40-59) L 04/07/16 11:14 Urine Clarity Cloudy (Clear) A 04/07/16 14:53 IgG 502 mg/dL (768-1632) L 03/25/16 17:44 IgM 30 mg/dL (35-263) L 03/25/16 17:44 - Clinical Findings Intake & Output: Intake & Output 04/10/16 04/10/16 04/10/16 07:59 15:59 23:59 Intake Total 360 / 360 Output Total 430 / 430 150 / 150 Balance -430 / -430 210 / 210 Weight 77.201 kg - Attending Attestation I examined this patient and my medical decision-making was reviewed with the NEWS CAMERAMAN/PA/Advanced Practice Nurse/Resident Physician. I agree with the documented findings, disposition and treatment plan as described except to the extent set forth below. Patient seen and examined. Labs, radiology, chart personally reviewed. 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 Chest tube per cardiothoracic. Cardiovascular: stable GI: Reviewed CT abdomen with Dr. Nobles and patient will be on liquid and to monitor for now. Heme: DVT prophylaxis per routine ID: Continue antibiotics and plan to de-escalation Renal; urine out put and renal funtion reviewed Endorcine: blood glucose is monitored Lines: all lines checked and no evidence of infections Skin: skin care to prevent pressure ulcers per nursing routine care
[2016-04-10] MEDS: Pantoprazole 40 MG VIAL IVP SCH (09:27)
[2016-04-10] MEDS: *HR* Amiodarone 200 MG TABLET PO SCH (09:27)
[2016-04-10] MEDS: Aspirin 81 MG TAB.CHEW PO SCH (09:27)
[2016-04-10] MEDS: Insulin LISPRO 300 UNITS/3 ML VIAL SQ SCH ×4 (09:27→20:36)
[2016-04-10] MEDS: Chlorhexidine Rinse 15 ML MOUTHWASH MM SCH ×2 (09:27→22:09)
[2016-04-10] MEDS ORDERED: *HR* Dextrose 50 % in Water (Syg) 50 ML SYRINGE IVP PRN (09:38)
[2016-04-10] MEDS ORDERED: *HR* Promethazine 25 MG/ML VIAL IVP PRN (09:38)
[2016-04-10] MEDS ORDERED: Insulin Regular, Human 100 UNIT/ML IV PRN (09:38)
[2016-04-10] MEDS ORDERED: Dextrose Gel 15 GM PO PRN ×2 (09:38)
[2016-04-10] MEDS ORDERED: D5% in Water 1,000 ML IV PRN (09:38)
[2016-04-10] MEDS: *HR* Morphine 2 MG/ML SYRINGE IVP PRN ×2 (15:13→17:30)
[2016-04-10] MEDS: Magnesium Oxide 400 MG TABLET PO SCH (15:13)
[2016-04-10] MEDS: Cyanocobalamin (B-12) 1,000 MCG TABLET PO SCH (15:14)
[2016-04-10] MEDS: Ascorbic Acid 500 MG TABLET PO SCH (15:14)
--- NOTE | 2016-04-10 15:57 | General Surgery Consult Note ---
Date of Encounter: 04/10/16 Time of Encounter: 15:56 Assessment and Plan (1) Free intraperitoneal air Current Visit: Yes Status: Acute The patient that I am unsure as to the etiology behind the free air that has been demonstrated by x-ray and CAT scan. Unfortunately the CAT scan was done without any type of contrast therefore I will ask that the CAT scan of the abdomen and pelvis be repeated with by mouth and IV contrast. This will allow me to see whether or not there is any extravasation of contrast from the lumen of the GI tract. I think the most likely etiology is that the chest tubes were intraperitoneal and that there was some type of air leak. The second etiology is that there was injury to the bowel during placement. Will follow with you. History of Present Illness Consult date: 04/10/16 Requesting physician: Dominga Nobles History of present illness: 71 year old male with a past medical history significant for aortic aneurysm, hyperlipidemia, aortic stenosis, and pancytopenia who presented to [facility] who has been having progressive left precordial chest pain, shortness of breath and dyspnea. He has had various studies including an echocardiogram which demonstrated an EF of 65-70% with severe aortic stenosis. He also has evidence of ascending thoracic aortic aneurysm. He was worked up for pancytopenia and following the workup was brought to the operating room for a aortic valve replacement which was performed without difficult. The patient had 2 chest tubes placed in the thoracic cavity with a chest x-ray performed on 04/09/2016 demonstrating air within the abdomen and if follow-up chest x-ray on 04/10/2016 (this morning (which showed increasing air. The chest tube was then removed and the patient subsequently had a CT scan without contrast showing increased intra-abdominal air compared to the prior day's chest x-ray. She denies any true abdominal pain except for the pain at the location of the subxiphoid incisions for the chest tubes. He denies any nausea and vomiting and he recently had breakfast this morning. He has a history of constipation but has not had any rectal bleeding. Unfortunately was unable to evaluate the patient prior to the removal of the chest tubes. I would also evaluate the patient because of the increased free air from yesterday today. Past Med Surg Social Fam HX - Past Medical History Medical history: aortic aneurysm, hyperlipidemia, valvular heart disease ( Aortic stenosis.), other (Pancytopenia.) Psychiatric history: no psych history - Past Surgical History Surgical History: appendectomy, herniorrhaphy (Left and right.), other ( Exploratory laparotomy with small bowel resection. Tonsillectomy.) - Social History Smoking Status: Never smoker Smokeless Tobacco Status: No Alcohol use: rarely Drug use: none Medications and Allergies Ascorbate Calcium [Vitamin C] 500 mg PO DAILY 03/24/16 [History] Calcium Carbonate [Calcium] 600 mg PO DAILY 03/24/16 [History] Cyanocobalamin (Vitamin B-12) [Vitamin B-12] 1,000 mcg SL DAILY 03/24/16 [ History] Magnesium 200 mg PO DAILY 03/24/16 [History] Allergies Sulfa (Sulfonamide Antibiotics) Allergy (Verified 03/24/16 09:06) Hives patient states childhood reaction Review of Systems All systems PM: reviewed and no additional remarkable complaints except as stated All systems PM: A 10-system review of systems was performed and is negative for pertinent findings except as documented above in the HPI. General Surgery Exam Initial Vital Signs Temp Pulse Resp BP Pulse Ox 98.1 F 60 24 134/69 100 03/23/16 16:29 03/23/16 16:29 03/23/16 16:29 03/23/16 16:29 03/23/16 16:29 - General physical appearance well developed, well nourished, no distress - Eyes PERRL, normal ocular movement - Neck no masses, trachea midline, no lymphadectomy - Respiratory normal expansion, normal respiratory effort, clear to auscultation - Cardiovascular Cardiovascular exam: Present: RRR, no murmurs/rubs/gallops - Abdomen Abdomen general surgery: Present: bowel sounds present, soft, tympanic (Noted two incisions in the subxiphoid space consistent with a previous 2 chest tubes.) - Integumentary Integumentary general surgery: Present: warm and dry - Neurologic Present: CN 2-12 grossly intact - Musculoskeletal Present: other (No clubbing, cyanosis, or edema) Exam Initial Vital Signs Temp Pulse Resp BP Pulse Ox 98.1 F 60 24 134/69 100 03/23/16 16:29 03/23/16 16:29 03/23/16 16:29 03/23/16 16:29 03/23/16 16:29 Results - Labs 04/12/16 04:30 04/12/16 04:30 Abnormal lab results RBC 2.61 M/mcL (4.19-5.50) L 04/10/16 04:25 Hgb 8.2 g/dL (12.9-16.9) L 04/10/16 04:25 Hct 25.1 % (37.5-50.1) L 04/10/16 04:25 RDW 16.8 % (11.5-14.5) H 04/10/16 04:25 Plt Count 90 K/mcL (140-400) L 04/10/16 04:25 Reactive Lymphocytes Present (Not Present) A 04/09/16 04:22 Toxic Granulation Present (Not Present) A 04/09/16 04:22 Platelet Estimate Decreased (Normal) L 04/10/16 04:25 Polychromasia 1+ (Not Present) A 04/10/16 04:25 Hypochromasia Present (Not Present) A 04/10/16 04:25 Anisocytosis 1+ (Not Present) A 04/10/16 04:25 Percent Retic 1.4 % (1.6-2.8) L 03/25/16 04:12 Immature Retic Fraction 6.7 % (11.0-38.0) L 03/25/16 04:12 Retic Hgb Equivalent 41.0 pg (28.61-36.33) H 03/25/16 04:12 PT 18.3 Seconds (9.4-12.1) H 04/09/16 04:22 ABG HCO3 27.8 mEQ/L (21-27) H 04/09/16 00:20 ABG Total CO2 29.1 mEq/L (20-26) H 04/09/16 00:20 ABG Base Excess 3.3 mEq/L (-2.0 to 3.0) H 04/09/16 00:20 ABG Hematocrit 21 % (35-51) L 04/08/16 11:00 VBG pO2 42 mmHg (25-40) H 04/08/16 08:29 VBG Hematocrit 24 % (38-54) L 04/08/16 08:29 VBG Ionized Calcium 0.95 mmol/L (1.15-1.35) L 04/08/16 08:29 Potassium 3.2 mEq/L (3.5-5.3) L 04/08/16 11:00 Glucose 57 mg/dL (60-95) L 04/08/16 11:00 Ionized Calcium 0.88 mmol/L (1.15-1.35) L 04/08/16 11:00 BUN/Creatinine Ratio 28 (6-26) H 04/10/16 04:25 Glucose 125 mg/dL (70-99) H 04/10/16 04:25 POC Glucose 117 (58-89) H 04/09/16 19:26 Calcium 8.0 mg/dL (8.6-10.8) L 04/10/16 04:25 Iron 48 mcg/dL (65-175) L 03/25/16 04:12 Transferrin 173 mg/dL (174-364) L 03/25/16 04:12 B-Natriuretic Peptide 527 pg/mL (0-100) H 03/23/16 17:05 Serum Total Protein 5.6 g/dL (6.0-8.3) L 03/24/16 04:17 Total Protein (PEP) 5.90 g/dL (6.00-8.30) L 03/25/16 17:44 Globulin 2.1 g/dL (2.4-3.5) L 03/24/16 04:17 Gamma Globulins 0.53 g/dL (0.62-1.51) L 03/25/16 17:44 HDL Cholesterol 36 mg/dL (40-59) L 04/07/16 11:14 Urine Clarity Cloudy (Clear) A 04/07/16 14:53 IgG 502 mg/dL (768-1632) L 03/25/16 17:44 IgM 30 mg/dL (35-263) L 03/25/16 17:44 Diabetes panel 04/10/16 Range/Units 04:25 Sodium 141 (136-145) mEq/L Potassium 4.3 (3.5-4.5) mEq/L Chloride 106 (98-109) mEq/L Carbon Dioxide 27 (19-29) mEq/L BUN 22 (8-26) mg/dL Creatinine 0.80 (0.72-1.25) mg/dL Glucose 125 H (70-99) mg/dL Calcium 8.0 L (8.6-10.8) mg/dL Calcium panel 04/10/16 Range/Units 04:25 Calcium 8.0 L (8.6-10.8) mg/dL Pituitary panel 04/10/16 Range/Units 04:25 Sodium 141 (136-145) mEq/L Potassium 4.3 (3.5-4.5) mEq/L Chloride 106 (98-109) mEq/L Carbon Dioxide 27 (19-29) mEq/L BUN 22 (8-26) mg/dL Creatinine 0.80 (0.72-1.25) mg/dL Glucose 125 H (70-99) mg/dL Calcium 8.0 L (8.6-10.8) mg/dL Adrenal panel 04/10/16 Range/Units 04:25 Sodium 141 (136-145) mEq/L Potassium 4.3 (3.5-4.5) mEq/L Chloride 106 (98-109) mEq/L Carbon Dioxide 27 (19-29) mEq/L BUN 22 (8-26) mg/dL Creatinine 0.80 (0.72-1.25) mg/dL Glucose 125 H (70-99) mg/dL Calcium 8.0 L (8.6-10.8) mg/dL All other labs normal. - Imaging Chest x-ray: report reviewed, image reviewed (Chest x-ray on 04/09/2016 demonstrating 2 chest tubes an intra-abdominal air. Repeat chest x-ray the next day showed increasing intra-abdominal air with the chest tubes in place.) CT scan - abdomen: report reviewed, image reviewed (Noted intra-abdominal air with no signs of abscess. Questionable fluid collection in the pelvis. This study was done without contrast.) Consult Discharge Plan - Plan Referrals: Brenden Bautista MD [Partnered Physician] - 04/10/16 2:00 pm (Please follow up as schedule...) Minal Carpenter DO [Partnered Physician] - 04/27/16 1:15 pm
[2016-04-10] MEDS: *HR* Heparin 5,000 UNIT/ML VIAL SQ SCH (17:35)
[2016-04-11] MEDS: *HR* Morphine 2 MG/ML SYRINGE IVP PRN (01:57)
[2016-04-11 03:12] LABS: Basophils % 0.2 %
[2016-04-11 03:14] LABS: Eosinophils % 0.2 %; Hematocrit 27.2 % (37.5-50.1); Hemoglobin 8.8 g/dL (12.9-16.9); Immature Granulocytes % 0.7 % (0-4); Immature Platelets 4.4 % (1.1-6.1); Lymphocytes # 0.5 K/mcL (0.6-4.6); Lymphocytes % 9.2 %; Mean Corpuscular HGB Conc 32.4 g/dL (31.6-35.5); Mean Corpuscular Hemoglobin 31.4 pg (28.0-33.3); Mean Corpuscular Volume 97.1 fL (83.0-100.0); Mean Platelet Volume 10.4 fL (9.4-12.4); Monocytes # 0.5 K/mcL (0.0-1.3); Monocytes % 7.8 %; Neutrophils # 4.8 K/mcL (1.6-8.9); Platelet Count 103 K/mcL (140-400); Red Cell Distribution Width 16.2 % (11.5-14.5); Segmented Neutrophils % 81.9 %
[2016-04-11] MEDS: *HR* Heparin 5,000 UNIT/ML VIAL SQ SCH ×2 (06:05→17:02)
[2016-04-11] MEDS: Insulin LISPRO 300 UNITS/3 ML VIAL SQ SCH ×4 (08:11→20:25)
[2016-04-11] MEDS: Cyanocobalamin (B-12) 1,000 MCG TABLET PO SCH (08:11)
[2016-04-11] MEDS: Magnesium Oxide 400 MG TABLET PO SCH (08:11)
[2016-04-11] MEDS: Ascorbic Acid 500 MG TABLET PO SCH (08:11)
[2016-04-11] MEDS: *HR* Amiodarone 200 MG TABLET PO SCH (08:11)
[2016-04-11] MEDS: Aspirin 81 MG TAB.CHEW PO SCH (08:12)
[2016-04-11] MEDS: Chlorhexidine Rinse 15 ML MOUTHWASH MM SCH ×2 (08:12→20:24)
[2016-04-11] MEDS: Pantoprazole 40 MG VIAL IVP SCH (08:12)
[2016-04-11] MEDS: *HR* OxyCODONE/APAP 5/325 TABLET PO PRN ×3 (08:26→21:11)
--- NOTE | 2016-04-11 08:39 | General Surgery Progress Note ---
<Octaviano Link - Last Filed: 04/11/16 12:05> Date of Encounter: 04/11/16 Time of Encounter: 07:10 - Assessment and Plan (1) Free intraperitoneal air Current Visit: Yes Status: Acute 04/10/16 CT with contrast: Free intraperitoneal air and free fluid are without appreciable change since comparison exam. No gross extravasation of oral contrast noted. However the majority of the oral contrast is still within the small bowel, limiting assessment of the colon. In the absence of recent abdominal surgery, perforation of the gastrointestinal tract cannot be excluded. 04/11/16 Chest XR: slight interval decrease in amount of [id number] pneumoperitoneum. Patient is improving. No acute abdomen. Progress to full liquid diet. Advance as tolerated. Surgery will sign off at this time, thank you for involving us in this patient' s care, please feel free to contact us with any questions. Subjective Patient reports: no new complaints, flatus, no bowel movement, afebrile Narrative: The patient reports that he is feeling quite well and is not currently in any pain. He reports having an appetite and denies any nausea or vomiting. Objective Vital Signs - Last 8 Hours Temp Pulse Resp BP Pulse Ox 04/11/16 08:29 97.7 F 94 16 123/73 94 L 04/11/16 08:07 18 93 L 04/11/16 05:03 18 90 L 04/11/16 04:15 98.3 F 94 18 102/73 91 L Intake and Output 04/10/16 04/11/16 04/11/16 23:59 07:59 15:59 Output Total 750 / 750 Balance -750 / -750 Output: Catheter 750 / 750 Other: Weight 79.4 kg Blood Glucose* 140 126 137 Patient Weight 04/11/16 23:59 Weight 79.4 kg - General physical appearance well developed, well nourished, no distress - Eyes normal ocular movement - ENT normal nares, atraumatic, normocephalic - Neck Neck exam: trachea midline - Respiratory normal respiratory effort, clear to auscultation - Cardiovascular Cardiovascular exam: Present: RRR, no murmurs/rubs/gallops - Abdomen Abdomen: Present: bowel sounds present, soft, non tender (Bandages present over subxiphoid space) - Integumentary no rash - Neurologic CN 2-12 grossly intact - Musculoskeletal normal posture - Psychiatric oriented to time, oriented to person, oriented to place, speech is normal, memory intact - Labs 04/11/16 02:46 04/10/16 04:25 - VTE Documentation of Mechanical Device: Graduated compression elastic hosiery Consult Discharge Plan - Plan Referrals: Brenden Bautista MD [Partnered Physician] - 04/10/16 2:00 pm (Please follow up as schedule...) Minal Carpenter DO [Partnered Physician] - 04/27/16 1:15 pm - Attending Attestation I examined this patient and my medical decision-making was reviewed with the SOLAR ENERGY TECHNICIAN/PA/Advanced Practice Nurse/Resident Physician. I agree with the documented findings, disposition and treatment plan as described except to the extent set forth below. <Marlo Jacobsen - Last Filed: 04/12/16 07:29> - Assessment and Plan (1) Free intraperitoneal air Current Visit: Yes Status: Acute Objective Vital Signs - Last 8 Hours Temp Pulse Resp BP Pulse Ox 04/12/16 04:50 16 98 04/12/16 04:30 97.7 F 104 17 125/78 96 04/12/16 00:33 16 96 04/11/16 23:50 98.4 F 83 16 120/82 97 Intake and Output 04/11/16 04/11/16 04/12/16 15:59 23:59 07:59 Intake Total 120 / 120 520 / 520 400 / 400 Output Total 850 / 850 Balance 120 / 120 -330 / -330 400 / 400 Intake: Oral 120 / 120 520 / 520 400 / 400 Output: Urine 850 / 850 Other: Meal Breakfast Dinner Percent of Meal Consumed 20% 75% # Voids 1 Weight 78.2 kg Blood Glucose* 132 118 108 Patient Weight 04/12/16 23:59 Weight 78.2 kg - Labs 04/12/16 04:30 04/12/16 04:30 Diabetes panel 04/12/16 Range/Units 04:30 Sodium 137 (136-145) mEq/L Potassium 4.0 (3.5-4.5) mEq/L Chloride 104 (98-109) mEq/L Carbon Dioxide 28 (19-29) mEq/L BUN 18 (8-26) mg/dL Creatinine 0.71 L (0.72-1.25) mg/dL Glucose 103 H (70-99) mg/dL Calcium 7.9 L (8.6-10.8) mg/dL Calcium panel 04/12/16 Range/Units 04:30 Calcium 7.9 L (8.6-10.8) mg/dL Phosphorus 2.4 (2.3-4.7) mg/dL Pituitary panel 04/12/16 Range/Units 04:30 Sodium 137 (136-145) mEq/L Potassium 4.0 (3.5-4.5) mEq/L Chloride 104 (98-109) mEq/L Carbon Dioxide 28 (19-29) mEq/L BUN 18 (8-26) mg/dL Creatinine 0.71 L (0.72-1.25) mg/dL Glucose 103 H (70-99) mg/dL Calcium 7.9 L (8.6-10.8) mg/dL Adrenal panel 04/12/16 Range/Units 04:30 Sodium 137 (136-145) mEq/L Potassium 4.0 (3.5-4.5) mEq/L Chloride 104 (98-109) mEq/L Carbon Dioxide 28 (19-29) mEq/L BUN 18 (8-26) mg/dL Creatinine 0.71 L (0.72-1.25) mg/dL Glucose 103 H (70-99) mg/dL Calcium 7.9 L (8.6-10.8) mg/dL - Attending Attestation Performed physical examination and reviewed the previous noted physical exam and assessment with the resident. Agent denies any abdominal pain and has tolerated full liquids. Abdominal x-ray shows decreasing intra-abdominal air. Mild tenderness to palpation in the subxiphoid region due to the previous chest tube. I think that the air is again she generally can nature and not due to perforated viscus. Okay to advance diet and tolerated and will sign off. Very much.
--- NOTE | 2016-04-11 10:04 | Cardiothoracic Progress Note ---
Date of Encounter: 04/11/16 Time of Encounter: 10:02 - Assessment and plan (1) Severe aortic stenosis Current Visit: Yes Status: Acute The patient has remained hemodynamically stable overnight. He has no complaints. He developed atrial fibrillation last night with a controlled rate. The amiodarone will be continued. The patient was reexamined by general surgery this morning and the patient does not have an acute abdomen. His diet will be advanced. The assessment and plan as outlined above was discussed with the patient and/or family members who expressed understanding and agreement. All questions were answered. - Subjective Procedure(s) Performed: POD#3 S/P AVR (#25 Mosaic ultra porcine tissue valve) Interval history: The patient is resting comfortably in his hospital bed. He has no complaints. He developed post-operative atrial fibrillation last night. Vital Signs, Last 4 Hours Temp Pulse Resp BP Pulse Ox 04/11/16 08:29 97.7 F 94 16 123/73 94 L 04/11/16 08:07 18 93 L Oxgyen Flow Rate Oxygen Flow Rate (LPM) 0 Weight 04/09/16 04/10/16 04/11/16 23:59 23:59 23:59 Weight 77.201 kg 79.4 kg - Physical Examination General: Conversant, No Apparent Distress Neck: No JVD, Normal carotid pulses Cardiac: Normal S1 and S2, No Murmur, Other (Irregular rate and rhythm (atrial fibrillation).) Sternum: Stable Pacing Wires: In place Lungs: Normal Breath Sounds, No Wheeze, Rales, Rhonchi Neuro: Alert and responsive, No focal deficits noted Vascular: Normal capillary refill Abdomen: Soft, Non-tender Musculoskeletal: No Chest Wall Tenderness Extremities: No Clubbing, No Cyanosis, No Edema, Normal Pulses - Labs 04/11/16 02:46 04/10/16 04:25 Lab Results, Last 24 hours 04/11/16 02:46 WBC 5.9 Hgb 8.8 L Hct 27.2 L Plt Count 103 L - Imaging Chest Xray: image reviewed (No pneumothorax. Decreased pneumoperitoneum.) - VTE Documentation of Mechanical Device: Graduated compression elastic hosiery Consult Discharge Plan - Plan Referrals: Brenden Bautista MD [Partnered Physician] - 04/10/16 2:00 pm (Please follow up as schedule...) Minal Carpenter DO [Partnered Physician] - 04/27/16 1:15 pm
--- NOTE | 2016-04-11 12:03 | Internal Med Progress Note ---
Date of Encounter: 04/11/16 Time of Encounter: 12:01 - Assessment and plan (1) Severe aortic stenosis Current Visit: Yes Status: Acute Assessment and plan: Severe symptomatic aortic stenosis with episodes of intermittent chest pain, bradycardia, and hypotension. Status post open heart surgery with aortic valve replacement by cardiothoracic surgery on 04/08/16 Patient tolerated the procedure well CT surgery is on board. Noted to have Afib overnight with rate control Will continue amiodarone at this time (2) Thoracic ascending aortic aneurysm Current Visit: Yes Status: Acute Assessment and plan: Ascending Aorta 4.4 cm will need to be followed as an outpatient as well. (3) Pancytopenia Current Visit: Yes Status: Chronic Assessment and plan: plt count improved from previous day (103-today) H&H low but acceptable, no active bleeding noted at this time will continue to monitor and transfuse as needed (4) DVT prophylaxis Current Visit: Yes Status: Acute Assessment and plan: EPCDs due to thrombocytopenia. (5) Free intraperitoneal air Current Visit: Yes Status: Acute Assessment and plan: Surgical consultation with Dr. Jacobsen appreciated Slight interval decrease in the amount of mild to moderate pneumoperitoneum No signs of acute abd present, will continue to monitor Advanced to full liquid diet by surgery. - Subjective Interval history: Patient is a 71y/o male who is s/p open heart surgery for Aortic Valve replacement on 04/08/16. His postop course was further complicated by free intraperitoneal air s/p removal of thoracic cavity chest tubes. Patient is followed by cardiothoracic and general surgery. He was transferred out of the ICU over night (04/11/16). Pt seen and examined at bedside. REsting in bed and reports of feeling better compared to the previous day. Reports of adequate pain control. Denies any chest pain, sob at this time. Noted to have O2 sat fluctuating between 90-94%, will provide O2 supplementation. - Constitutional Vitals: Temp Pulse Resp BP Pulse Ox 98.2 F 93 18 120/72 94 L 04/11/16 11:18 04/11/16 11:51 04/11/16 11:18 04/11/16 11:18 04/11/16 11:18 General appearance: Present: cooperative, A&O X 3, pleasant, no acute distress, answers questions appropriately - Head Head exam: Present: atraumatic, normocephalic - Eye Eye exam: Present: normal appearance, conjuntiva pink, sclera anicteric - Respiratory Respiratory exam: Absent: respiratory distress, wheezes - Cardiovascular Cardiovascular exam: Present: RRR, +S1, +S2 (sternal dressing in place at the site of surgery) - GI/Abdominal GI/Abdominal exam: Present: normal bowel sounds, soft. Absent: distended, tenderness - Extremities Exam Extremities exam: Present: warm, radial pulses palpable and symetrical. Absent : calf tenderness, pedal edema, tenderness - Neurological Exam Neurological exam: Present: alert, oriented X3 Internal Medicine: Result - Labs CBC & Chem 7: 04/11/16 02:46 04/10/16 04:25 Labs: Short CBC 04/11/16 Range/Units 02:46 WBC 5.9 (4.3-11.1) K/mcL Hgb 8.8 L (12.9-16.9) g/dL Hct 27.2 L (37.5-50.1) % Plt Count 103 L (140-400) K/mcL Neutrophils # 4.8 (1.6-8.9) K/mcL - ABG Interpretation ABG results: ABG ABG pH 7.44 pH Units (7.32-7.45) 04/09/16 00:20 ABG pCO2 41 mmHg (35-45) 04/09/16 00:20 ABG pO2 101 mmHg (85-104) 04/09/16 00:20 ABG O2 Saturation 98 % (95-98) 04/09/16 00:20 PT/INR, D-dimer PT 18.3 Seconds (9.4-12.1) H 04/09/16 04:22 - Impressions Impressions Abdomen/Pelvis CT 04/10/16 14:00 IMPRESSION: 1. Small to moderate pneumoperitoneum, minimal retroperitoneal gas centered near the hepatorenal fossa, and partially included pneumomediastinum. The underlying etiology is unclear with considerations including perforated gastric or duodenal ulcer, iatrogenic bowel perforation from recent surgery, or unseen small bowel or colon perforation. No obvious inflammatory changes are associated with any portion of the included bowel to suggest an obvious source. 2. Small right and trace to small left pleural effusions, trace ascites, and mild anasarca. Of note, there is a fluid hematocrit level in the pelvis, suggesting hemoperitoneum potentially related to the underlying cause of the pneumoperitoneum. 3. Intravesical gas could be related to cystitis or recent catheterization. 4. Mild cardiomegaly with at least mild coronary atherosclerotic calcifications. 5. Unchanged indeterminate 0.5 cm x 0.3 cm solid nodule in the right middle lobe along the right minor fissure, potentially a fissural lymph node. Recommend follow-up per the Fleischner Society recommendations for solid nodules as below only if indicated. RECOMMENDATIONS: Fleischner Society guidelines for follow-up and management of pulmonary nodules: Nodule size less than or equal to 4 mm In a low-risk patient, no follow-up needed. In a high-risk patient, follow-up CT at 12 months; if unchanged, no further follow-up. Low risk patients include individuals with minimal or absent history of smoking and other known risk factors. High risk patients include individuals with a history of smoking or other known risk factors. Radiology 2005; [id number]:395-400 D/ / Raj Gallardo MD / Raj Gallardo MD Interpreting Provider: Raj Gallardo MD Abdomen/Pelvis CT 04/10/16 19:40 IMPRESSION: 1. Free intraperitoneal air and free fluid are without appreciable change since comparison exam. No gross extravasation of oral contrast noted. However the majority of the oral contrast is still within the small bowel, limiting assessment of the colon. In the absence of recent abdominal surgery, perforation of the gastrointestinal tract canonot be excluded. 2. Pneumomediastinum and bilateral pleural effusion appear stable. D/ / 04/10/2016 20:47:56 Jayant Osorio MD / jerald Interpreting Provider: Jayant Osorio MD Chest X-Ray 04/11/16 06:00 IMPRESSION: 1. Slight interval decrease in amount of [id number] pneumoperitoneum. 2. Stable mild CHF. 3. Stable multifocal airspace opacity within the mid left lung lateral lung bases, likely a combination of asymmetric pulmonary edema and multifocal pneumonia. D/ / 04/11/2016 09:51:08 Roe Camarena MD / Juliet Farrell Interpreting Provider: Roe Camarena MD - VTE Documentation of Mechanical Device: Graduated compression elastic hosiery Consult Discharge Plan - Plan Referrals: Brenden Bautista MD [Partnered Physician] - 04/10/16 2:00 pm (Please follow up as schedule...) Minal Carpenter DO [Partnered Physician] - 04/27/16 1:15 pm
[2016-04-12] MEDS: *HR* OxyCODONE/APAP 5/325 TABLET PO PRN ×3 (04:40→20:13)
[2016-04-12 04:47] LABS: Basophils % 0.2 %; Eosinophils # 0.1 K/mcL (0.0-0.6); Eosinophils % 2.8 %; Hematocrit 24.7 % (37.5-50.1); Lymphocytes # 0.9 K/mcL (0.6-4.6); Lymphocytes % 19.7 %; Mean Corpuscular HGB Conc 32.4 g/dL (31.6-35.5); Mean Corpuscular Hemoglobin 31.4 pg (28.0-33.3); Mean Corpuscular Volume 96.9 fL (83.0-100.0); Mean Platelet Volume 10.4 fL (9.4-12.4); Monocytes # 0.3 K/mcL (0.0-1.3); Monocytes % 7.4 %; Neutrophils # 3.2 K/mcL (1.6-8.9); Platelet Count 120 K/mcL (140-400); Red Blood Count 2.55 M/mcL (4.19-5.50); Red Cell Distribution Width 15.8 % (11.5-14.5); Segmented Neutrophils % 69.9 %
[2016-04-12 05:01] LABS: BUN/Creatinine Ratio 25 (6-26); Blood Urea Nitrogen 18 mg/dL (8-26); Calcium 7.9 mg/dL (8.6-10.8); Carbon Dioxide 28 mEq/L (19-29); Chloride 104 mEq/L (98-109); Glucose 103 mg/dL (70-99); Magnesium 1.7 mg/dL (1.6-2.6); Osmolality,Calculated 286 (280-300); Phosphorous 2.4 mg/dL (2.3-4.7); Sodium 137 mEq/L (136-145); eGFR For African Americans > 60 (> 60); eGFR For Non-African Americans > 60 (> 60)
[2016-04-12] MEDS: *HR* Heparin 5,000 UNIT/ML VIAL SQ SCH ×2 (06:17→17:59)
[2016-04-12] MEDS: *HR* Amiodarone 200 MG TABLET PO SCH (08:21)
[2016-04-12] MEDS: Magnesium Oxide 400 MG TABLET PO SCH (08:21)
[2016-04-12] MEDS: Aspirin 81 MG TAB.CHEW PO SCH (08:22)
[2016-04-12] MEDS: Ascorbic Acid 500 MG TABLET PO SCH (08:22)
--- NOTE | 2016-04-12 08:22 | Cardiothoracic Progress Note ---
Date of Encounter: 04/12/16 Time of Encounter: 08:20 - Assessment and plan (1) Severe aortic stenosis Current Visit: Yes Status: Acute The patient has remained hemodynamically stable overnight. He has no complaints. He developed atrial fibrillation with a controlled rate. The amiodarone will be continued and no dose metoprolol be started today. He has no abdominal distress and his diet will be advanced. The assessment and plan as outlined above was discussed with the patient and/or family members who expressed understanding and agreement. All questions were answered. - Subjective Procedure(s) Performed: POD#4 S/P AVR (#25 Mosaic ultra porcine tissue valve) Interval history: The patient is resting comfortably in his hospital bed. He has no complaints. Vital Signs, Last 4 Hours Temp Pulse Resp BP Pulse Ox 04/12/16 04:50 16 98 04/12/16 04:30 97.7 F 104 17 125/78 96 Oxgyen Flow Rate Oxygen Flow Rate (LPM) 2 Weight 04/10/16 04/11/16 04/12/16 23:59 23:59 23:59 Weight 77.201 kg 79.4 kg 78.2 kg - Physical Examination General: Conversant, No Apparent Distress Neck: No JVD, Normal carotid pulses Cardiac: Normal S1 and S2, No Murmur, Other (Irregular rate and rhythm (atrial fibrillation).) Incision: No signs of infection, Open to air Sternum: Stable Pacing Wires: In place Lungs: Normal Breath Sounds, No Wheeze, Rales, Rhonchi Neuro: Alert and responsive, No focal deficits noted Vascular: Normal capillary refill Extremities: No Clubbing, No Cyanosis, No Edema, Normal Pulses - Labs 04/12/16 04:30 04/12/16 04:30 Lab Results, Last 24 hours 04/12/16 04/12/16 04:30 04:30 WBC 4.6 Hgb 8.0 L Hct 24.7 L Plt Count 120 L Sodium 137 Potassium 4.0 Chloride 104 Carbon Dioxide 28 BUN 18 Creatinine 0.71 L Glucose 103 H Calcium 7.9 L Magnesium 1.7 - VTE Documentation of Mechanical Device: Graduated compression elastic hosiery Consult Discharge Plan - Plan Referrals: Brenden Bautista MD [Partnered Physician] - 04/10/16 2:00 pm (Please follow up as schedule...) Minal Carpenter DO [Partnered Physician] - 04/27/16 1:15 pm
[2016-04-12] MEDS: Cyanocobalamin (B-12) 1,000 MCG TABLET PO SCH (08:23)
[2016-04-12] MEDS: Pantoprazole 40 MG VIAL IVP SCH (08:24)
[2016-04-12] MEDS: Chlorhexidine Rinse 15 ML MOUTHWASH MM SCH ×2 (08:24→20:12)
[2016-04-12] MEDS: Insulin LISPRO 300 UNITS/3 ML VIAL SQ SCH ×4 (08:32→20:05)
--- NOTE | 2016-04-12 15:35 | Internal Med Progress Note ---
Date of Encounter: 04/12/16 Time of Encounter: 15:33 - Assessment and plan (1) Severe aortic stenosis Current Visit: Yes Status: Acute Assessment and plan: Severe symptomatic aortic stenosis with episodes of intermittent chest pain, bradycardia, and hypotension. Status post open heart surgery with aortic valve replacement by cardiothoracic surgery on 04/08/16 Patient tolerated the procedure well CT surgery is on board. Noted to have Afib overnight with rate control Will continue amiodarone at this time d/c planning as per cardiothoracic surgery (2) Thoracic ascending aortic aneurysm Current Visit: Yes Status: Acute Assessment and plan: Ascending Aorta 4.4 cm will need to be followed as an outpatient as well. (3) Pancytopenia Current Visit: Yes Status: Chronic Assessment and plan: plt count improved from previous day (103-today) H&H low but acceptable, no active bleeding noted at this time will continue to monitor and transfuse as needed (4) DVT prophylaxis Current Visit: Yes Status: Acute Assessment and plan: EPCDs due to thrombocytopenia. (5) Free intraperitoneal air Current Visit: Yes Status: Acute Assessment and plan: Surgical consultation with Dr. Jacobsen appreciated Slight interval decrease in the amount of mild to moderate pneumoperitoneum No signs of acute abd present, will continue to monitor Surgery signed off Patient tolerating regular diet - Subjective Interval history: Patient is a 71y/o male who is s/p open heart surgery for Aortic Valve replacement on 04/08/16. His postop course was further complicated by free intraperitoneal air s/p removal of thoracic cavity chest tubes. Patient is followed by cardiothoracic and general surgery. He was transferred out of the ICU on 04/11/16. Pt seen and examined resting in chair. Reports of feeling better and able to ambulate well. Reported to have rate controlled Afib overnight. Currently denies any chest pain, sob. - Constitutional Vitals: Temp Pulse Resp BP Pulse Ox 98.1 F 94 18 117/80 92 L 04/12/16 14:03 04/12/16 14:03 04/12/16 14:03 04/12/16 14:03 04/12/16 14:03 General appearance: Present: cooperative, A&O X 3, pleasant, no acute distress, answers questions appropriately - Head Head exam: Present: atraumatic, normocephalic - Eye Eye exam: Present: PERRL, conjuntiva pink, sclera anicteric - Respiratory Respiratory exam: Absent: respiratory distress, wheezes - Cardiovascular Cardiovascular exam: Present: irregular rhythm, +S1, +S2 - GI/Abdominal GI/Abdominal exam: Present: normal bowel sounds, soft. Absent: tenderness ( dressing intact midline) - Extremities Exam Extremities exam: Present: warm, radial pulses palpable and symetrical. Absent : calf tenderness, pedal edema - Neurological Exam Neurological exam: Present: alert, oriented X3 - Psychiatric Psychiatric exam: Present: normal affect, normal mood Internal Medicine: Result - Labs CBC & Chem 7: 04/12/16 04:30 04/12/16 04:30 Labs: Short CBC 04/12/16 Range/Units 04:30 WBC 4.6 (4.3-11.1) K/mcL Hgb 8.0 L (12.9-16.9) g/dL Hct 24.7 L (37.5-50.1) % Plt Count 120 L (140-400) K/mcL Neutrophils # 3.2 (1.6-8.9) K/mcL BMP 04/12/16 04:30 Sodium 137 Potassium 4.0 Chloride 104 Carbon Dioxide 28 BUN 18 Creatinine 0.71 L Glucose 103 H Calcium 7.9 L - ABG Interpretation ABG results: ABG ABG pH 7.44 pH Units (7.32-7.45) 04/09/16 00:20 ABG pCO2 41 mmHg (35-45) 04/09/16 00:20 ABG pO2 101 mmHg (85-104) 04/09/16 00:20 ABG O2 Saturation 98 % (95-98) 04/09/16 00:20 PT/INR, D-dimer PT 18.3 Seconds (9.4-12.1) H 04/09/16 04:22 - Impressions Impressions Chest X-Ray 04/11/16 06:00 IMPRESSION: 1. Slight interval decrease in amount of [id number]-te-[id number] pneumoperitoneum. 2. Stable mild CHF. 3. Stable multifocal airspace opacity within the mid left lung and bilateral lung bases, likely a combination of asymmetric pulmonary edema and multifocal pneumonia. D/ / 04/11/2016 09:51:08 Roe Camarena MD / Juliet Farrell Interpreting Provider: Roe Camarena MD - VTE Documentation of Mechanical Device: Graduated compression elastic hosiery Consult Discharge Plan - Plan Referrals: Brenden Bautista MD [Partnered Physician] - 04/10/16 2:00 pm (Please follow up as schedule...) Minal Carpenter DO [Partnered Physician] - 04/27/16 1:15 pm
[2016-04-12] MEDS: Ondansetron 4 MG/2 ML VIAL IVP PRN (17:58)
[2016-04-13 05:04] LABS: Basophils % 0.4 %; Eosinophils # 0.1 K/mcL (0.0-0.6); Eosinophils % 2.9 %; Hematocrit 25.9 % (37.5-50.1); Hemoglobin 8.5 g/dL (12.9-16.9); Immature Granulocytes % 0.2 % (0-4); Lymphocytes # 0.8 K/mcL (0.6-4.6); Lymphocytes % 16.8 %; Mean Corpuscular HGB Conc 32.8 g/dL (31.6-35.5); Mean Corpuscular Hemoglobin 32.1 pg (28.0-33.3); Mean Corpuscular Volume 97.7 fL (83.0-100.0); Mean Platelet Volume 10.3 fL (9.4-12.4); Monocytes # 0.5 K/mcL (0.0-1.3); Monocytes % 9.3 %; Neutrophils # 3.4 K/mcL (1.6-8.9); Platelet Count 158 K/mcL (140-400); Red Blood Count 2.65 M/mcL (4.19-5.50); Red Cell Distribution Width 15.6 % (11.5-14.5); Segmented Neutrophils % 70.4 %
[2016-04-13 05:19] LABS: BUN/Creatinine Ratio 25 (6-26); Blood Urea Nitrogen 19 mg/dL (8-26); Calcium 8.3 mg/dL (8.6-10.8); Carbon Dioxide 26 mEq/L (19-29); Chloride 104 mEq/L (98-109); Glucose 90 mg/dL (70-99); Magnesium 1.8 mg/dL (1.6-2.6); Osmolality,Calculated 284 (280-300); Phosphorous 2.7 mg/dL (2.3-4.7); Potassium 4.1 mEq/L (3.5-4.5); Sodium 136 mEq/L (136-145); eGFR For African Americans > 60 (> 60); eGFR For Non-African Americans > 60 (> 60)
[2016-04-13] MEDS: *HR* Heparin 5,000 UNIT/ML VIAL SQ SCH ×2 (06:06→16:45)
--- NOTE | 2016-04-13 07:05 | Electrocardiograph Report ---
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
--- NOTE | 2016-04-13 07:14 | Cardiothoracic Progress Note ---
Date of Encounter: 04/13/16 Time of Encounter: 07:11 - Assessment and plan (1) Severe aortic stenosis Current Visit: Yes Status: Acute The patient is recovering well from his AVR. He has no complaints. He has persistent atrial fibrillation with a controlled rate. The amiodarone and metoprolol will be continued. He has no abdominal distress and his diet will be advanced. The assessment and plan as outlined above was discussed with the patient and/or family members who expressed understanding and agreement. All questions were answered. - Subjective Procedure(s) Performed: POD#5 S/P AVR (#25 Mosaic ultra porcine tissue valve) Interval history: The patient is resting comfortably in his hospital bed. He has no complaints. He ambulated in the hallways twice yesterday without difficulty, though he said he was tired at the end of his walks. Vital Signs, Last 4 Hours Resp Pulse Ox 04/13/16 04:12 16 96 Oxgyen Flow Rate Oxygen Flow Rate (LPM) 2 Weight 04/11/16 04/12/16 04/13/16 23:59 23:59 23:59 Weight 79.4 kg 78.2 kg - Physical Examination General: Conversant, No Apparent Distress Neck: No JVD, Normal carotid pulses Cardiac: Normal S1 and S2, No Murmur, Other (Irregular rate and rhythm (atrial fibrillation).) Incision: No signs of infection, Dry/intact dressing Sternum: Stable Pacing Wires: In place Lungs: Normal Breath Sounds, No Wheeze, Rales, Rhonchi Neuro: Alert and responsive, No focal deficits noted Vascular: Normal capillary refill Musculoskeletal: No Chest Wall Tenderness Extremities: No Clubbing, No Cyanosis, No Edema, Normal Pulses - Labs 04/13/16 04:30 04/13/16 04:30 Lab Results, Last 24 hours 04/13/16 04/13/16 04:30 04:30 WBC 4.8 Hgb 8.5 L Hct 25.9 L Plt Count 158 Sodium 136 Potassium 4.1 Chloride 104 Carbon Dioxide 26 BUN 19 Creatinine 0.75 Glucose 90 Calcium 8.3 L Magnesium 1.8 - VTE Documentation of Mechanical Device: Graduated compression elastic hosiery Consult Discharge Plan - Plan Referrals: Brenden Bautista MD [Partnered Physician] - 04/10/16 2:00 pm (Please follow up as schedule...) Minal Carpenter DO [Partnered Physician] - 04/27/16 1:15 pm
[2016-04-13] MEDS: Insulin LISPRO 300 UNITS/3 ML VIAL SQ SCH ×4 (08:16→21:27)
[2016-04-13] MEDS: Magnesium Oxide 400 MG TABLET PO SCH (08:20)
[2016-04-13] MEDS: *HR* Amiodarone 200 MG TABLET PO SCH (08:20)
[2016-04-13] MEDS: Pantoprazole 40 MG VIAL IVP SCH (08:21)
[2016-04-13] MEDS: Chlorhexidine Rinse 15 ML MOUTHWASH MM SCH ×2 (08:21→21:40)
[2016-04-13] MEDS: Cyanocobalamin (B-12) 1,000 MCG TABLET PO SCH (08:21)
[2016-04-13] MEDS: Ascorbic Acid 500 MG TABLET PO SCH (08:21)
[2016-04-13] MEDS: Aspirin 81 MG TAB.CHEW PO SCH (08:21)
--- NOTE | 2016-04-13 09:58 | Internal Med Progress Note ---
Date of Encounter: 04/13/16 Time of Encounter: 09:54 - Assessment and plan (1) Severe aortic stenosis Current Visit: Yes Status: Acute Assessment and plan: Severe symptomatic aortic stenosis with episodes of intermittent chest pain, bradycardia, and hypotension. Status post open heart surgery with aortic valve replacement by cardiothoracic surgery on 04/08/16 Patient tolerated the procedure well CT surgery is on board. Noted to have Afib overnight with rate control Will continue metoprolol and amiodarone at this time d/c planning as per cardiothoracic surgery (2) Thoracic ascending aortic aneurysm Current Visit: Yes Status: Acute Assessment and plan: Ascending Aorta 4.4 cm will need to be followed as an outpatient as well. (3) Pancytopenia Current Visit: Yes Status: Chronic Assessment and plan: thrombocytopenia improving, will continue to monitor H&H low but acceptable, no active bleeding noted at this time will continue to monitor and transfuse as needed (4) DVT prophylaxis Current Visit: Yes Status: Acute Assessment and plan: EPCDs early ambulation patient reports of walking around the unit several times yesterday (5) Free intraperitoneal air Current Visit: Yes Status: Acute Assessment and plan: Surgical consultation with Dr. Jacobsen appreciated Slight interval decrease in the amount of mild to moderate pneumoperitoneum No signs of acute abd present, will continue to monitor Surgery signed off Patient tolerating regular diet - Subjective Interval history: Patient is a 71y/o male who is s/p open heart surgery for Aortic Valve replacement on 04/08/16. His postop course was further complicated by free intraperitoneal air s/p removal of thoracic cavity chest tubes. Patient is followed by cardiothoracic and general surgery. He was transferred out of the ICU on 04/11/16. Pt seen and examined resting in chair. Reports of feeling better and able to ambulate well. Currently denies any chest pain, sob. Discharge planning, likely d/c in am as per Cardiothoracic surgery. - Constitutional Vitals: Temp Pulse Resp BP Pulse Ox 98.2 F 91 16 119/72 97 04/13/16 07:14 04/13/16 08:20 04/13/16 08:09 04/13/16 07:14 04/13/16 08:09 General appearance: Present: cooperative, A&O X 3, pleasant, no acute distress, answers questions appropriately - Head Head exam: Present: atraumatic, normocephalic - Eye Eye exam: Present: PERRL, conjuntiva pink, sclera anicteric - Respiratory Respiratory exam: Present: CTAB. Absent: accessory muscle use, rales, rhonchi, wheezes - Cardiovascular Cardiovascular exam: Present: irregular rhythm, +S1, +S2 - GI/Abdominal GI/Abdominal exam: Present: normal bowel sounds, soft. Absent: tenderness - Extremities Exam Extremities exam: Present: warm, radial pulses palpable and symetrical. Absent : calf tenderness, pedal edema - Neurological Exam Neurological exam: Present: oriented X3 - Psychiatric Psychiatric exam: Present: normal affect, normal mood Internal Medicine: Result - Labs CBC & Chem 7: 04/13/16 04:30 04/13/16 04:30 Labs: Short CBC 04/13/16 Range/Units 04:30 WBC 4.8 (4.3-11.1) K/mcL Hgb 8.5 L (12.9-16.9) g/dL Hct 25.9 L (37.5-50.1) % Plt Count 158 (140-400) K/mcL Neutrophils # 3.4 (1.6-8.9) K/mcL BMP 04/13/16 04:30 Sodium 136 Potassium 4.1 Chloride 104 Carbon Dioxide 26 BUN 19 Creatinine 0.75 Glucose 90 Calcium 8.3 L - ABG Interpretation ABG results: ABG ABG pH 7.44 pH Units (7.32-7.45) 04/09/16 00:20 ABG pCO2 41 mmHg (35-45) 04/09/16 00:20 ABG pO2 101 mmHg (85-104) 04/09/16 00:20 ABG O2 Saturation 98 % (95-98) 04/09/16 00:20 PT/INR, D-dimer PT 18.3 Seconds (9.4-12.1) H 04/09/16 04:22 - VTE Documentation of Mechanical Device: Graduated compression elastic hosiery Consult Discharge Plan - Plan Referrals: Brenden Bautista MD [Partnered Physician] - 04/10/16 2:00 pm (Please follow up as schedule...) Minal Carpenter DO [Partnered Physician] - 04/27/16 1:15 pm
[2016-04-13] MEDS: Ondansetron 4 MG/2 ML VIAL IVP PRN (16:42)
[2016-04-13] MEDS: *HR* OxyCODONE/APAP 5/325 TABLET PO PRN ×2 (16:42→21:45)
[2016-04-14] MEDS: *HR* OxyCODONE/APAP 5/325 TABLET PO PRN ×3 (04:27→14:55)
[2016-04-14] MEDS: *HR* Heparin 5,000 UNIT/ML VIAL SQ SCH (04:28)
[2016-04-14 04:51] LABS: Hematocrit 25.3 % (37.5-50.1); Hemoglobin 8.3 g/dL (12.9-16.9); Mean Corpuscular HGB Conc 32.8 g/dL (31.6-35.5); Mean Corpuscular Hemoglobin 32.3 pg (28.0-33.3); Mean Corpuscular Volume 98.4 fL (83.0-100.0); Mean Platelet Volume 10.3 fL (9.4-12.4); Platelet Count 169 K/mcL (140-400); Red Blood Count 2.57 M/mcL (4.19-5.50); Red Cell Distribution Width 15.4 % (11.5-14.5)
[2016-04-14 05:05] LABS: BUN/Creatinine Ratio 29 (6-26); Blood Urea Nitrogen 21 mg/dL (8-26); Carbon Dioxide 26 mEq/L (19-29); Chloride 104 mEq/L (98-109); Glucose 94 mg/dL (70-99); Osmolality,Calculated 287 (280-300); Potassium 4.4 mEq/L (3.5-4.5); Sodium 137 mEq/L (136-145); eGFR For African Americans > 60 (> 60); eGFR For Non-African Americans > 60 (> 60)
[2016-04-14 05:07] LABS: Magnesium 1.7 mg/dL (1.6-2.6); Phosphorous 3.3 mg/dL (2.3-4.7)
[2016-04-14] MEDS: Insulin LISPRO 300 UNITS/3 ML VIAL SQ SCH ×2 (07:28→11:25)
[2016-04-14] MEDS: Magnesium Oxide 400 MG TABLET PO SCH (08:14)
[2016-04-14] MEDS: Pantoprazole 40 MG VIAL IVP SCH (08:14)
[2016-04-14] MEDS: Cyanocobalamin (B-12) 1,000 MCG TABLET PO SCH (08:14)
[2016-04-14] MEDS: Chlorhexidine Rinse 15 ML MOUTHWASH MM SCH (08:14)
[2016-04-14] MEDS: *HR* Amiodarone 200 MG TABLET PO SCH (08:14)
[2016-04-14] MEDS: Ascorbic Acid 500 MG TABLET PO SCH (08:14)
[2016-04-14] MEDS: Aspirin 81 MG TAB.CHEW PO SCH (08:15)
--- NOTE | 2016-04-14 09:43 | Cardiothoracic Progress Note ---
Date of Encounter: 04/14/16 Time of Encounter: 09:39 - Assessment and plan (1) Severe aortic stenosis Current Visit: Yes Status: Acute The patient is recovering well from his AVR. He has no complaints. He has persistent atrial fibrillation with a controlled rate. The amiodarone and metoprolol will be continued. The patient's cardiology recommended only aspirin his anticoagulation given his low Chads score. He has no abdominal distress and his diet will be advanced. The patient will be discharged to an extended care facility later today. The assessment and plan as outlined above was discussed with the patient and/or family members who expressed understanding and agreement. All questions were answered. - Subjective Procedure(s) Performed: POD#6 S/P AVR (#25 Mosaic ultra porcine tissue valve) Interval history: The patient is resting comfortably in his hospital bed. He has no complaints. He ambulated in the hallways twice yesterday without difficulty, though he said he was tired at the end of his walks. Vital Signs, Last 4 Hours Temp Pulse Resp BP Pulse Ox 04/14/16 07:33 87 04/14/16 07:10 97.4 F L 96 16 104/67 96 Oxgyen Flow Rate Oxygen Flow Rate (LPM) 2 Weight 04/12/16 04/13/16 04/14/16 23:59 23:59 23:59 Weight 78.2 kg 79.5 kg - Physical Examination General: Conversant, No Apparent Distress Neck: No JVD, Normal carotid pulses Cardiac: Normal S1 and S2, No Murmur, Other (Irregular rate and rhythm (atrial fibrillation).) Incision: No signs of infection, Dry/intact dressing Sternum: Stable Pacing Wires: In place Lungs: Normal Breath Sounds, No Wheeze, Rales, Rhonchi Neuro: Alert and responsive, No focal deficits noted Vascular: Normal capillary refill Musculoskeletal: No Chest Wall Tenderness Extremities: No Clubbing, No Cyanosis, No Edema, Normal Pulses - Labs 04/14/16 04:30 04/14/16 04:30 Lab Results, Last 24 hours 04/14/16 04/14/16 04/14/16 04:30 04:30 04:30 WBC 5.4 Hgb 8.3 L Hct 25.3 L Plt Count 169 Sodium 137 Potassium 4.4 Chloride 104 Carbon Dioxide 26 BUN 21 Creatinine 0.73 Glucose 94 Calcium 8.0 L Magnesium 1.7 - Imaging Chest Xray: image reviewed (The pneumothorax. Increased pulmonary vascularity.) - VTE Documentation of Mechanical Device: Graduated compression elastic hosiery Consult Discharge Plan - Plan Referrals: Brenden Bautista MD [Partnered Physician] - 04/10/16 2:00 pm (Please follow up as schedule...) Raj Javed MD [Partnered Physician] - 05/07/16 1:45 pm Minal Carpenter DO [Partnered Physician] - 04/27/16 1:15 pm
[2016-04-14 11:00] VITALS: BP 102/66
--- NOTE | 2016-04-14 13:16 | Discharge Summary ---
Date of Encounter: 04/14/16 Time of Encounter: 13:06 - Discharge Diagnosis (1) Severe aortic stenosis Priority: Primary Status: Acute (2) Thoracic ascending aortic aneurysm Priority: Secondary Status: Chronic (3) Pancytopenia Priority: Secondary Status: Chronic (4) DVT prophylaxis Priority: Secondary Status: Acute (5) Free intraperitoneal air Priority: Secondary Status: Acute - Discharge Medications Prescriptions: Amiodarone [Cordarone] 200 mg PO DAILY #30 tablet Aspirin 81 mg PO DAILY #30 tab.chew Docusate [Colace] 100 mg PO BID #30 capsule Metoprolol [Lopressor] 12.5 mg PO BID #30 tablet OxyCODONE/APAP 5/325 [Percocet 5/325 MG] 1 each PO Q6H PRN #30 tablet PRN Reason: Severe Pain Simvastatin [Zocor] 40 mg PO HS #30 tablet Home Medications: Ascorbate Calcium [Vitamin C] 500 mg PO DAILY 03/24/16 [History] Calcium Carbonate [Calcium] 600 mg PO DAILY 03/24/16 [History] Cyanocobalamin (Vitamin B-12) [Vitamin B-12] 1,000 mcg SL DAILY 03/24/16 [ History] Magnesium 200 mg PO DAILY 03/24/16 [History] Albuterol Sulfate [Albuterol Inhaler] 2 puff IH [id number] inhaler 04/14/16 [Rx] Amiodarone [Cordarone] 200 mg PO DAILY #30 tablet 04/14/16 [Rx] Aspirin 81 mg PO DAILY #30 tab.chew 04/14/16 [Rx] Docusate [Colace] 100 mg PO BID #30 capsule 04/14/16 [Rx] Metoprolol [Lopressor] 12.5 mg PO BID #30 tablet 04/14/16 [Rx] OxyCODONE/APAP 5/325 [Percocet 5/325 MG] 1 each PO Q6H PRN #30 tablet 04/14/16 [ Rx] Simvastatin [Zocor] 40 mg PO HS #30 tablet 04/14/16 [Rx] Allergies/Adverse Reactions: Allergies Sulfa (Sulfonamide Antibiotics) Allergy (Verified 03/24/16 09:06) Hives patient states childhood reaction Date of admission: 03/26/16 15:40 Primary care physician: PCP NO Consults: 04/08/16 13:17 Consult to Cardiac Rehabilitation-Phase1 [CONS] Routine Comment: Reason for Consult: Post open heart Call Completed: Yes Consult to Court Stenographer [CONS] Routine Reason for SW Consult: open heart 04/09/16 08:24 Consult to Critical Care [CONS] Stat Consulting Provider: [facility] Reason for Consult: s/p aortic valve replacement Call Completed: Yes 04/10/16 15:00 Consult to Surgery [CONS] Routine Consulting Provider: Surgery [facility] Reason for Consult: Free air abdomen Call Completed: Yes Discharging clinician: Shana Mina Anticipated date of discharge: 04/14/16 - Patient Status Disposition: Transfer SNF Condition: Good Functional capacity at discharge: independent ambulation Overall status at discharge: patient is progressing back to baseline - Discharge Instructions Follow Up With: Brenden Bautista MD [Partnered Physician] - 04/10/16 2:00 pm (Please follow up as schedule...) Raj Javed MD [Partnered Physician] - 05/07/16 1:45 pm Minal Carpenter DO [Partnered Physician] - 04/27/16 1:15 pm Forms: ED Satisfaction Letter Additional Instructions: Please follow up with your primary care doctor within one week after your discharge from the hospital. Please follow up with Cardiothoracic surgery, Cardiology, and Hematology after discharge as per your scheduled appointments. Amiodarone, Metoprolol, Lipitor, and Aspirin has been added to your home medications. Please take these medications as prescribed. Please resume your home medications as prescribed by your primary care physician. Please seek medical help if you experience any chest pain or shortness of breath. Maintain sternal precautions-NO driving for one month, do not lift any more than 10lbs. - Diet and Activity Activity: resume usual activities as tolerated (sternal precautions-NO driving for one month, do not lift any more than 10lbs. ), wear oxygen at all times Diet: low salt diet Hospital course: Mr. Villa is a 71 year old male with no significant med history who was admitted for chest pain and shortness of breath. Patient reported of not following with a PCP for the last five years. During this admission, he was found to have severe aortic stenosis for which he underwent open heart surgery for replacement of aortic valve. (cardiothoracic surgery) performed the procedure. Patient's post op course was complicated with Afib for which cardiology was consulted. Pt was started on amiodarone and metoprolol for rate control. He was also found to have pancytopenia of unknown etiology and give low CHADVASC score and pancytopenia, no group home anticoagulation therapy was recommended by cardiology. Patient was started on aspirin 81mg by cardiology. At this time he is saturating well on nasal cannula and will be discharged to rehab with nasal cannula. He will be reevaluated in rehab for home oxygen. He is to follow up with cardiothoracic surgery after his discharge. He will discharged to SNF today. Patient demonstrates understanding of his diagnosis and agrees with the discharge care and plan. - Time Spent with Patient Total time spent providing and/or coordinating discharge services: Greater than 30 minutes - Constitutional Vitals: Temp Pulse Resp BP Pulse Ox 97.5 F L 95 16 102/66 98 04/14/16 10:54 04/14/16 11:28 04/14/16 11:10 04/14/16 10:54 04/14/16 11:10 General appearance: Present: cooperative, A&O X 3, pleasant, no acute distress, answers questions appropriately - Head Head exam: Present: atraumatic, normocephalic - Eye Eye exam: Present: PERRL, conjuntiva pink, sclera anicteric - Respiratory Respiratory exam: Present: CTAB. Absent: accessory muscle use, rales, rhonchi, wheezes - Cardiovascular Cardiovascular exam: Present: irregular rhythm, +S1, +S2 - GI/Abdominal GI/Abdominal exam: Present: normal bowel sounds, soft. Absent: tenderness - Extremities Exam Extremities exam: Present: warm, radial pulses palpable and symetrical. Absent : pedal edema - Neurological Exam Neurological exam: Present: alert, oriented X3 - VTE Documentation of Mechanical Device: Graduated compression elastic hosiery
--- NOTE | 2016-04-14 13:28 | Physician Discharge Referral ---
[facility] Referral Info Transfer To: F Provider in Charge after Transfer: PCP - Diagnosis (1) Severe aortic stenosis Priority: Primary Status: Acute (2) Thoracic ascending aortic aneurysm Priority: Secondary Status: Chronic (3) Pancytopenia Priority: Secondary Status: Chronic (4) DVT prophylaxis Priority: Secondary Status: Acute (5) Free intraperitoneal air Priority: Secondary Status: Acute - Transfer Medications Prescriptions: Amiodarone [Cordarone] 200 mg PO DAILY #30 tablet Aspirin 81 mg PO DAILY #30 tab.chew Docusate [Colace] 100 mg PO BID #30 capsule Metoprolol [Lopressor] 12.5 mg PO BID #30 tablet OxyCODONE/APAP 5/325 [Percocet 5/325 MG] 1 each PO Q6H PRN #30 tablet PRN Reason: Severe Pain Simvastatin [Zocor] 40 mg PO HS #30 tablet Home Medications: Ascorbate Calcium [Vitamin C] 500 mg PO DAILY 03/24/16 [History] Calcium Carbonate [Calcium] 600 mg PO DAILY 03/24/16 [History] Cyanocobalamin (Vitamin B-12) [Vitamin B-12] 1,000 mcg SL DAILY 03/24/16 [ History] Magnesium 200 mg PO DAILY 03/24/16 [History] Albuterol Sulfate [Albuterol Inhaler] 2 puff IH [id number] inhaler 04/14/16 [Rx] Amiodarone [Cordarone] 200 mg PO DAILY #30 tablet 04/14/16 [Rx] Aspirin 81 mg PO DAILY #30 tab.chew 04/14/16 [Rx] Docusate [Colace] 100 mg PO BID #30 capsule 04/14/16 [Rx] Metoprolol [Lopressor] 12.5 mg PO BID #30 tablet 04/14/16 [Rx] OxyCODONE/APAP 5/325 [Percocet 5/325 MG] 1 each PO Q6H PRN #30 tablet 04/14/16 [ Rx] Simvastatin [Zocor] 40 mg PO HS #30 tablet 04/14/16 [Rx] Allergies/Adverse Reactions: Allergies Sulfa (Sulfonamide Antibiotics) Allergy (Verified 03/24/16 09:06) Hives patient states childhood reaction - Respiratory Orders Oxygen / L per min (2l/min) Smoking Cessation: Smoking cessation has been advised. For more information, call the [place] Tobacco Quit Line at 5-472-VBAO-NOW. - Treatments List/Other: Please follow up with your primary care doctor within one week after your discharge from the hospital. Please follow up with Cardiothoracic surgery, Cardiology, and Hematology after discharge as per your scheduled appointments. Amiodarone, Metoprolol, Lipitor, and Aspirin has been added to your home medications. Please take these medications as prescribed. Please resume your home medications as prescribed by your primary care physician. Please seek medical help if you experience any chest pain or shortness of breath. Maintain sternal precautions-NO driving for one month, do not lift any more than 10lbs. CERTIFICATION: I certify that the transfer of the above named patient to an Extended Care Facility is necessary for the continuing treatment of the diagnosis listed. The above information is true and accurate reflection of patient's current condition. Confidential - Redisclosure prohibited without a patient's written consent.
== END 2016-04-14 15:41 | DRG 216 ==
LOC: 3BNU 16:21 → EMEROO 16:21 → SUATTDRO 20:49 → 3BNU 20:58 → SUATTDRO 03-26 15:40 → 2ANU 03-27 16:23 → ICNU 04-08 09:34 → 2NNU 04-10 17:10
PROVIDERS: ADMIT Nurse Practitioner Family; ATTEND Internal Medicine

== ENCOUNTER 2016-04-18 11:51 | Inpatient (IN) ==
[2016-04-18] MEDS ORDERED: 0.9 % Sodium Chloride 500 ML IV ONE (11:56)
--- NOTE | 2016-04-18 11:58 | Emergency Department Note ---
Disposition Clinical Impression: Elevated troponin DVT (deep venous thrombosis) Qualifiers: DVT location: upper extremity Affected thrombotic vein of extremity: axillary Laterality: left Chronicity: acute Qualified Code(s): I82.A12 - Acute embolism and thrombosis of left axillary vein Disposition: Admitted As Inpatient Condition: Good Extremity Problem HPI - General Chief complaint: ED Extremity Problem,Nontraumatic Stated complaint: Left Arm pain/Edema Time Seen by Provider: 04/18/16 11:53 Source: patient Mode of arrival: ambulatory Nursing Notes Reviewed: Yes Vital Signs Reviewed: Yes - History of Present Illness HPI Narrative: Patient transferred from another facility for rule out DVT. Patient is a status post 10 days CABG with valve. Patient does not know any medications that he is on at this time but that he has had increased swelling of the left upper extremity causing him pain and discomfort with use. Patient states that his chest is sore and has postop changes consistent with recent surgery with no evidence of infection at this time. Patient states that he has had 2 episodes of feeling like he has a hard time getting a full breath but is otherwise asymptomatic. - Related Data Home Medications Medication Instructions Recorded Confirmed Ascorbate Calcium [Vitamin C] 500 mg PO DAILY 03/24/16 04/18/16 Calcium Carbonate [Calcium] 600 mg PO DAILY 03/24/16 04/18/16 Cyanocobalamin (Vitamin B-12) 1,000 mcg SL DAILY 03/24/16 04/18/16 [Vitamin B-12] Magnesium 200 mg PO DAILY 03/24/16 04/18/16 Atorvastatin Calcium [Lipitor] 20 mg PO HS 04/18/16 04/18/16 Omeprazole [PriLOSEC] 20 mg PO DAILY 04/18/16 04/18/16 OxyCODONE/APAP 5/325 [Percocet 1 tab PO Q6H PRN 04/18/16 04/18/16 5/325 MG] Previous Rx's Medication Instructions Recorded Albuterol Sulfate [Albuterol 2 puff IH [id number] inhaler 04/14/16 Inhaler] Amiodarone [Cordarone] 200 mg PO DAILY #30 tablet 04/14/16 Aspirin 81 mg PO DAILY #30 tab.chew 04/14/16 Docusate [Colace] 100 mg PO BID #30 capsule 04/14/16 Metoprolol [Lopressor] 12.5 mg PO BID #30 tablet 04/14/16 Allergies Allergy/AdvReac Type Severity Reaction Status Date / Time Sulfa (Sulfonamide Allergy Hives Verified 03/24/16 09:06 Antibiotics) All systems ED: reviewed and negative except as stated. Constitutional: Denies: fever, chills, weakness Cardiovascular: Reports: chest pain Respiratory: Denies: cough, dyspnea Gastrointestinal: Denies: abdominal pain, nausea, vomiting Genitourinary: Denies: urgency, dysuria Musculoskeletal: Reports: other (LUE swelling). Denies: back pain Integumentary: Denies: rash, abrasion Neurological: Denies: headache Psychiatric: Denies: anxiety Past Medical History - Past Medical History Medical history: Reports: aortic aneurysm, hyperlipidemia, valvular heart disease (Aortic stenosis.), other (Pancytopenia.) Surgical history: Reports: appendectomy, herniorrhaphy (Left and right.), other (Exploratory laparotomy with small bowel resection. Tonsillectomy.) Psychiatric history: Reports: no psych history - Social History Smoking Status: Never smoker Smokeless Tobacco Status: No Alcohol use: Reports: rarely Drug use: Reports: none Physical Exam - General Limitations: no limitations General appearance: alert - Head Head exam: atraumatic, normocephalic - Eye Eye exam: Present: normal appearance - ENT ENT exam: normal exam, normal oropharynx - Neck Neck exam: Present: normal inspection, full ROM - Chest Chest inspection: Present: normal inspection, symmetric chest wall rise, tenderness - Respiratory Respiratory exam: Present: normal lung sounds bilaterally. Absent: respiratory distress, wheezes - Cardiovascular Cardiovascular exam: Present: tachycardia, irregular rhythm - Abdominal Exam Abdominal exam: Present: soft, Non-Tender - Extremities Exam Extremities exam: Present: other (Swelling and tenderness to the left upper extremity) - Neurological Exam Neurological exam: Present: alert, oriented X3 - Psychiatric Psychiatric exam: Present: normal affect, normal mood - Skin Skin exam: Present: warm, dry Course - Reevaluation(s) Reevaluation #1: DVT study positive for left upper extremity deep vein thrombosis that extends into the subclavian vein. Patient was given Lovenox by the initial emergency room, [facility]. We have been unsuccessful in figuring out the specific dose. - Consultations Consultation #1: Discussed with Dr. cory allen. Patient accepted pending CTA. CTA results concerning for free air underneath the diaphragm. CT abdomen and pelvis ordered. Results of the CT abdomen and pelvis show free air however the patient had free air back on April 10. The reading radiologist was called and this was discussed. Free air typically resolves fast and a healthy patient however unhealthy patients can take a significant amount of time to resolve. It is reasonable at this time that this is retained free air for which the initial CT scan did not have cause. Initial CT scan done with contrast and did not show bowel perforation. At this time the patient's abdomen is soft and he is not complaining of abdominal symptoms. It was discussed with the admitting hospital team and the patient will continued to be watched. Vital Signs Temperature 98 F 04/18/16 11:53 Pulse Rate 100 04/18/16 11:53 Respiratory Rate 18 04/18/16 11:53 Blood Pressure 110/79 04/18/16 11:53 O2 Sat by Pulse Oximetry 97 04/18/16 11:53 Temperature 98 F 04/18/16 11:53 Pulse Rate 98 04/18/16 13:58 Respiratory Rate 18 04/18/16 17:38 Blood Pressure 113/84 04/18/16 17:38 O2 Sat by Pulse Oximetry 94 L 04/18/16 13:58 Oxygen Delivery Oxygen Delivery Nasal Cannula Extremity Problem, Nontraumati - Lab Data Result diagrams: 04/18/16 12:21 04/18/16 12:21 Lab Results 04/18/16 04/18/16 04/18/16 Range/Units 12:21 12:21 12:21 WBC 5.9 (4.3-11.1) K/mcL RBC 3.01 L (4.19-5.50) M/mcL Hgb 9.5 L (12.9-16.9) g/dL Hct 30.1 L (37.5-50.1) % MCV 100.0 (83.0-100.0) fL MCH 31.6 (28.0-33.3) pg MCHC 31.6 (31.6-35.5) g/dL RDW 16.0 H (11.5-14.5) % Plt Count 282 D (140-400) K/mcL MPV 9.1 L (9.4-12.4) fL Immature Gran % 0.5 (0-4) % Seg Neutrophils % 73.4 % Lymphocytes % 13.4 % Monocytes % 7.0 % Eosinophils % 5.4 % Basophils % 0.3 % Neutrophils # 4.3 (1.6-8.9) K/mcL Lymphocytes # 0.8 (0.6-4.6) K/mcL Monocytes # 0.4 (0.0-1.3) K/mcL Eosinophils # 0.3 (0.0-0.6) K/mcL Basophils # 0.0 (0.0-0.2) K/mcL Immature Plt Fraction 2.1 (1.1-6.1) % PT 19.4 H (9.4-12.1) Seconds INR 1.8 Sodium 138 (136-145) mEq/L Potassium 4.4 (3.5-4.5) mEq/L Chloride 106 (98-109) mEq/L Carbon Dioxide 26 (19-29) mEq/L BUN 12 (8-26) mg/dL Creatinine 0.77 (0.72-1.25) mg/dL Est GFR ( Amer) > 60 (> 60) Est GFR (Non-Af Amer) > 60 (> 60) BUN/Creatinine Ratio 16 (6-26) Glucose 95 (70-99) mg/dL Calculated Osmolality 286 (280-300) Calcium 8.2 L (8.6-10.8) mg/dL Total Bilirubin 0.9 (0.2-1.2) mg/dL AST 17 (5-34) Units/L ALT 22 (0-55) Units/L Alkaline Phosphatase 74 (38-126) Units/L Troponin I (0-0.03) ng/mL B-Natriuretic Peptide (0-100) pg/mL Serum Total Protein 5.7 L (6.0-8.3) g/dL Albumin 3.0 L (3.5-5.0) g/dL Globulin 2.7 (2.4-3.5) g/dL Albumin/Globulin Ratio 1.1 (1.1-2.2) 04/18/16 04/18/16 Range/Units 12:21 12:21 WBC (4.3-11.1) K/mcL RBC (4.19-5.50) M/mcL Hgb (12.9-16.9) g/dL Hct (37.5-50.1) % MCV (83.0-100.0) fL MCH (28.0-33.3) pg MCHC (31.6-35.5) g/dL RDW (11.5-14.5) % Plt Count (140-400) K/mcL MPV (9.4-12.4) fL Immature Gran % (0-4) % Seg Neutrophils % % Lymphocytes % % Monocytes % % Eosinophils % % Basophils % % Neutrophils # (1.6-8.9) K/mcL Lymphocytes # (0.6-4.6) K/mcL Monocytes # (0.0-1.3) K/mcL Eosinophils # (0.0-0.6) K/mcL Basophils # (0.0-0.2) K/mcL Immature Plt Fraction (1.1-6.1) % PT (9.4-12.1) Seconds INR Sodium (136-145) mEq/L Potassium (3.5-4.5) mEq/L Chloride (98-109) mEq/L Carbon Dioxide (19-29) mEq/L BUN (8-26) mg/dL Creatinine (0.72-1.25) mg/dL Est GFR ( Amer) (> 60) Est GFR (Non-Af Amer) (> 60) BUN/Creatinine Ratio (6-26) Glucose (70-99) mg/dL Calculated Osmolality (280-300) Calcium (8.6-10.8) mg/dL Total Bilirubin (0.2-1.2) mg/dL AST (5-34) Units/L ALT (0-55) Units/L Alkaline Phosphatase (38-126) Units/L Troponin I 0.26 H* (0-0.03) ng/mL B-Natriuretic Peptide 449 H (0-100) pg/mL Serum Total Protein (6.0-8.3) g/dL Albumin (3.5-5.0) g/dL Globulin (2.4-3.5) g/dL Albumin/Globulin Ratio (1.1-2.2) Critical Care Time Critical Care Time: Yes Total Critical Care Time: 35 Attestation: Critical care time 35 minutes managing patient's extremity DVT, as well as free air in abdomen. Attestation Statement - Attestation Attestation: Patient was seen with resident physician. I reviewed the history, physical, assessment and plan, and agree with the findings. I also personally evaluated this patient and had [id number] time with this patient. 77-year-old male presents to the emergency department with chief complaint of left arm swelling. Patient had a heart valve replacement approximately 2 weeks ago. Noticed the swelling started couple days ago. He says no hard to lift his arm. He also notes that he has some discomfort especially on the right side of his chest area and a little bit shortness of breath. No other extremity swelling. No fevers or chills. On examination ENT is unremarkable. Heart regular rhythm and rate. Lungs are clear. Extremities patient has conceivable swelling of the left upper extremity from the shoulder all the way down to the wrist. Distal pulses are intact. There is no cyanosis. Sensation is intact. Remainder of extremity exam is unremarkable. Abdomen is soft and nontender. This patient's post surgery he had called his doctor advised him to come to the emergency department for ultrasound to rule out DVT. Ultrasound revealed DVT of the left upper extremity. CT scan of the chest was also obtained which revealed fluid in the lungs, but also more concernedly was some free air under the diaphragm. With this finding and abdomen and pelvis CT was also added to her list of testing. The free air seen in the abdominal portion of the CT scan was also seen on a prior CT scan appears to be improving. Clinically his abdominal exam is not suggestive of perforation. At this point we will just follow that finding. This patient will require admission to the hospitalist service for treatment for his DVT. Hemodynamically was stable on the emergency department. I agree with the resident physician assessment plan.
[2016-04-18 12:30] LABS: Basophils % 0.3 %; Eosinophils # 0.3 K/mcL (0.0-0.6); Eosinophils % 5.4 %; Hematocrit 30.1 % (37.5-50.1); Hemoglobin 9.5 g/dL (12.9-16.9); Immature Granulocytes % 0.5 % (0-4); Immature Platelets 2.1 % (1.1-6.1); Lymphocytes # 0.8 K/mcL (0.6-4.6); Lymphocytes % 13.4 %; Mean Corpuscular HGB Conc 31.6 g/dL (31.6-35.5); Mean Corpuscular Hemoglobin 31.6 pg (28.0-33.3); Mean Platelet Volume 9.1 fL (9.4-12.4); Monocytes # 0.4 K/mcL (0.0-1.3); Neutrophils # 4.3 K/mcL (1.6-8.9); Platelet Count 282 K/mcL (140-400); Red Blood Count 3.01 M/mcL (4.19-5.50); Segmented Neutrophils % 73.4 %
[2016-04-18 12:34] LABS: INR 1.8; Prothrombin Time 19.4 Seconds (9.4-12.1)
[2016-04-18 12:42] LABS: Alanine Aminotransferase 22 Units/L (0-55); Albumin/Globulin Ratio 1.1 (1.1-2.2); Alkaline Phosphatase 74 Units/L (38-126); Aspartate Amino Transferase 17 Units/L (5-34); BUN/Creatinine Ratio 16 (6-26); Bilirubin,Total 0.9 mg/dL (0.2-1.2); Blood Urea Nitrogen 12 mg/dL (8-26); Calcium 8.2 mg/dL (8.6-10.8); Carbon Dioxide 26 mEq/L (19-29); Chloride 106 mEq/L (98-109); Globulin 2.7 g/dL (2.4-3.5); Glucose 95 mg/dL (70-99); Osmolality,Calculated 286 (280-300); Potassium 4.4 mEq/L (3.5-4.5); Sodium 138 mEq/L (136-145); Total Protein 5.7 g/dL (6.0-8.3); eGFR For African Americans > 60 (> 60); eGFR For Non-African Americans > 60 (> 60)
[2016-04-18] MEDS ORDERED: *HR* Heparin 5,000 UNIT/ML VIAL IVP ONE (18:02)
[2016-04-18] MEDS ORDERED: *HR* Heparin 5,000 UNIT/ML VIAL IVP PRN ×2 (18:02)
[2016-04-18] MEDS ORDERED: Albuterol 2.5 MG/3 ML NEBULIZER IH PRN (18:06)
[2016-04-18] MEDS ORDERED: Heparin 25,000 UNIT/500 ML D5W 25,000 UNIT/500 ML MLS IVC SCH (18:15)
--- NOTE | 2016-04-18 18:17 | Internal Med History&Physical ---
<Stephani Storm - Last Filed: 04/18/16 19:02> Date of Encounter: 04/18/16 Time of Encounter: 17:00 Assessment and Plan (1) DVT (deep venous thrombosis) Current visit: Yes Status: Acute 1 she presented with increased swelling and pain to left arm venous Doppler did reveal DVT in subclavian vein. Initiate on IV heparin, and will bridge over to Coumadin. Qualifiers: DVT location: upper extremity Affected thrombotic vein of extremity: axillary Laterality: left Chronicity: acute Qualified Code(s): I82.A12 - Acute embolism and thrombosis of left axillary vein (2) Atrial fibrillation Current visit: Yes Status: Acute 1 patient has persistent atrial fibrillation presently has rate is above 100 he is on metoprolol as well as amiodarone. We will continue with amiodarone and increase his metoprolol to 25 twice a day 2 patient is on aspirin for anticoagulation- started on heparin drip- Qualifiers: Atrial fibrillation type: persistent Qualified Code(s): I48.1 - Persistent atrial fibrillation (3) Elevated troponin Current visit: Yes Status: Acute 1 patient's troponin was 0.26 he is not having any chest pain. Did have a AVR on 04/08/16 . monitor troponins 2 consult cardiology as needed (4) Free intraperitoneal air Current visit: No Status: Acute 1 S appears to be present on previous admission and has decreased somewhat in size however he does have a small pericardial effusion as well as a bilateral pleural effusion. We did consult thoracic surgery who will see patient (5) Pericardial effusion Current visit: Yes Status: Acute 1 patient has small pericardial effusion on CT scan. No friction rub, hemodynamically at this time, oxygen to maintain SPO2 greater than 92% consulted Cardiothoracic surgery Internal Medicine - H&P: HPI Chief complaint: swollen arm Admitted From: Hospital to Hospital Transfer Plans for Post Hospital Care: Transfer [facility] History of present illness: Mr. Villa is a 71 year old male with past medical hx of afib, valvular diseas with sever aortic stenosis with a AVR on 02/2016. He was dischared 20/08/2016 to an [facility] for rehabilitation. According the patient has been experiencing shortness of breath since his arrival to the [facility] and has not been able to participate in rehabilitation. He also has noted that his left arm has been swollen over he has not no when the swelling started. This morning he awoke was experiencing shortness of breath and noticed that his left arm is larger than it has been. He was sent to [place] emergency department however they were unable to perform ultrasound was sent to [place] for evaluation. According to ER notes a venous doppler of Left arm revealed a DVT in left subclavian vein and SVT in cephalic vein. Due to the patient's shortness of breath CTA was completed which did reveal pneumoperitoneum moderate bilateral pleural effusions collapse of left lower lobe partial atelectasis of right lower lobe, small pericardial effusion. CT of abdomen was completed which was compared to CT completed 04/10 2016 which did show small improvements of air and fluid unchanged otherwise. Patient admitted for further workup and evaluation. Presently the patient is tachycardic heart rate 103-115 atrial fibrillation systolic blood pressure is low 100s oxygen saturation 95% on 3 L however his sats do drop down to 88% on exertion. He has bronchial breath sounds to left lower lobe. He denies any chest pain or shortness of breath at this time. I did review this case with Dr. Urbina who agrees with plan. Past Med Surg Social Fam HX - Past Medical History Medical history: aortic aneurysm, hyperlipidemia, valvular heart disease ( Aortic stenosis.), other (Pancytopenia.) Psychiatric history: no psych history - Past Surgical History Surgical History: appendectomy, herniorrhaphy (Left and right.), other ( Exploratory laparotomy with small bowel resection. Tonsillectomy.) - Social History Smoking Status: Never smoker Smokeless Tobacco Status: No Alcohol use: rarely Drug use: none - Family History Mother History Unknown: Yes Father History Unknown: Yes Internal Medicine - H&P: Meds Ascorbate Calcium [Vitamin C] 500 mg PO DAILY 03/24/16 [History] Calcium Carbonate [Calcium] 600 mg PO DAILY 03/24/16 [History] Cyanocobalamin (Vitamin B-12) [Vitamin B-12] 1,000 mcg SL DAILY 03/24/16 [ History] Magnesium 200 mg PO DAILY 03/24/16 [History] Albuterol Sulfate [Albuterol Inhaler] 2 puff IH [id number] inhaler 04/14/16 [Rx] Amiodarone [Cordarone] 200 mg PO DAILY #30 tablet 04/14/16 [Rx] Aspirin 81 mg PO DAILY #30 tab.chew 04/14/16 [Rx] Docusate [Colace] 100 mg PO BID #30 capsule 04/14/16 [Rx] Metoprolol [Lopressor] 12.5 mg PO BID #30 tablet 04/14/16 [Rx] Atorvastatin Calcium [Lipitor] 20 mg PO HS 04/18/16 [History] Omeprazole [PriLOSEC] 20 mg PO DAILY 04/18/16 [History] OxyCODONE/APAP 5/325 [Percocet 5/325 MG] 1 tab PO Q6H PRN 04/18/16 [History] Allergies Sulfa (Sulfonamide Antibiotics) Allergy (Verified 03/24/16 09:06) Hives patient states childhood reaction All Systems PM: A 10-system review of systems was performed and is negative for pertinent findings except as documented above in the HPI. - Constitutional Constitutional: no chills, no fever(s), no night sweats - EENT Eyes: no change in vision, no discharge, no pain, no photophobia - Cardiovascular Cardiovascular ROS IM: dyspnea, dyspnea on exertion, edema - Respiratory Respiratory: dyspnea on exertion - Gastrointestinal Gastrointestinal: constipation - Neurological Neurological ROS: no confusion, no convulsions, no focal weakness, no numbness, no tingling, no tremor(s) - Constitutional Vitals: Temp Pulse Resp BP Pulse Ox 98 F 98 18 113/84 94 L 04/18/16 11:53 04/18/16 13:58 04/18/16 17:38 04/18/16 17:38 04/18/16 13:58 General appearance: Present: A&O X 3, underweight - Head Head exam: Present: atraumatic, normocephalic - Respiratory Respiratory exam: Present: decreased breath sounds, CTAB. Absent: accessory muscle use, rales, rhonchi, wheezes Additional comments: Decreased breath sounds on the right side and upper left lower left with bronchial breath sounds - Cardiovascular Cardiovascular exam: Present: irregular rhythm, +S1, +S2. Absent: diastolic murmur, gallop, rubs, systolic murmur - GI/Abdominal GI/Abdominal exam: Present: normal bowel sounds, soft, no peritoneal signs. Absent: distended, tenderness - Extremities Exam Extremities exam: Present: warm, radial pulses palpable and symetrical. Absent : calf tenderness, cyanotic, pedal edema - Expanded Upper Extremities Exam Upper Arm exam: Present: swelling, tenderness - Incison Incision: Present: clean and dry, intact Comments: Mid sternal incision well approximated with no redness swelling or drainage - Neurological Exam Neurological exam: Present: CN II-XII intact, oriented X3, no focal deficits. Absent: pronater drift, facial droop, speech deficit - Skin Skin exam: Present: dry, intact Internal Med - H&P Results - Labs CBC & Chem 7: 04/18/16 12:21 04/18/16 12:21 - Impressions ITS Impressions Abdomen/Pelvis CT 04/18/16 15:56 IMPRESSION: 1. Free intraperitoneal air. No identifiable source. Compared to the prior CT of the abdomen and pelvis done April 10, 2016, the amount of free air has decreased. Of note, patient was given oral contrast on the prior exam. There is residual oral contrast in the rectum on the current exam. No evidence of extraluminal oral contrast. 2. Small amount of ascites in the abdomen and pelvis. 3. Circumferential subcutaneous edema. Please correlate with clinical symptoms of anasarca. D/ / 04/18/2016 17:11:52 Carter Dewey MD / [facility] Interpreting Provider: Carter Dewey MD - Diagnostic Studies Venous US Additional comments: Venous doppler of LEFT ARM APPEARS POSITIVE FO DVT IN LEFT SUBCLAVIAN VEIN AND SVT IN CEPHALIC VEIN. OPAL ETIENNE RDCS Other Images Additional comments: Chest X-Ray 04/18/16 11:54 IMPRESSION: 1. Interstitial pulmonary edema with decreased right perihilar and increased left perihilar alveolar edema. Given recent cardiac surgery, congestive heart failure is suspected. 2. No significant change in bilateral pleural effusions and underlying bibasilar atelectasis and/or pneumonia, again worse on the left. D/ / Raj Gallardo MD / Raj Gallardo MD Interpreting Provider: Raj Gallardo MD Chest CTA 04/18/16 14:30 IMPRESSION: Pneumoperitoneum is seen within the upper abdomen as well as small amount of ascites. If there has not been recent intra- abdominal surgery or intervention to account for this, findings are concerning for occult viscus perforation. Moderate bilateral pleural effusions. Collapse of the left lower lobe and partial atelectasis of the right lower lobe. Patchy atelectasis or pneumonitis within the right upper lobe. No definite findings of pulmonary embolism. Status post median sternotomy with inflammatory changes of the mediastinum, likely due to recent postoperative state. Small pericardial effusion. Atherosclerosis, including coronary artery calcification. Findings were discussed with Kenrick Aponte at 15:56 on 04/18/2016. D/ / Wilver Kurtz MD / Wilver Kurtz MD Interpreting Provider: Wilver Kurtz MD Abdomen/Pelvis CT 04/18/16 15:56 IMPRESSION: 1. Free intraperitoneal air. No identifiable source. Compared to the prior CT of the abdomen and pelvis done April 10, 2016, the amount of free air has decreased. Of note, patient was given oral contrast on the prior exam. There is residual oral contrast in the rectum on the current exam. No evidence of extraluminal oral contrast. 2. Small amount of ascites in the abdomen and pelvis. 3. Circumferential subcutaneous edema. Please correlate with clinical symptoms of anasarca. D/ / 04/18/2016 17:11:52 [facility] / [facility] Interpreting Provider: Carter Dewey MD <Xavier Urbina - Last Filed: 04/18/16 20:16> Internal Medicine - H&P: HPI History of present illness: Mr. Villa is a 71 year old male All Systems PM: A 10-system review of systems was performed and is negative for pertinent findings except as documented above in the HPI. - Constitutional Vitals: Temp Pulse Resp BP Pulse Ox 97.8 F 110 20 122/87 99 04/18/16 18:25 04/18/16 18:25 04/18/16 18:25 04/18/16 18:25 04/18/16 18:25 Internal Med - H&P Results - Labs CBC & Chem 7: 04/18/16 12:21 04/18/16 12:21 - Impressions ITS Impressions Abdomen/Pelvis CT 04/18/16 15:56 IMPRESSION: 1. Free intraperitoneal air. No identifiable source. Compared to the prior CT of the abdomen and pelvis done April 10, 2016, the amount of free air has decreased. Of note, patient was given oral contrast on the prior exam. There is residual oral contrast in the rectum on the current exam. No evidence of extraluminal oral contrast. 2. Small amount of ascites in the abdomen and pelvis. 3. Circumferential subcutaneous edema. Please correlate with clinical symptoms of anasarca. D/ / 04/18/2016 17:11:52 Carter Dewey MD / [facility] Interpreting Provider: Carter Dewey MD - Attending Attestation I examined this patient and my medical decision-making was reviewed with the IMPROVEMENT INTERN/PA/Advanced Practice Nurse/Resident Physician. I agree with the documented findings, disposition and treatment plan as described except to the extent set forth below. His exam reveals a frail elderly man in no acute distress. Heart is with a regular distant and tachycardic heart sounds S1-S2 no murmurs. Lungs with diminished breath sounds bilaterally. Abdomen is soft nontender nondistended with normoactive bowel sounds The patient is at very high risk for morbidity mortality and complication due to recent major surgery pericardial effusion and treatment with IV heparin which requires intensive telemetry monitoring and coagulation parameters monitoring for therapeutic effect. I have discussed the case with CT surgery who agrees with the plan. Patient will need to be evaluated for possible bilateral thoracentesis given moderate pleural effusion and respiratory failure.
[2016-04-18] MEDS ORDERED: *HR* LORazepam 0.5 MG TABLET PO ONE (23:10)
[2016-04-18] MEDS: Oxymetazoline Nasal SPRAY BOTTLE NS PRN (23:19)
[2016-04-19 01:02] LABS: Basophils # 0.1 K/mcL (0.0-0.2); Basophils % 0.7 %; Eosinophils # 0.4 K/mcL (0.0-0.6); Eosinophils % 5.9 %; Hematocrit 30.6 % (37.5-50.1); Hemoglobin 9.6 g/dL (12.9-16.9); Immature Granulocytes % 0.6 % (0-4); Lymphocytes # 0.8 K/mcL (0.6-4.6); Lymphocytes % 10.5 %; Mean Corpuscular HGB Conc 31.4 g/dL (31.6-35.5); Mean Corpuscular Hemoglobin 31.6 pg (28.0-33.3); Mean Corpuscular Volume 100.7 fL (83.0-100.0); Mean Platelet Volume 9.5 fL (9.4-12.4); Monocytes # 0.3 K/mcL (0.0-1.3); Monocytes % 4.5 %; Neutrophils # 5.6 K/mcL (1.6-8.9); Nucleated Red Blood Cells 0.3 /100 WBC (0); Platelet Count 281 K/mcL (140-400); Red Blood Count 3.04 M/mcL (4.19-5.50); Segmented Neutrophils % 77.8 %
[2016-04-19 01:12] LABS: BUN/Creatinine Ratio 17 (6-26); Blood Urea Nitrogen 14 mg/dL (8-26); Calcium 8.1 mg/dL (8.6-10.8); Carbon Dioxide 20 mEq/L (19-29); Chloride 109 mEq/L (98-109); Glucose 169 mg/dL (70-99); Osmolality,Calculated 288 (280-300); Potassium 4.5 mEq/L (3.5-4.5); Sodium 137 mEq/L (136-145); eGFR For African Americans > 60 (> 60); eGFR For Non-African Americans > 60 (> 60)
[2016-04-19] MEDS: Ascorbic Acid 500 MG TABLET PO SCH (08:30)
[2016-04-19] MEDS: *HR* Amiodarone 200 MG TABLET PO SCH (08:30)
[2016-04-19] MEDS: Cyanocobalamin (B-12) 1,000 MCG TABLET PO SCH (08:30)
[2016-04-19] MEDS: Aspirin 81 MG TAB.CHEW PO SCH (08:30)
[2016-04-19] MEDS: Magnesium Oxide 400 MG TABLET PO SCH (08:30)
--- NOTE | 2016-04-19 08:32 | Cardiothoracic Consult Note ---
Date of Encounter: 04/19/16 Time of Encounter: 08:30 Assessment and Plan (1) Pleural effusion Current Visit: Yes Status: Acute The patient has bilateral pleural effusions with the left side larger than the right side, based on chest CT findings. The patient also has elevated PT/INR with this morning's INR value 1.8. This will need to be addressed prior to ultrasound-guided thoracentesis in interventional radiology. Would recommend administering FFP 2-3 hours prior to the thoracentesis procedure. I would not give the patient vitamin K since this will interfere with his future anticoagulation for his left upper extremity DVT. The assessment and plan as outlined above was discussed with the patient and/or family members who expressed understanding and agreement. All questions were answered. (2) DVT (deep venous thrombosis) Current Visit: Yes Status: Acute The patient is currently on heparin and should be transitioned to Coumadin once his pleural effusions are addressed with ultrasound-guided thoracentesis in interventional radiology. The assessment and plan as outlined above was discussed with the patient and/or family members who expressed understanding and agreement. All questions were answered. Qualifiers: DVT location: upper extremity Affected thrombotic vein of extremity: axillary Laterality: left Chronicity: acute Qualified Code(s): I82.A12 - Acute embolism and thrombosis of left axillary vein (3) Atrial fibrillation Current Visit: Yes Status: Acute Medical management for the atrial fibrillation should be continued with the amiodarone and metoprolol. Currently, the patient has adequate rate control. The assessment and plan as outlined above was discussed with the patient and/or family members who expressed understanding and agreement. All questions were answered. Qualifiers: Atrial fibrillation type: persistent Qualified Code(s): I48.1 - Persistent atrial fibrillation (4) Pericardial effusion Current Visit: Yes Status: Acute The pericardial effusion appears to be small based on the chest CT and the patient is not hemodynamically unstable. I do not believe that the pericardial effusion will need to be addressed. The assessment and plan as outlined above was discussed with the patient and/or family members who expressed understanding and agreement. All questions were answered. - History of Present Illness Consult date: 04/18/16 Requesting physician: Bertrand Moreno Consult reason: Bilateral pleural effusions. Chief complaint: Shortness of breath History of present illness: Mr. Villa is a 71 year man with a one year history of progressive, nonradiating left precordial chest pain, shortness of breath, and dyspnea on exertion. The symptoms were first noticed when he was carrying a 5 gallon bucket of feed. Within 75 feet the patient had developed left precordial chest pain, shortness of breath, and dyspnea. He required several minutes of rest to alleviate the chest pain and regain his normal breathing function. During the last 12 months, he has had progressive symptoms which occur with less activity. He was evaluated [facility] emergency department for similar symptoms and was found to have a murmur consistent with aortic stenosis during his workup. The echocardiogram revealed a normal left ventricular size and systolic function with an LVEF 65-70%. Moderate concentric LVH and severe LV diastolic dysfunction were also noted. The patient had severe aortic stenosis with a peak velocity of 4.64 m/s, a mean gradient of 49 mmHg, and a calculated aortic valve area of 0.[address] revealed an ascending thoracic aortic aneurysm measuring 4.4 cm in diameter. The cardiac catheterization revealed normal coronary anatomy with no flow limiting lesions. He was recommended for aortic valve replacement. The patient underwent an aortic valve replacement using a #25 Mosaic ultra porcine tissue valve on April 08, 2016. His postoperative course was complicated by atrial fibrillation and he was treated medically with adequate rate control. He was discharged to an extended care facility on April 14, 2016. I'll at the extended care facility the patient had difficulty participating in physical therapy due to shortness of breath and dyspnea on exertion. Yesterday patient noticed that his left upper extremity had become swollen. He was evaluated at [facility] emergency department; however, they were unable to perform a venous duplex scan. He was then transferred to [facility] for further evaluation. The patient underwent the venous duplex at [facility] in the study showed a left subclavian vein DVT. He also underwent a chest CT which showed bilateral pleural effusions, left side larger than right side, as well as a small pericardial effusion. The patient was in atrial fibrillation with a heart rate between 100-120 bpm. The patient was admitted for treatment of the left subclavian vein DVT, drainage of the bilateral pleural effusions, and continued management of his atrial fibrillation. Past Med Surg Social Fam HX - Past Medical History Medical history: aortic aneurysm, hyperlipidemia, valvular heart disease ( Aortic stenosis.), other (Pancytopenia.) Psychiatric history: no psych history - Past Surgical History Surgical History: appendectomy, heart valve replacement (Aortic valve replacement (#25 Mosaic ultra porcine tissue valve)), herniorrhaphy (Left and right.), other (Exploratory laparotomy with small bowel resection. Tonsillectomy.) - Social History Smoking Status: Never smoker Smokeless Tobacco Status: No Alcohol use: rarely Drug use: none - Family History Mother History Unknown: Yes Father History Unknown: Yes Medications and Allergies Ascorbate Calcium [Vitamin C] 500 mg PO DAILY 03/24/16 [History] Calcium Carbonate [Calcium] 600 mg PO DAILY 03/24/16 [History] Cyanocobalamin (Vitamin B-12) [Vitamin B-12] 1,000 mcg SL DAILY 03/24/16 [ History] Magnesium 200 mg PO DAILY 03/24/16 [History] Albuterol Sulfate [Albuterol Inhaler] 2 puff IH [id number] inhaler 04/14/16 [Rx] Amiodarone [Cordarone] 200 mg PO DAILY #30 tablet 04/14/16 [Rx] Aspirin 81 mg PO DAILY #30 tab.chew 04/14/16 [Rx] Docusate [Colace] 100 mg PO BID #30 capsule 04/14/16 [Rx] Metoprolol [Lopressor] 12.5 mg PO BID #30 tablet 04/14/16 [Rx] Atorvastatin Calcium [Lipitor] 20 mg PO HS 04/18/16 [History] Omeprazole [PriLOSEC] 20 mg PO DAILY 04/18/16 [History] OxyCODONE/APAP 5/325 [Percocet 5/325 MG] 1 tab PO Q6H PRN 04/18/16 [History] Allergies Sulfa (Sulfonamide Antibiotics) Allergy (Verified 03/24/16 09:06) Hives patient states childhood reaction All Systems Review: A 10-system review of systems was performed and is negative for pertinent findings except as documented above in the HPI. Physical Examination Vital Signs, Last 4 Hours Temp Pulse Resp BP Pulse Ox 04/19/16 07:25 97.9 F 85 16 127/79 97 04/19/16 05:47 97.6 F 102 19 126/96 96 General: Conversant, No Apparent Distress Neck: No JVD, Normal carotid pulses Cardiac: Normal S1 and S2, No Murmur, Other (Irregular rate and rhythm (atrial fibrillation).) Lungs: Decreased breath sounds (Both bases posteriorly.) Neuro: Alert and responsive, No focal deficits noted Vascular: Normal capillary refill Abdomen: Soft, Non-tender Extremities: No Clubbing, No Cyanosis, Normal Pulses, Other (Left upper extremity edema from the shoulder to the fingertips.) Results 04/19/16 00:52 04/19/16 00:52 Lab Results, Last 24 hours 04/18/16 04/19/16 04/19/16 19:33 00:52 00:52 WBC 7.1 Hgb 9.6 L Hct 30.6 L Plt Count 281 APTT Sodium 137 Potassium 4.5 Chloride 109 Carbon Dioxide 20 BUN 14 Creatinine 0.84 Glucose 169 H Calcium 8.1 L Troponin I 0.22 H* 04/19/16 04/19/16 00:52 00:52 WBC Hgb Hct Plt Count APTT 62.1 H Sodium Potassium Chloride Carbon Dioxide BUN Creatinine Glucose Calcium Troponin I 0.20 H* - Imaging Chest Xray: image reviewed (No pneumothorax. Bilateral pleural effusions, left side greater than right side.) Consult Discharge Plan - Plan Referrals: NO,PCP [Primary Care Provider] -
[2016-04-19] MEDS ORDERED: APIXABAN 5 MG TABLET PO SCH (09:00)
[2016-04-19] MEDS ORDERED: *HR* Heparin 5,000 UNIT/ML VIAL IVP PRN ×2 (11:19)
[2016-04-19] MEDS: Oxymetazoline Nasal SPRAY BOTTLE NS PRN (11:21)
--- NOTE | 2016-04-19 11:22 | Internal Med Progress Note ---
Date of Encounter: 04/19/16 Time of Encounter: 10:30 - Assessment and plan (1) Atrial fibrillation Current Visit: Yes Status: Acute Assessment and plan: Afib with RVR, improved Continue Metoprolol 25mg po bid and amiodarone On heparin gtt for DVT Qualifiers: Atrial fibrillation type: persistent Qualified Code(s): I48.1 - Persistent atrial fibrillation (2) DVT (deep venous thrombosis) Current Visit: Yes Status: Acute Assessment and plan: On heparin drip, continue same for now as Thoracic surgery plan on doing a procedure tomorrow Repat INR a.m, if <1.5, no need for FFP If > 1.5 will give FFP a.m Type and screen has been ordered Plan is to change to warfarin or LINSEY after thoracentensis tomorrow Elevated troponin is possibly from demand ischemia from RVR, Troponin down- trending Of note,patient's CT scan showed evidence of anasarca, and he has bilateral pleural effusion Will start on po lasix 40mg daily ECHO from 03/2016 with LVEF normal but severe diastolic dysfunction Start on po lasix 40mg po daily for fluid overload Monitor I/O, weight Pneumoperitoneum has improved compared to previous CT scan High risk patient due to heparin drip requring monitoring Qualifiers: DVT location: upper extremity Affected thrombotic vein of extremity: axillary Laterality: left Chronicity: acute Qualified Code(s): I82.A12 - Acute embolism and thrombosis of left axillary vein (3) CHF (congestive heart failure) Current Visit: Yes Status: Chronic Assessment and plan: As above Qualifiers: Congestive heart failure type: diastolic Congestive heart failure chronicity: chronic Qualified Code(s): I50.32 - Chronic diastolic (congestive ) heart failure (4) Elevated troponin Current Visit: Yes Status: Acute Assessment and plan: As above (5) Pericardial effusion Current Visit: Yes Status: Acute (6) Pleural effusion Current Visit: Yes Status: Acute Assessment and plan: Thoracic surgery consult appreciated Monitor closely (7) Free intraperitoneal air Current Visit: Yes Status: Chronic (8) Severe aortic stenosis Current Visit: Yes Status: Chronic - Subjective Interval history: 71 Y/O M Patient is on admission for management of Afib with RVR, Bilateral pleural effusion LUE DVT, Demand ischemia He has a PMH of Severe s/p AVR on 04/08/16. he is seen at bedside in no obvious distres Denies new complains Reports significant improvement - Constitutional Vitals: Temp Pulse Resp BP Pulse Ox 97.9 F 85 16 127/79 97 04/19/16 07:25 04/19/16 07:25 04/19/16 07:25 04/19/16 07:25 04/19/16 07:25 General appearance: Present: A&O X 3, pleasant, no acute distress, underweight - Head Head exam: Present: atraumatic, normocephalic - Eye Eye exam: Present: PERRL, conjuntiva pink, sclera anicteric Pupils: Present: PERRL - Neck Neck exam general surgery: Present: supple, trachea midline. Absent: lymphadenopathy - Respiratory Respiratory exam: Absent: rales, rhonchi, tachypnea Additional comments: Sternal scar with wound dressing clean and vanessa intact Diminished air entry bilaterally,, worse at the bases - Cardiovascular Cardiovascular exam: Present: RRR, +S1, +S2. Absent: diastolic murmur, gallop, rubs, systolic murmur - GI/Abdominal GI/Abdominal exam: Present: normal bowel sounds, soft, no peritoneal signs. Absent: distended, tenderness - Extremities Exam Additional comments: LUE swelling++, no tenderness, no erythema - Neurological Exam Neurological exam: Present: alert, CN II-XII intact, oriented X3, no focal deficits. Absent: pronater drift, facial droop, speech deficit - Skin Skin exam: Present: dry, intact Internal Medicine: Result - Labs CBC & Chem 7: 04/19/16 00:52 04/19/16 00:52 Labs: Short CBC 04/19/16 Range/Units 00:52 WBC 7.1 (4.3-11.1) K/mcL Hgb 9.6 L (12.9-16.9) g/dL Hct 30.6 L (37.5-50.1) % Plt Count 281 (140-400) K/mcL Neutrophils # 5.6 (1.6-8.9) K/mcL BMP 04/19/16 00:52 Sodium 137 Potassium 4.5 Chloride 109 Carbon Dioxide 20 BUN 14 Creatinine 0.84 Glucose 169 H Calcium 8.1 L Cardiac Enzymes 04/18/16 04/19/16 04/19/16 Range/Units 19:33 00:52 09:14 Troponin I 0.22 H* 0.20 H* 0.18 H* (0-0.03) ng/mL - ABG Interpretation ABG results: PT/INR, D-dimer PT 19.4 Seconds (9.4-12.1) H 04/18/16 12:21 Consult Discharge Plan - Plan Referrals: NO,PCP [Primary Care Provider] -
[2016-04-19] MEDS: Heparin 25,000 UNIT/500 ML D5W 25,000 UNIT/500 ML MLS IVC SCH (11:58)
--- NOTE | 2016-04-19 15:05 | Venous Imaging Report ---
UE Venous Duplex Patient Name:Bill Villa Order Number:[id number] Procedure Date:04/18/2016 Date:1945ge:71 yrs Gender:Male Location:[facility] ED Room #: OBS30 Photo Checker And Assembler:Lynette Driscoll RDCS Referring MD:Kenrick Aponte DO general administrator:None Reading MD:Avinash Buckley MD , FACS Primary Indications:Swelling to left arm Secondary Indications: Risk Factors Yes/No Hx of DVT No Anticoagulants Yes Recent Surgery Yes Recent IV therapy ( past 2 weeks) Yes Trauma to Veins Yes Impressions: Upper extremity abnormal deep exam: left Subclavian vein acute thrombosis. Upper extremity abnormal superficial exam: left Cephalic vein acute thrombosis. Right upper extremity: normal contralateral exam. Findings Venous Duplex Results: Right: Venous imaging of the upper extremity reveals full patency and normal vessel compressibility of the right subclavian. Doppler signals in the evaluated veins were normal. Left: Venous imaging of the upper extremity reveals full patency and normal vessel compressibility of the left jugular, left axillary, left brachial, left basilic, left radial and left ulnar. Doppler signals in the evaluated veins were normal. There is an acute thrombus seen in the left subclavian. It demonstrates an incompressible vein. Flow was absent and it did not augment. There is an acute thrombus seen in the left cephalic. It demonstrates an incompressible vein. Flow was absent and it did not augment. Prior Study: No prior study available for comparison. Spoke to Kenrick Aponte upon completion of exam. Upper Extremity Venous Duplex Side Vein Compress Spontaneous Flow Augment Left Jugular Normal Yes Phasic Yes Left Subclavian None no Absent no Left Axillary Normal Yes Phasic Yes Left Brachial Normal Yes Phasic Yes Left Cephalic None no Absent no Left Basilic Normal Yes Phasic Yes Left Radial Normal Yes Phasic Yes Left Ulnar Normal Yes Phasic Yes Right Subclavian Normal Yes Phasic Yes Updated by Avinash Buckley MD, FACS on 04/19/2016 3:00:54 PM Avinash Buckley MD electronically signed on 04/19/2016 3:01:29 PM with status of Final
[2016-04-19] MEDS: Furosemide 40 MG TABLET PO SCH (17:05)
[2016-04-20 02:03] LABS: Basophils % 0.6 %; Eosinophils # 0.4 K/mcL (0.0-0.6); Eosinophils % 6.2 %; Hematocrit 29.6 % (37.5-50.1); Hemoglobin 9.4 g/dL (12.9-16.9); Immature Granulocytes % 0.2 % (0-4); Lymphocytes # 0.9 K/mcL (0.6-4.6); Lymphocytes % 13.3 %; Mean Corpuscular HGB Conc 31.8 g/dL (31.6-35.5); Mean Corpuscular Hemoglobin 31.3 pg (28.0-33.3); Mean Corpuscular Volume 98.7 fL (83.0-100.0); Mean Platelet Volume 9.5 fL (9.4-12.4); Monocytes # 0.4 K/mcL (0.0-1.3); Monocytes % 6.3 %; Neutrophils # 4.9 K/mcL (1.6-8.9); Platelet Count 267 K/mcL (140-400); Red Cell Distribution Width 15.9 % (11.5-14.5); Segmented Neutrophils % 73.4 %
[2016-04-20 02:08] LABS: INR 1.8; Prothrombin Time 20.3 Seconds (9.4-12.1)
[2016-04-20 02:11] LABS: Activated Partial Thrombo Time 58.3 Seconds (26.0-36.0)
[2016-04-20 02:17] LABS: BUN/Creatinine Ratio 18 (6-26); Blood Urea Nitrogen 15 mg/dL (8-26); Calcium 8.2 mg/dL (8.6-10.8); Carbon Dioxide 23 mEq/L (19-29); Chloride 108 mEq/L (98-109); Glucose 99 mg/dL (70-99); Osmolality,Calculated 285 (280-300); Potassium 4.2 mEq/L (3.5-4.5); Sodium 137 mEq/L (136-145); eGFR For African Americans > 60 (> 60); eGFR For Non-African Americans > 60 (> 60)
[2016-04-20] MEDS: Oxymetazoline Nasal SPRAY BOTTLE NS PRN (03:43)
[2016-04-20] MEDS: Aspirin 81 MG TAB.CHEW PO SCH (08:42)
[2016-04-20] MEDS: Furosemide 40 MG TABLET PO SCH (08:43)
[2016-04-20] MEDS: Magnesium Oxide 400 MG TABLET PO SCH (08:43)
[2016-04-20] MEDS: *HR* Amiodarone 200 MG TABLET PO SCH ×2 (08:43→20:05)
[2016-04-20] MEDS: Ascorbic Acid 500 MG TABLET PO SCH (08:43)
[2016-04-20] MEDS: Cyanocobalamin (B-12) 1,000 MCG TABLET PO SCH (08:43)
--- NOTE | 2016-04-20 09:07 | Cardiothoracic Progress Note ---
Date of Encounter: 04/20/16 Time of Encounter: 09:03 - Assessment and plan (1) Pleural effusion Current Visit: Yes Status: Acute The assessment and plan as outlined above was discussed with the patient and/or family members who expressed understanding and agreement. All questions were answered. I will increase his amiodarone to 200 mg twice a day to attempt to convert him to normal sinus rhythm. His INR is 1.8. The interventional radiologist said that he could undergo bilateral sono guided thoracentesis when his INR is less than 2. The heparin drip would need to be stopped 5 hours prior to the procedure. The procedure could be done today or tomorrow. - Subjective Interval history: The patient states that his shortness of breath is improving. O2 saturation is 93-97. Vital Signs, Last 4 Hours Temp Pulse Resp BP Pulse Ox 04/20/16 07:13 98.0 F 95 16 106/63 94 L Oxgyen Flow Rate Oxygen Flow Rate (LPM) 2 Clinical Data, last 8 Hours Output, Urine Amount 575 Output, Urine Amount 300 Weight 04/18/16 04/19/16 04/20/16 22:59 23:59 23:59 Weight 79.2 kg Lungs have decreased breath sounds in the bases. Heart is in an atrial fibrillation with an irregular rate and rhythm. His incision is healing well without signs of infection and his sternum is stable. - Labs 04/20/16 01:55 04/20/16 01:55 Lab Results, Last 24 hours 04/19/16 04/19/16 04/19/16 09:14 09:14 18:04 WBC Hgb Hct Plt Count INR APTT 52.9 H 63.6 H Sodium Potassium Chloride Carbon Dioxide BUN Creatinine Glucose Calcium Troponin I 0.18 H* 04/20/16 04/20/16 04/20/16 01:55 01:55 01:55 WBC 6.6 Hgb 9.4 L Hct 29.6 L Plt Count 267 INR 1.8 APTT 58.3 H Sodium 137 Potassium 4.2 Chloride 108 Carbon Dioxide 23 BUN 15 Creatinine 0.84 Glucose 99 Calcium 8.2 L Troponin I Consult Discharge Plan - Plan Referrals: NO,PCP [Primary Care Provider] -
--- NOTE | 2016-04-20 09:57 | Internal Med Progress Note ---
<Hernandez Cornejo - Last Filed: 04/20/16 16:31> Date of Encounter: 04/20/16 Time of Encounter: 09:00 - Assessment and plan (1) DVT (deep venous thrombosis) Current Visit: Yes Status: Acute Assessment and plan: - Left subclavian DVT per US. - Hold heparin for US-guided thoracentesis. - Will resume heparin drip after the procedure. - Plan to switch to novel oral anticoagulation agent but will cooperate with caseworker protective services/social work program coordinator to find out which one is covered by his insurance. Qualifiers: DVT location: upper extremity Affected thrombotic vein of extremity: axillary Laterality: left Chronicity: acute Qualified Code(s): I82.A12 - Acute embolism and thrombosis of left axillary vein (2) Pleural effusion Current Visit: Yes Status: Acute Assessment and plan: - Bilateral pleural effusions will be drained by IR. - Patient will have heparin drip held for 5 hours prior to the procedure. - Will send the aspirated pleural fluid for further studies. (3) Atrial fibrillation Current Visit: Yes Status: Acute Assessment and plan: - Rate-controlled with metoprolol and amiodarone. - Increase amiodarone to 200 mg BID per Thoracic Surgery. - Patient is on heparin drip for DVT Qualifiers: Atrial fibrillation type: persistent Qualified Code(s): I48.1 - Persistent atrial fibrillation (4) Pericardial effusion Current Visit: Yes Status: Acute Assessment and plan: - Small pericardial effusion on chest CT. - Per cardiothoracic surgery, surgical intervention is not indicated given the small size and patient is not hemodynamically unstable. (5) Elevated troponin Current Visit: Yes Status: Acute Assessment and plan: Troponins are trending down. This was possibly due to his a-fib with RVR. Continue to monitor rate control. (6) Severe aortic stenosis Current Visit: Yes Status: Chronic Assessment and plan: S/p porcine tissue aortic valve replacement on 04/08/16. - Subjective Interval history: Patient states that he feels about the same as yesterday. He is still having some SOB at rest and still admits that his left arm hurts. He is still has a mild cough and was encouraged to use his Incentive spirometer. Patient denies any new or worsening symptoms today. He denies chest pain, abdominal pain, N/V/ D, urinary symptoms. Thoracic surgery saw the patient this morning and indicated that they spoke with IR and he can get bilateral thoracentesis today or tomorrow since his INR is below 2. Heparin drip needs to be held 4-5 hours before procedure. Thoracic surgery also stated that they will increase his amiodarone for better rate control. On physical exam patient was resting comfortably in bed in no acute distress. Patient was tachycardic at 110 but no murmurs or rubs were auscultated. Lungs were CTAB. Abdomen was soft and non-tender to palpation. - Constitutional Vitals: Temp Pulse Resp BP Pulse Ox 98.0 F 95 16 106/63 94 L 04/20/16 07:13 04/20/16 07:13 04/20/16 07:13 04/20/16 07:13 04/20/16 07:13 General appearance: Present: A&O X 3, pleasant, no acute distress, underweight - Head Head exam: Present: atraumatic, normocephalic - Neck Neck exam general surgery: Present: supple, trachea midline. Absent: lymphadenopathy - Respiratory Respiratory exam: Present: CTAB. Absent: decreased breath sounds, rales, rhonchi - Cardiovascular Cardiovascular exam: Present: RRR, +S1, +S2. Absent: diastolic murmur, systolic murmur - GI/Abdominal GI/Abdominal exam: Present: soft. Absent: distended, tenderness - Expanded Upper Extremities Exam Upper Arm exam: Present: swelling (Left upper extremity DVT). Absent: ecchymosis - Incison Incision: Present: clean and dry, approximated - Psychiatric Psychiatric exam: Present: normal affect, normal mood - Skin Skin exam: Present: dry, normal color, warm Internal Medicine: Result - Labs CBC & Chem 7: 04/20/16 01:55 04/20/16 01:55 Labs: Short CBC 04/20/16 Range/Units 01:55 WBC 6.6 (4.3-11.1) K/mcL Hgb 9.4 L (12.9-16.9) g/dL Hct 29.6 L (37.5-50.1) % Plt Count 267 (140-400) K/mcL Neutrophils # 4.9 (1.6-8.9) K/mcL BMP 04/20/16 01:55 Sodium 137 Potassium 4.2 Chloride 108 Carbon Dioxide 23 BUN 15 Creatinine 0.84 Glucose 99 Calcium 8.2 L Cardiac Enzymes 04/19/16 Range/Units 09:14 Troponin I 0.18 H* (0-0.03) ng/mL - ABG Interpretation ABG results: PT/INR, D-dimer PT 20.3 Seconds (9.4-12.1) H 04/20/16 01:55 Consult Discharge Plan - Plan Referrals: NO,PCP [Primary Care Provider] - <Bertrand Moreno T - Last Filed: 04/20/16 16:59> - Assessment and plan (1) Atrial fibrillation Current Visit: Yes Status: Acute Qualifiers: Atrial fibrillation type: persistent Qualified Code(s): I48.1 - Persistent atrial fibrillation (2) DVT (deep venous thrombosis) Current Visit: Yes Status: Acute Qualifiers: DVT location: upper extremity Affected thrombotic vein of extremity: axillary Laterality: left Chronicity: acute Qualified Code(s): I82.A12 - Acute embolism and thrombosis of left axillary vein (3) CHF (congestive heart failure) Current Visit: Yes Status: Chronic Qualifiers: Congestive heart failure type: diastolic Congestive heart failure chronicity: chronic Qualified Code(s): I50.32 - Chronic diastolic (congestive ) heart failure (4) Elevated troponin Current Visit: Yes Status: Acute (5) Pericardial effusion Current Visit: Yes Status: Acute (6) Pleural effusion Current Visit: Yes Status: Acute (7) Free intraperitoneal air Current Visit: Yes Status: Chronic (8) Severe aortic stenosis Current Visit: Yes Status: Chronic - Constitutional Vitals: Temp Pulse Resp BP Pulse Ox 98.0 F 93 16 95/73 98 04/20/16 15:48 04/20/16 15:48 04/20/16 15:48 04/20/16 15:48 04/20/16 15:48 Internal Medicine: Result - Labs CBC & Chem 7: 04/20/16 01:55 04/20/16 01:55 Labs: Short CBC 04/20/16 Range/Units 01:55 WBC 6.6 (4.3-11.1) K/mcL Hgb 9.4 L (12.9-16.9) g/dL Hct 29.6 L (37.5-50.1) % Plt Count 267 (140-400) K/mcL Neutrophils # 4.9 (1.6-8.9) K/mcL BMP 04/20/16 01:55 Sodium 137 Potassium 4.2 Chloride 108 Carbon Dioxide 23 BUN 15 Creatinine 0.84 Glucose 99 Calcium 8.2 L - ABG Interpretation ABG results: PT/INR, D-dimer PT 20.3 Seconds (9.4-12.1) H 04/20/16 01:55 - Impressions Impressions Thoracentesis Ultrasound 04/20/16 00:00 IMPRESSION: Successful ultrasound guided right thoracentesis. D/ / Shivani Sotomayor MD / Shivani Sotomayor MD Interpreting Provider: Shivani Sotomayor MD Chest X-Ray 04/20/16 15:21 IMPRESSION: Stable cardiomegaly. Atelectasis and moderate pleural effusion at the left lung base, stable. Interval clearing of the right lung base. Interval resolution of right-sided pleural effusion. No pneumothorax. D/ / Demarcus Mendez MD / Demarcus Mendez MD Interpreting Provider: Demarcus Mendez MD - Attending Attestation I examined this patient and my medical decision-making was reviewed with the ORTHOPAEDIC SURGEON/PA/Advanced Practice Nurse/Resident Physician. I agree with the documented findings, disposition and treatment plan as described except to the extent set forth below. Seen independently at bedside 71 Y/ M s/p AVR with new LUE DVT and biateral pleural effusions, He is for thoracentensis today after which we will attempt to switch him to po LINSEY He has no new complains Physical exam is notable for improving LUE swelling, chest exam with decreased air entry bilaterally Plan is for thoracentensis by IR, consult placed , hold heparin till after procedure, continue lasix, Rest of details as in resident's documentation....
--- NOTE | 2016-04-20 15:20 | IR Procedure Note ---
Date of procedure: 04/20/16 Consent Obtained: Verbal consent Timeout: Correct patient and procedure verified, Correct site verified, Time out performed, Skin prep completed Indications: effusions Procedure Performed: right thoracentesis Site/Technique: rt, 8F Results/Findings: large effusion Estimated blood loss (cc): 0 Complications: None; Tolerated procedure well Post Procedure Treatment Plan: CXR
--- NOTE | 2016-04-20 15:20 | Electrocardiograph Report ---
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
[2016-04-20 17:38] LABS: LDH,Pleural Fluid 160 Units/L (No Ref Range); Total Protein,Pleural Fluid 2.1 g/dL (No Ref Range)
[2016-04-20 17:43] LABS: RBC,Pleural Fluid 0.134 M/mcL
[2016-04-20 18:41] LABS: Appearance of Pleural Fl Bloody (Clear)
[2016-04-20] MEDS: Heparin 25,000 UNIT/500 ML D5W 25,000 UNIT/500 ML MLS IVC SCH (21:00)
[2016-04-21 03:23] LABS: Basophils % 0.4 %; Eosinophils # 0.3 K/mcL (0.0-0.6); Eosinophils % 3.4 %; Hematocrit 30.6 % (37.5-50.1); Hemoglobin 9.9 g/dL (12.9-16.9); Immature Granulocytes % 0.4 % (0-4); Lymphocytes # 1.2 K/mcL (0.6-4.6); Lymphocytes % 14.8 %; Mean Corpuscular HGB Conc 32.4 g/dL (31.6-35.5); Mean Corpuscular Hemoglobin 31.3 pg (28.0-33.3); Mean Corpuscular Volume 96.8 fL (83.0-100.0); Mean Platelet Volume 9.3 fL (9.4-12.4); Monocytes # 0.4 K/mcL (0.0-1.3); Monocytes % 5.6 %; Neutrophils # 5.9 K/mcL (1.6-8.9); Platelet Count 329 K/mcL (140-400); Red Blood Count 3.16 M/mcL (4.19-5.50); Red Cell Distribution Width 15.8 % (11.5-14.5); Segmented Neutrophils % 75.4 %
[2016-04-21 03:28] LABS: INR 1.7; Prothrombin Time 18.8 Seconds (9.4-12.1)
[2016-04-21 03:34] LABS: BUN/Creatinine Ratio 18 (6-26); Blood Urea Nitrogen 13 mg/dL (8-26); Carbon Dioxide 22 mEq/L (19-29); Chloride 106 mEq/L (98-109); Glucose 100 mg/dL (70-99); Osmolality,Calculated 280 (280-300); Potassium 4.1 mEq/L (3.5-4.5); Sodium 135 mEq/L (136-145); eGFR For African Americans > 60 (> 60); eGFR For Non-African Americans > 60 (> 60)
--- NOTE | 2016-04-21 08:00 | Cardiothoracic Progress Note ---
Date of Encounter: 04/21/16 Time of Encounter: 08:01 - Assessment and plan (1) Pleural effusion Current Visit: Yes Status: Acute The patient will undergo left-sided thoracentesis today. This will be done in interventional radiology. - Subjective Interval history: The patient had thoracentesis in interventional radiology yesterday. He states that his shortness of breath is improved. Vital Signs, Last 4 Hours Temp Pulse Resp BP Pulse Ox 04/21/16 07:33 97.6 F 100 18 122/77 99 04/21/16 05:17 97.6 F 100 16 126/86 98 Oxgyen Flow Rate Oxygen Flow Rate (LPM) 2 Weight 04/19/16 04/20/16 04/21/16 23:59 23:59 23:59 Weight 79.2 kg 77.6 kg Lungs have decreased breath sounds on the left side with dullness to percussion. Heart is in an atrial fibrillation with an irregular rate. The heart rate is well controlled. The patient's incision is healing well without signs of infection and the sternum is stable. - Labs 04/21/16 03:15 04/21/16 03:15 Lab Results, Last 24 hours 04/21/16 04/21/16 04/21/16 03:15 03:15 03:15 WBC 7.9 Hgb 9.9 L Hct 30.6 L Plt Count 329 INR 1.7 APTT 73.0 H Sodium 135 L Potassium 4.1 Chloride 106 Carbon Dioxide 22 BUN 13 Creatinine 0.74 Glucose 100 H Calcium 8.0 L Consult Discharge Plan - Plan Referrals: NO,PCP [Primary Care Provider] -
[2016-04-21 08:56] LABS: Total Protein 5.3 g/dL (6.0-8.3)
[2016-04-21 08:58] LABS: Lactate Dehydrogenase 354 Units/L (159-327)
[2016-04-21] MEDS: Cyanocobalamin (B-12) 1,000 MCG TABLET PO SCH (09:01)
[2016-04-21] MEDS: Magnesium Oxide 400 MG TABLET PO SCH (09:02)
[2016-04-21] MEDS: Aspirin 81 MG TAB.CHEW PO SCH (09:02)
[2016-04-21] MEDS: Ascorbic Acid 500 MG TABLET PO SCH (09:02)
[2016-04-21] MEDS: *HR* Amiodarone 200 MG TABLET PO SCH ×2 (09:03→20:49)
[2016-04-21] MEDS: Furosemide 40 MG TABLET PO SCH (09:03)
[2016-04-21] MEDS: *HR* OxyCODONE/APAP 5/325 TABLET PO PRN ×2 (09:07→20:51)
--- NOTE | 2016-04-21 10:06 | Internal Med Progress Note ---
<Bertrand Moreno T - Last Filed: 04/21/16 14:29> - Assessment and plan (1) Atrial fibrillation Current Visit: Yes Status: Acute Qualifiers: Atrial fibrillation type: persistent Qualified Code(s): I48.1 - Persistent atrial fibrillation (2) DVT (deep venous thrombosis) Current Visit: Yes Status: Acute Qualifiers: DVT location: upper extremity Affected thrombotic vein of extremity: axillary Laterality: left Chronicity: acute Qualified Code(s): I82.A12 - Acute embolism and thrombosis of left axillary vein (3) CHF (congestive heart failure) Current Visit: Yes Status: Chronic Qualifiers: Congestive heart failure type: diastolic Congestive heart failure chronicity: chronic Qualified Code(s): I50.32 - Chronic diastolic (congestive ) heart failure (4) Elevated troponin Current Visit: Yes Status: Acute (5) Pericardial effusion Current Visit: Yes Status: Acute (6) Pleural effusion Current Visit: Yes Status: Acute (7) Free intraperitoneal air Current Visit: Yes Status: Chronic (8) Severe aortic stenosis Current Visit: Yes Status: Chronic - Constitutional Vitals: Temp Pulse Resp BP Pulse Ox 97.8 F 97 18 97/73 98 04/21/16 11:22 04/21/16 11:22 04/21/16 11:22 04/21/16 11:22 04/21/16 11:22 Internal Medicine: Result - Labs CBC & Chem 7: 04/21/16 03:15 04/21/16 03:15 Labs: Short CBC 04/21/16 Range/Units 03:15 WBC 7.9 (4.3-11.1) K/mcL Hgb 9.9 L (12.9-16.9) g/dL Hct 30.6 L (37.5-50.1) % Plt Count 329 (140-400) K/mcL Neutrophils # 5.9 (1.6-8.9) K/mcL BMP 04/21/16 03:15 Sodium 135 L Potassium 4.1 Chloride 106 Carbon Dioxide 22 BUN 13 Creatinine 0.74 Glucose 100 H Calcium 8.0 L - ABG Interpretation ABG results: PT/INR, D-dimer PT 18.8 Seconds (9.4-12.1) H 04/21/16 03:15 - Impressions Impressions Thoracentesis Ultrasound 04/20/16 00:00 IMPRESSION: Successful ultrasound guided right thoracentesis. D/ / Shivani Sotomayor MD / Shivani Sotomayor MD Interpreting Provider: Shivani Sotomayor MD Chest X-Ray 04/20/16 15:21 IMPRESSION: Stable cardiomegaly. Atelectasis and moderate pleural effusion at the left lung base, stable. Interval clearing of the right lung base. Interval resolution of right-sided pleural effusion. No pneumothorax. D/ / Demarcus Mendez MD / Demarcus Mendez MD Interpreting Provider: Demarcus Mendez MD Chest X-Ray 04/21/16 00:01 IMPRESSION: Stable appearance of the chest with cardiomegaly and a moderate left pleural effusion. D/ / Bartolo Haney MD / Bartolo Haney MD Interpreting Provider: Bartolo Haney MD Consult Discharge Plan - Plan Referrals: NO,PCP [Primary Care Provider] - - Attending Attestation I examined this patient and my medical decision-making was reviewed with the INFANT CAREGIVER/PA/Advanced Practice Nurse/Resident Physician. I agree with the documented findings, disposition and treatment plan as described except to the extent set forth below. Seen independently at bedside 71 Y/ M s/p AVR with new LUE DVT and biateral pleural effusions, He is s/p R thoracentensis 04/20, work up unremarkable Rpt CXR today with moderate left pleural effusion He is for L thoracentensis today after which we will attempt to switch him to po LINSEY He complained of pain at previous thoracentensis site Physical exam is notable for improving LUE swelling, chest exam with decreased air entry bilaterally Plan is for thoracentensis by IR, consult placed , hold heparin till after procedure, continue lasix, Pain control Rest of details as in resident's documentation.... <Hernandez Cornejo - Last Filed: 04/21/16 15:24> Date of Encounter: 04/21/16 Time of Encounter: 08:15 - Assessment and plan (1) DVT (deep venous thrombosis) Current Visit: Yes Status: Acute Assessment and plan: - Left subclavian DVT per US. - Hold heparin for US-guided thoracentesis. - Will resume heparin drip after the procedure. - Plan to switch to novel oral anticoagulation agent but will cooperate with nurse case management/social contact worker to find out which one is covered by his insurance. Qualifiers: DVT location: upper extremity Affected thrombotic vein of extremity: axillary Laterality: left Chronicity: acute Qualified Code(s): I82.A12 - Acute embolism and thrombosis of left axillary vein (2) Pleural effusion Current Visit: Yes Status: Acute Assessment and plan: - Bilateral pleural effusions as shown on chest CTA. - Status post right-side thoracentesis by IR on 04/20/16. Transudate pleural fluid with numerous RBC with 762 WBCs. - Patient will have heparin drip held for 5 hours prior to planned left-sided thoracentesis by IR today. (3) Atrial fibrillation Current Visit: Yes Status: Acute Assessment and plan: - Rate-controlled with metoprolol and amiodarone. - Continue current rate control regimen. - Currently on heparin drip for DVT Qualifiers: Atrial fibrillation type: persistent Qualified Code(s): I48.1 - Persistent atrial fibrillation (4) Pericardial effusion Current Visit: Yes Status: Acute Assessment and plan: - Small pericardial effusion on chest CT. - Per cardiothoracic surgery, surgical intervention is not indicated given the small size and patient is not hemodynamically unstable. (5) Elevated troponin Current Visit: Yes Status: Acute Assessment and plan: - Troponin initially elevated at 0.26 but later trended down to 0.18. Likely due to his a-fib with RVR. Continue to monitor rate control. (6) Severe aortic stenosis Current Visit: Yes Status: Chronic Assessment and plan: S/p porcine tissue aortic valve replacement on 04/08/16. - Subjective Interval history: No significant event noted. Patient was seen and examined this morning. Patient had right-side thoracentesis yesterday and reports better breathing after. Patient denies fever, chills, nausea, vomiting, diarrhea. - Constitutional Vitals: Temp Pulse Resp BP Pulse Ox 97.6 F 100 18 122/77 99 04/21/16 07:33 04/21/16 07:33 04/21/16 07:33 04/21/16 07:33 04/21/16 07:33 General appearance: Present: A&O X 3, pleasant, no acute distress, underweight - Head Head exam: Present: atraumatic, normocephalic - Eye Eye exam: Present: PERRL, conjuntiva pink, sclera anicteric - Neck Neck exam general surgery: Present: supple, trachea midline. Absent: lymphadenopathy - Respiratory Respiratory exam: Present: decreased breath sounds (Left lower lung base). Absent: accessory muscle use, rales, rhonchi, wheezes - Cardiovascular Cardiovascular exam: Present: +S1, +S2, tachycardia. Absent: diastolic murmur, gallop, rubs, systolic murmur - GI/Abdominal GI/Abdominal exam: Present: normal bowel sounds, soft, no peritoneal signs. Absent: distended, tenderness - Extremities Exam Extremities exam: Present: warm, radial pulses palpable and symetrical. Absent : calf tenderness, cyanotic Additional comments: LUE swelling improves. - Neurological Exam Neurological exam: Present: CN II-XII intact, oriented X3, no focal deficits. Absent: pronater drift, facial droop, speech deficit - Skin Skin exam: Present: dry, intact Internal Medicine: Result - Labs CBC & Chem 7: 04/21/16 03:15 04/21/16 03:15 Labs: Short CBC 04/21/16 Range/Units 03:15 WBC 7.9 (4.3-11.1) K/mcL Hgb 9.9 L (12.9-16.9) g/dL Hct 30.6 L (37.5-50.1) % Plt Count 329 (140-400) K/mcL Neutrophils # 5.9 (1.6-8.9) K/mcL BMP 04/21/16 03:15 Sodium 135 L Potassium 4.1 Chloride 106 Carbon Dioxide 22 BUN 13 Creatinine 0.74 Glucose 100 H Calcium 8.0 L - ABG Interpretation ABG results: PT/INR, D-dimer PT 18.8 Seconds (9.4-12.1) H 04/21/16 03:15 - Impressions Impressions Thoracentesis Ultrasound 04/20/16 00:00 IMPRESSION: Successful ultrasound guided right thoracentesis. D/ / Shivani Sotomayor MD / Shivani Sotomayor MD Interpreting Provider: Shivani Sotomayor MD Chest X-Ray 04/20/16 15:21 IMPRESSION: Stable cardiomegaly. Atelectasis and moderate pleural effusion at the left lung base, stable. Interval clearing of the right lung base. Interval resolution of right-sided pleural effusion. No pneumothorax. D/ / Demarcus Mendez MD / Demarcus Mendez MD Interpreting Provider: Demarcus Mendez MD Chest X-Ray 04/21/16 00:01
--- NOTE | 2016-04-21 16:37 | IR Procedure Note ---
Date of procedure: 04/21/16 Consent Obtained: Verbal consent, Written consent Indications: left effusion Procedure Performed: chest US Site/Technique: left Results/Findings: small left effusion; insufficient for therapeutic thoracentesis
[2016-04-21 18:06] LABS: Activated Partial Thrombo Time 184.8 Seconds (26.0-36.0)
[2016-04-21 18:14] LABS: Heparin anti-factor XA UFH 0.65 IU/mL (0.30-0.70)
[2016-04-22 02:50] LABS: Basophils % 0.6 %; Eosinophils # 0.3 K/mcL (0.0-0.6); Hematocrit 31.2 % (37.5-50.1); Hemoglobin 9.9 g/dL (12.9-16.9); Immature Granulocytes % 0.3 % (0-4); Lymphocytes # 1.4 K/mcL (0.6-4.6); Lymphocytes % 21.5 %; Mean Corpuscular HGB Conc 31.7 g/dL (31.6-35.5); Mean Corpuscular Hemoglobin 30.8 pg (28.0-33.3); Mean Corpuscular Volume 97.2 fL (83.0-100.0); Mean Platelet Volume 9.3 fL (9.4-12.4); Monocytes # 0.4 K/mcL (0.0-1.3); Monocytes % 5.9 %; Neutrophils # 4.3 K/mcL (1.6-8.9); Platelet Count 306 K/mcL (140-400); Red Blood Count 3.21 M/mcL (4.19-5.50); Red Cell Distribution Width 15.9 % (11.5-14.5); Segmented Neutrophils % 66.7 %
[2016-04-22 02:53] LABS: INR 1.7; Prothrombin Time 18.6 Seconds (9.4-12.1)
[2016-04-22 02:55] LABS: Activated Partial Thrombo Time 42.4 Seconds (26.0-36.0)
[2016-04-22 03:00] LABS: BUN/Creatinine Ratio 22 (6-26); Blood Urea Nitrogen 17 mg/dL (8-26); Calcium 8.1 mg/dL (8.6-10.8); Carbon Dioxide 24 mEq/L (19-29); Chloride 106 mEq/L (98-109); Glucose 99 mg/dL (70-99); Osmolality,Calculated 286 (280-300); Potassium 4.5 mEq/L (3.5-4.5); Sodium 137 mEq/L (136-145); eGFR For African Americans > 60 (> 60); eGFR For Non-African Americans > 60 (> 60)
[2016-04-22] MEDS: Heparin 25,000 UNIT/500 ML D5W 25,000 UNIT/500 ML MLS IVC SCH (06:34)
[2016-04-22] MEDS: *HR* OxyCODONE/APAP 5/325 TABLET PO PRN ×2 (06:38→13:35)
[2016-04-22] MEDS: Cyanocobalamin (B-12) 1,000 MCG TABLET PO SCH (08:44)
[2016-04-22] MEDS: *HR* Amiodarone 200 MG TABLET PO SCH (08:44)
[2016-04-22] MEDS: Aspirin 81 MG TAB.CHEW PO SCH (08:44)
[2016-04-22] MEDS: Furosemide 40 MG TABLET PO SCH (08:44)
[2016-04-22] MEDS: Ascorbic Acid 500 MG TABLET PO SCH (08:44)
[2016-04-22] MEDS: Magnesium Oxide 400 MG TABLET PO SCH (08:45)
--- NOTE | 2016-04-22 09:42 | Cardiothoracic Progress Note ---
Date of Encounter: 04/22/16 Time of Encounter: 09:40 - Assessment and plan (1) Pleural effusion Current Visit: Yes Status: Acute The patient needs to be taken off his heparin drip and restarted on Eliquis. He needs to sit in a chair and ambulate. He is okay to discharge back to the rehabilitation facility from my standpoint. I will need to see him in the office in 2-3 weeks. - Subjective Interval history: The patient went to interventional radiology yesterday, but was found to have not enough fluid for a tap. O2 saturation this morning is 96-97 on room air. His shortness of breath is improved. Vital Signs, Last 4 Hours Temp Pulse Resp BP Pulse Ox 04/22/16 07:10 97.6 F 88 16 107/69 97 Oxgyen Flow Rate Oxygen Flow Rate (LPM) 2 Clinical Data, last 8 Hours Output, Urine Amount 0 Output, Urine Amount 410 Output, Urine Amount 600 Output, Urine Amount 550 Weight 04/20/16 04/21/16 04/22/16 23:59 23:59 23:59 Weight 79.2 kg 77.6 kg 77.7 kg Lungs are clear to percussion and auscultation. Heart is in a irregular rate and rhythm. There are no diastolic murmurs. All incisions are healing well without signs of infection and the sternum is stable. - Labs 04/22/16 02:25 04/22/16 02:25 Lab Results, Last 24 hours 04/21/16 04/22/16 04/22/16 17:28 02:25 02:25 WBC 6.5 Hgb 9.9 L Hct 31.2 L Plt Count 306 INR APTT 184.8 H* D Sodium 137 Potassium 4.5 Chloride 106 Carbon Dioxide 24 BUN 17 Creatinine 0.77 Glucose 99 Calcium 8.1 L 04/22/16 04/22/16 02:25 02:25 WBC Hgb Hct Plt Count INR 1.7 APTT 42.4 H D 43.6 H Sodium Potassium Chloride Carbon Dioxide BUN Creatinine Glucose Calcium Consult Discharge Plan - Plan Referrals: NO,PCP [Primary Care Provider] -
[2016-04-22 11:03] LABS: Activated Partial Thrombo Time > 360.0 Seconds (26.0-36.0)
[2016-04-22 11:16] VITALS: BP 103/70
--- NOTE | 2016-04-22 13:30 | Discharge Summary ---
<Hernandez Cornejo - Last Filed: 04/22/16 14:34> Date of Encounter: 04/22/16 Time of Encounter: 10:00 - Discharge Diagnosis (1) DVT (deep venous thrombosis) Priority: Primary Status: Acute Qualifiers: DVT location: upper extremity Affected thrombotic vein of extremity: axillary Laterality: left Chronicity: acute Qualified Code(s): I82.A12 - Acute embolism and thrombosis of left axillary vein (2) Pleural effusion Priority: Secondary Status: Acute (3) Atrial fibrillation Priority: Secondary Status: Chronic Qualifiers: Atrial fibrillation type: persistent Qualified Code(s): I48.1 - Persistent atrial fibrillation (4) Pericardial effusion Priority: Secondary Status: Acute (5) Elevated troponin Priority: Secondary Status: Acute (6) Severe aortic stenosis Priority: Secondary Status: Chronic - Discharge Medications Prescriptions: Amiodarone [Cordarone] 200 mg PO BID #30 tablet OxyCODONE/APAP 5/325 [Percocet 5/325 MG] 1 tab PO Q6H PRN #10 tablet PRN Reason: Severe Pain Rivaroxaban [Xarelto] 15 mg PO BID #42 tablet Rivaroxaban [Xarelto] 20 mg PO DAILY #35 tablet Home Medications: Ascorbate Calcium [Vitamin C] 500 mg PO DAILY 03/24/16 [History] Calcium Carbonate [Calcium] 600 mg PO DAILY 03/24/16 [History] Cyanocobalamin (Vitamin B-12) [Vitamin B-12] 1,000 mcg SL DAILY 03/24/16 [ History] Magnesium 200 mg PO DAILY 03/24/16 [History] Albuterol Sulfate [Albuterol Inhaler] 2 puff IH [id number] inhaler 04/14/16 [Rx] Aspirin 81 mg PO DAILY #30 tab.chew 04/14/16 [Rx] Docusate [Colace] 100 mg PO BID #30 capsule 04/14/16 [Rx] Metoprolol [Lopressor] 12.5 mg PO BID #30 tablet 04/14/16 [Rx] Atorvastatin Calcium [Lipitor] 20 mg PO HS 04/18/16 [History] Omeprazole [PriLOSEC] 20 mg PO DAILY 04/18/16 [History] Amiodarone [Cordarone] 200 mg PO BID #30 tablet 04/22/16 [Rx] OxyCODONE/APAP 5/325 [Percocet 5/325 MG] 1 tab PO Q6H PRN #10 tablet 04/22/16 [ Rx] Rivaroxaban [Xarelto] 15 mg PO BID #42 tablet 04/22/16 [Rx] Rivaroxaban [Xarelto] 20 mg PO DAILY #35 tablet 04/22/16 [Rx] Allergies/Adverse Reactions: Allergies Sulfa (Sulfonamide Antibiotics) Allergy (Verified 03/24/16 09:06) Hives patient states childhood reaction Procedures/tests Complete & Pending: Procedures Performed prior 72 hours Category Date Time Status IR thoracentesis ultrasound [IR] Routine IR 04/20/16 Completed IR thoracentesis ultrasound [IR] Routine IR 04/21/16 Completed Date of admission: 04/18/16 19:00 Primary care physician: PCP NO Consults: 04/18/16 19:05 Consult to Frit Coater [CONS] Routine Reason for SW Consult: [facility] 04/20/16 14:23 Consult to Interventional Radiology [CONS] Routine Consulting Provider: Radiology Interventional Cols Reason for Consult: Thoracentensis Call Completed: Yes 04/21/16 07:41 Consult to Case Management [CONS] Routine Comment: evaluate coverage for xarelto/eliquis. 04/21/16 09:04 Consult to Interventional Radiology [CONS] Routine Consulting Provider: Radiology Interventional Cols Reason for Consult: Left thoracentesis Call Completed: Yes Discharging clinician: Hernandez Cornejo Anticipated date of discharge: 04/22/16 - Patient Status Disposition: Transfer SNF Condition: Good Functional capacity at discharge: independent ambulation Overall status at discharge: patient is progressing back to baseline - Discharge Instructions Follow Up With: NO,PCP [Primary Care Provider] - Additional Instructions: Please start taking Xarelto 15 mg by mouth twice a day for 21 days and then switch to Xarelto 20 mg by mouth daily. Please take Xarelto for at least 3 months and follow up with your primary care physician after to determine if you need to continue on that. Please be aware that your amiodarone had been increased to 200 mg by mouth twice a day. Please follow up with Dr. Javed of [place] cardiothoracic surgery within 2-3 weeks. Please come back to ED if you develop significant shortness of breath, swelling , fever, chills. - Diet and Activity Activity: increase activity as tolerated Diet: low salt diet Hospital course: Mr. Villa is a 71 year old male with PMH of a-fib and severe aortic stenosis s/ p AVR on 04/08/16. [facility] worsening left arm swelling and shortness of breath. Venous US found left subclavian DVT. And CTA chest found bilateral pleural effusion and pericardial effusion but no evidence of PE. Troponin initially elevated at 0.26 but later trended down to 0.18. Patient was admitted on 04/18 for provoked left subclavian DVT and pleural effusion. Patient was started on heparin drip and patient's respiratory status and left upper extremity swelling improve during hospitalization. Patient also underwent right- sided therapeutic thoracentesis on 04/20 which also helped his breathing. Left- side throacentesis was not performed due to inadequate volume to tap. Per cardiothoracic surgery, surgical intervention for pericardial effusion is not indicated given the small size and patient is not hemodynamically unstable. Amiodarone was increased to 200 mg PO BID for better rate control of A-fib. Patient improves clinically throughout hospitalization and remains hemodynamically stable. Patient will be discharged back to [facility] with prescriptions for 3-month supply of Xarelto. Patient was instructed to take Xarelto 15 mg PO BID for 21 days and then switch to 20 mg PO daily. Patient will need to be on Xarelto for at least 3 months and then follow up with his PCP to determine if he needs to be continued on that. Patient verbalized his understanding. - Time Spent with Patient Total time spent providing and/or coordinating discharge services: Greater than 30 minutes - Constitutional Vitals: Temp Pulse Resp BP Pulse Ox 97.6 F 83 15 103/70 98 04/22/16 11:00 04/22/16 11:00 04/22/16 11:00 04/22/16 11:04/22/16 11:00 General appearance: Present: A&O X 3, pleasant, no acute distress, underweight - Head Head exam: Present: atraumatic, normocephalic - Eye Eye exam: Present: PERRL, conjuntiva pink, sclera anicteric Pupils: Present: PERRL - Neck Neck exam general surgery: Present: supple, trachea midline. Absent: lymphadenopathy - Respiratory Respiratory exam: Present: decreased breath sounds (Left lung base.), rales ( Righ lung base). Absent: accessory muscle use, rhonchi, wheezes - Cardiovascular Cardiovascular exam: Present: irregular rhythm, +S1, +S2. Absent: diastolic murmur, gallop, rubs, systolic murmur - GI/Abdominal GI/Abdominal exam: Present: normal bowel sounds, soft, no peritoneal signs. Absent: distended, tenderness - Extremities Exam Extremities exam: Present: warm, radial pulses palpable and symetrical. Absent : calf tenderness, cyanotic Additional comments: Left upper extremity size is similar to the right. - Neurological Exam Neurological exam: Present: CN II-XII intact, oriented X3, no focal deficits. Absent: pronater drift, facial droop, speech deficit - Skin Skin exam: Present: dry, intact. Absent: rash <Bertrand Moreno T - Last Filed: 04/22/16 15:02> - Discharge Diagnosis (1) Atrial fibrillation Status: Chronic Qualifiers: Atrial fibrillation type: persistent Qualified Code(s): I48.1 - Persistent atrial fibrillation (2) DVT (deep venous thrombosis) Status: Acute Qualifiers: DVT location: upper extremity Affected thrombotic vein of extremity: axillary Laterality: left Chronicity: acute Qualified Code(s): I82.A12 - Acute embolism and thrombosis of left axillary vein (3) CHF (congestive heart failure) Status: Chronic Qualifiers: Congestive heart failure type: diastolic Congestive heart failure chronicity: chronic Qualified Code(s): I50.32 - Chronic diastolic (congestive ) heart failure (4) Elevated troponin Status: Acute (5) Pericardial effusion Status: Acute (6) Pleural effusion Status: Acute (7) Free intraperitoneal air Status: Chronic (8) Severe aortic stenosis Status: Chronic Procedures/tests Complete & Pending: Procedures Performed prior 72 hours Category Date Time Status IR thoracentesis ultrasound [IR] Routine IR 04/20/16 Completed IR thoracentesis ultrasound [IR] Routine IR 04/21/16 Completed Date of admission: 04/18/16 19:00 Primary care physician: PCP NO Consults: 04/18/16 19:05 Consult to Frit Coater [CONS] Routine Reason for SW Consult: PATIENT FROM [facility] 04/20/16 14:23 Consult to Interventional Radiology [CONS] Routine Consulting Provider: Radiology Interventional Cols Reason for Consult: Thoracentensis Call Completed: Yes 04/21/16 07:41 Consult to Case Management [CONS] Routine Comment: evaluate coverage for xarelto/eliquis. 04/21/16 09:04 Consult to Interventional Radiology [CONS] Routine Consulting Provider: Radiology Luis Adams Reason for Consult: Left thoracentesis Call Completed: Yes Hospital course: Mr. Villa is a 71 year old male - Time Spent with Patient Total time spent providing and/or coordinating discharge services: - Constitutional Vitals: Temp Pulse Resp BP Pulse Ox 97.6 F 83 15 103/70 98 04/22/16 11:00 04/22/16 11:00 04/22/16 11:00 04/22/16 11:00 04/22/16 11:00 - Attending Attestation I examined this patient and my medical decision-making was reviewed with the FLEET ADMINISTRATIVE ASSISTANT/PA/Advanced Practice Nurse/Resident Physician. I agree with the documented findings, disposition and treatment plan as described except to the extent set forth below. Seen independently at bedside 71 Y/ M s/p AVR with new LUE DVT and bilateral pleural effusions, Afib with RVR He is s/p R thoracenteses 04/20, work up unremarkable, L pleural effusion not enough to be drained per IR He is seen at bedside, complains of constipation Physical exam is notable for improving LUE swelling, chest exam with decreased air entry bilaterally Plan is for Senna-Plus po , and discharge to SNF on current medications. DVT is provoked from recent surgery/CVC. Follow up with PCP for discontinuation of LINSEY after 3 months. Rest of details as in resident's documentation....
[2016-04-22] MEDS ORDERED: Sennosides/Docusate Sodium TABLET PO ONE (14:20)
--- NOTE | 2016-04-22 14:25 | Physician Discharge Referral ---
ExtendedCare Referral Info Transfer To: [facility] Provider in Charge: Dr. Moreno Provider in Charge after Transfer: PCP Institutional Level of Care: Skilled - Diagnosis (1) Atrial fibrillation Priority: Primary Status: Chronic (2) DVT (deep venous thrombosis) Priority: Primary Status: Acute (3) CHF (congestive heart failure) Priority: Secondary Status: Chronic (4) Elevated troponin Priority: Primary Status: Acute (5) Pericardial effusion Priority: Secondary Status: Acute (6) Pleural effusion Priority: Secondary Status: Acute (7) Free intraperitoneal air Priority: Secondary Status: Chronic (8) Severe aortic stenosis Priority: Secondary Status: Chronic Prognosis: Fair Aware of Diagnosis: Patient Aware of Prognosis: Patient - Transfer Medications Prescriptions: Amiodarone [Cordarone] 200 mg PO BID #30 tablet OxyCODONE/APAP 5/325 [Percocet 5/325 MG] 1 tab PO Q6H PRN #10 tablet PRN Reason: Severe Pain Rivaroxaban [Xarelto] 15 mg PO BID #42 tablet Rivaroxaban [Xarelto] 20 mg PO DAILY #35 tablet Home Medications: Ascorbate Calcium [Vitamin C] 500 mg PO DAILY 03/24/16 [History] Calcium Carbonate [Calcium] 600 mg PO DAILY 03/24/16 [History] Cyanocobalamin (Vitamin B-12) [Vitamin B-12] 1,000 mcg SL DAILY 03/24/16 [ History] Magnesium 200 mg PO DAILY 03/24/16 [History] Albuterol Sulfate [Albuterol Inhaler] 2 puff [id number] [id number] inhaler 04/14/16 [Rx] Aspirin 81 mg PO DAILY #30 tab.chew 04/14/16 [Rx] Docusate [Colace] 100 mg PO BID #30 capsule 04/14/16 [Rx] Metoprolol [Lopressor] 12.5 mg PO BID #30 tablet 04/14/16 [Rx] Atorvastatin Calcium [Lipitor] 20 mg PO HS 04/18/16 [History] Omeprazole [PriLOSEC] 20 mg PO DAILY 04/18/16 [History] Amiodarone [Cordarone] 200 mg PO BID #30 tablet 04/22/16 [Rx] OxyCODONE/APAP 5/325 [Percocet 5/325 MG] 1 tab PO Q6H PRN #10 tablet 04/22/16 [ Rx] Rivaroxaban [Xarelto] 15 mg PO BID #42 tablet 04/22/16 [Rx] Rivaroxaban [Xarelto] 20 mg PO DAILY #35 tablet 04/22/16 [Rx] Allergies/Adverse Reactions: Allergies Sulfa (Sulfonamide Antibiotics) Allergy (Verified 03/24/16 09:06) Hives patient states childhood reaction - Respiratory Orders Oxygen / L per min (2-3L prn, O2Sat of >92%) Smoking Cessation: Smoking cessation has been advised. For more information, call the [place] Tobacco Quit Line at 4-710-PHCF-NOW. - Advance Directives Code Status: Full Code - Mobility Orders Other (Per PT) - Rehabiliation Orders Rehab Potential: Good Rehab Orders: Evaluation for Physical Therapy - Diet Orders Cardiac CERTIFICATION: I certify that the transfer of the above named patient to an Extended Care Facility is necessary for the continuing treatment of the diagnosis listed. The above information is true and accurate reflection of patient's current condition. Confidential - Redisclosure prohibited without a patient's written consent.
== END 2016-04-22 18:08 | DRG 299 ==
LOC: EMEROO 11:51 → 2NENU 11:51 → SUATTDRO 19:00
PROVIDERS: ADMIT Internal Medicine; ATTEND Internal Medicine